=== PATIENT | female | born 1960 ===

== ENCOUNTER 2017-04-09 22:22 | Inpatient (IN) | payer MEDICAID ==
--- NOTE | 2017-04-09 22:33 | ED PDOC ---
Arrival/HPI - General Time Seen by Provider: 04/09/17 22:31 Historian: Patient - Critical Care Critical Care Minutes: 30 minutes - History of Present Illness Narrative History of Present Illness (Text): 04/09/17 22:31 Cristine Nicholas is a 56 year old female, whose past medical history includes asthma, who presents to the emergency department complaining of pleuritic, retrosternal chest pain that began this morning. Patient states that she feels heavy and experiences dyspnea on exertion. Patient confirms that her current symptoms are different from her asthma symptoms. At present, patient is in no respiratory distress and denies any other complaint at this time. PMD: Dr. Collins Time/Duration: 24 hours (This morning) Symptom Onset: Gradual Symptom Course: Unchanged Severity Level: Mild Activities at Onset: Light Context: Home Past Medical History - Provider Review Nursing Documentation Reviewed: Yes - Infectious Disease Hx of Infectious Diseases: None - Tetanus Immunization Tetanus Immunization: Unknown - Cardiac Hx Cardiac Disorders: Yes - Pulmonary Hx Respiratory Disorders: Yes Hx Asthma: Yes Hx Pneumonia: Yes - Neurological Hx Neurological Disorder: No - HEENT Hx HEENT Disorder: No - Renal Hx Renal Disorder: No - Endocrine/Metabolic Hx Diabetes Mellitus Type 1: Yes - Hematological/Oncological Hx Blood Disorders: No - Integumentary Hx Dermatological Disorder: No - Musculoskeletal/Rheumatological Hx Musculoskeletal Disorders: Yes (fracture left leg) Hx Falls: No - Gastrointestinal Hx Gastrointestinal Disorders: No - Genitourinary/Gynecological Hx Genitourinary Disorders: No - Psychiatric Hx Psychophysiologic Disorder: No Hx Anxiety: No Hx Bipolar Disorder: No Hx Depression: No Hx Emotional Abuse: No Hx Hallucinations: No Hx Panic Disorder: No Hx Post Traumatic Stress Disorder: No Hx Psychosis: No Hx Physical Abuse: No Hx Schizophrenia: No Hx Sexual Abuse: No Hx Substance Use: No - Surgical History Hx Musculoskeletal Surgery: Yes (left leg/knee) - Anesthesia Hx Anesthesia: Yes Hx Anesthesia Reactions: No Hx Malignant Hyperthermia: No - Suicidal Assessment Feels Threatened In Home Enviroment: No Family/Social History - Physician Review Nursing Documentation Reviewed: Yes Family/Social History: No Known Family HX Smoking Status: Never Smoked Hx Alcohol Use: No Hx Substance Use: No Hx Substance Use Treatment: No Allergies/Home Meds Allergies/Adverse Reactions: Allergies No Known Allergies Allergy (Verified 06/02/16 11:14) Home Medications: Home Meds Medication Instructions Recorded Confirmed Benzonatate [Tessalon Perles] 200 mg PO TID 01/18/13 06/02/16 Calcium Phosphate Trib/Vit D3 1 tab PO DAILY 01/17/16 06/02/16 [Calcium + Vitamin D3 Gummies] Glimepiride [Glimepiride] 2 mg PO BID 01/17/16 06/02/16 Insulin Detemir [Levemir] 15 units SC BID 01/17/16 06/02/16 Insulin Lispro [Humalog] 20 units SC TID 01/17/16 06/02/16 Lovastatin [Lovastatin] 10 mg PO DAILY 01/17/16 06/02/16 Metformin HCl [Glucophage] 1,000 mg PO BID 01/17/16 06/02/16 Salmeterol Xinafoate/Fluticaso 1 puff INH BID 01/17/16 06/02/16 [Advair Hfa 230-21] methylPREDNISolone [Medrol] 4 mg PO DAILY 01/17/16 06/02/16 Physical Exam - Physical Exam Narrative Physical Exam (Text): - Review of Systems Constitutional: Normal. absent: Fatigue, Weight Change, Fevers Eyes: Normal ENT: Normal Respiratory: Dyspnea on exertion. absent: Cough, Sputum Cardiovascular: Retrosternal Chest pain absent:Palpitations, Syncope Gastrointestinal: Normal absent: Abdominal pain, Diarrhea, Nausea, Vomiting Genitourinary: Normal. absent: Dysuria, Frequency, Hematuria Musculoskeletal: Normal. absent: Arthralgias, Back Pain, Neck Pain Skin: Normal Neurological: Normal absent: Focal Weakness Endocrine: Normal Hemo/Lymphatic: Normal Psychiatric: Normal - Physical exam Patient appears age appropriate, speaking full sentences without difficulty - Systems Exam Head: Present: Atraumatic, Normocephalic Pupils: Present: PERRL Extraocular Muscles: Present: EOMI Conjunctiva: Present: Normal Mouth: Present: Moist Mucous Membranes Neck: Present: Normal Range of Motion. No: MIDLINE TENDERNESS, Paraspinal Tenderness Respiratory/Chest: Expiratory wheezing bilaterally. No: Respiratory Distress, Accessory Muscle Use, Tachypneic Cardiovascular: Present: Regular Rate and Rhythm, Normal S1, S2, Peripheral Pulses Present. No: Murmurs Abdomen: Present: Normal Bowel Sounds, No: Tenderness, Peritoneal Signs, Rebound, Guarding, Distention Back: Present: Normal Inspection. No: Midline Tenderness, Paraspinal Tenderness Upper Extremity: Present: Normal Inspection. No: Cyanosis, Edema Lower Extremity: Present: Normal Inspection. No: Edema Neurological: Present: GCS=15, Speech Normal, cranial nerves II through XII fully intact with no cerebellar abnormality, neuro-sensory fully intact. No focal neurological deficits. Skin: Present: Warm, Dry, Normal Color. No: Rashes Lymphatic: Present: OX3, NI, NC Psychiatric: Present: Alert, Oriented x 3, Normal Insight, Normal Concentration 04/10/17 00:46 Vital Signs Reviewed: Yes Vital Signs Temp Pulse Resp BP Pulse Ox 04/10/17 03:28 100 H 18 134/81 98 04/10/17 01:05 101 H 18 125/68 100 04/09/17 22:46 98.5 F 04/09/17 22:22 104 H 20 156/88 H 95 Temperature: Afebrile Blood Pressure: Hypertensive Pulse: Tachycardic Respiratory Rate: Normal Medical Decision Making ED Course and Treatment: 04/09/17 22:31 Impression: 56 year old female complaining of pleuritic, retrosternal chest pain that began this morning. At present, patient is no respiratory distress but has expiratory wheezing. Differential Diagnosis include but are not limited to: Asthma vs. ACS vs. Pneumonia Plan: -- Chest X-ray -- Labs -- Duoneb, Aspirin, Solu-medrol, and Nitrostat -- Reassess and disposition Prior Visits: Notes and results from previous visits were reviewed. Patient last seen in ED on 05/23/16 treated for asthma exacerbation. Patient was discharged home. Progress Notes: EKG: Ordered, reviewed, and independently interpreted the EKG. Rate : 107 BPM Rhythm : Sinus tachycardia Interpretation : No ST-segment elevations or depressions, no T-wave inversions, normal intervals. Comparison : No previous EKG for comparison. 04/10/17 00:40 On reevaluations, after nebulizer treatments, patient's wheezing has improved but still present. 04/10/17 00:47 Chest xray shows no cardiomegaly, no pneumothorax, no effusion, no infiltrates. 04/10/17 04:11 dw and signed out to See Herrera and Norris Page pt in no distress, aware of and agrees with plan 04/10/17 04:[address] w/ IV contrast: Dictated and Authenticated by: Linda Gonzales MD FINDINGS: PULMONARY ARTERIES: Contrast opacification of the pulmonary arteries is adequate , and there are no filling defects seen to suggest pulmonary embolism. AORTA: No evidence of aortic dissection. LUNGS: Multiple clusters of tree-in-bud opacities and punctate nodules seen in the right upper lobe. There is also bilateral peribronchial thickening. In an acute setting, the findings are most likely due to an infectious bronchitis/bronchiolitis. Patchy areas of groundglass density in the lungs bilaterally, with a lower lung predominance, suspicious for bilateral groundglass airspace disease. Densities in the lung apices bilaterally, with an appearance most suggestive of biapical scarring. There are also a few nodules with central calcification, subpleural calcifications, and calcified lymph nodes. Findings are suggestive of a prior biapical chronic infectious or inflammatory process, likely a granulomatous process. PLEURAL SPACE: No pneumothorax or pleural effusions seen. HEART: Small amount of fluid in the pericardium. No evidence of a large circumferential pericardial effusion. BONES/JOINTS: Bony structures appear demineralized. SOFT TISSUES: No acute abnormality of the visualized soft tissues seen. LYMPH NODES: No evidence of diffuse pathologic lymphadenopathy. IMPRESSION: - Findings suspicious for infectious bronchiolitis/bronchitis, greatest in the right upper lobe. Followup is recommended, as this has a micronodular component. - Patchy bilateral groundglass airspace disease. This is suspicious for a patchy bilateral infiltrate/pneumonia, although mild alveolar pulmonary edema could also have this appearance. Recommend clinical correlation. - Otherwise, no evidence of significant acute process. No evidence of pulmonary embolism. - Scarring in the lung apices bilaterally, as described. - See above for remaining findings. - Lab Interpretations Lab Results: 04/09/17 23:20 04/09/17 23:20 Lab Results 04/09/17 23:20: Sodium 133, Potassium 4.1, Chloride 100, Carbon Dioxide 29, Anion Gap 8 L, BUN 18, Creatinine 0.8, Est GFR ( Amer) > 60, Est GFR (Non -Af Amer) > 60, Random Glucose 306 H*, Calcium 9.6, Total Bilirubin 0.3, AST 19 , ALT 34, Alkaline Phosphatase 94, Lactate Dehydrogenase 350, Total Creatine Kinase < 20 L, Troponin I < 0.01, Total Protein 7.1, Albumin 3.5, Globulin 3.5, Albumin/Globulin Ratio 1.0 L 04/09/17 23:20: PT 10.5, INR 0.97, APTT 29.2, D-Dimer, Quantitative 0.73 H 04/09/17 23:20: WBC 8.7, RBC 4.28, Hgb 12.2, Hct 36.5, MCV 85.3, MCH 28.5, MCHC 33.4, RDW 12.9, Plt Count 296, MPV 12.0 H, Gran % 65.0, Lymph % (Auto) 20.2 L, Cameron % (Auto) 9.7 H, Eos % (Auto) 4.9, Baso % (Auto) 0.2, Gran # 5.66, Lymph # 1.8, Cameron # 0.9 H, Eos # 0.4, Baso # 0.02 - RAD Interpretation Radiology Orders: 04/09/17 22:44 CHEST PORTABLE [RAD] Stat 04/10/17 02:00 ANGIO CHEST PE PROTOCOL [CT] Stat - Medication Orders Current Medication Orders: Acetaminophen (Tylenol 325mg Tab) 650 mg PO Q6H PRN PRN Reason: Fever >100.4 F Carbamide Peroxide (Debrox Ear Drops) ml AU BID DONALD Ceftriaxone Sodium (Rocephin) 1 gm IM Q24H DONALD PRN Reason: Protocol Enoxaparin Sodium (Lovenox) 40 mg SC DAILY [facility] PRN Reason: Protocol Famotidine (Pepcid) 20 mg PO BID DONALD Glimepiride (Amaryl) 2 mg PO BID DONALD Magnesium Sulfate 2 gm/ Sodium (Chloride) 104 mls @ 102 mls/hr IVPB ONCE ONE Stop: 04/10/17 05:15 Azithromycin (Zithromax 500mg In Ns) 500 mg in 250 mls @ 167 mls/hr IVPB DAILY [facility] PRN Reason: Protocol Ibuprofen (Motrin Tab) 600 mg PO Q6H PRN PRN Reason: Pain, Mild (1-3) Insulin Detemir (Levemir) 15 unit SC BID DONALD Insulin Human Lispro (Humalog High) 20 units SC TID [facility] PRN Reason: Protocol Insulin Human Lispro (Humalog) 0 units SC ACHS DONALD PRN Reason: Protocol Levalbuterol HCl (Xopenex) 1.25 mg IH Q2H PRN PRN Reason: SOB Methylprednisolone (Solu-Medrol) 40 mg IVP Q8H DONALD Non-Formulary Medication (Calcium Phosphate Trib/Vit D3 [Calcium + Vitamin D3 Gummies]) 1 tab PO DAILY DONALD Non-Formulary Medication (Lovastatin [Lovastatin]) 10 mg PO DAILY DONLAD Non-Formulary Medication (Salmeterol Xinafoate/Fluticaso [Advair Hfa 230-21]) 1 puff INH BID DONALD Pantoprazole Sodium (Protonix Ec Tab) 40 mg PO DAILY DONALD Discontinued Medications Albuterol Sulfate (Albuterol 0.5% Inhal Gema (2.5 Mg/0.5 Ml) Ud) 2.5 mg IH STAT STA Stop: 04/10/17 00:40 Last Admin: 04/10/17 00:52 Dose: 2.5 mg Albuterol/Ipratropium (Duoneb 3 Mg/0.5 Mg (3 Ml) Ud) 3 ml IH STAT STA Stop: 04/09/17 22:40 Last Admin: 04/09/17 23:26 Dose: 3 ml Aspirin (Aspirin Chewable) 324 mg PO STAT STA Stop: 04/09/17 22:40 Last Admin: 04/09/17 23:00 Dose: 324 mg Sodium Chloride (Sodium Chloride 0.9%) 1,000 mls @ 1,000 mls/hr IV .Q1H STA Stop: 04/10/17 02:59 Last Admin: 04/10/17 02:22 Dose: 1,000 mls/hr Iodixanol (Visipaque 320 Mg/Ml 100 Ml) Confirm Administered Dose 100 ml IV .STK- MED ONE Stop: 04/10/17 02:51 Methylprednisolone (Solu-Medrol) 125 mg IVP STAT STA Stop: 04/09/17 22:46 Last Admin: 04/09/17 23:25 Dose: 125 mg Nitroglycerin (Nitrostat Sl Tab) 0.3 mg SL STAT STA Stop: 04/09/17 22:40 Last Admin: 04/09/17 23:26 Dose: 0.3 mg - Scribe Statement The provider has reviewed the documentation as recorded by the Sheri Aleman Provider Scribe Attestation: All medical record entries made by the Scribe were at my direction and personally dictated by me. I have reviewed the chart and agree that the record accurately reflects my personal performance of the history, physical exam, medical decision making, and the department course for this patient. I have also personally directed, reviewed, and agree with the discharge instructions and disposition. Disposition/Present on Arrival - Present on Arrival Any Indicators Present on Arrival: No History of DVT/PE: No History of Uncontrolled Diabetes: No Urinary Catheter: No History Surgical Site Infection Following: None - Disposition Have Diagnosis and Disposition been Completed?: Yes Diagnosis: Asthma, Chest pain Disposition: HOSPITALIZED Disposition Time: 04:14 Patient Plan: Observation Patient Problems: Current Active Problems Problem Status Onset Asthma Acute Chest pain Acute Condition: FAIR
[2017-04-09] MEDS ORDERED: Albuterol-Ipratrop 3 mg / 0.5 (3 ml) UD IH STA (22:39)
[2017-04-09 23:55] LABS: ADD MANUAL DIFF? NO
[2017-04-10 00:04] LABS: BASO # 0.02 K/mm3 (0.0-2.0); BASO % 0.2 % (0.0-3.0); EOS # 0.4 (0.0-0.7); EOS % 4.9 % (1.5-5.0); GRAN # 5.66 (1.4-6.5); HEMATOCRIT 36.5 % (36.0-48.0); LYMPH # 1.8 (1.2-3.4); LYMPH % 20.2 % (22.0-35.0); MEAN CELL VOLUME 85.3 fL (80.0-105.0); MEAN CORPUSCULAR HEMOGLOBIN 28.5 pg (25.0-35.0); MEAN CORPUSCULAR HGB CONC 33.4 g/dl (31.0-37.0); MONO # 0.9 (0.1-0.6); MONO % 9.7 % (1.0-6.0); PLATELET COUNT 296 10^3/uL (120.0-450.0); RED CELL DISTRIBUTION WIDTH 12.9 % (11.5-14.5); WHITE BLOOD COUNT 8.7 10^3/ul (4.5-11.0)
[2017-04-10] MEDS ORDERED: Albuterol 0.5% Inhal Sol (2.5 mg/0.5 ml) UD IH STA (00:39)
[2017-04-10 00:55] LABS: ALKALINE PHOSPHATASE 94 U/L (38-133); ALT/SGPT 34 U/L (7-56); AST/SGOT 19 U/L (15-39); BILIRUBIN,TOTAL 0.3 mg/dL (0.2-1.3); BLOOD UREA NITROGEN 18 mg/dL (7-21); CALCIUM 9.6 mg/dL (8.4-10.5); CARBON DIOXIDE 29 mmol/L (21-33); GFR AFRICAN-AMERICAN > 60; POTASSIUM 4.1 mmol/L (3.6-5.0); SODIUM 133 mmol/L (132-148); TOTAL PROTEIN 7.1 g/dL (5.8-8.3)
[2017-04-10 00:58] LABS: INR 0.97 (0.93-1.08); PARTIAL THROMBOPLASTIN TIME 29.2 Seconds (23.7-30.8)
[2017-04-10 00:59] LABS: D DIMER 0.73 mg/L FEU (0-0.50)
[2017-04-10 01:17] LABS: CHLORIDE 100 mmol/L (98-107)
[2017-04-10 01:21] LABS: TROPONIN I < 0.01 ng/mL
[2017-04-10 01:22] LABS: GLUCOSE,RANDOM 306 mg/dL (70-110)
[2017-04-10] MEDS ORDERED: Sodium Chloride 0.9% 1,000 ML IV STA (02:00)
[2017-04-10] MEDS ORDERED: Iodixanol 320 MG/ML 100 ML BOTTLE IV ONE (02:50)
[2017-04-10] MEDS ORDERED: Magnesium Sulfate 2 GM in Sodium Chloride 0.9% 100 ML IVPB ONE (04:14)
[2017-04-10] MEDS ORDERED: cefTRIAXone (Rocephin) 1 gm Inj IM SCH (04:45)
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
[2017-04-10] MEDS: cefTRIAXone 1 gm in NS 100ml IVPB SCH (06:26)
[2017-04-10] MEDS: Insulin Lispro 1 UNITS/0.01 ML SC SCH ×6 (09:35→22:16)
[2017-04-10] MEDS ORDERED: Insulin Detemir 100 units/ml Vial (Levemir) SC SCH (10:00)
[2017-04-10] MEDS ORDERED: Insulin Lispro 1 UNITS/0.01 ML SC SCH (10:00)
[2017-04-10] MEDS: VIT D3 PO SCH (10:15)
[2017-04-10] MEDS: CALCIUM PHOSPHATE TRIB PO SCH (10:15)
[2017-04-10] MEDS: [UNRECOGNIZED DRUG - OTHER] PO SCH (10:15)
[2017-04-10] MEDS: Enoxaparin 40 mg Syringe SC SCH (10:21)
--- NOTE | 2017-04-10 10:48 | CT ---
PROCEDURE: CT Chest with contrast (Pulmonary Angiogram) HISTORY: COMPARISON: None available. TECHNIQUE: Axial computed tomography images were obtained of the chest in the pulmonary arterial phase of enhancement. Coronal and sagittal reformatted images were created and reviewed. Intravenous contrast dose: 100 cc of Omnipaque 300 Radiation dose: Total exam DLP = 434 mGy-cm. This CT exam was performed using one or more of the following dose reduction techniques: Automated exposure control, adjustment of the mA and/or kV according to patient size, and/or use of iterative reconstruction technique. FINDINGS: PULMONARY ARTERIES: Unremarkable. No pulmonary embolism. AORTA: No acute findings. No thoracic aortic aneurysm. LUNGS: Biapical pleural parenchymal fibronodular changes noted. There is also bilateral upper lung zone interstitial infiltrates most notably in the right upper lobe. PLEURAL SPACES: Unremarkable. No effusion or pneuomothorax. HEART: Unremarkable. No cardiomegaly. No significant pericardial effusion. LYMPH NODES: No lymphadenopathy. BONES, CHEST WALL: Unremarkable. No fracture or destructive lesion OTHER FINDINGS: Unremarkable. IMPRESSION: No pulmonary embolism. Bilateral apical fibronodular changes as well as bilateral upper lung zone interstitial infiltrates most notably in the right upper lobe.
[2017-04-10] MEDS ORDERED: Pantoprazole 40 mg EC Tab PO ONE (11:43)
[2017-04-10] MEDS ORDERED: MethylPREDNISolone 40 mg Vial ONE (11:43)
[2017-04-10] MEDS: Pantoprazole 40 mg EC Tab PO SCH (11:47)
[2017-04-10] MEDS: Azithromycin 500MG/NS 250ml 500 MG/250 ML BAG IVPB SCH (12:49)
--- NOTE | 2017-04-10 12:54 | RAD ---
HISTORY: cough COMPARISON: 06/02/2016 FINDINGS: LUNGS: No active pulmonary disease. PLEURA: No significant pleural effusion identified, no pneumothorax apparent. CARDIOVASCULAR: Normal. OSSEOUS STRUCTURES: No significant abnormalities. VISUALIZED UPPER ABDOMEN: Normal. OTHER FINDINGS: None. IMPRESSION: No active disease.
--- NOTE | 2017-04-10 18:09 | CARD ---
APPROVED REPORT EKG Measurement Heart [id number] <Conclusion> Sinus tachycardia Otherwise normal ECG
--- NOTE | 2017-04-10 18:19 | US ---
HISTORY: Leg pain and swelling. Evaluate for DVT PHYSICIAN(S): Tom Carvajal MD. TECHNIQUE: Duplex sonography and color-flow Doppler with graded compression were used to evaluate the deep venous systems of both lower extremities. FINDINGS: The visualized deep venous systems of both lower extremities are sonographically normal and compressible. Normal wave forms and augmentation are seen. There is no sonographic evidence for deep venous thrombosis in the visualized segments of both lower extremities. IMPRESSION: No sonographic evidence for deep venous thrombosis in the visualized segments of both lower extremities.
[2017-04-10] MEDS: Insulin Detemir 100 units/ml Vial (Levemir) SC SCH (18:43)
[2017-04-10] MEDS: FLUTICASO INH SCH (19:09)
[2017-04-10] MEDS: SALMETEROL XINAFOATE INH SCH (19:09)
[2017-04-10] MEDS: MethylPREDNISolone 40 mg Vial IVP SCH ×2 (19:10→22:16)
[2017-04-10] MEDS ORDERED: Magnesium Hydroxide Susp 30 ml UD PO ONE (21:54)
[2017-04-11 00:09] VITALS: BMI 29.0
[2017-04-11] MEDS: cefTRIAXone 1 gm in NS 100ml IVPB SCH (05:34)
[2017-04-11 08:03] LABS: ADD MANUAL DIFF? NO
[2017-04-11 08:07] LABS: BASO # 0.01 K/mm3 (0.0-2.0); GRAN # 20.13 (1.4-6.5); GRAN % 90.1 % (50.0-68.0); HEMATOCRIT 35.7 % (36.0-48.0); LYMPH # 1.2 (1.2-3.4); LYMPH % 5.1 % (22.0-35.0); MEAN CORPUSCULAR HGB CONC 34.2 g/dl (31.0-37.0); MEAN PLATELET VOLUME 12.2 fl (7.0-11.0); MONO # 1.1 (0.1-0.6); MONO % 4.8 % (1.0-6.0); PLATELET COUNT 230 10^3/uL (120.0-450.0); WHITE BLOOD COUNT 22.4 10^3/ul (4.5-11.0)
[2017-04-11] MEDS: Pantoprazole 40 mg EC Tab PO SCH (08:11)
[2017-04-11] MEDS: MethylPREDNISolone 40 mg Vial IVP SCH ×3 (08:11→22:06)
[2017-04-11] MEDS: Insulin Lispro 1 UNITS/0.01 ML SC SCH ×7 (08:11→22:04)
[2017-04-11 08:18] LABS: ALKALINE PHOSPHATASE 81 U/L (38-133); ALT/SGPT 28 U/L (7-56); AST/SGOT 18 U/L (15-39); BILIRUBIN,TOTAL 0.2 mg/dL (0.2-1.3); BLOOD UREA NITROGEN 25 mg/dL (7-21); CALCIUM 9.2 mg/dL (8.4-10.5); CARBON DIOXIDE 25 mmol/L (21-33); CHLORIDE 105 mmol/L (95-110); GFR AFRICAN-AMERICAN > 60; GLUCOSE,RANDOM 247 mg/dL (70-110); MAGNESIUM 2.5 mg/dL (1.7-2.2); PHOSPHOROUS 3.2 mg/dL (2.5-4.5); POTASSIUM 4.7 mmol/L (3.6-5.0); SODIUM 136 mmol/L (132-148); TOTAL PROTEIN 6.8 g/dL (5.8-8.3)
[2017-04-11] MEDS: Levalbuterol 1.25 MG/3 ML Inhal Soln UD IH PRN (09:11)
[2017-04-11] MEDS: CALCIUM PHOSPHATE TRIB PO SCH (10:08)
[2017-04-11] MEDS: VIT D3 PO SCH (10:08)
[2017-04-11] MEDS: [UNRECOGNIZED DRUG - OTHER] PO SCH (10:08)
[2017-04-11] MEDS: Insulin Detemir 100 units/ml Vial (Levemir) SC SCH ×2 (10:12→19:42)
[2017-04-11] MEDS: Enoxaparin 40 mg Syringe SC SCH (10:12)
[2017-04-11] MEDS: SALMETEROL XINAFOATE INH SCH ×2 (10:13→17:21)
[2017-04-11] MEDS: FLUTICASO INH SCH ×2 (10:13→17:21)
[2017-04-11] MEDS: Azithromycin 500MG/NS 250ml 500 MG/250 ML BAG IVPB SCH (10:14)
--- NOTE | 2017-04-11 11:31 | CP.PCM.PN ---
<Glynn Menezes - Last Filed: 04/11/17 11:31> Subjective - Date & Time of Evaluation Date of Evaluation: 04/11/17 Time of Evaluation: 11:30 - Subjective Subjective: Med progress note. Attending: Dr. Adorno Pt seen and examined at bedside. No acute distress. Pt breathing better, wheezing better. No fevers, chills, vomiting, diarrhea. Objective - Vital Signs/Intake and Output Vital Signs (last 24 hours): Temp Pulse Resp BP Pulse Ox 97.6 F 71 20 121/83 98 04/11/17 06:00 04/11/17 06:00 04/11/17 06:00 04/11/17 06:00 04/11/17 06:00 Intake and Output: 04/11/17 04/11/17 06:59 18:59 Intake Total 2160 Balance 2160 - Medications Medications: Current Medications Acetaminophen (Tylenol 325mg Tab) 650 mg PO Q6H PRN PRN Reason: Fever >100.4 F Last Admin: 04/11/17 10:16 Dose: 650 mg Arformoterol Tartrate (Brovana) 15 mcg IH [id number] [facility] Atorvastatin Calcium (Lipitor) 10 mg PO DIN [facility] Last Admin: 04/10/17 18:40 Dose: 10 mg Budesonide (Pulmicort Respules) 0.5 mg IH [id number] [facility] Carbamide Peroxide (Debrox Ear Drops) 0 ml AU BID [facility] Last Admin: 04/11/17 10:10 Dose: 5 drop Enoxaparin Sodium (Lovenox) 40 mg SC DAILY [facility] PRN Reason: Protocol Last Admin: 04/11/17 10:12 Dose: 40 mg Famotidine (Pepcid) 20 mg PO BID [facility] Last Admin: 04/11/17 10:13 Dose: 20 mg Glimepiride (Amaryl) 2 mg PO BID [facility] Last Admin: 04/11/17 10:08 Dose: 2 mg Azithromycin (Zithromax 500mg In Ns) 500 mg in 250 mls @ 167 mls/hr IVPB DAILY [facility] PRN Reason: Protocol Last Admin: 04/11/17 10:14 Dose: 167 mls/hr Ceftriaxone Sodium (Rocephin 1 Gram Ivpb) 1 gm in 100 mls @ 100 mls/hr IVPB Q24H [facility] Last Admin: 04/11/17 05:34 Dose: 100 mls/hr Ibuprofen (Motrin Tab) 600 mg PO Q6H PRN PRN Reason: Pain, Mild (1-3) Insulin Detemir (Levemir) 18 unit SC BID [facility] Last Admin: 04/11/17 10:12 Dose: 18 unit Insulin Human Lispro (Humalog) 0 units SC ACHS [facility] PRN Reason: Protocol Last Admin: 04/11/17 08:11 Dose: 3 units Insulin Human Lispro (Humalog) 25 units SC TID [facility] PRN Reason: Protocol Last Admin: 04/11/17 10:11 Dose: 25 units Levalbuterol HCl (Xopenex) 1.25 mg IH Q2H PRN PRN Reason: SOB Last Admin: 04/11/17 09:11 Dose: 1.25 mg Loratadine (Claritin) 10 mg PO DAILY [facility] Last Admin: 04/11/17 10:08 Dose: 10 mg Methylprednisolone (Solu-Medrol) 40 mg IVP Q12 [facility] Last Admin: 04/11/17 10:14 Dose: Not Given Non-Formulary Medication (Calcium Phosphate Trib/Vit D3 [Calcium + Vitamin D3 Gummies]) 1 tab PO DAILY [facility] Last Admin: 04/11/17 10:08 Dose: Not Given Non-Formulary Medication (Salmeterol Xinafoate/Fluticaso [Advair Hfa 230-21]) 1 puff INH BID [facility] Last Admin: 04/11/17 10:13 Dose: Not Given Pantoprazole Sodium (Protonix Ec Tab) 40 mg PO ACB [facility] Last Admin: 04/11/17 08:11 Dose: 40 mg - Labs Labs: 04/11/17 06:30 04/11/17 06:30 PT 10.5 Seconds (9.9-11.8) 04/09/17 23:20 INR 0.97 (0.93-1.08) 04/09/17 23:20 APTT 29.2 Seconds (23.7-30.8) 04/09/17 23:20 - Constitutional Appears: Non-toxic, No Acute Distress - Head Exam Head Exam: ATRAUMATIC, NORMAL INSPECTION, NORMOCEPHALIC - Eye Exam Eye Exam: EOMI - ENT Exam ENT Exam: Mucous Membranes Moist - Neck Exam Neck Exam: Normal Inspection - Respiratory Exam Respiratory Exam: Wheezes. absent: Respiratory Distress - Cardiovascular Exam Cardiovascular Exam: +S1, +S2 - GI/Abdominal Exam GI & Abdominal Exam: Soft, Normal Bowel Sounds. absent: Tenderness - Extremities Exam Extremities Exam: Full ROM, Normal Inspection - Neurological Exam Neurological Exam: Alert, Awake, Oriented x3 - Psychiatric Exam Psychiatric exam: Normal Affect, Normal Mood - Skin Skin Exam: Dry, Intact, Normal Color, Warm Assessment and Plan - Assessment and Plan (Free Text) Assessment: This is a 56 yo female admitted for community acquired pneumonia PNA/Bronchitis-->CAP -f/u blood cultures>> negative so far -no WBC, slight tachycardia, SIRS criteria not met -Ceftriaxone 1g and Azithromycin 500mg daily -supplemental O2 only if PO2 below 90% -OOB encouraged -incentive spirometer -CT Angio PE protocol showed bronchitis/suspicious finding for PNA Asthma Exacerbation -40mg Solumedrol Q12H DONALD -PRN Xopenex Q2H when needed -brovana -pulmicort -supplemental O2 only when hypoxic -encourage out of bed as tolerated DM -Long Acting BID Insulin -Basal meal TID Insulin -Sliding scale coverage as well HLD -c/w home meds -continue lipitor Proph -lovenox -heart healthy diet -pepcid -out of bed encouraged, incentive spirometry discussed with Dr. Adorno <Mariel Adorno - Last Filed: 04/11/17 14:01> Objective - Vital Signs/Intake and Output Vital Signs (last 24 hours): Temp Pulse Resp BP Pulse Ox 97.7 F 103 H 22 141/89 98 04/11/17 12:00 04/11/17 12:00 04/11/17 12:00 04/11/17 12:00 04/11/17 06:00 Intake and Output: 04/11/17 04/11/17 06:59 18:59 Intake Total 2160 Balance 2160 - Medications Medications: Current Medications Acetaminophen (Tylenol 325mg Tab) 650 mg PO Q6H PRN PRN Reason: Fever >100.4 F Last Admin: 04/11/17 10:16 Dose: 650 mg Arformoterol Tartrate (Brovana) 15 mcg IH [id number] [facility] Atorvastatin Calcium (Lipitor) 10 mg PO DIN [facility] Last Admin: 04/10/17 18:40 Dose: 10 mg Budesonide (Pulmicort Respules) 0.5 mg IH [id number] Carbamide Peroxide (Debrox Ear Drops) 0 ml AU BID [facility] Last Admin: 04/11/17 10:10 Dose: 5 drop Enoxaparin Sodium (Lovenox) 40 mg SC DAILY [facility] PRN Reason: Protocol Last Admin: 04/11/17 10:12 Dose: 40 mg Famotidine (Pepcid) 20 mg PO BID [facility] Last Admin: 04/11/17 10:13 Dose: 20 mg Glimepiride (Amaryl) 2 mg PO BID [facility] Last Admin: 04/11/17 10:08 Dose: 2 mg Azithromycin (Zithromax 500mg In Ns) 500 mg in 250 mls @ 167 mls/hr IVPB DAILY [facility] PRN Reason: Protocol Last Admin: 04/11/17 10:14 Dose: 167 mls/hr Ceftriaxone Sodium (Rocephin 1 Gram Ivpb) 1 gm in 100 mls @ 100 mls/hr IVPB Q24H [facility] Last Admin: 04/11/17 05:34 Dose: 100 mls/hr Ibuprofen (Motrin Tab) 600 mg PO Q6H PRN PRN Reason: Pain, Mild (1-3) Insulin Detemir (Levemir) 18 unit SC BID [facility] Last Admin: 04/11/17 10:12 Dose: 18 unit Insulin Human Lispro (Humalog) 0 units SC ACHS [facility] PRN Reason: Protocol Last Admin: 04/11/17 13:17 Dose: 8 units Insulin Human Lispro (Humalog) 25 units SC TID [facility] PRN Reason: Protocol Last Admin: 04/11/17 13:18 Dose: 25 units Levalbuterol HCl (Xopenex) 1.25 mg IH Q2H PRN PRN Reason: SOB Last Admin: 04/11/17 09:11 Dose: 1.25 mg Loratadine (Claritin) 10 mg PO DAILY [facility] Last Admin: 04/11/17 10:08 Dose: 10 mg Methylprednisolone (Solu-Medrol) 40 mg IVP Q12 [facility] Last Admin: 04/11/17 10:14 Dose: Not Given Non-Formulary Medication (Calcium Phosphate Trib/Vit D3 [Calcium + Vitamin D3 Gummies]) 1 tab PO DAILY [facility] Last Admin: 04/11/17 10:08 Dose: Not Given Non-Formulary Medication (Salmeterol Xinafoate/Fluticaso [Advair Hfa 230-21]) 1 puff INH BID [facility] Last Admin: 04/11/17 10:13 Dose: Not Given Pantoprazole Sodium (Protonix Ec Tab) 40 mg PO ACB [facility] Last Admin: 04/11/17 08:11 Dose: 40 mg - Labs Labs: 04/11/17 06:30 04/11/17 06:30 PT 10.5 Seconds (9.9-11.8) 04/09/17 23:20 INR 0.97 (0.93-1.08) 04/09/17 23:20 APTT 29.2 Seconds (23.7-30.8) 04/09/17 23:20 Attending/Attestation - Attestation I have personally seen and examined this patient.: Yes I have fully participated in the care of the patient.: Yes I have reviewed all pertinent clinical information, including history, physical exam and plan: Yes Notes (Text): 04/11/17 13:57 56 year old female with past medical history of asthma, diabetes, and dyslipidemia who presented with shortness of breath secondary to asthma exacerbation and pneumonia as seen on CT chest. She is on iv antibiotics, iv steroids, duonebs, pulmicort and brovana. Her symptoms are slowly improving and her steroids will begin to be tapered to solumedrol 40 mg q12h. Her sugars were very elevated yesterday, likely exacerbated by iv steroids. Her levemir and humalog doses were increased yesterday. Will monitor her fingersticks and adjust her regimen accordingly. Continue with lipitor for dyslipidemia. Mariel Adorno MD Hospitalist.
[2017-04-11] MEDS: POLYETHYLENE GLYCOL 3350 17 GM/Dose PACKET PO SCH (17:19)
[2017-04-11] MEDS: Budesonide 0.5 mg/2 ml Inhal Susp UD IH SCH (19:41)
[2017-04-11] MEDS: Arformoterol 15 mcg/2 ml Inh Sol IH SCH (19:41)
[2017-04-11] MEDS: guaiFENesin DM 100 mg-10 mg/5 ml UD PO SCH ×2 (19:42→23:46)
[2017-04-12] MEDS: cefTRIAXone 1 gm in NS 100ml IVPB SCH (05:35)
[2017-04-12] MEDS: guaiFENesin DM 100 mg-10 mg/5 ml UD PO SCH ×4 (05:45→23:03)
[2017-04-12 07:27] LABS: ADD MANUAL DIFF? NO
[2017-04-12 08:02] LABS: GRAN # 14.82 (1.4-6.5); GRAN % 90.7 % (50.0-68.0); HEMATOCRIT 33.9 % (36.0-48.0); LYMPH # 0.8 (1.2-3.4); LYMPH % 5.1 % (22.0-35.0); MEAN CELL VOLUME 85.8 fL (80.0-105.0); MEAN CORPUSCULAR HEMOGLOBIN 28.9 pg (25.0-35.0); MEAN CORPUSCULAR HGB CONC 33.6 g/dl (31.0-37.0); MEAN PLATELET VOLUME 12.7 fl (7.0-11.0); MONO # 0.7 (0.1-0.6); MONO % 4.2 % (1.0-6.0); PLATELET COUNT 320 10^3/uL (120.0-450.0); RED CELL DISTRIBUTION WIDTH 13.2 % (11.5-14.5); WHITE BLOOD COUNT 16.3 10^3/ul (4.5-11.0)
[2017-04-12 08:10] LABS: ALB/GLOB RATIO 0.9 (1.1-1.8); ALKALINE PHOSPHATASE 79 U/L (38-133); ALT/SGPT 27 U/L (7-56); AST/SGOT 18 U/L (15-39); BILIRUBIN,TOTAL 0.2 mg/dL (0.2-1.3); BLOOD UREA NITROGEN 27 mg/dL (7-21); CALCIUM 9.2 mg/dL (8.4-10.5); CARBON DIOXIDE 23 mmol/L (21-33); CHLORIDE 105 mmol/L (98-107); GFR AFRICAN-AMERICAN > 60; GLUCOSE,RANDOM 297 mg/dL (70-110); MAGNESIUM 2.3 mg/dL (1.7-2.2); PHOSPHOROUS 3.3 mg/dL (2.5-4.5); POTASSIUM 4.9 mmol/L (3.6-5.0); SODIUM 136 mmol/L (132-148); TOTAL PROTEIN 6.9 g/dL (5.8-8.3)
[2017-04-12] MEDS: Budesonide 0.5 mg/2 ml Inhal Susp UD IH SCH ×2 (08:13→19:45)
[2017-04-12] MEDS: Arformoterol 15 mcg/2 ml Inh Sol IH SCH ×2 (08:13→19:45)
[2017-04-12] MEDS: Insulin Lispro 1 UNITS/0.01 ML SC SCH ×7 (08:15→22:06)
[2017-04-12] MEDS: Pantoprazole 40 mg EC Tab PO SCH (08:15)
[2017-04-12] MEDS: CALCIUM PHOSPHATE TRIB PO SCH (09:13)
[2017-04-12] MEDS: VIT D3 PO SCH (09:13)
[2017-04-12] MEDS: [UNRECOGNIZED DRUG - OTHER] PO SCH (09:13)
[2017-04-12] MEDS: FLUTICASO INH SCH ×2 (09:16→17:41)
[2017-04-12] MEDS: SALMETEROL XINAFOATE INH SCH ×2 (09:16→17:41)
[2017-04-12] MEDS: MethylPREDNISolone 40 mg Vial IVP SCH ×2 (09:32→22:01)
[2017-04-12] MEDS: Azithromycin 500MG/NS 250ml 500 MG/250 ML BAG IVPB SCH (09:32)
[2017-04-12] MEDS: Enoxaparin 40 mg Syringe SC SCH (09:33)
[2017-04-12] MEDS: Insulin Detemir 100 units/ml Vial (Levemir) SC SCH ×2 (09:33→17:37)
[2017-04-12] MEDS: POLYETHYLENE GLYCOL 3350 17 GM/Dose PACKET PO SCH ×2 (09:34→17:38)
--- NOTE | 2017-04-12 12:15 | CP.PCM.PN ---
<Cruz Cummings - Last Filed: 04/12/17 12:05> Subjective - Date & Time of Evaluation Date of Evaluation: 04/12/17 Time of Evaluation: 07:20 - Subjective Subjective: Medicine progress note: Pt seen and examined at bedside. No acute events overnight. Pt states that her cough and sob has improved. Still c/o of minor wheezing. Denies any saucedo, dizziness, f/c, sob, cp, abd pain, n/v/d. Objective - Vital Signs/Intake and Output Vital Signs (last 24 hours): Temp Pulse Resp BP Pulse Ox 98.2 F 91 H 20 150/76 96 04/12/17 06:00 04/12/17 06:00 04/12/17 06:00 04/12/17 06:00 04/12/17 06:00 Intake and Output: 04/12/17 04/12/17 06:59 18:59 Intake Total 890 Output Total 500 Balance 390 - Medications Medications: Current Medications Acetaminophen (Tylenol 325mg Tab) 650 mg PO Q6H PRN PRN Reason: Fever >100.4 F Last Admin: 04/12/17 11:53 Dose: 650 mg Arformoterol Tartrate (Brovana) 15 mcg IH [id number] [facility] Last Admin: 04/12/17 08:13 Dose: 15 mcg Atorvastatin Calcium (Lipitor) 10 mg PO DIN [facility] Last Admin: 04/11/17 17:19 Dose: 10 mg Budesonide (Pulmicort Respules) 0.5 mg IH [id number] [facility] Last Admin: 04/12/17 08:13 Dose: 0.5 mg Carbamide Peroxide (Debrox Ear Drops) 0 ml AU BID [facility] Last Admin: 04/12/17 09:32 Dose: 5 drop Enoxaparin Sodium (Lovenox) 40 mg SC DAILY [facility] PRN Reason: Protocol Last Admin: 04/12/17 09:33 Dose: 40 mg Famotidine (Pepcid) 20 mg PO BID [facility] Last Admin: 04/12/17 09:33 Dose: 20 mg Glimepiride (Amaryl) 2 mg PO BID [facility] Last Admin: 04/12/17 09:34 Dose: 2 mg Guaifenesin/Dextromethorphan (Robitussin Dm) 5 ml PO Q6H [facility] Last Admin: 04/12/17 11:53 Dose: 5 ml Azithromycin (Zithromax 500mg In Ns) 500 mg in 250 mls @ 167 mls/hr IVPB DAILY [facility] PRN Reason: Protocol Last Admin: 04/12/17 09:32 Dose: 167 mls/hr Ceftriaxone Sodium (Rocephin 1 Gram Ivpb) 1 gm in 100 mls @ 100 mls/hr IVPB Q24H [facility] Last Admin: 04/12/17 05:35 Dose: 100 mls/hr Ibuprofen (Motrin Tab) 600 mg PO Q6H PRN PRN Reason: Pain, Mild (1-3) Insulin Detemir (Levemir) 18 unit SC BID [facility] Last Admin: 04/12/17 09:33 Dose: 18 unit Insulin Human Lispro (Humalog) 0 units SC ACHS [facility] PRN Reason: Protocol Last Admin: 04/12/17 11:53 Dose: 5 units Insulin Human Lispro (Humalog) 25 units SC TID [facility] PRN Reason: Protocol Last Admin: 04/12/17 09:33 Dose: 25 units Levalbuterol HCl (Xopenex) 1.25 mg IH Q2H PRN PRN Reason: SOB Last Admin: 04/11/17 09:11 Dose: 1.25 mg Loratadine (Claritin) 10 mg PO DAILY [facility] Last Admin: 04/12/17 09:32 Dose: 10 mg Methylprednisolone (Solu-Medrol) 40 mg IVP Q12 [facility] Last Admin: 04/12/17 09:32 Dose: 40 mg Non-Formulary Medication (Calcium Phosphate Trib/Vit D3 [Calcium + Vitamin D3 Gummies]) 1 tab PO DAILY [facility] Last Admin: 04/12/17 09:13 Dose: Not Given Non-Formulary Medication (Salmeterol Xinafoate/Fluticaso [Advair Hfa 230-21]) 1 puff INH BID [facility] Last Admin: 04/12/17 09:16 Dose: Not Given Pantoprazole Sodium (Protonix Ec Tab) 40 mg PO ACB [facility] Last Admin: 04/12/17 08:15 Dose: 40 mg Polyethylene Glycol (Miralax) 17 gm PO BID [facility] Last Admin: 04/12/17 09:34 Dose: 17 gm Sennosides (Senokot Tab) 8.6 mg PO DAILY [facility] Last Admin: 04/12/17 09:32 Dose: 8.6 mg - Labs Labs: 04/12/17 07:00 04/12/17 07:00 PT 10.5 Seconds (9.9-11.8) 04/09/17 23:20 INR 0.97 (0.93-1.08) 04/09/17 23:20 APTT 29.2 Seconds (23.7-30.8) 04/09/17 23:20 - Constitutional Appears: No Acute Distress - Head Exam Head Exam: ATRAUMATIC, NORMAL INSPECTION, NORMOCEPHALIC - Eye Exam Eye Exam: EOMI, Normal appearance, PERRL Pupil Exam: NORMAL ACCOMODATION, PERRL - ENT Exam ENT Exam: Mucous Membranes Moist, Normal Exam - Neck Exam Neck Exam: Full ROM, Normal Inspection. absent: Lymphadenopathy - Respiratory Exam Respiratory Exam: Clear to Ausculation Bilateral, NORMAL BREATHING PATTERN. absent: Wheezes - Cardiovascular Exam Cardiovascular Exam: REGULAR RHYTHM, RRR, +S1, +S2. absent: Murmur - GI/Abdominal Exam GI & Abdominal Exam: Soft, Normal Bowel Sounds. absent: Distended, Tenderness - Extremities Exam Extremities Exam: Full ROM, Normal Capillary Refill, Normal Inspection. absent : Calf Tenderness, Joint Swelling, Pedal Edema - Back Exam Back Exam: NORMAL INSPECTION - Neurological Exam Neurological Exam: Alert, Awake, CN II-XII Intact, Oriented x3 - Psychiatric Exam Psychiatric exam: Normal Affect, Normal Mood - Skin Skin Exam: Dry, Intact, Normal Color, Warm Assessment and Plan - Assessment and Plan (Free Text) Assessment: 56 year old female with pmh of asthma, diabetes, and HLD who presented with shortness of breath secondary to asthma exacerbation and pneumonia 1. PNA/Bronchitis-->CAP - WBC 16.3, slight tachycardia 91, -Ceftriaxone 1g and Azithromycin 500mg daily -supplemental O2 only if PO2 below 90% -OOB encouraged -incentive spirometer -CT Angio PE protocol showed negative PE, bronchitis/suspicious finding for PNA - US of ext -neg for DVT -f/u blood cultures neg 2. Asthma Exacerbation -40mg Solumedrol Q12H [facility] -PRN Xopenex Q2H -Brovana & pulmicort -Cont Robitussin -F/u Pulm conuslt and recs -supplemental O2 PRN -encourage out of bed as tolerated 3. DM -Long Acting BID Insulin -Basal meal TID Insulin -Sliding scale coverage as well 4. HLD -c/w home meds -continue home lipitor 5. GI/DVT Ppx -Lovenox SC, Pepcid -heart healthy diet Case and plan was seen, reviewed and discussed in detail with Dr Noble. <Robert Noble - Last Filed: 04/12/17 13:27> Objective - Vital Signs/Intake and Output Vital Signs (last 24 hours): Temp Pulse Resp BP Pulse Ox 97.5 F L 69 20 140/82 96 04/12/17 12:00 04/12/17 12:00 04/12/17 12:00 04/12/17 12:00 04/12/17 06:00 Intake and Output: 04/12/17 04/12/17 06:59 18:59 Intake Total 890 Output Total 500 Balance 390 - Medications Medications: Current Medications Acetaminophen (Tylenol 325mg Tab) 650 mg PO Q6H PRN PRN Reason: Fever >100.4 F Last Admin: 04/12/17 11:53 Dose: 650 mg Arformoterol Tartrate (Brovana) 15 mcg IH [id number] [facility] Last Admin: 04/12/17 08:13 Dose: 15 mcg Atorvastatin Calcium (Lipitor) 10 mg PO DIN [facility] Last Admin: 04/11/17 17:19 Dose: 10 mg Budesonide (Pulmicort Respules) 0.5 mg IH [id number] [facility] Last Admin: 04/12/17 08:13 Dose: 0.5 mg Carbamide Peroxide (Debrox Ear Drops) 0 ml AU BID [facility] Last Admin: 04/12/17 09:32 Dose: 5 drop Enoxaparin Sodium (Lovenox) 40 mg SC DAILY [facility] PRN Reason: Protocol Last Admin: 04/12/17 09:33 Dose: 40 mg Famotidine (Pepcid) 20 mg PO BID [facility] Last Admin: 04/12/17 09:33 Dose: 20 mg Glimepiride (Amaryl) 2 mg PO BID [facility] Last Admin: 04/12/17 09:34 Dose: 2 mg Guaifenesin/Dextromethorphan (Robitussin Dm) 5 ml PO Q6H [facility] Last Admin: 04/12/17 11:53 Dose: 5 ml Azithromycin (Zithromax 500mg In Ns) 500 mg in 250 mls @ 167 mls/hr IVPB DAILY [facility] PRN Reason: Protocol Last Admin: 04/12/17 09:32 Dose: 167 mls/hr Ceftriaxone Sodium (Rocephin 1 Gram Ivpb) 1 gm in 100 mls @ 100 mls/hr IVPB Q24H [facility] Last Admin: 04/12/17 05:35 Dose: 100 mls/hr Ibuprofen (Motrin Tab) 600 mg PO Q6H PRN PRN Reason: Pain, Mild (1-3) Insulin Detemir (Levemir) 18 unit SC BID [facility] Last Admin: 04/12/17 09:33 Dose: 18 unit Insulin Human Lispro (Humalog) 0 units SC ACHS [facility] PRN Reason: Protocol Last Admin: 04/12/17 11:53 Dose: 5 units Insulin Human Lispro (Humalog) 25 units SC TID [facility] PRN Reason: Protocol Last Admin: 04/12/17 09:33 Dose: 25 units Levalbuterol HCl (Xopenex) 1.25 mg IH Q2H PRN PRN Reason: SOB Last Admin: 04/11/17 09:11 Dose: 1.25 mg Loratadine (Claritin) 10 mg PO DAILY [facility] Last Admin: 04/12/17 09:32 Dose: 10 mg Methylprednisolone (Solu-Medrol) 40 mg IVP Q12 [facility] Last Admin: 04/12/17 09:32 Dose: 40 mg Non-Formulary Medication (Calcium Phosphate Trib/Vit D3 [Calcium + Vitamin D3 Gummies]) 1 tab PO DAILY [facility] Last Admin: 04/12/17 09:13 Dose: Not Given Non-Formulary Medication (Salmeterol Xinafoate/Fluticaso [Advair Hfa 230-21]) 1 puff INH BID [facility] Last Admin: 04/12/17 09:16 Dose: Not Given Pantoprazole Sodium (Protonix Ec Tab) 40 mg PO ACB [facility] Last Admin: 04/12/17 08:15 Dose: 40 mg Polyethylene Glycol (Miralax) 17 gm PO BID [facility] Last Admin: 04/12/17 09:34 Dose: 17 gm Sennosides (Senokot Tab) 8.6 mg PO DAILY [facility] Last Admin: 04/12/17 09:32 Dose: 8.6 mg - Labs Labs: 04/12/17 07:00 04/12/17 07:00 PT 10.5 Seconds (9.9-11.8) 04/09/17 23:20 INR 0.97 (0.93-1.08) 04/09/17 23:20 APTT 29.2 Seconds (23.7-30.8) 04/09/17 23:20 Attending/Attestation - Attestation I have personally seen and examined this patient.: Yes I have fully participated in the care of the patient.: Yes I have reviewed all pertinent clinical information, including history, physical exam and plan: Yes Notes (Text): Patient seen and examined with the resident. Agree with the resident's evaluation, assessment and plan. 56 year old female with pmh of asthma, diabetes, and HLD who presented with shortness of breath secondary to asthma exacerbation and pneumonia PNA/Bronchitis-->CAP Asthma Exacerbation cont abx and nebs Dr. Hitchcock following
--- NOTE | 2017-04-12 14:50 | PN ---
DATE: 04/12/2017 SUBJECTIVE: The patient is resting in bed with O2 via nasal cannula, still has occasional cough and wheezing and chest congestion, but it is improving. No fever, chills, nausea, vomiting, no abdominal pain, no severe chest pain, no diarrhea. PHYSICAL EXAMINATION: VITAL SIGNS: Her temperature is 97.5, her pulse is 69, respirations are 20, and BP is 140/82. SKIN: Warm and dry. HEAD: Atraumatic, normocephalic. EYES: Reactive to light. EARS, NOSE AND THROAT: Seem to be within normal limits. NECK: Supple. No JVD, no thyroid enlargement, no lymph nodes. HEART: Has regular rate and rhythm, normal S1, S2. LUNGS: Reveal bilateral rhonchi. ABDOMEN: Soft, nontender, normal bowel sounds. GENITALIA AND RECTAL: Deferred. MUSCULOSKELETAL: No joint deformities. EXTREMITIES: Reveal no significant lower extremity edema. NEUROLOGIC: She seemed to be grossly intact. LABORATORIES: Her white count is 16.3, hemoglobin is 11.4, hematocrit 33.9 with platelets of 230,000 . Sodium is 136, potassium 4.9, chloride 105, CO2 of 23 with a BUN of 27, creatinine 0.8 and glucose of 278. IMPRESSION: The patient has acute exacerbation of her asthma. The patient has diabetes and hyperlip idemia. PLAN: The patient is on O2 via nasal cannula, getting aggressive pulmonary toilet, also is on Brovan a and Protonix and Lovenox subcutaneous and Motrin. She is on Pulmicort q. 12 and cough medicine as well as Rocephin and Zithromax. The patient is also on Solu-Medrol. I will continue to treat ruddy louise along with the other consultants and the primary care doctor. Enrique Hitchcock MD cc: [id number] TT: 04/12/2017 14:49:54 Confirmation # [id number] Dictation # [id number]
[2017-04-13] MEDS: cefTRIAXone 1 gm in NS 100ml IVPB SCH (05:30)
[2017-04-13] MEDS: guaiFENesin DM 100 mg-10 mg/5 ml UD PO SCH ×2 (05:30→12:33)
[2017-04-13 06:07] VITALS: O2SAT 95
[2017-04-13] MEDS: Arformoterol 15 mcg/2 ml Inh Sol IH SCH (07:50)
[2017-04-13] MEDS: Budesonide 0.5 mg/2 ml Inhal Susp UD IH SCH (07:50)
[2017-04-13] MEDS: Pantoprazole 40 mg EC Tab PO SCH (07:51)
[2017-04-13] MEDS: Insulin Lispro 1 UNITS/0.01 ML SC SCH ×3 (07:51→12:32)
[2017-04-13 08:04] LABS: ADD MANUAL DIFF? NO
[2017-04-13 08:10] LABS: BASO # 0.01 K/mm3 (0.0-2.0); BASO % 0.1 % (0.0-3.0); GRAN # 11.27 (1.4-6.5); GRAN % 85.9 % (50.0-68.0); HEMATOCRIT 34.8 % (36.0-48.0); LYMPH # 1.1 (1.2-3.4); LYMPH % 8.4 % (22.0-35.0); MEAN CELL VOLUME 86.6 fL (80.0-105.0); MEAN CORPUSCULAR HEMOGLOBIN 28.6 pg (25.0-35.0); MEAN PLATELET VOLUME 11.9 fl (7.0-11.0); MONO # 0.7 (0.1-0.6); MONO % 5.6 % (1.0-6.0); PLATELET COUNT 279 10^3/uL (120.0-450.0); RED CELL DISTRIBUTION WIDTH 13.3 % (11.5-14.5); WHITE BLOOD COUNT 13.1 10^3/ul (4.5-11.0)
[2017-04-13 08:19] LABS: ALB/GLOB RATIO 0.9 (1.1-1.8); ALKALINE PHOSPHATASE 74 U/L (38-133); ALT/SGPT 35 U/L (7-56); AST/SGOT 24 U/L (15-39); BILIRUBIN,TOTAL 0.2 mg/dL (0.2-1.3); BLOOD UREA NITROGEN 28 mg/dL (7-21); CARBON DIOXIDE 25 mmol/L (21-33); CHLORIDE 105 mmol/L (98-107); GFR AFRICAN-AMERICAN > 60; GLUCOSE,RANDOM 261 mg/dL (70-110); POTASSIUM 4.9 mmol/L (3.6-5.0); SODIUM 136 mmol/L (132-148); TOTAL PROTEIN 6.8 g/dL (5.8-8.3)
--- NOTE | 2017-04-13 08:33 | CON ---
DATE: 04/11/2017 REQUESTING PHYSICIAN: Dr. Adorno. CHIEF COMPLAINT: The patient presents with shortness of breath, cough, wheezing, chest congestion, a nd chest tightness. HISTORY OF PRESENT ILLNESS: The patient is a 56-year-old female with a long history of asthma, which is steroid dependent. The patient presented with shortness of breath, cough, wheezing, chest conges tion, and chest tightness. No fever or chills. No nausea, vomiting, no abdominal pain, no severe ch est pain, no diarrhea. PAST MEDICAL HISTORY: Is as above. ALLERGIES: She has no known allergies. CURRENT MEDICATIONS: Can be evaluated as per the nurses' intake form. SOCIAL HISTORY: No history of smoking or ETOH abuse and no drug abuse. FAMILY HISTORY: Noncontributory. REVIEW OF SYSTEMS: CONSTITUTIONAL: All negative. HEENT: All negative. RESPIRATORY: She presented with shortness of breath, cough, wheezing, chest congestion. CARDIOVASCULAR: Did have some chest tightness. GASTROINTESTINAL: All negative. GENITOURINARY: All negative. MUSCULOSKELETAL: All negative. NEUROPSYCHIATRIC: All negative. IMMUNOLOGIC: All negative. HEMATOLOGIC: All negative. ENDOCRINE: All negative. INTEGRITY: All negative. PHYSICAL EXAMINATION: VITAL SIGNS: Note that her temperature is 97.7, her pulse is 103, respirations are 22, and BP is 141 /89. SKIN: Warm and dry. HEAD: Atraumatic, normocephalic. EYES: Reactive to light. EARS, NOSE AND THROAT: Seem to be within normal limits. NECK: Supple, no JVD, no thyroid enlargement, no lymph nodes. HEART: Has a regular rate and rhythm. Normal S1, S2. LUNGS: Reveal mild bilateral rhonchi. ABDOMEN: Soft, nontender, normal bowel sounds. No organomegaly noted. GENITALIA AND RECTAL: Deferred. MUSCULOSKELETAL: No joint deformities. EXTREMITIES: Reveal no significant edema. NEUROLOGIC: She seemed to be grossly intact. LABORATORY DATA: As far as her laboratories are concerned, her white count is 22.4, her hemoglobin i s 12.2, hematocrit 35.7 with platelets of 230,000. Her sodium is 136, potassium 4.7, chloride 105, C O2 of 25 with a BUN of 25, creatinine of 0.7, and a glucose of 257. CT scan of the chest reveals no pulmonary embolus, bilateral apical fibronodular changes as well as bilateral upper lobe zone interst itial infiltrates, most notably in the right upper lobe. IMPRESSION: This patient has upper lobe pneumonia with a history of asthmatic bronchus and steroid d ependent asthma. PLAN: We will continue with aggressive pulmonary toilet. The patient is on DuoNeb as a bronchodilat or. She is getting Claritin for her allergies. She is on Levemir for her elevated blood pressure an d Lipitor. The patient is getting Lovenox as well and is getting Pulmicort, Rocephin, and Solu-Medro l. The patient is also on Zithromax. We will continue to treat aggressively along with the other co nsultants and the primary care doctor. Enrique Hitchcock MD cc: [id number] TT: 04/11/2017 19:14:01 Confirmation # [id number] Dictation # [id number] silvia
[2017-04-13] MEDS: [UNRECOGNIZED DRUG - OTHER] PO SCH (10:27)
[2017-04-13] MEDS: VIT D3 PO SCH (10:27)
[2017-04-13] MEDS: CALCIUM PHOSPHATE TRIB PO SCH (10:27)
[2017-04-13] MEDS: Azithromycin 500MG/NS 250ml 500 MG/250 ML BAG IVPB SCH (10:28)
[2017-04-13] MEDS: MethylPREDNISolone 40 mg Vial IVP SCH (10:29)
[2017-04-13] MEDS: Insulin Detemir 100 units/ml Vial (Levemir) SC SCH (10:30)
[2017-04-13] MEDS: POLYETHYLENE GLYCOL 3350 17 GM/Dose PACKET PO SCH (10:30)
[2017-04-13] MEDS: Enoxaparin 40 mg Syringe SC SCH (10:30)
[2017-04-13] MEDS: FLUTICASO INH SCH (10:42)
[2017-04-13] MEDS: SALMETEROL XINAFOATE INH SCH (10:42)
[2017-04-13] MEDS: Levalbuterol 1.25 MG/3 ML Inhal Soln UD IH PRN (11:32)
[2017-04-13 11:46] VITALS: BP 178/90; PULSE 71; RESP 20; TEMP 97.1
--- NOTE | 2017-04-13 15:27 | CP.PCM.DIS ---
<Glynn Menezes - Last Filed: 04/13/17 15:32> Provider - Provider Date of Admission: 04/11/17 14:12 Attending physician: Linnette Villanueva MD Primary care physician: Bita Collins MD Consults: Damien Hitchcock Time Spent in preparation of Discharge (in minutes): 45 Hospital Course - Lab Results Lab Results: Most Recent Lab Values WBC 13.1 10^3/ul (4.5-11.0) H 04/13/17 08:00 RBC 4.02 10^6/uL (3.5-6.1) 04/13/17 08:00 Hgb 11.5 gm/dL (12.0-16.0) L 04/13/17 08:00 Hct 34.8 % (36.0-48.0) L 04/13/17 08:00 MCV 86.6 fL (80.0-105.0) 04/13/17 08:00 MCH 28.6 pg (25.0-35.0) 04/13/17 08:00 MCHC 33.0 g/dl (31.0-37.0) 04/13/17 08:00 RDW 13.3 % (11.5-14.5) 04/13/17 08:00 Plt Count 279 10^3/uL (120.0-450.0) 04/13/17 08:00 MPV 11.9 fl (7.0-11.0) H 04/13/17 08:00 Gran % 85.9 % (50.0-68.0) H 04/13/17 08:00 Lymph % (Auto) 8.4 % (22.0-35.0) L 04/13/17 08:00 Brewster % (Auto) 5.6 % (1.0-6.0) 04/13/17 08:00 Eos % (Auto) 0.0 % (1.5-5.0) L 04/13/17 08:00 Baso % (Auto) 0.1 % (0.0-3.0) 04/13/17 08:00 Gran # 11.27 (1.4-6.5) H 04/13/17 08:00 Lymph # 1.1 (1.2-3.4) L 04/13/17 08:00 Brewster # 0.7 (0.1-0.6) H 04/13/17 08:00 Eos # 0.0 (0.0-0.7) 04/13/17 08:00 Baso # 0.01 K/mm3 (0.0-2.0) 04/13/17 08:00 PT 10.5 Seconds (9.9-11.8) 04/09/17 23:20 INR 0.97 (0.93-1.08) 04/09/17 23:20 APTT 29.2 Seconds (23.7-30.8) 04/09/17 23:20 D-Dimer, Quantitative 0.73 mg/L FEU (0-0.50) H 04/09/17 23:20 Sodium 136 mmol/L (132-148) 04/13/17 08:00 Potassium 4.9 mmol/L (3.6-5.0) 04/13/17 08:00 Chloride 105 mmol/L (98-107) 04/13/17 08:00 Carbon Dioxide 25 mmol/L (21-33) 04/13/17 08:00 Anion Gap 11 (10-20) 04/13/17 08:00 BUN 28 mg/dL (7-21) H 04/13/17 08:00 Creatinine 0.8 mg/dL (0.5-1.4) 04/13/17 08:00 Est GFR ( Amer) > 60 04/13/17 08:00 Est GFR (Non-Af Amer) > 60 04/13/17 08:00 POC Glucose (mg/dL) 292 mg/dL (65-110) H 04/13/17 11:15 Random Glucose 261 mg/dL (70-110) H 04/13/17 08:00 Calcium 9.0 mg/dL (8.4-10.5) 04/13/17 08:00 Phosphorus 3.3 mg/dL (2.5-4.5) 04/12/17 07:00 Magnesium 2.3 mg/dL (1.7-2.2) H 04/12/17 07:00 Total Bilirubin 0.2 mg/dL (0.2-1.3) 04/13/17 08:00 AST 24 U/L (15-39) 04/13/17 08:00 ALT 35 U/L (7-56) 04/13/17 08:00 Alkaline Phosphatase 74 U/L (38-133) 04/13/17 08:00 Lactate Dehydrogenase 350 U/L (333-699) 04/09/17 23:20 Total Creatine Kinase < 20 U/L (35-230) L 04/09/17 23:20 Troponin I < 0.01 ng/mL 04/10/17 12:00 NT-Pro-B Natriuret Pep 244 pg/mL (0-450) 04/10/17 06:15 Total Protein 6.8 g/dL (5.8-8.3) 04/13/17 08:00 Albumin 3.2 g/dL (3.0-4.8) 04/13/17 08:00 Globulin 3.5 gm/dL 04/13/17 08:00 Albumin/Globulin Ratio 0.9 (1.1-1.8) L 04/13/17 08:00 - Hospital Course Hospital Course: Admit date- 04/10 DC date- 04/13 Attending: Dr. Adorno/Kay [place] home Stable for discharge Procedures- none No complications Discharge dx 1. CAP 2. DM 3. Asthma Consults Bey HPI: see h/p Labs: see lab data Hospital course This is a 56 year old female with past medical hx of asthma, diabetes, and HLD who presented with shortness of breath secondary to asthma exacerbation and pneumonia 1. PNA/Bronchitis-->CAP - White count initially -Ceftriaxone 1g and Azithromycin 500mg daily -supplemental O2 only if PO2 below 90% -OOB encouraged -incentive spirometer -CT Angio PE protocol showed negative PE, bronchitis/suspicious finding for PNA - US of ext -neg for DVT -f/u blood cultures neg 2. Asthma Exacerbation -IV solumedrol, tapered based on clinical course -PRN Xopenex Q2H -Brovana & pulmicort in place of advair -Cont Robitussin -F/u Pulm conuslt and recs -supplemental O2 PRN -encourage out of bed as tolerated 3. DM -Long Acting BID Insulin -Basal meal TID Insulin -Sliding scale coverage as well 4. HLD -c/w home meds -continue home lipitor 5. GI/DVT Ppx -Lovenox SC, Pepcid -heart healthy diet DC meds 1. ventolin inhaler 2. lipitor 3. glimepiride 2 mg po bid 4. levemir 18 units bid 5. humalog 25 tid 6. levaquin 500 mg po daily for 7 days 7. claritin 10 daily mg po 8. medrol dose pack 9. advair inhaler DC instructions Please dc home. Please return if condition worsens. Please f/u with PMD within 3 days. Please f/u with Pulm as needed. Take levaquin and medrol dose pack. - Date & Time of H&P Date of H&P: 04/10/17 Time of H&P: 05:15 Discharge Exam - Head Exam Head Exam: ATRAUMATIC, NORMAL INSPECTION, NORMOCEPHALIC Discharge Plan - Discharge Medications Prescriptions: levoFLOXacin [Levaquin] 500 mg PO DAILY #7 tab Methylprednisolone [Medrol Dose Pack (21 tabs)] 4 mg PO DAILY #21 mg - Follow Up Plan Condition: FAIR Disposition: HOME/ ROUTINE Referrals: Bita Collins MD [Primary Care Provider] - <Kay BEAR,Linnette - Last Filed: 04/14/17 11:56> Provider - Provider Date of Admission: 04/11/17 14:12 Attending physician: Linnette Villanueva MD Primary care physician: Bita Collins MD Hospital Course - Lab Results Lab Results: Most Recent Lab Values WBC 13.1 10^3/ul (4.5-11.0) H 04/13/17 08:00 RBC 4.02 10^6/uL (3.5-6.1) 04/13/17 08:00 Hgb 11.5 gm/dL (12.0-16.0) L 04/13/17 08:00 Hct 34.8 % (36.0-48.0) L 04/13/17 08:00 MCV 86.6 fL (80.0-105.0) 04/13/17 08:00 MCH 28.6 pg (25.0-35.0) 04/13/17 08:00 MCHC 33.0 g/dl (31.0-37.0) 04/13/17 08:00 RDW 13.3 % (11.5-14.5) 04/13/17 08:00 Plt Count 279 10^3/uL (120.0-450.0) 04/13/17 08:00 MPV 11.9 fl (7.0-11.0) H 04/13/17 08:00 Gran % 85.9 % (50.0-68.0) H 04/13/17 08:00 Lymph % (Auto) 8.4 % (22.0-35.0) L 04/13/17 08:00 Brewster % (Auto) 5.6 % (1.0-6.0) 04/13/17 08:00 Eos % (Auto) 0.0 % (1.5-5.0) L 04/13/17 08:00 Baso % (Auto) 0.1 % (0.0-3.0) 04/13/17 08:00 Gran # 11.27 (1.4-6.5) H 04/13/17 08:00 Lymph # 1.1 (1.2-3.4) L 04/13/17 08:00 Brewster # 0.7 (0.1-0.6) H 04/13/17 08:00 Eos # 0.0 (0.0-0.7) 04/13/17 08:00 Baso # 0.01 K/mm3 (0.0-2.0) 04/13/17 08:00 PT 10.5 Seconds (9.9-11.8) 04/09/17 23:20 INR 0.97 (0.93-1.08) 04/09/17 23:20 APTT 29.2 Seconds (23.7-30.8) 04/09/17 23:20 D-Dimer, Quantitative 0.73 mg/L FEU (0-0.50) H 04/09/17 23:20 Sodium 136 mmol/L (132-148) 04/13/17 08:00 Potassium 4.9 mmol/L (3.6-5.0) 04/13/17 08:00 Chloride 105 mmol/L (98-107) 04/13/17 08:00 Carbon Dioxide 25 mmol/L (21-33) 04/13/17 08:00 Anion Gap 11 (10-20) 04/13/17 08:00 BUN 28 mg/dL (7-21) H 04/13/17 08:00 Creatinine 0.8 mg/dL (0.5-1.4) 04/13/17 08:00 Est GFR ( Amer) > 60 04/13/17 08:00 Est GFR (Non-Af Amer) > 60 04/13/17 08:00 POC Glucose (mg/dL) 292 mg/dL (65-110) H 04/13/17 11:15 Random Glucose 261 mg/dL (70-110) H 04/13/17 08:00 Calcium 9.0 mg/dL (8.4-10.5) 04/13/17 08:00 Phosphorus 3.3 mg/dL (2.5-4.5) 04/12/17 07:00 Magnesium 2.3 mg/dL (1.7-2.2) H 04/12/17 07:00 Total Bilirubin 0.2 mg/dL (0.2-1.3) 04/13/17 08:00 AST 24 U/L (15-39) 04/13/17 08:00 ALT 35 U/L (7-56) 04/13/17 08:00 Alkaline Phosphatase 74 U/L (38-133) 04/13/17 08:00 Lactate Dehydrogenase 350 U/L (333-699) 04/09/17 23:20 Total Creatine Kinase < 20 U/L (35-230) L 04/09/17 23:20 Troponin I < 0.01 ng/mL 04/10/17 12:00 NT-Pro-B Natriuret Pep 244 pg/mL (0-450) 04/10/17 06:15 Total Protein 6.8 g/dL (5.8-8.3) 04/13/17 08:00 Albumin 3.2 g/dL (3.0-4.8) 04/13/17 08:00 Globulin 3.5 gm/dL 04/13/17 08:00 Albumin/Globulin Ratio 0.9 (1.1-1.8) L 04/13/17 08:00 Attending/Attestation - Attestation I have personally seen and examined this patient.: Yes I have fully participated in the care of the patient.: Yes I have reviewed all pertinent clinical information, including history, physical exam and plan: Yes Notes (Text): 04/14/17 11:53 Patient was seen and examined with bilingual medical receptionist .Agreed with resident assessment and plan. 56 year old female with past medical history of asthma, diabetes, and Hyperlipidemia who presented with shortness of breath secondary to asthma exacerbation and pneumonia as seen on CT chest, was treated with Nebulization, IV steroid and antibiotics.She has responded well, cough and dyspnea has improved.She is not wheezing today.She is afebrile.She will be discharged home on antibiotics and tapering dose of steroid . She will follow up with PCP and Pulmonary Management plan was discussed in detail with patient Education was provided.
== END 2017-04-13 14:00 | disposition home or self-care (01) | DRG 541 ==
LOC: ED 22:22 → ERH 04-10 04:14 → 2RNO 04-10 05:52 → OBSVTOIN 04-11 14:12
PROVIDERS: ADMIT Internal Medicine; ATTEND Internal Medicine
PROC: 3E0F7GC Introduction of Other Therapeutic Substance into Respiratory Tract, Via Natural or Artificial Opening (ICD-10-PCS; principal; 2017-04-11)
DX: J44.0 Chronic obstructive pulmonary disease with (acute) lower respiratory infection (principal); J18.9 Pneumonia, unspecified organism; J45.901 Unspecified asthma with (acute) exacerbation; E78.5 Hyperlipidemia, unspecified; E11.9 Type 2 diabetes mellitus without complications; Z79.4 Long term (current) use of insulin; Z83.3 Family history of diabetes mellitus; Z79.52 Long term (current) use of systemic steroids; Z79.84 Long term (current) use of oral hypoglycemic drugs

== ENCOUNTER 2017-07-08 12:26 | Emergency (ER) | payer MEDICAID ==
[2017-07-08 12:26] VITALS: BMI 29.0
--- NOTE | 2017-07-08 12:42 | ED PDOC ---
Arrival/HPI - General Chief Complaint: Lower Extremity Problem/Injury Time Seen by Provider: 07/08/17 12:39 Historian: Patient - History of Present Illness Narrative History of Present Illness (Text): 07/08/17 12:59 A 56 year old female, whose past medical history includes diabetes, dyslipidemia and asthma, presents to the emergency department complaining of 5 days on and off bilateral lower extremity swelling. Contrary to triage, patient denies dizziness, but sometimes patient feels lightheaded, currently resolved. Patient denies any chest pain, shortness of breath, dyspnea on exertion or any other complaints at this time. PMD: Dr. Collins Time/Duration: < week Symptom Onset: Sudden Symptom Course: Unchanged Activities at Onset: Rest Context: Home Past Medical History - Provider Review Nursing Documentation Reviewed: Yes - Infectious Disease Hx of Infectious Diseases: None - Tetanus Immunization Tetanus Immunization: Unknown - Cardiac Hx Cardiac Disorders: Yes Hx Hypertension: Yes - Pulmonary Hx Respiratory Disorders: Yes Hx Asthma: Yes Hx Pneumonia: Yes - Neurological Hx Neurological Disorder: No - HEENT Hx HEENT Disorder: Yes Other/Comment: excessive cerumen - Renal Hx Renal Disorder: Yes Hx Kidney Stones: Yes - Endocrine/Metabolic Hx Endocrine Disorders: Yes Hx Diabetes Mellitus Type 2: Yes - Hematological/Oncological Hx Blood Disorders: Yes Hx Shingles: Yes - Integumentary Hx Dermatological Disorder: No - Musculoskeletal/Rheumatological Hx Musculoskeletal Disorders: Yes Hx Falls: No Hx Fractures: Yes (L leg with ORIF) - Gastrointestinal Hx Gastrointestinal Disorders: Yes Hx Gastroesophageal Reflux: Yes - Genitourinary/Gynecological Hx Genitourinary Disorders: No - Psychiatric Hx Psychophysiologic Disorder: No Hx Anxiety: No Hx Bipolar Disorder: No Hx Depression: No Hx Emotional Abuse: No Hx Hallucinations: No Hx Panic Disorder: No Hx Post Traumatic Stress Disorder: No Hx Psychosis: No Hx Physical Abuse: No Hx Schizophrenia: No Hx Sexual Abuse: No Hx Substance Use: No - Surgical History Hx Orthopedic Surgery: Yes (L leg ORIF with pins/screws) Other/Comment: tonsillectomy, - Anesthesia Hx Anesthesia: Yes Hx Anesthesia Reactions: No Hx Malignant Hyperthermia: No - Suicidal Assessment Feels Threatened In Home Enviroment: No Family/Social History - Physician Review Nursing Documentation Reviewed: Yes Family/Social History: No Known Family HX Smoking Status: Never Smoked Hx Alcohol Use: No Hx Substance Use: No Hx Substance Use Treatment: No Allergies/Home Meds Allergies/Adverse Reactions: Allergies No Known Allergies Allergy (Verified 07/08/17 12:35) Home Medications: Home Meds Medication Instructions Recorded Confirmed Glimepiride 2 mg PO BID 01/17/16 07/08/17 Salmeterol Xinafoate/Fluticaso 1 puff INH BID 01/17/16 07/08/17 [Advair Hfa 230-21] Albuterol HFA [Ventolin HFA 90 1 inh INH PRN PRN 07/08/17 07/08/17 mcg/actuation (8 g)] Review of Systems - Physician Review All systems were reviewed & negative as marked: Yes Physical Exam - Physical Exam Narrative Physical Exam (Text): 07/08/17 12:55 - Review of Systems Constitutional: Normal. absent: Fatigue, Weight Change, Fevers Eyes: Normal ENT: denies sore throat, denies tristhmus Respiratory: Normal. absent: SOB, Cough, Sputum Cardiovascular: absent: Chest Pain, Palpitations, Syncope Gastrointestinal: Normal. absent: Abdominal Pain, Diarrhea, Nausea, Vomiting Genitourinary: Normal. absent: Dysuria, Frequency, Hematuria, vaginal bleeding Musculoskeletal: Bilateral lower extremity swelling absent: Arthralgias, Back Pain, Neck Pain Skin: no rashes, no erythema Neurological: absent: Focal Weakness, dizziness Endocrine: Normal Hemo/Lymphatic: Normal Psychiatric: No suicidal or homicidal ideations Physical exam Patient appears age appropriate in no distress, speaking full sentences without difficulty - Systems Exam Head: Present: Atraumatic, Normocephalic Pupils: Present: PERRL Extroacular Muscles: Present: EOMI Conjunctiva: Present: Normal Mouth: Present: Moist Mucous Membranes Neck: Present: Normal Range of Motion. No: MIDLINE TENDERNESS, Paraspinal Tenderness Respiratory/Chest: Present: expiratory wheezing No: Accessory Muscle Use, Tachypneic Cardiovascular: Present: Regular Rate and Rhythm, Normal S1, S2, Peripheal Pulses Present. No: Murmurs Abdomen: Present: Normal Bowel Sounds. No: Tenderness, Distention, Peritoneal Signs, Rebound, Guarding Back: Present: Normal Inspection. No: Midline Tenderness, Paraspinal Tenderness Upper Extremity: Present: Normal Inspection. No: Cyanosis, Edema Lower Extremity: Present: +1 nonpitting edema, no tenderness, no asymmetry Neurological: Present: GCS=15, Speech Normal, cranial nerves II through XII fully intact with no cerebellar abnormality, neurosensory fully intact. No focal neurological deficits. Skin: Present: Warm, Dry, Normal Color. No: Rashes Lymphatic: Present: OX3, NI, NC Psychiatric: Present: Alert, Oriented x 3, Normal Insight, Normal Concentration Vital Signs Reviewed: Yes Vital Signs Temp Pulse Resp BP Pulse Ox 07/08/17 14:37 98.3 F 94 H 20 118/82 100 07/08/17 12:30 100 07/08/17 12:29 98.1 F 108 H 16 120/83 97 Temperature: Afebrile Blood Pressure: Normal Pulse: Tachycardic Respiratory Rate: Normal Appearance: Positive for: Well-Appearing, Non-Toxic, Comfortable Pain Distress: None Mental Status: Positive for: Alert and Oriented X 3 Medical Decision Making ED Course and Treatment: 07/08/17 12:42 Impression: A 56 year old female with bilateral lower extremity swelling. On physical exam, patient has expiratory wheezing and lower extremity +1 nonpitting edema, no tenderness, no asymmetry. Differential Diagnosis included but are not limited to: peripheral vascular disease vs. renal insufficiency vs. CHF Plan: -- chest xray -- labs -- Duoneb, Prednisone -- Reassess and disposition Prior Visits: Patient's previous records reviewed, patient was admitted on 04/11/17 after being diagnosed with community-acquired pneumonia and asthma exacerbation. Patient was treated with IV antibiotics. Patient has a history of diabetes, asthma, hyperlipidemia. Patient had CT angio done which showed no pulmonary embolism. Patient also had ultrasound of her lower extremities done which was negative for DVTs. Progress Notes: 07/08/17 13:03 chest xray: Creator : Blanca Gracia V. FINDINGS: LUNGS: No interval consolidation. The mid to upper lung bilateral prominent interstitial lung markings with interspersed cystic emphysematous like changes are similar appearing PLEURA: No significant pleural effusion identified, no pneumothorax apparent. CARDIOVASCULAR: Normal. OSSEOUS STRUCTURES: Incidental benign-appearing right proximal humeral bone islands VISUALIZED UPPER ABDOMEN: Normal. 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 07/08/17 14:55 On reevaluation, patient's wheezing has diminished. Patient states she feels better. 07/08/17 16:13 pt states she feels better, some residual wheezing. states she always stays wheezing. 100% on RA. Speaking full sentences without difficulty, in no resp distress. BUN, Cre, BNP normal. pt states she feels comfortable being dc'd home with outpatient fu will be dc'd with prednisone Rx. Pt states she has inhailer refills at home and has a neb machine as well. Pt states she understands to return to the ER right away for new or worsening symptoms or for inability to f/u with PMD or specialist as instructed. Patient states that she fully agrees with and understands discharge instructions. States that she agrees with the plan and disposition. Verbalized and repeated discharge instructions and plan. I have given the patient opportunity to ask any additional questions. - Lab Interpretations Lab Results: 07/08/17 13:51 07/08/17 13:51 Lab Results 07/08/17 13:51: Sodium 136, Potassium 4.2, Chloride 101, Carbon Dioxide 25, Anion Gap 14, BUN 20, Creatinine 0.9, Est GFR ( Amer) > 60, Est GFR (Non- Af Amer) > 60, Random Glucose 347 H* D, Calcium 9.5, Total Bilirubin 0.3, AST 17 , ALT 22, Alkaline Phosphatase 98, NT-Pro-B Natriuret Pep 77.0, Total Protein 7.0, Albumin 3.6, Globulin 3.4, Albumin/Globulin Ratio 1.1 07/08/17 13:51: WBC 9.5 D, RBC 4.29, Hgb 12.4, Hct 36.3, MCV 84.6, MCH 28.9, MCHC 34.2, RDW 13.0, Plt Count 267, MPV 12.0 H, Gran % 71.8 H, Lymph % (Auto) 15.2 L, Josephine % (Auto) 7.9 H, Eos % (Auto) 4.9, Baso % (Auto) 0.2, Gran # 6.82 H , Lymph # 1.4, Josephine # 0.8 H, Eos # 0.5, Baso # 0.02 I have reviewed the lab results: Yes - RAD Interpretation Radiology Orders: 07/08/17 12:47 CHEST PORTABLE [RAD] Stat - Medication Orders Current Medication Orders: Discontinued Medications Albuterol/Ipratropium (Duoneb 3 Mg/0.5 Mg (3 Ml) Ud) 3 ml IH Q15M DONALD Stop: 07/08/17 13:31 Last Admin: 07/08/17 15:38 Dose: 3 ml Prednisone (Prednisone Tab) 60 mg PO STAT ONE Stop: 07/08/17 12:48 Last Admin: 07/08/17 13:48 Dose: 60 mg Disposition/Present on Arrival - Present on Arrival Any Indicators Present on Arrival: Yes History of DVT/PE: No History of Uncontrolled Diabetes: Yes Urinary Catheter: No History of Decub. Ulcer: No History Surgical Site Infection Following: None - Disposition Have Diagnosis and Disposition been Completed?: Yes Diagnosis: Edema Disposition: HOME/ ROUTINE Disposition Time: 16:17 Patient Plan: Discharge Condition: GOOD Discharge Instructions (ExitCare): Leg Edema (ED), Asthma (DC) Additional Instructions: PLEASE RETURN TO THE EMERGENCY DEPARTMENT FOR NEW OR WORSENING SYMPTOMS. RETURN RIGHT AWAY IF YOU CANNOT FOLLOW UP WITH YOUR PRIMARY CARE DOCTOR, CLINIC, OR SPECIALIST IN 1-2 DAYS. Prescriptions: predniSONE [predniSONE Tab] 60 mg PO DAILY #12 tab Referrals: Bita Collins MD [Primary Care Provider] - Follow up with primary Forms: [employer] ([place])
--- NOTE | 2017-07-08 13:01 | RAD ---
HISTORY: cough COMPARISON: 04/09/2017 FINDINGS: LUNGS: No interval consolidation. The mid to upper lung bilateral prominent interstitial lung markings with interspersed cystic emphysematous like changes are similar appearing PLEURA: No significant pleural effusion identified, no pneumothorax apparent. CARDIOVASCULAR: Normal. OSSEOUS STRUCTURES: Incidental benign-appearing right proximal humeral bone islands VISUALIZED UPPER ABDOMEN: Normal. OTHER FINDINGS: None. 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
[2017-07-08] MEDS: Albuterol-Ipratrop 3 mg / 0.5 (3 ml) UD IH SCH ×3 (13:48→15:38)
[2017-07-08 13:58] VITALS: O2SAT 100
[2017-07-08 14:12] LABS: BASO # 0.02 K/mm3 (0.0-2.0); BASO % 0.2 % (0.0-3.0); EOS # 0.5 (0.0-0.7); EOS % 4.9 % (1.5-5.0); GRAN # 6.82 (1.4-6.5); GRAN % 71.8 % (50.0-68.0); HEMATOCRIT 36.3 % (36.0-48.0); LYMPH # 1.4 (1.2-3.4); LYMPH % 15.2 % (22.0-35.0); MEAN CELL VOLUME 84.6 fl (80.0-105.0); MEAN CORPUSCULAR HEMOGLOBIN 28.9 pg (25.0-35.0); MEAN CORPUSCULAR HGB CONC 34.2 g/dl (31.0-37.0); MONO # 0.8 (0.1-0.6); MONO % 7.9 % (1.0-6.0); WHITE BLOOD COUNT 9.5 10^3/ul (4.5-11.0)
[2017-07-08 14:14] LABS: ALB/GLOB RATIO 1.1 (1.1-1.8); ALKALINE PHOSPHATASE 98 U/L (38-126); ALT/SGPT 22 U/L (7-56); AST/SGOT 17 U/L (14-36); BILIRUBIN,TOTAL 0.3 mg/dL (0.2-1.3); BLOOD UREA NITROGEN 20 mg/dL (7-21); CALCIUM 9.5 mg/dL (8.4-10.5); CARBON DIOXIDE 25 mmol/L (21-33); CHLORIDE 101 mmol/L (98-107); GFR AFRICAN-AMERICAN > 60; POTASSIUM 4.2 mmol/L (3.6-5.0); SODIUM 136 mmol/L (132-148)
[2017-07-08 14:15] LABS: GLUCOSE,RANDOM 347 mg/dL (70-110)
[2017-07-08 17:00] VITALS: BP 120/90; PULSE 70; RESP 18; TEMP 98.6
== END 2017-07-08 17:01 | disposition home or self-care (01) ==
LOC: ED 12:26
DX: R60.9 Edema, unspecified (principal); I10 Essential (primary) hypertension; E78.5 Hyperlipidemia, unspecified; E11.9 Type 2 diabetes mellitus without complications

== ENCOUNTER 2017-09-14 17:45 | Inpatient (IN) | payer MEDICAID ==
[2017-09-14 18:03] VITALS: BMI 29.2
[2017-09-14] MEDS ORDERED: Albuterol-Ipratrop 3 mg / 0.5 (3 ml) UD IH STA (18:04)
--- NOTE | 2017-09-14 18:10 | ED PDOC ---
Arrival/HPI - General Chief Complaint: Shortness Of Breath Time Seen by Provider: 09/14/17 17:56 Historian: Patient - History of Present Illness Time/Duration: Other (Several days) Symptom Onset: Gradual Symptom Course: Worsening Severity Level: Moderate Activities at Onset: Rest Associated Symptoms (Text): 09/14/17 18:07 Patient complains of a several day history of a cough congestion URI shortness of breath chest pain and sputum production. She is getting no relief with her high flow nebulizer and she is also taking prednisone 60 mg. She also complains of shingles on her right buttocks. Well-known to the emergency Department staff. Past Medical History - Infectious Disease Hx of Infectious Diseases: None - Tetanus Immunization Tetanus Immunization: Unknown - Cardiac Hx Cardiac Disorders: Yes Hx Hypertension: Yes - Pulmonary Hx Respiratory Disorders: Yes Hx Asthma: Yes Hx Pneumonia: Yes - Neurological Hx Neurological Disorder: No - HEENT Hx HEENT Disorder: Yes Other/Comment: excessive cerumen - Renal Hx Renal Disorder: Yes Hx Kidney Stones: Yes - Endocrine/Metabolic Hx Endocrine Disorders: Yes Hx Diabetes Mellitus Type 2: Yes - Hematological/Oncological Hx Blood Disorders: Yes Hx Shingles: Yes - Integumentary Hx Dermatological Disorder: No - Musculoskeletal/Rheumatological Hx Musculoskeletal Disorders: Yes Hx Falls: No Hx Fractures: Yes (L leg with ORIF) - Gastrointestinal Hx Gastrointestinal Disorders: Yes Hx Gastroesophageal Reflux: Yes - Genitourinary/Gynecological Hx Genitourinary Disorders: No - Psychiatric Hx Psychophysiologic Disorder: No Hx Anxiety: No Hx Bipolar Disorder: No Hx Depression: No Hx Emotional Abuse: No Hx Hallucinations: No Hx Panic Disorder: No Hx Post Traumatic Stress Disorder: No Hx Psychosis: No Hx Physical Abuse: No Hx Schizophrenia: No Hx Sexual Abuse: No Hx Substance Use: No - Surgical History Hx Orthopedic Surgery: Yes (L leg ORIF with pins/screws) Other/Comment: tonsillectomy, - Anesthesia Hx Anesthesia: Yes Hx Anesthesia Reactions: No Hx Malignant Hyperthermia: No - Suicidal Assessment Feels Threatened In Home Enviroment: No Family/Social History - Physician Review Nursing Documentation Reviewed: Yes Family/Social History: Unknown Family HX Smoking Status: Never Smoked Hx Alcohol Use: No Hx Substance Use: No Hx Substance Use Treatment: No Allergies/Home Meds Allergies/Adverse Reactions: Allergies No Known Allergies Allergy (Verified 07/08/17 12:35) Home Medications: Home Meds Medication Instructions Recorded Confirmed Glimepiride 2 mg PO BID 01/17/16 07/08/17 Salmeterol Xinafoate/Fluticaso 1 puff INH BID 01/17/16 07/08/17 [Advair Hfa 230-21] Albuterol HFA [Ventolin HFA 90 1 inh INH PRN PRN 07/08/17 07/08/17 mcg/actuation (8 g)] Review of Systems - Physician Review All systems were reviewed & negative as marked: Yes - Review of Systems Constitutional: Fatigue. absent: Fevers Respiratory: SOB, Cough, Sputum, Wheezing Cardiovascular: Chest Pain. absent: Palpitations, Syncope Gastrointestinal: absent: Abdominal Pain, Diarrhea, Nausea, Vomiting Genitourinary Female: absent: Dysuria, Frequency, Other Skin: Rash Neurological: absent: Headache, Dizziness Physical Exam Vital Signs Temp Pulse Resp BP Pulse Ox 09/14/17 20:21 98.6 F 89 16 153/44 H 95 09/14/17 17:45 16 Temperature: Afebrile Blood Pressure: Normal Pulse: Tachycardic Respiratory Rate: Normal Appearance: Positive for: Well-Appearing, Non-Toxic, Uncomfortable Pain Distress: None Mental Status: Positive for: Alert and Oriented X 3 - Systems Exam Head: Present: Atraumatic, Normocephalic Pupils: Present: PERRL Extroacular Muscles: Present: EOMI Ears: Present: NORMAL TM, Normal Canal. No: Erythema Mouth: Present: Moist Mucous Membranes Pharnyx: No: ERYTHEMA, EXUDATE, TONSILS ENLARGED Neck: Present: Normal Range of Motion Respiratory/Chest: Present: Accessory Muscle Use, Wheezes, Decreased Breath Sounds, Rhonchi, Tachypneic. No: Respiratory Distress, Rales, Retracting, Tender to Palpation Cardiovascular: Present: Regular Rate and Rhythm, Normal S1, S2. No: Murmurs Abdomen: Present: Normal Bowel Sounds. No: Tenderness, Distention, Peritoneal Signs, Rebound, Guarding Back: Present: Normal Inspection Upper Extremity: Present: Normal Inspection. No: Cyanosis, Edema Lower Extremity: Present: Normal Inspection. No: Edema Neurological: Present: GCS=15, CN II-XII Intact, Speech Normal, Motor Func Grossly Intact Skin: Present: Warm, Dry, Rashes (Erythematous vesicular rash on the right buttocks which could be consistent with shingles), Normal Color Psychiatric: Present: Alert, Oriented x 3, Normal Insight, Normal Concentration Medical Decision Making ED Course and Treatment: 09/14/17 18:10 EKG shows normal sinus rhythm rate approximately [address] or T-wave changes 09/14/17 20:27 Discussed with . Admitted to hospitalists on telemetry. vice president medical affairs called. - Lab Interpretations Lab Results: 09/14/17 18:30 09/14/17 18:30 Lab Results 09/14/17 18:30: Sodium 131 L, Potassium 4.6, Chloride 96 L, Carbon Dioxide 28, Anion Gap 12, BUN 32 H, Creatinine 0.8, Est GFR ( Amer) > 60, Est GFR ( Non-Af Amer) > 60, Random Glucose 616 H* D, Calcium 9.6, Total Bilirubin 0.5, AST 28, ALT 34, Alkaline Phosphatase 157 H D, Lactate Dehydrogenase 479, Total Creatine Kinase 21 L, Troponin I < 0.01, NT-Pro-B Natriuret Pep 69.6, Total Protein 6.7, Albumin 3.3, Globulin 3.5, Albumin/Globulin Ratio 0.9 L 09/14/17 18:30: PT 10.2, INR 0.94, APTT 28.3 09/14/17 18:30: WBC 10.9, RBC 4.45, Hgb 13.0, Hct 38.1, MCV 85.6, MCH 29.2, MCHC 34.1, RDW 13.2, Plt Count 222, MPV 12.6 H, Gran % 71.0 H, Lymph % (Auto) 14.5 L, [place] % (Auto) 10.0 H, Eos % (Auto) 4.3, Baso % (Auto) 0.2, Gran # 7.74 H , Lymph # 1.6, [place] # 1.1 H, Eos # 0.5, Baso # 0.02 - RAD Interpretation Radiology Orders: 09/14/17 18:03 CHEST PORTABLE [RAD] Stat Chest 1 view shows no infiltrate effusion or cardiomegaly Shank Stapler: ED Physician - Medication Orders Current Medication Orders: Sodium Chloride (Sodium Chloride 0.9%) 1,000 mls @ 500 mls/hr IV ONCE ONE Stop: 09/14/17 21:18 Last Admin: 09/14/17 19:35 Dose: 500 mls/hr eMAR Start Stop Document 09/14/17 19:35 HI (Rec: 09/14/17 19:35 [id number]) Intravenous Solution Start Date 09/14/17 Start Time 19:35 Discontinued Medications Albuterol/Ipratropium (Duoneb 3 Mg/0.5 Mg (3 Ml) Ud) 3 ml IH ONCE STA Stop: 09/14/17 18:05 Last Admin: 09/14/17 18:34 Dose: 3 ml Aspirin (Aspirin Chewable) 324 mg PO ONCE ONE Stop: 09/14/17 18:05 Last Admin: 09/14/17 18:34 Dose: 324 mg Insulin Human Regular (Humulin R) 10 units IV ONCE STA Stop: 09/14/17 19:20 Last Admin: 09/14/17 19:34 Dose: 10 units eMAR Start Stop Document 09/14/17 19:34 HI (Rec: 09/14/17 19:35 [id number]) Intravenous Solution Start Date 09/14/17 Start Time 19:35 Methylprednisolone (Solu-Medrol) 125 mg IVP STAT STA Stop: 09/14/17 18:04 Last Admin: 09/14/17 18:34 Dose: 125 mg IVP Administration Document 09/14/17 18:34 HI (Rec: 09/14/17 18:34 [id number]) Charges for Administration # of IVP Administrations 1 Disposition/Present on Arrival - Present on Arrival Any Indicators Present on Arrival: No History of DVT/PE: No History of Uncontrolled Diabetes: Yes Urinary Catheter: No History of Decub. Ulcer: No History Surgical Site Infection Following: None - Disposition Have Diagnosis and Disposition been Completed?: Yes Diagnosis: Uncontrolled diabetes mellitus, Asthma, Chest pain Disposition: HOSPITALIZED Disposition Time: 20:28 Patient Plan: Observation, Telemetry Condition: FAIR Discharge Instructions (ExitCare): Chest Pain (ED) Referrals: Bita Collins MD [Primary Care Provider] - Follow up with primary Forms: Berry Kitchen (Urdu)
[2017-09-14 18:58] LABS: BASO # 0.02 K/mm3 (0.0-2.0); BASO % 0.2 % (0.0-3.0); EOS # 0.5 (0.0-0.7); EOS % 4.3 % (1.5-5.0); GRAN # 7.74 (1.4-6.5); HEMATOCRIT 38.1 % (36.0-48.0); LYMPH # 1.6 (1.2-3.4); LYMPH % 14.5 % (22.0-35.0); MEAN CELL VOLUME 85.6 fl (80.0-105.0); MEAN CORPUSCULAR HEMOGLOBIN 29.2 pg (25.0-35.0); MEAN CORPUSCULAR HGB CONC 34.1 g/dl (31.0-37.0); MEAN PLATELET VOLUME 12.6 fl (7.0-11.0); MONO # 1.1 (0.1-0.6); RED CELL DISTRIBUTION WIDTH 13.2 % (11.5-14.5); WHITE BLOOD COUNT 10.9 10^3/ul (4.5-11.0)
[2017-09-14 19:01] LABS: INR 0.94 (0.93-1.08); PARTIAL THROMBOPLASTIN TIME 28.3 Seconds (25.1-36.5)
[2017-09-14 19:17] LABS: ALB/GLOB RATIO 0.9 (1.1-1.8); ALKALINE PHOSPHATASE 157 U/L (38-126); ALT/SGPT 34 U/L (7-56); AST/SGOT 28 U/L (14-36); BILIRUBIN,TOTAL 0.5 mg/dL (0.2-1.3); BLOOD UREA NITROGEN 32 mg/dL (7-21); CALCIUM 9.6 mg/dL (8.4-10.5); CARBON DIOXIDE 28 mmol/L (21-33); CHLORIDE 96 mmol/L (98-107); GFR AFRICAN-AMERICAN > 60; POTASSIUM 4.6 mmol/L (3.6-5.0); SODIUM 131 mmol/L (132-148); TOTAL PROTEIN 6.7 g/dL (5.8-8.3)
[2017-09-14] MEDS ORDERED: Sodium Chloride 0.9% 1,000 ML IV ONE (19:19)
[2017-09-14] MEDS ORDERED: Insulin Regular 1 UNITS/0.01 ML ML IV STA (19:19)
[2017-09-14 19:20] LABS: GLUCOSE,RANDOM 616 mg/dL (70-110)
[2017-09-14 19:21] LABS: TROPONIN I < 0.01 ng/mL
--- NOTE | 2017-09-14 21:03 | CP.PCM.HP ---
<Steffi Temple - Last Filed: 09/14/17 22:20> History of Present Illness - History of Present Illness History of Present Illness: Steffi Temple DO PGY1 - Internal Medicine H&P CC: Dizziness, short of breath, and high blood sugar HPI: 57 yo F with PMH of insulin dependant diabetes, asthma, HLD, presents complaining of dizziness, shortness of breath and high blood sugar. She feels as though she is having an asthma exacerbation, and has noted that her glucometer reads "High" for the past few days. She also admits to cough, productive of yellowish sputum, wheezing, chest pain starting today associated with deep respirations and cough. Shortness of breath is not responding to her rescue inhalers. She reports a 40 year history of asthma, requiring daily oral steroids for symptom control. She also reports that she was recently on a Z- pack course, which today would have been the last day, without improvement in her symptoms. She also admits to two sick contacts at home, her grandchildren, who were febrile, with coughs. She also reports elevated blood sugar readings, and admits to polyuria, polydipsia, headache, and lightheadedness and poor balance for the past four days and anorexia for the past day. She denies any falls, LOC, confusion, head trauma. She also denies nausea, vomiting, diarrhea, constipation, dysuria, hematuria, sore throat, otalgia, otorrhea, facial pain/pressure. She reports that she has been taking her insulin and oral hypoglycemics as prescribed. 12 point ROS was obtained and was negative except as in HPI PMH: As above PSH: section x3, L leg and hip ORIF Soc: Denies tobacco, alcohol, illicits FHx: DM in both parents All: NKDA PMD: Karina Pulm: Naldo Pharmacy: [facility] Present on Admission - Present on Admission Any Indicators Present on Admission: Yes History of Uncontrolled Diabetes: Yes Past Patient History - Infectious Disease Hx of Infectious Diseases: None - Tetanus Immunizations Tetanus Immunization: Unknown - Past Medical History & Family History Past Medical History?: Yes - Past Social History Smoking Status: Never Smoked - CARDIAC Hx Cardiac Disorders: Yes Hx Hypertension: Yes - PULMONARY Hx Respiratory Disorders: Yes Hx Asthma: Yes Hx Pneumonia: Yes - NEUROLOGICAL Hx Neurological Disorder: No - HEENT Hx HEENT Problems: Yes Other/Comment: excessive cerumen - RENAL Hx Chronic Kidney Disease: Yes Hx Kidney Stones: Yes - ENDOCRINE/METABOLIC Hx Endocrine Disorders: Yes Hx Diabetes Mellitus Type 2: Yes - HEMATOLOGICAL/ONCOLOGICAL Hx Blood Disorders: Yes Hx Shingles: Yes - INTEGUMENTARY Hx Dermatological Problems: No - MUSCULOSKELETAL/RHEUMATOLOGICAL Hx Musculoskeletal Disorders: Yes Hx Falls: No Hx Fractures: Yes (L leg with ORIF) - GASTROINTESTINAL Hx Gastrointestinal Disorders: Yes Hx Gastroesophageal Reflux: Yes - GENITOURINARY/GYNECOLOGICAL Hx Genitourinary Disorders: No - PSYCHIATRIC Hx Psychophysiologic Disorder: No Hx Anxiety: No Hx Bipolar Disorder: No Hx Depression: No Hx Emotional Abuse: No Hx Hallucinations: No Hx Panic Symptoms: No Hx Post Traumatic Stress Disorder: No Hx Psychosis: No Hx Physical Abuse: No Hx Schizophrenia: No Hx Sexual Abuse: No Hx Substance Use: No - SURGICAL HISTORY Hx Orthopedic Surgery: Yes (L leg ORIF with pins/screws) Other/Comment: tonsillectomy, - ANESTHESIA Hx Anesthesia: Yes Hx Anesthesia Reactions: No Hx Malignant Hyperthermia: No Meds Allergies/Adverse Reactions: Allergies Allergy/AdvReac Type Severity Reaction Status Date / Time No Known Allergies Allergy Verified 07/08/17 12:35 Physical Exam - Constitutional Appears: Non-toxic, No Acute Distress - Head Exam Head Exam: ATRAUMATIC, NORMOCEPHALIC - Eye Exam Eye Exam: EOMI, Normal appearance. absent: Scleral icterus - ENT Exam ENT Exam: Mucous Membranes Dry, Normal Oropharynx - Neck Exam Neck exam: Positive for: Normal Inspection. Negative for: Lymphadenopathy, Tenderness - Respiratory Exam Respiratory Exam: Wheezes (Diffuse, inspiratory and expiratory, but more prominent in the latter). absent: Accessory Muscle Use, Chest Wall Tenderness, Decreased Breath Sounds, Rales, Respiratory Distress, Stridor - Cardiovascular Exam Cardiovascular Exam: Tachycardia, REGULAR RHYTHM, +S1, +S2 - GI/Abdominal Exam GI & Abdominal Exam: Normal Bowel Sounds, Soft. absent: Guarding, Rebound, Rigid, Tenderness - Extremities Exam Extremities exam: Negative for: calf tenderness, pedal edema Additional comments: No clubbing, cyanosis, or edema - Back Exam Back exam: absent: CVA tenderness (L), CVA tenderness (R) - Neurological Exam Neurological exam: Alert, CN II-XII Intact, Oriented x3 - Psychiatric Exam Psychiatric exam: Normal Affect, Normal Mood - Skin Skin Exam: Dry, Intact Additional comments: 10-12 mm lesion on right buttock near midline, surrounding skin normal, nontender Results - Vital Signs Recent Vital Signs: Last Vital Signs Temp 98.6 F 09/14/17 20:21 Pulse 89 09/14/17 20:21 Resp 16 09/14/17 20:21 BP 153/44 H 09/14/17 20:21 Pulse Ox 95 09/14/17 20:21 - Labs Result Diagrams: 09/14/17 18:30 09/14/17 18:30 Labs: Laboratory Results - last 24 hr 09/14/17 09/14/17 09/14/17 18:30 18:30 18:30 WBC 10.9 RBC 4.45 Hgb 13.0 Hct 38.1 MCV 85.6 MCH 29.2 MCHC 34.1 RDW 13.2 Plt Count 222 MPV 12.6 H Gran % 71.0 H Lymph % (Auto) 14.5 L [place] % (Auto) 10.0 H Eos % (Auto) 4.3 Baso % (Auto) 0.2 Gran # 7.74 H Lymph # 1.6 [place] # 1.1 H Eos # 0.5 Baso # 0.02 PT 10.2 INR 0.94 APTT 28.3 Sodium 131 L Potassium 4.6 Chloride 96 L Carbon Dioxide 28 Anion Gap 12 BUN 32 H Creatinine 0.8 Est GFR ( Amer) > 60 Est GFR (Non-Af Amer) > 60 Random Glucose 616 H* D Calcium 9.6 Total Bilirubin 0.5 AST 28 ALT 34 Alkaline Phosphatase 157 H D Lactate Dehydrogenase 479 Total Creatine Kinase 21 L Troponin I < 0.01 NT-Pro-B Natriuret Pep 69.6 Total Protein 6.7 Albumin 3.3 Globulin 3.5 Albumin/Globulin Ratio 0.9 L Assessment & Plan - Assessment and Plan (Free Text) Assessment: 57 yo F with PMH of insulin dependant diabetes, asthma, HLD, presents complaining of dizziness, shortness of breath and high blood sugar. Plan: 1. Dyspnea 2/2 asthma exacerbation - Patient noted to be in NAD on exam, without cyanosis, stable vital signs, no signs of respiratory distress, saturating well on RA - CXR significant for flattened diaphragms and hyperinflated lungs, without any apparent focal consolidations - Patient with long history of [id number] asthma; two sick contacts at home; likely URI-induced asthma exacerbation - Patient reportedly takes prednisone 20mg daily at home, in addition to nebulized inhalers; reports only bi-monthly use of rescue inhaler - Start Solumedrol 40mg IV Q12 - Start duonebs Q4 DONALD and Q2 PRN - Ordered pre/post treatment peak flow - Ordered one dose of zithromax to complete course that patient started on outpatient basis - Obtain blood cultures x2 - Start O2 NC to maintain SaO2>90% - Continue to monitor respiratory status; low threshold to order ABG if patient appears to decompensate in any way 2. Hyperglycemia vs HHS - Patient with severely elevated blood glucose on admission, though without apparent acidosis and no elevation in anion gap - Patient noted to be clinical dehydrated; received bolus in the ER; continue IVF hydration - Patient received 10u insulin in the ER and responded well; no drip necessary - Patient reportedly takes 18u Levimir nightly; will increase to 25u nightly, with inslulin SSI High and accucheck AC/HS - Moderate Consistent Carb Diet - Ordered A1c to better understand patient's baseline 3. Skin lesion - Patient reports herpetic flare on right buttock, but only one small lesion seen, in no particular dermatomal distribution - Patient took one dose of acyclovir at home; will hold at this time, and monitor lesion daily 4. h/o HLD - Resume home statin GI/DVT Ppx - Protonix and Heparin Patient seen, discussed, and reviewed with attending <Enrique Plaza - Last Filed: 09/15/17 06:29> Results - Vital Signs Recent Vital Signs: Last Vital Signs Temp 97.5 F L 09/15/17 00:16 Pulse 97 H 09/15/17 02:00 Resp 18 09/15/17 00:16 BP 152/75 H 09/15/17 00:16 Pulse Ox 98 09/14/17 23:19 - Labs Result Diagrams: 09/14/17 18:30 09/14/17 18:30 Attending/Attestation - Attestation I have personally seen and examined this patient.: Yes I have fully participated in the care of the patient.: Yes I have reviewed all pertinent clinical information: Yes Notes (Text): 09/15/17 06:27 I agree with the above mentioned note and exam by the resident with the addition /exception of the followin57 y/o female with moderate to severe persistent asthma is being admitted for asthma exacerbation which is failing to improve as an outpatient. Patient was also on day 5 of Z-pack for possible bronchitis. Will monitor for fever and signs/symptoms of acute infection and continue to treat for Asthma exacerbation. Patient does not know her baseline peak flow; encouraged to take the peak flow meter home with her after this visit and attempt peak flow when she is not short of breath for a baseline.
[2017-09-14] MEDS ORDERED: Sodium Chloride 0.9% 1,000 ML IV STA (21:05)
[2017-09-14] MEDS ORDERED: Albuterol-Ipratrop 3 mg / 0.5 (3 ml) UD IH PRN (21:07)
[2017-09-14] MEDS ORDERED: Insulin Detemir 100 units/ml Vial (Levemir) SC SCH (22:00)
[2017-09-14] MEDS ORDERED: MethylPREDNISolone 40 mg Vial IVP SCH (22:00)
[2017-09-14] MEDS: Sodium Chloride 0.9% 1,000 ML IV SCH (22:02)
[2017-09-14] MEDS: Insulin Reg-HIGH-Coverage SC SCH (23:18)
[2017-09-14] MEDS: Albuterol-Ipratrop 3 mg / 0.5 (3 ml) UD IH SCH (23:50)
[2017-09-15] MEDS ORDERED: Albuterol-Ipratrop 3 mg / 0.5 (3 ml) UD IH SCH (02:00)
[2017-09-15] MEDS: Sodium Chloride 0.9% 1,000 ML IV SCH ×3 (03:00→22:02)
[2017-09-15] MEDS: Albuterol-Ipratrop 3 mg / 0.5 (3 ml) UD IH SCH ×6 (04:55→23:19)
[2017-09-15] MEDS: Pantoprazole 40 mg EC Tab PO SCH (06:33)
[2017-09-15 07:24] LABS: BASO # 0.01 K/mm3 (0.0-2.0); BASO % 0.1 % (0.0-3.0); GRAN # 13.71 (1.4-6.5); GRAN % 90.1 % (50.0-68.0); HEMATOCRIT 35.3 % (36.0-48.0); LYMPH # 0.9 (1.2-3.4); LYMPH % 5.9 % (22.0-35.0); MEAN CELL VOLUME 83.6 fl (80.0-105.0); MEAN CORPUSCULAR HGB CONC 33.4 g/dl (31.0-37.0); MEAN PLATELET VOLUME 11.9 fl (7.0-11.0); MONO # 0.6 (0.1-0.6); MONO % 3.9 % (1.0-6.0); PLATELET COUNT 202 10^3/uL (120.0-450.0); WHITE BLOOD COUNT 15.2 10^3/ul (4.5-11.0)
[2017-09-15 07:53] LABS: ALB/GLOB RATIO 0.9 (1.1-1.8); ALKALINE PHOSPHATASE 99 U/L (38-126); ALT/SGPT 35 U/L (7-56); AST/SGOT 18 U/L (14-36); BILIRUBIN,TOTAL 0.4 mg/dL (0.2-1.3); BLOOD UREA NITROGEN 25 mg/dL (7-21); CALCIUM 8.9 mg/dL (8.4-10.5); CARBON DIOXIDE 27 mmol/L (21-33); CHLORIDE 106 mmol/L (98-107); GFR AFRICAN-AMERICAN > 60; GLUCOSE,RANDOM 270 mg/dL (70-110); MAGNESIUM 1.8 mg/dL (1.7-2.2); PHOSPHOROUS 3.3 mg/dL (2.5-4.5); POTASSIUM 4.2 mmol/L (3.6-5.0); SODIUM 139 mmol/L (132-148); TOTAL PROTEIN 6.1 g/dL (5.8-8.3)
[2017-09-15 08:20] LABS: NEUTROPHIL 93 % (50.0-70.0)
[2017-09-15 08:21] LABS: PLATELET ESTIMATE NORMAL (NORMAL)
--- NOTE | 2017-09-15 08:57 | RAD ---
HISTORY: sob COMPARISON: 07/08/2017 FINDINGS: LUNGS: No active pulmonary disease. PLEURA: No significant pleural effusion identified, no pneumothorax apparent. CARDIOVASCULAR: Normal. OSSEOUS STRUCTURES: No significant abnormalities. VISUALIZED UPPER ABDOMEN: Normal. OTHER FINDINGS: None. IMPRESSION: No active disease.
[2017-09-15] MEDS: MethylPREDNISolone 40 mg Vial IVP SCH ×2 (09:37→22:02)
[2017-09-15] MEDS: Insulin Reg-HIGH-Coverage SC SCH ×4 (09:38→21:59)
--- NOTE | 2017-09-15 15:59 | CP.PCM.PN ---
<Dionisio Santamaria - Last Filed: 09/15/17 16:33> Subjective - Date & Time of Evaluation Date of Evaluation: 09/15/17 Time of Evaluation: 15:55 - Subjective Subjective: Medicine progress note for Dr. Camilo Owens DO PGY - 1, Pt s/e bedside. She states she feels better than she did yesterday but is still getting sob and still has a cough. She denies having any more polyuria, polydipsia, or NICHOLSON. Of note, pt described her asthma symptoms to me. Pt states that she used to get hospitalized several times a year when she was younger for an exacerbation, but it has gotten increasingly better. She said that she was intubated once many years ago but does not remember when. In addition, pt states that she uses her rescue inhaler 1-2 times a month, and experiences night symptoms maybe once a month. She takes daily oral steroids, a steroid inhaler, tessalon perles , and a rescue inhaler, and is adherent. Pt does not smoke. Objective - Vital Signs/Intake and Output Vital Signs (last 24 hours): Temp Pulse Resp BP Pulse Ox 70.2 F L 95 H 61 H 146/94 H 100 09/15/17 10:40 09/15/17 14:00 09/15/17 10:40 09/15/17 06:00 09/15/17 10:40 - Medications Medications: Current Medications Albuterol/Ipratropium (Duoneb 3 Mg/0.5 Mg (3 Ml) Ud) 3 ml IH Q2H PRN PRN Reason: Shortness of Breath Albuterol/Ipratropium (Duoneb 3 Mg/0.5 Mg (3 Ml) Ud) 3 ml IH [id number] [facility] Last Admin: 09/15/17 11:16 Dose: 3 ml Atorvastatin Calcium (Lipitor) 10 mg PO DIN [facility] Heparin Sodium (Porcine) (Heparin) 5,000 units SC Q12 [facility] PRN Reason: Protocol Last Admin: 09/15/17 09:37 Dose: 5,000 units Sodium Chloride (Sodium Chloride 0.9%) 1,000 mls @ 125 mls/hr IV .Q8H [facility] Last Admin: 09/15/17 13:50 Dose: 125 mls/hr Insulin Detemir (Levemir) 25 unit SC HS [facility] Last Admin: 09/14/17 23:19 Dose: 25 unit Insulin Human Regular (Humulin R High) 0 units SC ACHS [facility] PRN Reason: Protocol Last Admin: 09/15/17 12:18 Dose: 10 units Methylprednisolone (Solu-Medrol) 40 mg IVP Q12 [facility] Last Admin: 09/15/17 09:37 Dose: 40 mg Pantoprazole Sodium (Protonix Ec Tab) 40 mg PO 0600 [facility] Last Admin: 09/15/17 06:33 Dose: 40 mg Zolpidem Tartrate (Ambien) 5 mg PO HS [facility] PRN Reason: Protocol Last Admin: 09/15/17 00:46 Dose: 5 mg - Labs Labs: 09/15/17 06:00 09/15/17 06:00 PT 10.2 SECONDS (9.4-12.5) 09/14/17 18:30 INR 0.94 (0.93-1.08) 09/14/17 18:30 APTT 28.3 Seconds (25.1-36.5) 09/14/17 18:30 - Additional Findings Additional findings: Phys Exam: VS as below Const'l: on 2L nc; a&o x 4, nad Head/Neck: neck supple, no jvd, trachea midline, carotid midline, no cervical /head mass Eyes: ofelia, nonicteric sclera, eom intact ENT: auditory acuity grossly intact, throat not congested, no nasal deformity Cardio: rrr, no m/r/g, no carotid bruit, nml s1, s2 Pulm: +diffuse wheezes a/p; no accessory muscle use, equal nml breath sounds bilaterally, no RR Abd: s/nt/nd, nbs x 4 q, no palpable masses Derm: no rashes, no ulcers, no lesions Extr: no edema, no cyanosis, no calf tenderness, no lesions, no varicosities Neuro: cn II-XII grossly intact, ue and le 5/5 muscle strength bilaterally, no los ue, le bilaterally and core Assessment and Plan - Assessment and Plan (Free Text) Assessment: A/P 57 yo F with PMH of insulin dependant diabetes, asthma, HLD, presents complaining of dizziness, shortness of breath and high blood sugar. 1. Dyspnea 2/2 asthma exacerbation likely 2/2 URI - Solumedrol 40mg IV Q12 - Duonebs Q4 DONALD and Q2 PRN - Pre/post treatment peak flow - F/u Bl/Cx - Start O2 NC to maintain SaO2>90% - Continue to monitor respiratory status; low threshold to order ABG if patient appears to decompensate in any way 2. Hyperglycemia vs HHS - Continue IVF hydration - Patient reportedly takes 18u Levimir nightly; will increase to 25u ACHS, with inslulin SSI High and accucheck AC/HS - Moderate Consistent Carb Diet - A1C: 14.5 3. Skin lesion - Patient reports herpetic flare on right buttock, but only one small lesion seen, in no particular dermatomal distribution - Patient took one dose of acyclovir at home; will hold at this time, and monitor lesion daily - Keep patient on contact precautions 4. h/o HLD - Resume home statin GI/DVT Ppx - Protonix and Heparin <Bruno Page - Last Filed: 09/16/17 16:47> Objective - Vital Signs/Intake and Output Vital Signs (last 24 hours): Temp Pulse Resp BP Pulse Ox 98.2 F 53 L 26 H 153/89 H 96 09/16/17 12:00 09/16/17 14:00 09/16/17 06:00 09/16/17 06:00 09/16/17 06:00 Intake and Output: 09/16/17 09/16/17 06:59 18:59 Intake Total 1800 Output Total 900 800 Balance 900 -800 - Medications Medications: Current Medications Albuterol/Ipratropium (Duoneb 3 Mg/0.5 Mg (3 Ml) Ud) 3 ml IH Q2H PRN PRN Reason: Shortness of Breath Albuterol/Ipratropium (Duoneb 3 Mg/0.5 Mg (3 Ml) Ud) 3 ml IH [id number] [facility]AL[facility] Last Admin: 09/16/17 16:06 Dose: 3 ml Atorvastatin Calcium (Lipitor) 10 mg PO DIN DONALD Last Admin: 09/15/17 17:03 Dose: 10 mg Glimepiride (Amaryl) 2 mg PO BID [facility] Heparin Sodium (Porcine) (Heparin) 5,000 units SC Q12 [facility] PRN Reason: Protocol Last Admin: 09/16/17 09:46 Dose: 5,000 units Insulin Detemir (Levemir) 18 unit SC BID [facility] Insulin Human Regular (Humulin R High) 0 units SC ACHS [facility] PRN Reason: Protocol Last Admin: 09/16/17 11:49 Dose: 10 units Metformin HCl (Glucophage) 1,000 mg PO BID [facility] Methylprednisolone (Solu-Medrol) 40 mg IVP DAILY [facility] Pantoprazole Sodium (Protonix Ec Tab) 40 mg PO 0600 [facility] Last Admin: 09/16/17 05:26 Dose: 40 mg Zolpidem Tartrate (Ambien) 5 mg PO HS [facility] PRN Reason: Protocol Last Admin: 09/15/17 21:58 Dose: 5 mg - Labs Labs: 09/16/17 06:00 09/16/17 06:00 PT 10.2 SECONDS (9.4-12.5) 09/14/17 18:30 INR 0.94 (0.93-1.08) 09/14/17 18:30 APTT 28.3 Seconds (25.1-36.5) 09/14/17 18:30 Attending/Attestation - Attestation I have personally seen and examined this patient.: Yes I have fully participated in the care of the patient.: Yes I have reviewed all pertinent clinical information, including history, physical exam and plan: Yes Notes (Text): I have seen and examined the patient at bedside. Agree with the above note with the following additions/ exceptions: Briefly this is 57 year old female with history of IDDM, asthma, dyslipidemia, recurrent herpes zoster who presented with dyspnea secondary to asthma exacerbation and also found to have uncontrolled diabetes. Continue solumedrol, duonebs and peakflow monitoring. Continue IV hydration and insulin regimen. A1C is 14.5 Diabetic teaching ordered. There is a solitary skin lesion on the right buttock which is crusted looks more like acne. No dermatomal distribution. No ocular or oral lesions. There is no rash. HSV PCR pending. Will discontinue isolation. HIV is pending. Upon discharge patient will follow up with Dr Collins. Dr Bruno Page
[2017-09-15] MEDS ORDERED: Insulin Detemir 100 units/ml Vial (Levemir) SC SCH ×2 (16:28→16:31)
--- NOTE | 2017-09-15 20:06 | CARD ---
APPROVED REPORT EKG Measurement Heart [id number] <Conclusion> Sinus tachycardia Otherwise normal ECG
[2017-09-16] MEDS: Albuterol-Ipratrop 3 mg / 0.5 (3 ml) UD IH SCH ×7 (00:28→23:27)
[2017-09-16] MEDS: Pantoprazole 40 mg EC Tab PO SCH (05:26)
[2017-09-16] MEDS: Sodium Chloride 0.9% 1,000 ML IV SCH (05:26)
[2017-09-16 07:05] LABS: BASO # 0.01 K/mm3 (0.0-2.0); BASO % 0.1 % (0.0-3.0); EOS % 0.1 % (1.5-5.0); GRAN # 14.33 (1.4-6.5); GRAN % 89.5 % (50.0-68.0); HEMATOCRIT 34.9 % (36.0-48.0); LYMPH % 6.4 % (22.0-35.0); MEAN CELL VOLUME 84.9 fl (80.0-105.0); MEAN CORPUSCULAR HEMOGLOBIN 28.5 pg (25.0-35.0); MEAN CORPUSCULAR HGB CONC 33.5 g/dl (31.0-37.0); MEAN PLATELET VOLUME 12.5 fl (7.0-11.0); MONO # 0.6 (0.1-0.6); MONO % 3.9 % (1.0-6.0); RED CELL DISTRIBUTION WIDTH 13.3 % (11.5-14.5)
[2017-09-16 07:51] LABS: BILIRUBIN,TOTAL 0.4 mg/dL (0.2-1.3); BLOOD UREA NITROGEN 19 mg/dL (7-21); CARBON DIOXIDE 24 mmol/L (21-33); GLUCOSE,RANDOM 160 mg/dL (70-110); POTASSIUM 4.1 mmol/L (3.6-5.0); SODIUM 141 mmol/L (132-148)
[2017-09-16] MEDS: MethylPREDNISolone 40 mg Vial IVP SCH (09:46)
[2017-09-16] MEDS: Insulin Reg-HIGH-Coverage SC SCH ×4 (09:46→21:55)
[2017-09-16 11:47] LABS: GFR AFRICAN-AMERICAN > 60
[2017-09-16 11:48] LABS: ALB/GLOB RATIO 0.9 (1.1-1.8); CALCIUM 8.6 mg/dL (8.4-10.5); CHLORIDE 112 mmol/L (98-107)
[2017-09-16 11:49] LABS: ALKALINE PHOSPHATASE 79 U/L (38-126); ALT/SGPT 32 U/L (7-56); AST/SGOT 21 U/L (14-36)
--- NOTE | 2017-09-16 13:48 | CP.PCM.PN ---
<Dionisio Santamaria - Last Filed: 09/16/17 14:04> Subjective - Date & Time of Evaluation Date of Evaluation: 09/16/17 Time of Evaluation: 13:38 - Subjective Subjective: Medicine progress note for Dr. Camilo Owens DO PGY - 1, Pt s/e bedside. Pt states her sob is much better, and has improved from admission. Pt further states that she is not having any poluria, polydipsia, or any other urinary symptoms. Pt states that the lesion on her R buttocks is no longer itching. Pt does state that she is having back pain down the middle of her back in the lumbar region. No further complaints at this time. Objective - Vital Signs/Intake and Output Vital Signs (last 24 hours): Temp Pulse Resp BP Pulse Ox 98.2 F 80 26 H 153/89 H 96 09/16/17 12:00 09/16/17 10:00 09/16/17 06:00 09/16/17 06:00 09/16/17 06:00 Intake and Output: 09/16/17 09/16/17 06:59 18:59 Intake Total 1800 Output Total 900 Balance 900 - Medications Medications: Current Medications Albuterol/Ipratropium (Duoneb 3 Mg/0.5 Mg (3 Ml) Ud) 3 ml IH Q2H PRN PRN Reason: Shortness of Breath Albuterol/Ipratropium (Duoneb 3 Mg/0.5 Mg (3 Ml) Ud) 3 ml IH [id number] [facility] Last Admin: 09/16/17 11:41 Dose: 3 ml Atorvastatin Calcium (Lipitor) 10 mg PO DIN [facility] Last Admin: 09/15/17 17:03 Dose: 10 mg Heparin Sodium (Porcine) (Heparin) 5,000 units SC Q12 [facility] PRN Reason: Protocol Last Admin: 09/16/17 09:46 Dose: 5,000 units Insulin Detemir (Levemir) 25 unit SC HS [facility] Last Admin: 09/15/17 22:00 Dose: 25 unit Insulin Human Regular (Humulin R High) 0 units SC ACHS [facility] PRN Reason: Protocol Last Admin: 09/16/17 11:49 Dose: 10 units Methylprednisolone (Solu-Medrol) 40 mg IVP Q12 [facility] Last Admin: 09/16/17 09:46 Dose: 40 mg Pantoprazole Sodium (Protonix Ec Tab) 40 mg PO 0600 [facility] Last Admin: 09/16/17 05:26 Dose: 40 mg Zolpidem Tartrate (Ambien) 5 mg PO HS [facility] PRN Reason: Protocol Last Admin: 09/15/17 21:58 Dose: 5 mg - Labs Labs: 09/16/17 06:00 09/16/17 06:00 PT 10.2 SECONDS (9.4-12.5) 09/14/17 18:30 INR 0.94 (0.93-1.08) 09/14/17 18:30 APTT 28.3 Seconds (25.1-36.5) 09/14/17 18:30 - Additional Findings Additional findings: Phys Exam: VS as below Const'l: on 2L nc; a&o x 4, nad Head/Neck: neck supple, no jvd, trachea midline, carotid midline, no cervical /head mass Eyes: ofelia, nonicteric sclera, eom intact ENT: auditory acuity grossly intact, throat not congested, no nasal deformity Cardio: rrr, no m/r/g, no carotid bruit, nml s1, s2 Pulm: +diffuse wheezes a/p - resolved; no accessory muscle use, equal nml breath sounds bilaterally, no RR Abd: s/nt/nd, nbs x 4 q, no palpable masses Derm: no rashes, no ulcers, no lesions Extr: no edema, no cyanosis, no calf tenderness, no lesions, no varicosities Neuro: cn II-XII grossly intact, ue and le 5/5 muscle strength bilaterally, no los ue, le bilaterally and core Assessment and Plan - Assessment and Plan (Free Text) Assessment: A/P 57 yo F with PMH of insulin dependant diabetes, asthma, HLD, presents complaining of dizziness, shortness of breath and high blood sugar. Acute back pain - Flexeril 5 once - OMM Manipulation Dyspnea 2/2 asthma exacerbation likely 2/2 URI - Solumedrol 40mg IV Q12 - Duonebs Q4 DONALD and Q2 PRN - Pre/post treatment peak flow - F/u Bl/Cx - Start O2 NC to maintain SaO2>90% - Continue to monitor respiratory status; low threshold to order ABG if patient appears to decompensate in any way Hyperglycemia vs HHS - D/c IVF hydration - Moderate Consistent Carb Diet - A1C: 14.5 - Restart home medications Skin lesion - Patient reports herpetic flare on right buttock, but only one small lesion seen, in no particular dermatomal distribution - Patient took one dose of acyclovir at home; will hold at this time, and monitor lesion daily - Keep patient on contact precautions h/o HLD - Resume home statin GI/DVT Ppx - Protonix and Heparin <Bruno Page - Last Filed: 09/21/17 14:24> Objective - Vital Signs/Intake and Output Vital Signs (last 24 hours): Temp Pulse Resp BP Pulse Ox 98.2 F 53 L 26 H 153/89 H 96 09/16/17 12:00 09/16/17 14:00 09/16/17 06:00 09/16/17 06:00 09/16/17 06:00 Intake and Output: 09/16/17 09/16/17 06:59 18:59 Intake Total 1800 Output Total 900 800 Balance 900 -800 - Medications Medications: Current Medications Albuterol/Ipratropium (Duoneb 3 Mg/0.5 Mg (3 Ml) Ud) 3 ml IH Q2H PRN PRN Reason: Shortness of Breath Albuterol/Ipratropium (Duoneb 3 Mg/0.5 Mg (3 Ml) Ud) 3 ml IH [id number] [facility] Last Admin: 09/16/17 16:06 Dose: 3 ml Atorvastatin Calcium (Lipitor) 10 mg PO DIN [facility] Last Admin: 09/15/17 17:03 Dose: 10 mg Glimepiride (Amaryl) 2 mg PO BID [facility] Heparin Sodium (Porcine) (Heparin) 5,000 units SC Q12 [facility] PRN Reason: Protocol Last Admin: 09/16/17 09:46 Dose: 5,000 units Insulin Detemir (Levemir) 18 unit SC BID [facility] Insulin Human Regular (Humulin R High) 0 units SC ACHS [facility] PRN Reason: Protocol Last Admin: 09/16/17 11:49 Dose: 10 units Metformin HCl (Glucophage) 1,000 mg PO BID [facility] Methylprednisolone (Solu-Medrol) 40 mg IVP DAILY [facility] Pantoprazole Sodium (Protonix Ec Tab) 40 mg PO 0600 [facility] Last Admin: 09/16/17 05:26 Dose: 40 mg Zolpidem Tartrate (Ambien) 5 mg PO HS [facility]AL[facility] PRN Reason: Protocol Last Admin: 09/15/17 21:58 Dose: 5 mg - Labs Labs: 09/16/17 06:00 09/16/17 06:00 PT 10.2 SECONDS (9.4-12.5) 09/14/17 18:30 INR 0.94 (0.93-1.08) 09/14/17 18:30 APTT 28.3 Seconds (25.1-36.5) 09/14/17 18:30 Attending/Attestation - Attestation I have personally seen and examined this patient.: Yes I have fully participated in the care of the patient.: Yes I have reviewed all pertinent clinical information, including history, physical exam and plan: Yes Notes (Text): I have seen and examined the patient at bedside. Agree with the above note with the following additions/ exceptions: Briefly this is 57 year old female with history of IDDM, asthma, dyslipidemia, recurrent herpes zoster who presented with dyspnea secondary to asthma exacerbation and also found to have uncontrolled diabetes. Today he complains of back pain. Start flexeril. Continue solumedrol tapering, duonebs and peakflow monitoring. Continue insulin regimen. A1C is 14.5 Diabetic teaching ordered. There is a solitary skin lesion on the right buttock which is crusted looks more like acne. No dermatomal distribution. No ocular or oral lesions. There is no rash. HSV PCR pending. Will discontinue isolation. HIV is pending. Upon discharge patient will follow up with Dr Collins. Dr Bruno Page
[2017-09-16] MEDS: Insulin Detemir 100 units/ml Vial (Levemir) SC SCH (17:35)
[2017-09-17] MEDS ORDERED: Insulin Regular 1 UNITS/0.01 ML ML SC ONE (02:12)
[2017-09-17] MEDS: Albuterol-Ipratrop 3 mg / 0.5 (3 ml) UD IH SCH ×6 (04:16→23:59)
[2017-09-17] MEDS: Pantoprazole 40 mg EC Tab PO SCH (06:32)
[2017-09-17 06:51] LABS: BASO # 0.01 K/mm3 (0.0-2.0); BASO % 0.1 % (0.0-3.0); EOS # 0.2 (0.0-0.7); EOS % 1.4 % (1.5-5.0); GRAN # 8.74 (1.4-6.5); GRAN % 64.9 % (50.0-68.0); HEMATOCRIT 33.3 % (36.0-48.0); LYMPH # 3.2 (1.2-3.4); LYMPH % 23.4 % (22.0-35.0); MEAN CELL VOLUME 85.4 fl (80.0-105.0); MEAN CORPUSCULAR HEMOGLOBIN 28.5 pg (25.0-35.0); MEAN CORPUSCULAR HGB CONC 33.3 g/dl (31.0-37.0); MEAN PLATELET VOLUME 11.6 fl (7.0-11.0); MONO # 1.4 (0.1-0.6); MONO % 10.2 % (1.0-6.0); RED CELL DISTRIBUTION WIDTH 13.5 % (11.5-14.5); WHITE BLOOD COUNT 13.5 10^3/ul (4.5-11.0)
[2017-09-17 07:55] LABS: ALB/GLOB RATIO 0.9 (1.1-1.8); ALKALINE PHOSPHATASE 62 U/L (38-126); ALT/SGPT 23 U/L (7-56); AST/SGOT 17 U/L (14-36); BILIRUBIN,TOTAL 0.4 mg/dL (0.2-1.3); BLOOD UREA NITROGEN 20 mg/dL (7-21); CALCIUM 8.7 mg/dL (8.4-10.5); CARBON DIOXIDE 22 mmol/L (21-33); CHLORIDE 112 mmol/L (98-107); GFR AFRICAN-AMERICAN > 60; GLUCOSE,RANDOM 180 mg/dL (70-110); POTASSIUM 3.8 mmol/L (3.6-5.0); SODIUM 139 mmol/L (132-148); TOTAL PROTEIN 5.8 g/dL (5.8-8.3)
[2017-09-17] MEDS: Insulin Reg-HIGH-Coverage SC SCH ×4 (08:33→21:18)
[2017-09-17] MEDS: MethylPREDNISolone 40 mg Vial IVP SCH (10:31)
[2017-09-17] MEDS: Insulin Detemir 100 units/ml Vial (Levemir) SC SCH ×2 (10:35→17:52)
--- NOTE | 2017-09-17 17:40 | CP.PCM.PN ---
<Dionisio Santamaria - Last Filed: 09/17/17 17:36> Subjective - Date & Time of Evaluation Date of Evaluation: 09/17/17 Time of Evaluation: 17:37 - Subjective Subjective: Medicine progress note for Dr. Noble - Dionisio Owens DO PGY - 1, Pt s/e bedside. Pt states her sob is much better, and has improved from admission, but that she "always carries a wheeze." Pt further states that she is not having any polyuria, polydipsia, or any other urinary symptoms. Pt states that the lesion on her R buttock no longer itches. Pt states that her back pain from yesterday has resolved. No further complaints at this time. Objective - Vital Signs/Intake and Output Vital Signs (last 24 hours): Temp Pulse Resp BP Pulse Ox 98.2 F 103 H 20 146/92 H 98 09/17/17 16:00 09/17/17 16:00 09/17/17 16:00 09/17/17 16:00 09/17/17 16:00 Intake and Output: 09/17/17 09/17/17 06:59 18:59 Intake Total 840 960 Balance 840 960 - Medications Medications: Current Medications Acetaminophen (Tylenol 325mg Tab) 650 mg PO Q6H PRN PRN Reason: Headache Last Admin: 09/17/17 11:11 Dose: 650 mg Albuterol/Ipratropium (Duoneb 3 Mg/0.5 Mg (3 Ml) Ud) 3 ml IH Q2H PRN PRN Reason: Shortness of Breath Albuterol/Ipratropium (Duoneb 3 Mg/0.5 Mg (3 Ml) Ud) 3 ml IH [id number] [facility] Last Admin: 09/17/17 16:18 Dose: 3 ml Atorvastatin Calcium (Lipitor) 10 mg PO DIN [facility] Last Admin: 09/16/17 17:36 Dose: 10 mg Glimepiride (Amaryl) 2 mg PO BID [facility] Last Admin: 09/17/17 10:30 Dose: 2 mg Heparin Sodium (Porcine) (Heparin) 5,000 units SC Q12 [facility] PRN Reason: Protocol Last Admin: 09/17/17 10:31 Dose: 5,000 units Insulin Detemir (Levemir) 26 unit SC AC [facility] Insulin Detemir (Levemir) 18 unit SC HS [facility] Insulin Human Regular (Humulin R High) 0 units SC ACHS [facility] PRN Reason: Protocol Last Admin: 09/17/17 12:30 Dose: 10 units Metformin HCl (Glucophage) 1,000 mg PO BID [facility] Last Admin: 09/17/17 10:30 Dose: 1,000 mg Methylprednisolone (Solu-Medrol) 40 mg IVP DAILY [facility] Last Admin: 09/17/17 10:31 Dose: 40 mg Pantoprazole Sodium (Protonix Ec Tab) 40 mg PO 0600 [facility] Last Admin: 09/17/17 06:32 Dose: 40 mg Zolpidem Tartrate (Ambien) 5 mg PO HS [facility] PRN Reason: Protocol Last Admin: 09/16/17 21:55 Dose: 5 mg - Labs Labs: 09/17/17 06:15 09/17/17 06:15 PT 10.2 SECONDS (9.4-12.5) 09/14/17 18:30 INR 0.94 (0.93-1.08) 09/14/17 18:30 APTT 28.3 Seconds (25.1-36.5) 09/14/17 18:30 - Additional Findings Additional findings: Phys Exam: VS as below Const'l: +no longer on 2L nc; a&o x 4, nad Head/Neck: neck supple, no jvd, trachea midline, carotid midline, no cervical /head mass Eyes: ofelia, nonicteric sclera, eom intact ENT: auditory acuity grossly intact, throat not congested, no nasal deformity Cardio: rrr, no m/r/g, no carotid bruit, nml s1, s2 Pulm: +diffuse wheezes a/p - resolved; no accessory muscle use, equal nml breath sounds bilaterally, no RR Abd: s/nt/nd, nbs x 4 q, no palpable masses Derm: no rashes, no ulcers, no lesions Extr: no edema, no cyanosis, no calf tenderness, no lesions, no varicosities Neuro: cn II-XII grossly intact, ue and le 5/5 muscle strength bilaterally, no los ue, le bilaterally and core Assessment and Plan - Assessment and Plan (Free Text) Assessment: A/P 57 yo F with PMH of insulin dependant diabetes, asthma, HLD, presents complaining of dizziness, shortness of breath and high blood sugar. Acute back pain - Resolved - Flexeril 5 once - OMM Manipulation Dyspnea 2/2 asthma exacerbation likely 2/2 URI - Solumedrol 40mg IV Q12 - Duonebs Q4 DONALD and Q2 PRN - Pre/post treatment peak flow - F/u Bl/Cx - Start O2 NC to maintain SaO2>90% - no longer on - Continue to monitor respiratory status; low threshold to order ABG if patient appears to decompensate in any way - Pulm consult: Dr. Marin Hyperglycemia vs HHS - D/c IVF hydration - Moderate Consistent Carb Diet - A1C: 14.5 - Restart home medications, but tweaked her daytime insulin to 26 U Skin lesion, likely 2/2 Acne Eruption - Patient reports herpetic flare on right buttock, but only one small lesion seen, in no particular dermatomal distribution - Patient took one dose of acyclovir at home; will hold at this time, and monitor lesion daily - Keep patient on contact precautions h/o HLD - Resume home statin GI/DVT Ppx - Protonix and Heparin <Robert Noble - Last Filed: 09/18/17 18:21> Objective - Vital Signs/Intake and Output Vital Signs (last 24 hours): Temp Pulse Resp BP Pulse Ox 97.7 F 95 H 18 148/91 H 100 09/18/17 07:48 09/18/17 07:48 09/18/17 07:48 09/18/17 07:48 09/18/17 07:48 Intake and Output: 09/18/17 09/18/17 06:59 18:59 Intake Total 2040 720 Balance 2040 720 - Labs Labs: 09/18/17 07:40 09/18/17 07:40 PT 10.2 SECONDS (9.4-12.5) 09/14/17 18:30 INR 0.94 (0.93-1.08) 09/14/17 18:30 APTT 28.3 Seconds (25.1-36.5) 09/14/17 18:30 Attending/Attestation - Attestation I have personally seen and examined this patient.: Yes I have fully participated in the care of the patient.: Yes I have reviewed all pertinent clinical information, including history, physical exam and plan: Yes Notes (Text): 57 yo F with PMH of insulin dependant diabetes, asthma, HLD, presents complaining of dizziness, shortness of breath and high blood sugar. Dyspnea 2/2 asthma exacerbation likely 2/2 URI Hyperglycemia uncontrolled DM -2 worse due to steroids
[2017-09-17] MEDS ORDERED: Insulin Detemir 100 units/ml Vial (Levemir) SC SCH (22:00)
[2017-09-18] MEDS: Albuterol-Ipratrop 3 mg / 0.5 (3 ml) UD IH SCH ×3 (04:32→11:09)
[2017-09-18] MEDS: Pantoprazole 40 mg EC Tab PO SCH (05:53)
[2017-09-18 07:48] VITALS: BP 148/91; PULSE 95; RESP 18; TEMP 97.7; O2SAT 100
[2017-09-18 07:48] LABS: BASO # 0.01 K/mm3 (0.0-2.0); BASO % 0.1 % (0.0-3.0); EOS # 0.2 (0.0-0.7); EOS % 1.7 % (1.5-5.0); GRAN # 8.47 (1.4-6.5); GRAN % 66.9 % (50.0-68.0); HEMATOCRIT 33.3 % (36.0-48.0); LYMPH # 2.5 (1.2-3.4); LYMPH % 19.6 % (22.0-35.0); MEAN CELL VOLUME 85.8 fl (80.0-105.0); MEAN CORPUSCULAR HEMOGLOBIN 28.4 pg (25.0-35.0); MEAN PLATELET VOLUME 12.4 fl (7.0-11.0); MONO # 1.5 (0.1-0.6); MONO % 11.7 % (1.0-6.0); RED CELL DISTRIBUTION WIDTH 13.8 % (11.5-14.5); WHITE BLOOD COUNT 12.7 10^3/ul (4.5-11.0)
[2017-09-18 08:37] LABS: ALB/GLOB RATIO 0.9 (1.1-1.8); ALKALINE PHOSPHATASE 63 U/L (38-126); ALT/SGPT 43 U/L (7-56); AST/SGOT 37 U/L (14-36); BILIRUBIN,TOTAL 0.3 mg/dL (0.2-1.3); BLOOD UREA NITROGEN 22 mg/dL (7-21); CALCIUM 8.8 mg/dL (8.4-10.5); CARBON DIOXIDE 23 mmol/L (21-33); CHLORIDE 109 mmol/L (98-107); GFR AFRICAN-AMERICAN > 60; GLUCOSE,RANDOM 201 mg/dL (70-110); POTASSIUM 3.6 mmol/L (3.6-5.0); SODIUM 139 mmol/L (132-148); TOTAL PROTEIN 5.7 g/dL (5.8-8.3)
[2017-09-18] MEDS: Insulin Detemir 100 units/ml Vial (Levemir) SC SCH ×4 (09:19→11:58)
[2017-09-18] MEDS: MethylPREDNISolone 40 mg Vial IVP SCH (09:20)
[2017-09-18] MEDS: Insulin Reg-HIGH-Coverage SC SCH ×2 (09:29→13:31)
[2017-09-18] MEDS ORDERED: Fluticasone-Salmeterol 250-50mcg Diskus IH SCH (10:00)
[2017-09-18] MEDS ORDERED: Budesonide 0.5 mg/2 ml Inhal Susp UD IH ONE (10:15)
[2017-09-18] MEDS ORDERED: Arformoterol 15 mcg/2 ml Inh Sol IH ONE (10:15)
--- NOTE | 2017-09-18 14:04 | CP.PCM.DIS ---
<Dionisio Santamaria - Last Filed: 09/18/17 13:52> Provider - Provider Date of Admission: 09/15/17 16:43 Attending physician: Bruno Page MD Primary care physician: Bita Collins MD Time Spent in preparation of Discharge (in minutes): 30 Hospital Course - Lab Results Lab Results: Most Recent Lab Values WBC 12.7 10^3/ul (4.5-11.0) H 09/18/17 07:40 RBC 3.88 10^6/uL (3.5-6.1) 09/18/17 07:40 Hgb 11.0 g/dL (12.0-16.0) L 09/18/17 07:40 Hct 33.3 % (36.0-48.0) L 09/18/17 07:40 MCV 85.8 fl (80.0-105.0) 09/18/17 07:40 MCH 28.4 pg (25.0-35.0) 09/18/17 07:40 MCHC 33.0 g/dl (31.0-37.0) 09/18/17 07:40 RDW 13.8 % (11.5-14.5) 09/18/17 07:40 Plt Count 245 10^3/uL (120.0-450.0) 09/18/17 07:40 MPV 12.4 fl (7.0-11.0) H 09/18/17 07:40 Gran % 66.9 % (50.0-68.0) 09/18/17 07:40 Lymph % (Auto) 19.6 % (22.0-35.0) L 09/18/17 07:40 [place] % (Auto) 11.7 % (1.0-6.0) H 09/18/17 07:40 Eos % (Auto) 1.7 % (1.5-5.0) 09/18/17 07:40 Baso % (Auto) 0.1 % (0.0-3.0) 09/18/17 07:40 Gran # 8.47 (1.4-6.5) H 09/18/17 07:40 Lymph # 2.5 (1.2-3.4) 09/18/17 07:40 Cuming # 1.5 (0.1-0.6) H 09/18/17 07:40 Eos # 0.2 (0.0-0.7) 09/18/17 07:40 Baso # 0.01 K/mm3 (0.0-2.0) 09/18/17 07:40 Neutrophils % (Manual) 93 % (50.0-70.0) H 09/15/17 06:00 Lymphocytes % (Manual) 5 % (22.0-35.0) L 09/15/17 06:00 Monocytes % (Manual) 2 % (1.0-6.0) 09/15/17 06:00 Platelet Evaluation Normal (NORMAL) 09/15/17 06:00 PT 10.2 SECONDS (9.4-12.5) 09/14/17 18:30 INR 0.94 (0.93-1.08) 09/14/17 18:30 APTT 28.3 Seconds (25.1-36.5) 09/14/17 18:30 Sodium 139 mmol/L (132-148) 09/18/17 07:40 Potassium 3.6 mmol/L (3.6-5.0) 09/18/17 07:40 Chloride 109 mmol/L (98-107) H 09/18/17 07:40 Carbon Dioxide 23 mmol/L (21-33) 09/18/17 07:40 Anion Gap 11 (10-20) 09/18/17 07:40 BUN 22 mg/dL (7-21) H 09/18/17 07:40 Creatinine 0.8 mg/dl (0.7-1.2) 09/18/17 07:40 Est GFR ( Amer) > 60 09/18/17 07:40 Est GFR (Non-Af Amer) > 60 09/18/17 07:40 POC Glucose (mg/dL) 134 mg/dL (65-110) H 09/18/17 05:14 Random Glucose 201 mg/dL (70-110) H 09/18/17 07:40 Hemoglobin A1c 14.5 % (4.2-6.5) H D 09/14/17 22:17 Calcium 8.8 mg/dL (8.4-10.5) 09/18/17 07:40 Phosphorus 3.3 mg/dL (2.5-4.5) 09/15/17 06:00 Magnesium 1.8 mg/dL (1.7-2.2) 09/15/17 06:00 Total Bilirubin 0.3 mg/dL (0.2-1.3) 09/18/17 07:40 AST 37 U/L (14-36) H D 09/18/17 07:40 ALT 43 U/L (7-56) 09/18/17 07:40 Alkaline Phosphatase 63 U/L (38-126) 09/18/17 07:40 Lactate Dehydrogenase 479 U/L (333-699) 09/14/17 18:30 Total Creatine Kinase 21 U/L (35-230) L 09/14/17 18:30 Troponin I < 0.01 ng/mL 09/14/17 18:30 NT-Pro-B Natriuret Pep 69.6 pg/mL (0-450) 09/14/17 18:30 Total Protein 5.7 g/dL (5.8-8.3) L 09/18/17 07:40 Albumin 2.7 g/dL (3.0-4.8) L 09/18/17 07:40 Globulin 2.9 gm/dL 09/18/17 07:40 Albumin/Globulin Ratio 0.9 (1.1-1.8) L 09/18/17 07:40 HIV 1&2 Ag/Ab, 4th Gen Nonreactive (Nonreactive) 09/16/17 14:30 - Hospital Course Hospital Course: HPI: 57 yo F with PMH of insulin dependant diabetes, asthma, HLD, presents complaining of dizziness, shortness of breath and high blood sugar. She feels as though she is having an asthma exacerbation, and has noted that her glucometer reads "High" for the past few days. She also admits to cough, productive of yellowish sputum, wheezing, chest pain starting today associated with deep respirations and cough. Shortness of breath is not responding to her rescue inhalers. She reports a 40 year history of asthma, requiring daily oral steroids for symptom control. She also reports that she was recently on a Z- pack course, which today would have been the last day, without improvement in her symptoms. She also admits to two sick contacts at home, her grandchildren, who were febrile, with coughs. She also reports elevated blood sugar readings, and admits to polyuria, polydipsia, headache, and lightheadedness and poor balance for the past four days and anorexia for the past day. She denies any falls, LOC, confusion, head trauma. She also denies nausea, vomiting, diarrhea, constipation, dysuria, hematuria, sore throat, otalgia, otorrhea, facial pain/pressure. She reports that she has been taking her insulin and oral hypoglycemics as prescribed. Hospital Course: Throughout her stay here, Ms. Nicholas's breathing and wheezing became markedly better. Patient was ready to be off of NC by day 2. Patient's lesion on R buttock was determined to be non-herpetic and she was taken off of contact precaution. Finally, her sugars were better controlled on day of discharge. A/P on Day of Discharge: 57 yo F with PMH of insulin dependant diabetes, asthma, HLD, presents complaining of dizziness, shortness of breath and high blood sugar. Acute back pain - Resolved - Flexeril 5 once - OMM Manipulation Dyspnea 2/2 asthma exacerbation likely 2/2 URI - Solumedrol 40mg IV Q12 - Duonebs Q4 DONALD and Q2 PRN - Pre/post treatment peak flow - F/u Bl/Cx - Start O2 NC to maintain SaO2>90% - no longer on - Continue to monitor respiratory status; low threshold to order ABG if patient appears to decompensate in any way - Pulm consult: Dr. Marin Hyperglycemia vs HHS - D/c IVF hydration - Moderate Consistent Carb Diet - A1C: 14.5 - Restart home medications, but tweaked her daytime insulin to 26 U Skin lesion, likely 2/2 Acne Eruption - Patient reports herpetic flare on right buttock, but only one small lesion seen, in no particular dermatomal distribution - Patient took one dose of acyclovir at home; will hold at this time, and monitor lesion daily - Keep patient on contact precautions h/o HLD - Resume home statin GI/DVT Ppx - Protonix and Heparin Discharge Exam - Head Exam Head Exam: ATRAUMATIC, NORMOCEPHALIC - Additional Findings Additional findings: Phys Exam: VS as below Const'l: +no longer on 2L nc; a&o x 4, nad Head/Neck: neck supple, no jvd, trachea midline, carotid midline, no cervical /head mass Eyes: ofelia, nonicteric sclera, eom intact ENT: auditory acuity grossly intact, throat not congested, no nasal deformity Cardio: rrr, no m/r/g, no carotid bruit, nml s1, s2 Pulm: +diffuse wheezes a/p - resolved; no accessory muscle use, equal nml breath sounds bilaterally, no RR Abd: s/nt/nd, nbs x 4 q, no palpable masses Derm: no rashes, no ulcers, no lesions Extr: no edema, no cyanosis, no calf tenderness, no lesions, no varicosities Neuro: cn II-XII grossly intact, ue and le 5/5 muscle strength bilaterally, no los ue, le bilaterally and core Discharge Plan - Discharge Medications Prescriptions: Fluticasone/Salmeterol [Advair 250-50 Diskus] 1 each IH DAILY #1 blst.w.dev Prednisone 40 mg PO DAILY #5 tablet - Follow Up Plan Condition: FAIR Disposition: HOME/ ROUTINE Patient education suggested?: Yes Instructions: Asthma (DC), Diabetic Hyperglycemia (DC) Additional Instructions: 1. Please follow up with Dr. Forbes, the jewel bearing grinder 2. Please use your advair and your albuterol as prescribed 3. Please use your new dose of steroid tablets for 5 days as prescribed, then use your old regimen of steroid tablets 4. Please follow up with your Primary Care Doctor to get your sugars under better management 5. If your symptoms persist or return, please return to the ED. Referrals: Bita Collins MD [Primary Care Provider] - Linnette Forbes MD [Staff Provider] - <Robert Noble - Last Filed: 09/18/17 18:22> Provider - Provider Date of Admission: 09/15/17 16:43 Attending physician: Bruno Page MD Primary care physician: Bita Collins MD Hospital Course - Lab Results Lab Results: Most Recent Lab Values WBC 12.7 10^3/ul (4.5-11.0) H 09/18/17 07:40 RBC 3.88 10^6/uL (3.5-6.1) 09/18/17 07:40 Hgb 11.0 g/dL (12.0-16.0) L 09/18/17 07:40 Hct 33.3 % (36.0-48.0) L 09/18/17 07:40 MCV 85.8 fl (80.0-105.0) 09/18/17 07:40 MCH 28.4 pg (25.0-35.0) 09/18/17 07:40 MCHC 33.0 g/dl (31.0-37.0) 09/18/17 07:40 RDW 13.8 % (11.5-14.5) 09/18/17 07:40 Plt Count 245 10^3/uL (120.0-450.0) 09/18/17 07:40 MPV 12.4 fl (7.0-11.0) H 09/18/17 07:40 Gran % 66.9 % (50.0-68.0) 09/18/17 07:40 Lymph % (Auto) 19.6 % (22.0-35.0) L 09/18/17 07:40 [place] % (Auto) 11.7 % (1.0-6.0) H 09/18/17 07:40 Eos % (Auto) 1.7 % (1.5-5.0) 09/18/17 07:40 Baso % (Auto) 0.1 % (0.0-3.0) 09/18/17 07:40 Gran # 8.47 (1.4-6.5) H 09/18/17 07:40 Lymph # 2.5 (1.2-3.4) 09/18/17 07:40 [place] # 1.5 (0.1-0.6) H 09/18/17 07:40 Eos # 0.2 (0.0-0.7) 09/18/17 07:40 Baso # 0.01 K/mm3 (0.0-2.0) 09/18/17 07:40 Neutrophils % (Manual) 93 % (50.0-70.0) H 09/15/17 06:00 Lymphocytes % (Manual) 5 % (22.0-35.0) L 09/15/17 06:00 Monocytes % (Manual) 2 % (1.0-6.0) 09/15/17 06:00 Platelet Evaluation Normal (NORMAL) 09/15/17 06:00 PT 10.2 SECONDS (9.4-12.5) 09/14/17 18:30 INR 0.94 (0.93-1.08) 09/14/17 18:30 APTT 28.3 Seconds (25.1-36.5) 09/14/17 18:30 Sodium 139 mmol/L (132-148) 09/18/17 07:40 Potassium 3.6 mmol/L (3.6-5.0) 09/18/17 07:40 Chloride 109 mmol/L (98-107) H 09/18/17 07:40 Carbon Dioxide 23 mmol/L (21-33) 09/18/17 07:40 Anion Gap 11 (10-20) 09/18/17 07:40 BUN 22 mg/dL (7-21) H 09/18/17 07:40 Creatinine 0.8 mg/dl (0.7-1.2) 09/18/17 07:40 Est GFR ( Amer) > 60 09/18/17 07:40 Est GFR (Non-Af Amer) > 60 09/18/17 07:40 POC Glucose (mg/dL) 274 mg/dL (65-110) H 09/18/17 13:07 Random Glucose 201 mg/dL (70-110) H 09/18/17 07:40 Hemoglobin A1c 14.5 % (4.2-6.5) H D 09/14/17 22:17 Calcium 8.8 mg/dL (8.4-10.5) 09/18/17 07:40 Phosphorus 3.3 mg/dL (2.5-4.5) 09/15/17 06:00 Magnesium 1.8 mg/dL (1.7-2.2) 09/15/17 06:00 Total Bilirubin 0.3 mg/dL (0.2-1.3) 09/18/17 07:40 AST 37 U/L (14-36) H D 09/18/17 07:40 ALT 43 U/L (7-56) 09/18/17 07:40 Alkaline Phosphatase 63 U/L (38-126) 09/18/17 07:40 Lactate Dehydrogenase 479 U/L (333-699) 09/14/17 18:30 Total Creatine Kinase 21 U/L (35-230) L 09/14/17 18:30 Troponin I < 0.01 ng/mL 09/14/17 18:30 NT-Pro-B Natriuret Pep 69.6 pg/mL (0-450) 09/14/17 18:30 Total Protein 5.7 g/dL (5.8-8.3) L 09/18/17 07:40 Albumin 2.7 g/dL (3.0-4.8) L 09/18/17 07:40 Globulin 2.9 gm/dL 09/18/17 07:40 Albumin/Globulin Ratio 0.9 (1.1-1.8) L 09/18/17 07:40 HIV 1&2 Ag/Ab, 4th Gen Nonreactive (Nonreactive) 09/16/17 14:30 Attending/Attestation - Attestation I have personally seen and examined this patient.: Yes I have fully participated in the care of the patient.: Yes I have reviewed all pertinent clinical information, including history, physical exam and plan: Yes Notes (Text): 57 yo F with PMH of insulin dependant diabetes, asthma, HLD, presents complaining of dizziness, shortness of breath and high blood sugar. Dyspnea 2/2 asthma exacerbation likely 2/2 URI Hyperglycemia uncontrolled DM -2 worse due to steroids
[2017-09-18] MEDS ORDERED: Influenza Vaccine 60 mcg/0.5 mL SYR (4YR UP) IM ONE (14:20)
[2017-09-18] MEDS ORDERED: Arformoterol 15 mcg/2 ml Inh Sol IH SCH (20:00)
[2017-09-18] MEDS ORDERED: Budesonide 0.5 mg/2 ml Inhal Susp UD IH SCH (20:00)
== END 2017-09-18 14:59 | disposition home or self-care (01) | DRG 96 ==
LOC: ED 17:45 → ERH 20:53 → CCU 23:55 → OBSVTOIN 09-15 16:43 → 5RSO 09-16 17:01
PROVIDERS: ADMIT Internal Medicine; ATTEND Hospitalist
DX: J45.901 Unspecified asthma with (acute) exacerbation (principal); E11.65 Type 2 diabetes mellitus with hyperglycemia; T38.0X5A Adverse effect of glucocorticoids and synthetic analogues, initial encounter; J06.9 Acute upper respiratory infection, unspecified; E78.5 Hyperlipidemia, unspecified; M54.5 Low back pain; L70.9 Acne, unspecified; Z79.4 Long term (current) use of insulin

== ENCOUNTER 2018-01-30 13:14 | Emergency (ER) | payer MEDICAID ==
[2018-01-30 13:14] VITALS: BMI 29.2
[2018-01-30] MEDS ORDERED: Lactated Ringer's 1,000 ML IV STA (13:46)
[2018-01-30 14:05] LABS: BASO # 0.03 K/mm3 (0.0-2.0); BASO % 0.2 % (0.0-3.0); EOS # 0.6 (0.0-0.7); EOS % 3.2 % (1.5-5.0); GRAN # 14.68 (1.4-6.5); GRAN % 79.5 % (50.0-68.0); LYMPH # 1.9 (1.2-3.4); LYMPH % 10.2 % (22.0-35.0); MEAN CELL VOLUME 83.7 fl (80.0-105.0); MEAN CORPUSCULAR HEMOGLOBIN 28.6 pg (25.0-35.0); MEAN CORPUSCULAR HGB CONC 34.2 g/dl (31.0-37.0); MEAN PLATELET VOLUME 11.6 fl (7.0-11.0); MONO # 1.3 (0.1-0.6); MONO % 6.9 % (1.0-6.0); RBC 4.54 10^6/uL (3.5-6.1); RED CELL DISTRIBUTION WIDTH 13.1 % (11.5-14.5); WHITE BLOOD COUNT 18.5 10^3/ul (4.5-11.0)
[2018-01-30 14:18] LABS: ALBUMIN 3.2 g/dL (3.0-4.8); CALCIUM 9.6 mg/dL (8.4-10.5); GFR AFRICAN-AMERICAN > 60; GFR NON-AFRICAN AMERICAN > 60
[2018-01-30 14:20] LABS: ALT/SGPT 26 U/L (7-56); AST/SGOT 23 U/L (14-36); BLOOD UREA NITROGEN 29 mg/dL (7-21); INR 0.94 (0.93-1.08); PARTIAL THROMBOPLASTIN TIME 29.5 Seconds (25.1-36.5); PROTHROMBIN TIME 10.7 SECONDS (9.4-12.5)
[2018-01-30 14:28] LABS: TROPONIN I < 0.01 ng/mL
--- NOTE | 2018-01-30 14:47 | ED PDOC ---
Arrival/HPI - General Chief Complaint: Dizziness/Lightheaded Time Seen by Provider: 01/30/18 13:44 Historian: Patient - History of Present Illness Narrative History of Present Illness (Text): 01/30/18 14:40 57 year old female, whose past medical history includes Insulin dependent diabetes, severely prednisone dependent asthma (takes 5mg and often more per day ), hyperlipidemia, hypertension, and diabetic neuropathy, presents to the emergency department complaining of worsening dizziness mixed pre-syncopal component. She recently seem her PMD on 01/28/18 who prescribed a new long lasting medicine Exenatide by weekly questionable administered properly injection and also Gabapentin 300mg. The day after she began having dizziness mixed with pre-syncopal component. She also complaining of high blood sugar eating over 400 and right-sided vascular herpetiform rash on the sacroiliac/ paraspinous rash. Patient reports a headache, but denies any fever, chills, chest pain, shortness of breath, nausea, vomiting, diarrhea, urinary symptoms, back pain, neck pain, or any other complaints. PMD: Dr. Collins Time/Duration: Other (2-3 days) Symptom Onset: Gradual Symptom Course: Unchanged Activities at Onset: Light Context: Home Past Medical History - Provider Review Nursing Documentation Reviewed: Yes - Infectious Disease Hx of Infectious Diseases: None - Tetanus Immunization Tetanus Immunization: Unknown - Reproductive Menopause: Yes - Cardiac Hx Cardiac Disorders: Yes (As per pt clots in heart) Hx Hypertension: Yes - Pulmonary Hx Asthma: Yes Hx Pneumonia: Yes - Neurological Hx Neurological Disorder: No - HEENT Hx HEENT Disorder: Yes Other/Comment: excessive cerumen - Renal Hx Renal Disorder: Yes Hx Kidney Stones: Yes - Endocrine/Metabolic Hx Diabetes Mellitus Type 2: Yes - Hematological/Oncological Hx Shingles: Yes (x3) - Integumentary Hx Dermatological Disorder: No - Musculoskeletal/Rheumatological Hx Falls: No - Gastrointestinal Hx Gastroesophageal Reflux: Yes - Genitourinary/Gynecological Hx Genitourinary Disorders: No - Psychiatric Hx Psychophysiologic Disorder: No Hx Anxiety: No Hx Bipolar Disorder: No Hx Depression: No Hx Emotional Abuse: No Hx Hallucinations: No Hx Panic Disorder: No Hx Post Traumatic Stress Disorder: No Hx Psychosis: No Hx Physical Abuse: No Hx Schizophrenia: No Hx Sexual Abuse: No Hx Substance Use: No - Surgical History Hx Orthopedic Surgery: Yes (L leg ORIF with pins/screws) Other/Comment: tonsillectomy, - Anesthesia Hx Anesthesia: Yes Hx Anesthesia Reactions: No Hx Malignant Hyperthermia: No - Suicidal Assessment Feels Threatened In Home Enviroment: No Family/Social History - Physician Review Nursing Documentation Reviewed: Yes Family/Social History: No Known Family HX Smoking Status: Never Smoked Hx Alcohol Use: No Hx Substance Use: No Hx Substance Use Treatment: No Allergies/Home Meds Allergies/Adverse Reactions: Allergies No Known Allergies Allergy (Verified 01/30/18 13:27) Home Medications: Home Meds Medication Instructions Recorded Confirmed Albuterol HFA [Ventolin HFA 90 1 inh INH PRN PRN 07/08/17 01/30/18 mcg/actuation (8 g)] Gabapentin Enacarbil [Horizant] 300 mg PO DAILY 09/14/17 01/30/18 Metformin HCl [Glucophage] 1,000 mg PO BID 09/14/17 01/30/18 Ranitidine HCl [Acid Traveling Auditor] 150 mg PO BID 09/14/17 01/30/18 predniSONE [predniSONE Tab] 5 mg PO DAILY 09/14/17 01/30/18 Atorvastatin [Lipitor] 40 mg PO DIN 01/30/18 01/30/18 Exenatide Microspheres [Bydureon 2 mg SC QWK 01/30/18 01/30/18 Pen] Insulin Lispro [humALOG] 10 units SC TID 01/30/18 01/30/18 Review of Systems - Physician Review All systems were reviewed & negative as marked: Yes - Review of Systems Constitutional: Normal, Fatigue. absent: Fevers, Other (Chills) Eyes: Normal ENT: Normal Respiratory: Wheezing. absent: SOB Cardiovascular: Other (Pre-syncopal). absent: Chest Pain Gastrointestinal: Diarrhea. absent: Nausea, Vomiting Genitourinary Female: absent: Dysuria, Frequency, Hematuria Musculoskeletal: absent: Back Pain, Neck Pain Skin: Rash (right-sided vascular herpetiform rash on the sacroiliac/paraspinous rash) Neurological: Headache, Dizziness Endocrine: Normal Hemo/Lymphatic: Normal Psychiatric: Normal Physical Exam Vital Signs Reviewed: Yes Vital Signs Temp Pulse Resp BP Pulse Ox 01/31/18 00:19 98.2 F 82 17 130/68 98 01/30/18 19:00 98 F 85 19 128/72 98 01/30/18 17:33 98 F 75 20 124/82 97 Appearance: Positive for: Well-Appearing, Non-Toxic, Comfortable Pain Distress: None Mental Status: Positive for: Alert and Oriented X 3 - Systems Exam Head: Present: Atraumatic, Normocephalic Pupils: Present: PERRL Extroacular Muscles: Present: EOMI Conjunctiva: Present: Normal Mouth: Present: Moist Mucous Membranes Neck: Present: Normal Range of Motion Respiratory/Chest: Present: Clear to Auscultation, Wheezes, Other (coarse bs ). No: Respiratory Distress, Accessory Muscle Use Cardiovascular: Present: Regular Rate and Rhythm, Normal S1, S2. No: Murmurs Abdomen: Present: Normal Bowel Sounds. No: Tenderness, Distention, Peritoneal Signs Back: Present: Other (Right spine sacroiliac/paraspinous erythematous rash with possible grouped vesicles/pustules ) Upper Extremity: Present: Normal Inspection. No: Cyanosis, Edema Lower Extremity: Present: Normal Inspection. No: Edema Neurological: Present: GCS=15, CN II-XII Intact, Speech Normal, Motor Func Grossly Intact, Normal Sensory Function, Normal Cerebellar Funct, Norm Deep Tendon Reflexes, Gait Normal, Memory Normal, Normal 2Pt Descrimination Skin: Present: Warm, Dry, Normal Color. No: Rashes Psychiatric: Present: Alert, Oriented x 3, Normal Insight, Normal Concentration Medical Decision Making ED Course and Treatment: 01/30/18 14:41 Impression: 57 year old female presents complaining of worsening dizziness mixed pre- syncopal component as well as with a vesicular herpetiform rash on the sacroiliac/paraspinous rash and headache after taking new medication. Plan: -- VBG -- EKG -- Chest X-ray -- Zovirax, IV FLuids -- Urinalysis -- Reassess and disposition Progress Notes: 01/30/18 17:58 pt feels better s/p ivf/ nsaids/ meclizine. Has been ambulating without gait deficit and deneis any focal neurological deficit. Pt does complain of b/l stockng glove disribution nubmness and tingling in LE's as well lue from time to time . - Lab Interpretations Lab Results: 01/30/18 13:40 01/30/18 13:40 Lab Results 01/30/18 19:30: pO2 173 H, VBG pH 7.41, VBG pCO2 40.0, VBG HCO3 25.4, VBG Total CO2 26.6, VBG O2 Sat (Calc) 98.8 H, VBG Base Excess 0.7, VBG Potassium 5.0, Glucose 581 H* D, Lactate 1.7, FiO2 21.0, Sodium 133.0, Chloride 101.0, Venous Blood Potassium 5.0 01/30/18 15:54: Urine Color Yellow, Urine Appearance Clear, Urine pH 6.0, Ur Specific [place] >= 1.030, Urine Protein >=300 H, Urine Glucose (UA) 500 H, Urine Ketones Negative, Urine Blood Trace-intact H, Urine Nitrate Negative, Urine Bilirubin Negative, Urine Urobilinogen 0.2, Ur Leukocyte Esterase Negative , Urine RBC 2 - 5, Urine WBC 0 - 2, Ur Epithelial Cells 4 - 5, Urine Bacteria Mod, Fine Granular Casts 0 - 2, Coarse Granular Casts Small H 01/30/18 14:18: pO2 65 H, VBG pH 7.39, VBG pCO2 45.0, VBG HCO3 27.2, VBG Total CO2 28.6 H, VBG O2 Sat (Calc) 96.8 H, VBG Base Excess 1.7, VBG Potassium 4.1, Glucose 264 H, Lactate 2.4 H, FiO2 21.0, Sodium 137.0, Chloride 106.0, Venous Blood Potassium 4.1 01/30/18 13:43: POC Glucose (mg/dL) 204 H 01/30/18 13:40: Sodium 137, Potassium 4.4, Chloride 105, Carbon Dioxide 22, Anion Gap 14, BUN 29 H, Creatinine 0.8, Est GFR ( Amer) > 60, Est GFR ( Non-Af Amer) > 60, Random Glucose 211 H, Calcium 9.6, Total Bilirubin 0.4, AST 23, ALT 26, Alkaline Phosphatase 74, Lactate Dehydrogenase 717 H, Total Creatine Kinase 29 L, Troponin I < 0.01, Total Protein 6.4, Albumin 3.2, Globulin 3.2, Albumin/Globulin Ratio 1.0 L 01/30/18 13:40: PT 10.7, INR 0.94, APTT 29.5 01/30/18 13:40: WBC 18.5 H D, RBC 4.54, Hgb 13.0 D, Hct 38.0, MCV 83.7, MCH 28.6, MCHC 34.2, RDW 13.1, Plt Count 255, MPV 11.6 H, Gran % 79.5 H, Lymph % ( Auto) 10.2 L, [place] % (Auto) 6.9 H, Eos % (Auto) 3.2, Baso % (Auto) 0.2, Gran # 14.68 H, Lymph # (Auto) 1.9, [place] # (Auto) 1.3 H, Eos # (Auto) 0.6, Baso # (Auto ) 0.03 01/30/18 13:20: POC Glucose (mg/dL) 163 H I have reviewed the lab results: Yes - RAD Interpretation Radiology Orders: 01/30/18 13:45 CHEST TWO VIEWS (PA/LAT) [RAD] Stat 01/30/18 18:30 HEAD W/O CONTRAST [CT] Stat - Medication Orders Current Medication Orders: Discontinued Medications Acyclovir (Zovirax) 800 mg PO ONCE ONE PRN Reason: Protocol Stop: 01/30/18 14:28 Last Admin: 01/30/18 15:44 Dose: 800 mg Albuterol/Ipratropium (Duoneb 3 Mg/0.5 Mg (3 Ml) Ud) 3 ml IH STAT STA Stop: 01/30/18 23:35 Last Admin: 01/30/18 23:54 Dose: 3 ml Lactated Ringer's (Lactated Ringer's) 1,000 mls @ 100 mls/hr IV .Q10H STA Stop: 01/30/18 23:45 Last Admin: 01/30/18 14:21 Dose: 100 mls/hr eMAR Start Stop Document 01/30/18 14:21 EWO (Rec: 01/30/18 14:21 EWO [facility] [id number]) Intravenous Solution Start Date 01/30/18 Start Time 14:21 Lactated Ringer's (Lactated Ringer's) 1,000 mls @ 0 mls/hr IV .Q0M DONALD PRN Reason: Per Protocol Ketorolac Tromethamine (Toradol) 15 mg IVP STAT STA Stop: 01/30/18 17:36 Last Admin: 01/30/18 17:46 Dose: 15 mg MAR Pain Assessment Document 01/30/18 17:46 GMI (Rec: 01/30/18 17:47 GMI [id number]) Pain Reassessment Is this a pain reassessment? Yes Sleep Is patient sleeping during reassessment? No Presence of Pain Presence of Pain Yes Pain Scale Used Pain Scale Used Numeric Location Upper or Lower Lower Pain Location Body Site Back Description Description Sharp Pain Behavior Facial Grimacing Alleviating Factors/Management Medication Techniques Position Change Alleviating Factors Medication IVP Administration Document 01/30/18 17:46 GMI (Rec: 01/30/18 17:47 GMI [id number]) Charges for Administration # of IVP Administrations 1 Meclizine HCl (Antivert) 25 mg PO STAT STA Stop: 01/30/18 15:43 Last Admin: 01/30/18 15:53 Dose: 25 mg - Scribe Statement The provider has reviewed the documentation as recorded by the Sheri Rothman Provider Scribe Attestation: All medical record entries made by the Sheri were at my direction and personally dictated by me. I have reviewed the chart and agree that the record accurately reflects my personal performance of the history, physical exam, medical decision making, and the department course for this patient. I have also personally directed, reviewed, and agree with the discharge instructions and disposition. Disposition/Present on Arrival - Present on Arrival Any Indicators Present on Arrival: Yes History of DVT/PE: No History of Uncontrolled Diabetes: Yes Urinary Catheter: No History of Decub. Ulcer: No History Surgical Site Infection Following: None - Disposition Have Diagnosis and Disposition been Completed?: Yes Diagnosis: Diabetic neuropathy, Dehydration, Herpes zoster Disposition: AGAINST MEDICAL ADVICE Disposition Time: 18:04 Patient Plan: Discharge Condition: IMPROVED Discharge Instructions (ExitCare): Diabetic Neuropathy, Dehydration, Adult (DC) , Shingles (DC) Print Language: [place] Additional Instructions: Please give the gabapentn another chance to help control your neuropathy. If you feel dizziness once again theeafter then avoid it. dose your regular medicine as prescribed . And drink more water. Prescriptions: Acyclovir 800 mg PO 5XD 7 Days #35 tablet Meclizine [Antivert] 12.5 mg PO DAILY 3 Days #12 tab Referrals: Bita Collins MD [Primary Care Provider] - Follow up with primary Forms: [email or web address] (Slovak)
[2018-01-30 15:08] LABS: VENOUS BLOOD GAS BASE EXCESS 1.7 mmol/L (0.0-2.0); VENOUS BLOOD GAS PO2 65 mm/Hg (30-55); VENOUS BLOOD PH 7.39 (7.32-7.43)
[2018-01-30] MEDS ORDERED: Lactated Ringer's 1,000 ML IV SCH (15:45)
[2018-01-30 16:20] LABS: URINE APPEARANCE CLEAR (CLEAR); URINE BILIRUBIN NEGATIVE (NEGATIVE); URINE BLOOD TRACE-INTACT (NEGATIVE); URINE COLOR YELLOW (YELLOW); URINE GLUCOSE (UA) 500 mg/dL (NEGATIVE); URINE LEUKOCYTE ESTERASE NEGATIVE Leu/uL (NEGATIVE); URINE PROTEIN >=300 mg/dL (<30 mg/dL); URINE UROBILINOGEN 0.2 E.U./dL (<1 E.U./dL)
[2018-01-30 16:42] LABS: URINE BACTERIA MOD (NEG); URINE WBC 0 - 2 /hpf (0-6)
[2018-01-30 16:43] LABS: URINE FINE GRANULAR CAST 0 - 2 /hpf (0-2)
[2018-01-30 16:44] LABS: URINE COARSE GRANULAR CAST SMALL /hpf (0-2)
--- NOTE | 2018-01-30 17:25 | RAD ---
HISTORY: dizzinessd COMPARISON: 09/14/2017 TECHNIQUE: Chest PA and lateral FINDINGS: LUNGS: No active pulmonary disease. PLEURA: No significant pleural effusion identified. No pneumothorax apparent. CARDIOVASCULAR: Normal. OSSEOUS STRUCTURES: No significant abnormalities. VISUALIZED UPPER ABDOMEN: Normal. OTHER FINDINGS: None. IMPRESSION: No active disease.
[2018-01-30 19:55] LABS: VENOUS BLOOD GAS BASE EXCESS 0.7 mmol/L (0.0-2.0); VENOUS BLOOD GAS PO2 173 mm/Hg (30-55); VENOUS BLOOD PH 7.41 (7.32-7.43)
[2018-01-30 22:02] VITALS: O2SAT 98
--- NOTE | 2018-01-30 22:29 | CT ---
EXAM: CT Head Without Intravenous Contrast EXAM DATE/TIME: 01/30/2018 6:30 PM CLINICAL HISTORY: The patient age is 57 years old and is female; Signs and symptoms; Dizziness Facility exam id and description: Ct heads head w/o contrast TECHNIQUE: Axial computed tomography images of the head/brain without intravenous contrast. All CT scans at this facility use one or more dose reduction techniques, viz.: automated exposure control; ma/kV adjustment per patient size (including targeted exams where dose is matched to indication; i.e. head); or iterative reconstruction technique. Coronal and sagittal reformatted images were created and reviewed. COMPARISON: No relevant prior studies available. FINDINGS: Brain: There are scattered foci of hypodensity within the cerebral white matter, likely representing small vessel ischemic disease in a patient this age. Demyelination is within the differential. The acuity of the white matter disease is indeterminate. The white-leary differentiation is preserved demonstrating no acute territorial type infarct. No acute intracranial hemorrhage is seen. Midline shift: There is no midline shift. Ventricles: No ventriculomegaly. Bones/joints: The calvarium demonstrates no evidence for a depressed fracture. Soft tissues: No acute abnormality. Vasculature: There is atherosclerotic calcification of the intracranial internal carotid arteries. Sinuses: A small mucous retention cyst or polyp is visualized within the right maxillary sinus. Mastoid air cells: No mastoid effusion. Orbits: There is bilateral proptosis. IMPRESSION: 1. No acute intracranial hemorrhage or acute territorial type infarct. 2. There are scattered foci of hypodensity within the cerebral white matter, likely representing small vessel ischemic disease in a patient this age. 3. Additional CT findings described above.
--- NOTE | 2018-01-30 23:22 | ED PDOC ---
Physical Exam Vital Signs Reviewed: Yes Vital Signs Temp Pulse Resp BP Pulse Ox 01/30/18 19:00 98 F 85 19 128/72 98 01/30/18 17:33 98 F 75 20 124/82 97 Temperature: Afebrile Blood Pressure: Hypertensive Pulse: Regular Respiratory Rate: Normal Appearance: Positive for: Well-Appearing, Non-Toxic, Comfortable Pain Distress: None Mental Status: Positive for: Alert and Oriented X 3 Finger Stick Blood Glucose: 455 - Systems Exam Head: Present: Atraumatic, Normocephalic Pupils: Present: PERRL Extroacular Muscles: Present: EOMI Conjunctiva: Present: Normal Ears: Present: Normal Mouth: Present: Moist Mucous Membranes Pharnyx: Present: Normal Nose (External): Present: Atraumatic Nose (Internal): Present: Normal Inspection Neck: Present: Normal Range of Motion Respiratory/Chest: Present: Clear to Auscultation, Good Air Exchange Cardiovascular: Present: Regular Rate and Rhythm Abdomen: No: Tenderness, Distention, Normal Bowel Sounds, Peritoneal Signs, Rebound, Guarding, McBurney's Point Tender, Rovsing's Sign Present, Hernias, Feeding Tubes, Ostomy Tubes, Mass/Organomegaly, Scars, Other Back: Present: Normal Inspection Upper Extremity: Present: Normal Inspection Lower Extremity: Present: Normal Inspection Neurological: Present: GCS=15, CN II-XII Intact, Speech Normal, Motor Func Grossly Intact Skin: Present: Warm, Rashes (shingles right lower back), Normal Color Psychiatric: Present: Alert, Oriented x 3, Normal Insight, Normal Concentration Medical Decision Making ED Course and Treatment: ECG: sinus tachycardia CXR no active disease. signed out to fu ct head and disposition. FINDINGS: Brain: There are scattered foci of hypodensity within the cerebral white matter , likely representing small vessel ischemic disease in a patient this age. Demyelination is within the differential. The acuity of the white matter disease is indeterminate. The white-leary differentiation is preserved demonstrating no acute territorial type infarct. No acute intracranial hemorrhage is seen. Midline shift: There is no midline shift. Ventricles: No ventriculomegaly. Bones/joints: The calvarium demonstrates no evidence for a depressed fracture. Soft tissues: No acute abnormality. Vasculature: There is atherosclerotic calcification of the intracranial internal carotid arteries. Sinuses: A small mucous retention cyst or polyp is visualized within the right maxillary sinus. Mastoid air cells: No mastoid effusion. Orbits: There is bilateral proptosis. IMPRESSION: 1. No acute intracranial hemorrhage or acute territorial type infarct. 2. There are scattered foci of hypodensity within the cerebral white matter, likely representing small vessel ischemic disease in a patient this age. 3. Additional CT findings described above. 01/30/18 23:19 01/30/18 23:21 01/30/18 23:44 had long conversation with patient regarding staying in the hospital further for observation but patient stated feeling improved, wanted additional meclizine and cautioned for complications/. pt stated will fu pmd 1-2 days. notified to fu pmd/urology for ua findings to ensure no complications/ kidney function worsening. 01/31/18 00:09 Reassessment Condition: Re-examined, Improved - Lab Interpretations Lab Results: 01/30/18 13:40 01/30/18 13:40 Lab Results 01/30/18 19:30: pO2 173 H, VBG pH 7.41, VBG pCO2 40.0, VBG HCO3 25.4, VBG Total CO2 26.6, VBG O2 Sat (Calc) 98.8 H, VBG Base Excess 0.7, VBG Potassium 5.0, Glucose 581 H* D, Lactate 1.7, FiO2 21.0, Sodium 133.0, Chloride 101.0, Venous Blood Potassium 5.0 01/30/18 15:54: Urine Color Yellow, Urine Appearance Clear, Urine pH 6.0, Ur Specific [place] >= 1.030, Urine Protein >=300 H, Urine Glucose (UA) 500 H, Urine Ketones Negative, Urine Blood Trace-intact H, Urine Nitrate Negative, Urine Bilirubin Negative, Urine Urobilinogen 0.2, Ur Leukocyte Esterase Negative , Urine RBC 2 - 5, Urine WBC 0 - 2, Ur Epithelial Cells 4 - 5, Urine Bacteria Mod, Fine Granular Casts 0 - 2, Coarse Granular Casts Small H 01/30/18 14:18: pO2 65 H, VBG pH 7.39, VBG pCO2 45.0, VBG HCO3 27.2, VBG Total CO2 28.6 H, VBG O2 Sat (Calc) 96.8 H, VBG Base Excess 1.7, VBG Potassium 4.1, Glucose 264 H, Lactate 2.4 H, FiO2 21.0, Sodium 137.0, Chloride 106.0, Venous Blood Potassium 4.1 01/30/18 13:43: POC Glucose (mg/dL) 204 H 01/30/18 13:40: Sodium 137, Potassium 4.4, Chloride 105, Carbon Dioxide 22, Anion Gap 14, BUN 29 H, Creatinine 0.8, Est GFR ( Amer) > 60, Est GFR ( Non-Af Amer) > 60, Random Glucose 211 H, Calcium 9.6, Total Bilirubin 0.4, AST 23, ALT 26, Alkaline Phosphatase 74, Lactate Dehydrogenase 717 H, Total Creatine Kinase 29 L, Troponin I < 0.01, Total Protein 6.4, Albumin 3.2, Globulin 3.2, Albumin/Globulin Ratio 1.0 L 01/30/18 13:40: PT 10.7, INR 0.94, APTT 29.5 01/30/18 13:40: WBC 18.5 H D, RBC 4.54, Hgb 13.0 D, Hct 38.0, MCV 83.7, MCH 28.6, MCHC 34.2, RDW 13.1, Plt Count 255, MPV 11.6 H, Gran % 79.5 H, Lymph % ( Auto) 10.2 L, [place] % (Auto) 6.9 H, Eos % (Auto) 3.2, Baso % (Auto) 0.2, Gran # 14.68 H, Lymph # (Auto) 1.9, [place] # (Auto) 1.3 H, Eos # (Auto) 0.6, Baso # (Auto ) 0.03 01/30/18 13:20: POC Glucose (mg/dL) 163 H I have reviewed the lab results: Yes - RAD Interpretation Radiology Orders: 01/30/18 13:45 CHEST TWO VIEWS (PA/LAT) [RAD] Stat 01/30/18 18:30 HEAD W/O CONTRAST [CT] Stat - EKG Interpretation Interpreted by ED Physician: Yes (sinus tachycardia) - Medication Orders Current Medication Orders: Lactated Ringer's (Lactated Ringer's) 1,000 mls @ 0 mls/hr IV .Q0M DONALD PRN Reason: Per Protocol Discontinued Medications Acyclovir (Zovirax) 800 mg PO ONCE ONE PRN Reason: Protocol Stop: 01/30/18 14:28 Last Admin: 01/30/18 15:44 Dose: 800 mg Albuterol/Ipratropium (Duoneb 3 Mg/0.5 Mg (3 Ml) Ud) 3 ml IH STAT STA Stop: 01/30/18 23:35 Last Admin: 01/30/18 23:54 Dose: 3 ml Lactated Ringer's (Lactated Ringer's) 1,000 mls @ 100 mls/hr IV .Q10H STA Stop: 01/30/18 23:45 Last Admin: 01/30/18 14:21 Dose: 100 mls/hr eMAR Start Stop Document 01/30/18 14:21 EWO (Rec: 01/30/18 14:21 EWO [facility] [id number]) Intravenous Solution Start Date 01/30/18 Start Time 14:21 Ketorolac Tromethamine (Toradol) 15 mg IVP STAT STA Stop: 01/30/18 17:36 Last Admin: 01/30/18 17:46 Dose: 15 mg MAR Pain Assessment Document 01/30/18 17:46 GMI (Rec: 01/30/18 17:47 GMI [id number]) Pain Reassessment Is this a pain reassessment? Yes Sleep Is patient sleeping during reassessment? No Presence of Pain Presence of Pain Yes Pain Scale Used Pain Scale Used Numeric Location Upper or Lower Lower Pain Location Body Site Back Description Description Sharp Pain Behavior Facial Grimacing Alleviating Factors/Management Medication Techniques Position Change Alleviating Factors Medication IVP Administration Document 01/30/18 17:46 GMI (Rec: 01/30/18 17:47 GMI [id number]) Charges for Administration # of IVP Administrations 1 Meclizine HCl (Antivert) 25 mg PO STAT STA Stop: 01/30/18 15:43 Last Admin: 01/30/18 15:53 Dose: 25 mg Disposition/Present on Arrival - Present on Arrival Any Indicators Present on Arrival: Yes History of DVT/PE: No History of Uncontrolled Diabetes: Yes Urinary Catheter: No History of Decub. Ulcer: No History Surgical Site Infection Following: None - Disposition Have Diagnosis and Disposition been Completed?: Yes Diagnosis: Diabetic neuropathy, Dehydration, Herpes zoster Disposition: HOME/ ROUTINE Disposition Time: 00:04 Patient Plan: Discharge Patient Problems: Current Active Problems Problem Status Onset Diabetic neuropathy Acute Dehydration Acute Herpes zoster Acute Condition: IMPROVED Discharge Instructions (ExitCare): Diabetic Neuropathy, Dehydration, Adult (DC) , Shingles (DC) Print Language: DUTCH Additional Instructions: Please give the gabapentn another chance to help control your neuropathy. If you feel dizziness once again theeafter then avoid it. dose your regular medicine as prescribed . And drink more water. Prescriptions: Acyclovir 800 mg PO 5XD 7 Days #35 tablet Meclizine [Antivert] 12.5 mg PO DAILY 3 Days #12 tab Referrals: Bita Collins MD [Primary Care Provider] - Follow up with primary Forms: [employer] [facility] ([place])
[2018-01-30] MEDS ORDERED: Albuterol-Ipratrop 3 mg / 0.5 (3 ml) UD IH STA (23:34)
[2018-01-31 00:26] VITALS: BP 130/68; PULSE 82; RESP 17; TEMP 98.2
--- NOTE | 2018-01-31 09:55 | CARD ---
APPROVED REPORT EKG Measurement Heart [id number] <Conclusion> Sinus tachycardia Nonspecific T wave abnormality, new
== END 2018-01-31 00:26 | disposition left against medical advice (07) ==
LOC: ED 13:14
DX: E86.0 Dehydration (principal); B02.9 Zoster without complications; E11.40 Type 2 diabetes mellitus with diabetic neuropathy, unspecified; E78.5 Hyperlipidemia, unspecified; I10 Essential (primary) hypertension; Z79.4 Long term (current) use of insulin
CPT/HCPCS: 70450; 71046; 80053; 81001; 82550; 82803; 82948; 83615; 84484; 85025; 85610; 85730; 93005; 96374; 99285; J1885; J7120

== ENCOUNTER 2018-04-08 16:04 | Emergency (ER) | payer MEDICAID ==
[2018-04-08 16:27] VITALS: RESP 18; TEMP 98.2
[2018-04-08 16:31] VITALS: BMI 27.3
--- NOTE | 2018-04-08 16:38 | ED PDOC ---
Arrival/HPI - General Chief Complaint: Back Pain Time Seen by Provider: 04/08/18 16:23 Historian: Patient - History of Present Illness Narrative History of Present Illness (Text): 04/08/18 16:34 57yo female with pmhx of Diabetes, hypertension, hyperlipdemia, chronic back pain present with complaint of back pain x 4days. States she have not had back pain for a while now, until recently. Notes that pain is with extended ambulation and prolonged standing. She states she did not take any analgesic. Denies trauma, focal weakness, saddle anesthesia, urinary/fecal incontinence, ripping/tearing upper back pain, abdominal pain, urinary symptoms, nausea, vomiting, dizziness, any other complaint. Past Medical History - Provider Review Nursing Documentation Reviewed: Yes - Infectious Disease Hx of Infectious Diseases: None - Tetanus Immunization Tetanus Immunization: Unknown - Cardiac Hx Cardiac Disorders: Yes (As per pt clots in heart) Hx Hypertension: Yes - Pulmonary Hx Asthma: Yes Hx Pneumonia: Yes - Neurological Hx Neurological Disorder: No - HEENT Hx HEENT Disorder: Yes Other/Comment: excessive cerumen - Renal Hx Renal Disorder: Yes Hx Kidney Stones: Yes - Endocrine/Metabolic Hx Diabetes Mellitus Type 2: Yes - Hematological/Oncological Hx Shingles: Yes (x3) - Integumentary Hx Dermatological Disorder: No - Musculoskeletal/Rheumatological Hx Falls: No - Gastrointestinal Hx Gastroesophageal Reflux: Yes - Genitourinary/Gynecological Hx Genitourinary Disorders: No - Psychiatric Hx Psychophysiologic Disorder: No Hx Anxiety: No Hx Bipolar Disorder: No Hx Depression: No Hx Emotional Abuse: No Hx Hallucinations: No Hx Panic Disorder: No Hx Post Traumatic Stress Disorder: No Hx Psychosis: No Hx Physical Abuse: No Hx Schizophrenia: No Hx Sexual Abuse: No Hx Substance Use: No - Surgical History Hx Orthopedic Surgery: Yes (L leg ORIF with pins/screws) Other/Comment: tonsillectomy, - Anesthesia Hx Anesthesia: Yes Hx Anesthesia Reactions: No Hx Malignant Hyperthermia: No - Suicidal Assessment Feels Threatened In Home Enviroment: No Family/Social History - Physician Review Nursing Documentation Reviewed: Yes Family/Social History: Unknown Family HX Smoking Status: Never Smoked Hx Alcohol Use: No Hx Substance Use: No Hx Substance Use Treatment: No Allergies/Home Meds Allergies/Adverse Reactions: Allergies No Known Allergies Allergy (Verified 04/08/18 16:25) Home Medications: Home Meds Medication Instructions Recorded Confirmed Albuterol HFA [Ventolin HFA 90 1 inh INH PRN PRN 07/08/17 04/08/18 mcg/actuation (8 g)] Gabapentin Enacarbil [Horizant] 300 mg PO DAILY 09/14/17 04/08/18 Metformin HCl [Glucophage] 1,000 mg PO BID 09/14/17 04/08/18 Ranitidine HCl [Acid Water Control Supervisor] 150 mg PO BID 09/14/17 04/08/18 predniSONE [predniSONE Tab] 5 mg PO DAILY 09/14/17 04/08/18 Atorvastatin [Lipitor] 40 mg PO DIN 01/30/18 04/08/18 Exenatide Microspheres [Bydureon 2 mg SC QWK 01/30/18 04/08/18 Pen] Insulin Lispro [humALOG] 10 units SC TID 01/30/18 04/08/18 Review of Systems - Physician Review All systems were reviewed & negative as marked: Yes - Review of Systems Constitutional: Normal Eyes: Normal ENT: Normal Respiratory: Normal Cardiovascular: Normal Gastrointestinal: Normal Genitourinary Female: Normal Musculoskeletal: Back Pain Skin: Normal Neurological: Normal Endocrine: Normal Hemo/Lymphatic: Normal Psychiatric: Normal Physical Exam Vital Signs Reviewed: Yes Vital Signs Temp Pulse Resp BP Pulse Ox 04/08/18 18:34 76 18 126/78 99 04/08/18 16:25 98.2 F 105 H 18 136/89 97 Temperature: Afebrile Blood Pressure: Normal Pulse: Regular Respiratory Rate: Normal Appearance: Positive for: Well-Appearing, Non-Toxic, Comfortable Pain Distress: None Mental Status: Positive for: Alert and Oriented X 3 - Systems Exam Head: Present: Atraumatic, Normocephalic Pupils: Present: PERRL Extroacular Muscles: Present: EOMI Conjunctiva: Present: Normal Mouth: Present: Moist Mucous Membranes Neck: Present: Normal Range of Motion Respiratory/Chest: Present: Clear to Auscultation, Good Air Exchange. No: Respiratory Distress, Accessory Muscle Use Cardiovascular: Present: Regular Rate and Rhythm, Normal S1, S2. No: Murmurs Abdomen: No: Tenderness, Distention, Peritoneal Signs Back: Present: Midline Tenderness. No: Paraspinal Tenderness, Pain with Leg Raise Upper Extremity: Present: Normal Inspection. No: Cyanosis, Edema Lower Extremity: Present: Normal Inspection. No: Edema Neurological: Present: GCS=15, CN II-XII Intact, Speech Normal Skin: Present: Warm, Dry, Normal Color. No: Rashes Psychiatric: Present: Alert, Oriented x 3, Normal Insight, Normal Concentration Medical Decision Making ED Course and Treatment: 04/09/18 00:08 PT was seen in ED for stated history. Her back pain was controlled in ED with medication. She was ambulatory and neurologically intact. UA is negative for uti. glucose was noted, pt is on medication for Diabetes. LS xray - No acute finding. DJD noted Result was DW the pt. She was Dc home with Naprosyn, lidoderm and flexeril. Referred to ortho. - Lab Interpretations Lab Results: Lab Results 04/08/18 17:20: Urine Color Yellow, Urine Appearance Clear, Urine pH 6.0, Ur Specific [place] >= 1.030, Urine Protein >=300 H, Urine Glucose (UA) >=1000, Urine Ketones Negative, Urine Blood Trace-lysed H, Urine Nitrate Negative, Urine Bilirubin Negative, Urine Urobilinogen 0.2, Ur Leukocyte Esterase Negative , Urine RBC Negative, Urine WBC 0 - 2, Ur Epithelial Cells 0 - 2, Urine Bacteria Trace, Hyaline Casts 0 - 2 - RAD Interpretation Radiology Orders: 04/08/18 16:33 LS SPINE WITH OBL > 18 YRS OLD [RAD] Stat - Medication Orders Current Medication Orders: Discontinued Medications Cyclobenzaprine HCl (Flexeril) 10 mg PO STAT STA Stop: 04/08/18 16:40 Last Admin: 04/08/18 17:16 Dose: 10 mg Ketorolac Tromethamine (Toradol) 60 mg IM STAT STA Stop: 04/08/18 16:35 Last Admin: 04/08/18 17:16 Dose: 60 mg MAR Pain Assessment Document 04/08/18 17:16 GMD (Rec: 04/08/18 17:16 GMD [id number]) Pain Reassessment Is this a pain reassessment? No IM Administration Charges Document 04/08/18 17:16 GMD (Rec: 04/08/18 17:16 GMD [id number]) Injection Site MAR Injection Site Left Gluteus Berto Charges for Administration # of IM Administrations 1 Disposition/Present on Arrival - Present on Arrival Any Indicators Present on Arrival: No History of DVT/PE: No History of Uncontrolled Diabetes: Yes Urinary Catheter: No History of Decub. Ulcer: No History Surgical Site Infection Following: None - Disposition Have Diagnosis and Disposition been Completed?: Yes Diagnosis: Back pain Disposition: HOME/ ROUTINE Disposition Time: 18:25 Patient Plan: Discharge Condition: STABLE Discharge Instructions (ExitCare): Low Back Pain in Adults Additional Instructions: Take medication as directed Follow up with your doctor/Orthopedist Return to ED for any new or worsening symptoms Prescriptions: Cyclobenzaprine [Cyclobenzaprine HCl] 10 mg PO BID #10 tab Lidocaine 5% [Lidoderm] 1 ea TD BID #10 patch Naproxen [Naprosyn] 500 mg PO BID #20 tablet Referrals: Bita Collins MD [Primary Care Provider] - Follow up with primary Ish Washington MD [Staff Provider] - Follow up with primary Forms: [employer] [facility] (Thai)
[2018-04-08 17:28] LABS: URINE BILIRUBIN NEGATIVE (NEGATIVE); URINE BLOOD TRACE-LYSED (NEGATIVE); URINE GLUCOSE (UA) >=1000 mg/dL (NEGATIVE); URINE LEUKOCYTE ESTERASE NEGATIVE Leu/uL (NEGATIVE); URINE PROTEIN >=300 mg/dL (<30 mg/dL); URINE UROBILINOGEN 0.2 E.U./dL (<1 E.U./dL)
[2018-04-08 17:30] LABS: URINE APPEARANCE CLEAR (CLEAR); URINE COLOR YELLOW (YELLOW)
[2018-04-08 17:34] LABS: URINE BACTERIA TRACE (NEG); URINE EPITHELIAL CELLS 0 - 2 /hpf (0-5); URINE RBC NEGATIVE /hpf (0-2); URINE WBC 0 - 2 /hpf (0-6)
[2018-04-08 17:35] LABS: URINE HYALINE CAST 0 - 2 /hpf
[2018-04-08 18:35] VITALS: BP 126/78; PULSE 76; O2SAT 99
--- NOTE | 2018-04-08 18:48 | RAD ---
PROCEDURE: Radiographs of the Lumbar Spine. HISTORY: back pain COMPARISON: Lumbar spine radiographs dated 07/14/2013. FINDINGS: BONES: Normal alignment. No listhesis. No fracture. DISC SPACES: Unremarkable. OTHER FINDINGS: None. IMPRESSION: Unremarkable radiographs of the lumbar spine.
== END 2018-04-08 18:34 | disposition home or self-care (01) ==
LOC: ED 16:04
DX: M54.9 Dorsalgia, unspecified (principal); E11.9 Type 2 diabetes mellitus without complications; I10 Essential (primary) hypertension; E78.5 Hyperlipidemia, unspecified
CPT/HCPCS: 72110; 81001; 96372; 99284; J1885

== ENCOUNTER 2018-08-11 16:16 | Inpatient (IN) | payer MEDICAID ==
[2018-08-11 16:16] VITALS: BMI 27.3
[2018-08-11] MEDS ORDERED: Albuterol-Ipratrop 3 mg / 0.5 (3 ml) UD IH STA (17:29)
--- NOTE | 2018-08-11 17:45 | ED PDOC ---
Arrival/HPI - General Chief Complaint: Lower Extremity Problem/Injury Time Seen by Provider: 08/11/18 17:02 - History of Present Illness Narrative History of Present Illness (Text): 58 y/o F w/ h/o DM & HTN presenting to the ED for left ankle pain. The patient states she noted pain with ambulation as well as swelling of the left ankle that progressively worsened over the last 24 hours. The patient states she had attempted to elevate the leg with little change in the swelling and took Tylenol in attempt to help counteract the pain with minor relief. She denies any recent shaving, changes in her medication, falls or recent trauma noted to the ankle. She reports having difficulty recently controlling her blood sugars, but noted her last sugars within the range of the 300s. She denies taking any medications prior to her arrival at the hospital. PCP: Dr. Collins Time/Duration: 24 hours Symptom Course: Worsening Quality: Aching Severity Level: Moderate Context: Walking, Home Past Medical History - Provider Review Nursing Documentation Reviewed: Yes - Travel History Have you recently traveled outside [place] w/in the past 3 mons?: No - Infectious Disease Hx of Infectious Diseases: None - Tetanus Immunization Tetanus Immunization: Unknown - Cardiac Hx Cardiac Disorders: Yes (As per pt clots in heart) Hx Hypertension: Yes - Pulmonary Hx Asthma: Yes Hx Pneumonia: Yes - Neurological Hx Neurological Disorder: No - HEENT Hx HEENT Disorder: Yes Other/Comment: excessive cerumen - Renal Hx Renal Disorder: Yes Hx Kidney Stones: Yes - Endocrine/Metabolic Hx Diabetes Mellitus Type 2: Yes - Hematological/Oncological Hx Shingles: Yes (x3) - Integumentary Hx Dermatological Disorder: No - Musculoskeletal/Rheumatological Hx Falls: No - Gastrointestinal Hx Gastroesophageal Reflux: Yes - Genitourinary/Gynecological Hx Genitourinary Disorders: No - Psychiatric Hx Psychophysiologic Disorder: No Hx Anxiety: No Hx Bipolar Disorder: No Hx Depression: No Hx Emotional Abuse: No Hx Hallucinations: No Hx Panic Disorder: No Hx Post Traumatic Stress Disorder: No Hx Psychosis: No Hx Physical Abuse: No Hx Schizophrenia: No Hx Sexual Abuse: No Hx Substance Use: No - Surgical History Hx Orthopedic Surgery: Yes (L leg ORIF with pins/screws) Other/Comment: tonsillectomy, - Anesthesia Hx Anesthesia: Yes Hx Anesthesia Reactions: No Hx Malignant Hyperthermia: No - Suicidal Assessment Feels Threatened In Home Enviroment: No Family/Social History - Physician Review Nursing Documentation Reviewed: Yes Family/Social History: No Known Family HX Smoking Status: Never Smoked Hx Alcohol Use: No Hx Substance Use: No Hx Substance Use Treatment: No Allergies/Home Meds Allergies/Adverse Reactions: Allergies No Known Allergies Allergy (Verified 04/08/18 16:25) Home Medications: Home Meds Medication Instructions Recorded Confirmed RX: Albuterol HFA [Ventolin HFA 90 1 inh INH PRN PRN 07/08/17 08/11/18 mcg/actuation (8 g)] RX: Gabapentin Enacarbil [Horizant] 300 mg PO DAILY 09/14/17 08/11/18 RX: Metformin HCl [Glucophage] 1,000 mg PO BID 09/14/17 08/11/18 RX: Ranitidine HCl [Acid Shell Sorter] 150 mg PO BID 09/14/17 08/11/18 RX: predniSONE [predniSONE Tab] 5 mg PO DAILY 09/14/17 08/11/18 Exenatide Microspheres [Bydureon 2 mg SC QWK 01/30/18 08/11/18 Pen] Insulin Lispro [humALOG] 10 units SC TID 01/30/18 08/11/18 RX: Atorvastatin [Lipitor] 40 mg PO DIN 01/30/18 08/11/18 Review of Systems - Physician Review All systems were reviewed & negative as marked: Yes - Review of Systems Skin: Rash, Cellulitis Physical Exam Blood Pressure: Normal Pulse: Regular Respiratory Rate: Normal Appearance: Positive for: Well-Appearing, Non-Toxic, Uncomfortable Mental Status: Positive for: Alert and Oriented X 3 - Systems Exam Head: Present: Atraumatic, Normocephalic Pupils: Present: PERRL Extroacular Muscles: Present: EOMI Conjunctiva: Present: Normal Mouth: Present: Moist Mucous Membranes Neck: Present: Normal Range of Motion Respiratory/Chest: Present: Good Air Exchange, Wheezes. No: Clear to Auscultation, Respiratory Distress, Decreased Breath Sounds Cardiovascular: Present: Regular Rate and Rhythm, Normal S1, S2 Abdomen: Present: Normal Bowel Sounds. No: Tenderness, Distention, Peritoneal Signs Back: Present: Normal Inspection Upper Extremity: Present: Normal Inspection. No: Cyanosis, Edema Lower Extremity: Present: Edema, NORMAL PULSES, Tenderness (tenderness to palpation of R anterior wu ), Swelling (+2 pitting edema noted to L foot ), Erythema (erythema noted to L anterior wu), Neurovascularly Intact, Capillary Refill < 2 s. No: CALF TENDERNESS Neurological: Present: GCS=15, CN II-XII Intact, Speech Normal Skin: Present: Warm Psychiatric: Present: Alert, Oriented x 3, Normal Insight, Normal Concentration Medical Decision Making ED Course and Treatment: Impression 58 y/o F w/ h/o DM presenting w/ L wu pain and difficulty with ambulation Differential Diagnoses Includes But Is Not Limited To: Cellulitis Folliculitis Necrotizing Fascitis Plan --Labs --CXR --XR TibFib --Duonebs --Solumedrol --Toradol --Zofran --IVF --Reassess & disposition Progress Notes 08/11/18 18:49 Leukocytosis of 16 noted with shift. Vancomycin ordered. 08/11/18 19:[address] Collins(PCP) who requests patient to be admitted under hospitalist. Call placed to hospitalist. - RAD Interpretation Radiology Orders: 08/11/18 17:27 CHEST PORTABLE [RAD] Stat TIBIA FIBULA LEFT [RAD] Stat - Medication Orders Current Medication Orders: Discontinued Medications Albuterol/Ipratropium (Duoneb 3 Mg/0.5 Mg (3 Ml) Ud) 3 ml IH STAT STA Stop: 08/11/18 17:30 Methylprednisolone (Solu-Medrol) 125 mg IVP STAT STA Stop: 08/11/18 17:30 Disposition/Present on Arrival - Present on Arrival Any Indicators Present on Arrival: Yes History of DVT/PE: No History of Uncontrolled Diabetes: Yes Urinary Catheter: No History of Decub. Ulcer: No History Surgical Site Infection Following: None - Disposition Have Diagnosis and Disposition been Completed?: Yes Diagnosis: Cellulitis and abscess of lower extremity Disposition: HOME/ ROUTINE Disposition Time: 20:06 Patient Plan: Observation Patient Problems: Current Active Problems Problem Status Onset Cellulitis and abscess of lower extremity Acute Condition: STABLE
[2018-08-11 18:09] LABS: BASO # 0.03 K/mm3 (0.0-2.0); BASO % 0.2 % (0.0-3.0); EOS # 0.2 (0.0-0.7); EOS % 1.5 % (1.5-5.0); GRAN # 12.75 (1.4-6.5); GRAN % 77.2 % (50.0-68.0); HEMOGLOBIN 12.9 g/dL (12.0-16.0); LYMPH # 1.8 (1.2-3.4); LYMPH % 11.2 % (22.0-35.0); MEAN CELL VOLUME 84.4 fl (80.0-105.0); MEAN CORPUSCULAR HEMOGLOBIN 28.8 pg (25.0-35.0); MEAN CORPUSCULAR HGB CONC 34.1 g/dl (31.0-37.0); MEAN PLATELET VOLUME 11.6 fl (7.0-11.0); MONO # 1.6 (0.1-0.6); MONO % 9.9 % (1.0-6.0); RBC 4.48 10^6/uL (3.5-6.1); RED CELL DISTRIBUTION WIDTH 13.2 % (11.5-14.5); WHITE BLOOD COUNT 16.5 10^3/ul (4.5-11.0)
[2018-08-11 18:26] LABS: ALBUMIN 3.6 g/dL (3.0-4.8); ALT/SGPT 25 U/L (7-56); AST/SGOT 20 U/L (14-36); BLOOD UREA NITROGEN 17 mg/dL (7-21); CALCIUM 9.6 mg/dL (8.4-10.5); GFR NON-AFRICAN AMERICAN > 60
[2018-08-11] MEDS ORDERED: Vancomycin 1gm in NS 250ml 1 GM/250 ML BAG IVPB STA (18:48)
[2018-08-11] MEDS ORDERED: Sodium Chloride 0.9% 1,000 ML IV STA (18:50)
[2018-08-11] MEDS ORDERED: Albuterol 0.083% Inhal Sol (2.5 mg/3 mL) UD INH STA (18:50)
[2018-08-11] MEDS ORDERED: Albuterol HFA 90 mcg/actuation (8 g) INH PRN (20:44)
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
[2018-08-11] MEDS: MethylPREDNISolone 40 mg Vial IVP SCH (21:24)
[2018-08-11] MEDS: Albuterol-Ipratrop 3 mg / 0.5 (3 ml) UD IH SCH (21:24)
[2018-08-11] MEDS: guaiFENesin-DM 600-30 mg ER Tab PO SCH (21:56)
[2018-08-11 22:48] LABS: ARTERIAL BLOOD GAS HCO3 20.4 mmol/L (21-28); ARTERIAL BLOOD GAS HEMOGLOBIN 11.3 g/dL (11.7-17.4); ARTERIAL BLOOD GAS O2 CAPACITY 15.5 mL/dl (16-24); ARTERIAL BLOOD GAS O2 CONTENT 15.3 ML/dl (15-23); ARTERIAL BLOOD GAS O2 SAT 98.6 % (95-98); ARTERIAL BLOOD GAS PCO2 33 mm/Hg (35-45); ARTERIAL BLOOD GAS TCO2 21.4 mmol.L (22-28)
[2018-08-11 22:48] LABS: URINE BILIRUBIN NEGATIVE (NEGATIVE); URINE BLOOD TRACE-INTACT (NEGATIVE); URINE GLUCOSE (UA) >=1000 mg/dL (NEGATIVE); URINE LEUKOCYTE ESTERASE NEGATIVE Leu/uL (NEGATIVE); URINE PROTEIN >=300 mg/dL (<30 mg/dL); URINE UROBILINOGEN 0.2 E.U./dL (<1 E.U./dL)
[2018-08-11 22:51] LABS: URINE APPEARANCE CLEAR (CLEAR); URINE COLOR YELLOW (YELLOW)
[2018-08-11 23:04] LABS: URINE BACTERIA LARGE (NEG)
[2018-08-11] MEDS: Insulin Lispro (humaLOG) LOW Coverage SC SCH (23:05)
[2018-08-11] MEDS: Insulin Detemir 100 units/ml Vial (Levemir) SC SCH (23:09)
[2018-08-11] MEDS: Piperacillin/Tazobact 3.375 gm 100 ML IVPB SCH (23:09)
[2018-08-12] MEDS ORDERED: Dextrose 50% SYRINGE Inj (50 ml) IV PRN (00:14)
[2018-08-12] MEDS: Albuterol-Ipratrop 3 mg / 0.5 (3 ml) UD IH SCH ×4 (03:00→20:17)
[2018-08-12] MEDS: Piperacillin/Tazobact 3.375 gm 100 ML IVPB SCH ×3 (05:34→21:49)
[2018-08-12] MEDS: MethylPREDNISolone 40 mg Vial IVP SCH ×3 (05:34→21:49)
[2018-08-12 07:33] LABS: GRAN # 16.06 (1.4-6.5); GRAN % 93.5 % (50.0-68.0); HEMOGLOBIN 11.4 g/dL (12.0-16.0); LYMPH # 0.7 (1.2-3.4); LYMPH % 4.1 % (22.0-35.0); MEAN CELL VOLUME 84.7 fl (80.0-105.0); MEAN CORPUSCULAR HEMOGLOBIN 28.6 pg (25.0-35.0); MEAN CORPUSCULAR HGB CONC 33.7 g/dl (31.0-37.0); MEAN PLATELET VOLUME 11.7 fl (7.0-11.0); MONO # 0.4 (0.1-0.6); MONO % 2.4 % (1.0-6.0); PLATELET COUNT 309 10^3/uL (120.0-450.0); RBC 3.99 10^6/uL (3.5-6.1); RED CELL DISTRIBUTION WIDTH 13.1 % (11.5-14.5); WHITE BLOOD COUNT 17.2 10^3/ul (4.5-11.0)
[2018-08-12 07:58] LABS: ALB/GLOB RATIO 0.9 (1.1-1.8); ALBUMIN 3.1 g/dL (3.0-4.8); ALT/SGPT 19 U/L (7-56); AST/SGOT 19 U/L (14-36); BLOOD UREA NITROGEN 26 mg/dL (7-21); CALCIUM 9.1 mg/dL (8.4-10.5); GFR NON-AFRICAN AMERICAN > 60; HDL CHOLESTEROL 55 mg/dL (29-60)
[2018-08-12 07:59] LABS: LDL CHOLESTEROL 77 mg/dL (0-129)
[2018-08-12] MEDS: Insulin Lispro (humaLOG) LOW Coverage SC SCH (08:02)
[2018-08-12 08:03] LABS: FREE T4 1.33 ng/dL (0.78-2.19)
[2018-08-12 08:14] LABS: BAND 1 % (0-2); LYMPHOCYTE 6 % (22.0-35.0); MONOCYTE 1 % (1.0-6.0); NEUTROPHIL 92 % (50.0-70.0); PLATELET ESTIMATE NORMAL (NORMAL)
--- NOTE | 2018-08-12 09:25 | CP.PCM.PN ---
<MeloBisi - Last Filed: 08/12/18 14:37> Subjective - Date & Time of Evaluation Date of Evaluation: 08/12/18 Time of Evaluation: 07:15 - Subjective Subjective: Medicine progress note for Dr. Noble Patient seen and examined this am at bedside. Patient states that she is feeling much better and is able to sit in bed with her legs crossed under her while eating breakfast. She additionally states that her shortness of breath has resolved as well. She otherwise denies NICHOLSON, dizziness, vision changes, CP, SOB, abdominal pain, dysuria, f/c, n/v, and new extremity pain. Objective - Vital Signs/Intake and Output Vital Signs (last 24 hours): Temp Pulse Resp BP Pulse Ox 98.2 F 78 18 128/68 98 08/11/18 18:15 08/11/18 21:17 08/11/18 22:13 08/11/18 21:17 08/11/18 21:17 Intake and Output: 08/12/18 08/12/18 06:59 18:59 Intake Total 250 Balance 250 - Medications Medications: Current Medications Albuterol/Ipratropium (Duoneb 3 Mg/0.5 Mg (3 Ml) Ud) 3 ml IH Q6H DONALD Last Admin: 08/12/18 08:34 Dose: Not Given Albuterol/Ipratropium (Duoneb 3 Mg/0.5 Mg (3 Ml) Ud) 3 ml IH Q2H PRN PRN Reason: Shortness of Breath Atorvastatin Calcium (Lipitor) 40 mg PO DIN DONALD Last Admin: 08/11/18 21:56 Dose: 40 mg Dextrose (Dextrose 50% Inj) 0 ml IV STAT PRN; Protocol PRN Reason: Hypoglycemia Protocol Famotidine (Pepcid) 20 mg PO 1000,2200 DONALD Last Admin: 08/11/18 23:09 Dose: 20 mg Guaifenesin/Dextromethorphan (Mucinex-Dm 600-30 Mg) 1 tab PO BID DONALD Last Admin: 08/11/18 21:56 Dose: 1 tab Heparin Sodium (Porcine) (Heparin) 5,000 units SC Q8H DONALD; Protocol Last Admin: 08/12/18 05:32 Dose: Not Given Vancomycin HCl (Vancomycin 1gm) 1 gm in 250 mls @ 167 mls/hr IVPB DAILY DONALD; Protocol Piperacillin Sod/Tazobactam Sod (Zosyn 3.375 In Ns 100ml) 100 mls @ 25 mls/hr IVPB Q8 DONALD; Protocol Last Admin: 08/12/18 05:34 Dose: 25 mls/hr Dextrose (Dextrose 5% In Water 1000 Ml) 1,000 mls @ 0 mls/hr IV .Q0M PRN; Protocol PRN Reason: Hypoglycemia Protocol Insulin Detemir (Levemir) 18 unit SC BID [facility] Last Admin: 08/11/18 23:09 Dose: 18 unit Insulin Human Lispro (Humalog High) 0 units SC ACHS DONALD; Protocol Lisinopril (Zestril) 2.5 mg PO DAILY DONALD Methylprednisolone (Solu-Medrol) 40 mg IVP Q8H DONALD Last Admin: 08/12/18 05:34 Dose: 40 mg Montelukast Sodium (Singulair) 10 mg PO DAILY DONALD Zolpidem Tartrate (Ambien) 5 mg PO HS PRN; Protocol PRN Reason: Insomnia Last Admin: 08/11/18 23:32 Dose: 5 mg - Labs Labs: 08/12/18 07:00 08/12/18 07:00 - Constitutional Appears: Well, Toxic, No Acute Distress - Head Exam Head Exam: ATRAUMATIC, NORMOCEPHALIC - Eye Exam Eye Exam: EOMI - ENT Exam ENT Exam: Mucous Membranes Moist - Respiratory Exam Respiratory Exam: NORMAL BREATHING PATTERN - Cardiovascular Exam Cardiovascular Exam: REGULAR RHYTHM - GI/Abdominal Exam GI & Abdominal Exam: Soft. absent: Distended, Firm, Guarding, Rigid, Tenderness - Extremities Exam Extremities Exam: Normal Capillary Refill, Pedal Edema, Tenderness. absent: Calf Tenderness, Full ROM Additional comments: left ankle pain and trace edema, improving erythema - Neurological Exam Neurological Exam: Alert, Awake, Oriented x3 - Psychiatric Exam Psychiatric exam: Normal Affect, Normal Mood - Skin Skin Exam: Dry, Intact, Normal Color, Warm Assessment and Plan - Assessment and Plan (Free Text) Assessment: This is a 58 year old female with PMH of DM, HTN, HLD and asthma presenting to the hospital for one day history of left ankle swelling and pain. Plan: Left ankle swelling - likely 2/2 cellulitis, improving -continue vancomycin, zosyn -LEUS negative -Tib/fib xray shows possible osteomyelitis -MRI to r/o osteomyelitis -Podiatry consulted recs appreciated -ID on consult, Dr. Verduzco for LLE cellulitis Hx of asthma -continue singulair, duoneb, ventolin prn, -continue solumedrol 40mg IVP q8 - CXr negative for disease -Pulm on consult, Dr. Forbes for asthma exacerbation Hx of DM - hgbA1c 13.7 -insulin lispro high ACHS -levemir 20 units BID -lispro 10 Units AC Hx of HTN -currently controlled -continue lisinopril 2.5 mg Hx of HLD -continue lipitor PPX with heparin 5k and pepcid Heart healthy diet Patient seen and case discussed with attending, Dr. Hilario Alejo, PGY 1 <Stephanie Rich R - Last Filed: 08/14/18 07:51> Objective - Vital Signs/Intake and Output Vital Signs (last 24 hours): Temp Pulse Resp BP Pulse Ox 98.4 F 103 H 16 137/78 99 08/13/18 22:29 08/13/18 22:29 08/13/18 22:29 08/13/18 22:29 08/13/18 22:29 Intake and Output: 08/14/18 08/14/18 06:59 18:59 Intake Total 250 Balance 250 - Medications Medications: Current Medications Acetaminophen (Tylenol 325mg Tab) 650 mg PO Q6H PRN PRN Reason: Pain, Mild (1-3) Last Admin: 08/13/18 16:53 Dose: 650 mg Albuterol/Ipratropium (Duoneb 3 Mg/0.5 Mg (3 Ml) Ud) 3 ml IH Q6H DONALD Last Admin: 08/14/18 07:07 Dose: 3 ml Albuterol/Ipratropium (Duoneb 3 Mg/0.5 Mg (3 Ml) Ud) 3 ml IH Q2H PRN PRN Reason: Shortness of Breath Atorvastatin Calcium (Lipitor) 40 mg PO DIN [facility] Last Admin: 08/13/18 17:00 Dose: 40 mg Colchicine (Colocrys) 0.6 mg PO DAILY [facility] Last Admin: 08/13/18 11:18 Dose: 0.6 mg Dextrose (Dextrose 50% Inj) 0 ml IV STAT PRN; Protocol PRN Reason: Hypoglycemia Protocol Famotidine (Pepcid) 20 mg PO 1000,2200 [facility] Last Admin: 08/13/18 22:19 Dose: 20 mg Guaifenesin/Dextromethorphan (Mucinex-Dm 600-30 Mg) 1 tab PO BID [facility] Last Admin: 08/13/18 17:00 Dose: 1 tab Heparin Sodium (Porcine) (Heparin) 5,000 units SC Q8H DONALD; Protocol Last Admin: 08/14/18 06:10 Dose: 5,000 units Vancomycin HCl (Vancomycin 1gm) 1 gm in 250 mls @ 167 mls/hr IVPB DAILY DONALD; Protocol Last Admin: 08/13/18 11:22 Dose: 167 mls/hr Piperacillin Sod/Tazobactam Sod (Zosyn 3.375 In Ns 100ml) 100 mls @ 25 mls/hr IVPB Q8 DONALD; Protocol Last Admin: 08/14/18 06:10 Dose: 25 mls/hr Dextrose (Dextrose 5% In Water 1000 Ml) 1,000 mls @ 0 mls/hr IV .Q0M PRN; Protocol PRN Reason: Hypoglycemia Protocol Insulin Detemir (Levemir) 20 unit SC BID [facility] Last Admin: 08/13/18 18:03 Dose: 20 units Insulin Human Lispro (Humalog High) 0 units SC ACHS [facility]; Protocol Last Admin: 08/13/18 22:20 Dose: 3 units Insulin Human Lispro (Humalog) 10 units SC AC [facility] Last Admin: 08/13/18 16:52 Dose: 10 units Lisinopril (Zestril) 2.5 mg PO DAILY [facility] Last Admin: 08/13/18 11:22 Dose: 2.5 mg Methylprednisolone (Solu-Medrol) 40 mg IVP Q12 [facility] Last Admin: 08/13/18 22:21 Dose: 40 mg Montelukast Sodium (Singulair) 10 mg PO DAILY [facility] Last Admin: 08/13/18 11:22 Dose: 10 mg Zolpidem Tartrate (Ambien) 5 mg PO HS PRN; Protocol PRN Reason: Insomnia Last Admin: 08/13/18 22:19 Dose: 5 mg - Labs Labs: 08/13/18 13:30 08/13/18 07:15 Attending/Attestation - Attestation I have personally seen and examined this patient.: Yes I have fully participated in the care of the patient.: Yes I have reviewed all pertinent clinical information, including history, physical exam and plan: Yes Notes (Text): Patient seen and examined by me with resident at 11:10AM on 08/12/18 with resident. Case including HPI, physical exam, and assessment and plan discussed with resident. Agree with above with following additions/corrections. Patient is a 58-year-old female past medical history significant for type 2 diabetes, hypertension, hyperlipidemia, and asthma that presented to the emergency room with increasing swelling and pain in the left ankle. Patient states she feels better. States left ankle pain is worsened when it is touched. She states she was able to ambulate a little on her ankle today. No nausea or vomiting. No headaches or dizziness. No chest pain or shortness of breath. No fevers or chills. No dysuria. No diarrhea or constipation. Physical exam: General: Awake and alert lying in bed in no acute distress HEENT: Normocephalic atraumatic. Extra ocular muscles intact. Pupils equal and reactive. No scleral icterus. Oropharynx is pink and moist. No pharyngeal erythema or exudate appreciated. Cardiovascular: Normal rhythm. Normal S1, S2. No murmurs, rubs, or gallops appreciated Pulmonary: Normal respiratory effort. Decreased breath sounds. No rhonchi, rales or wheezing appreciated. Gastrointestinal: Soft, nondistended. Nontender. Positive bowel sounds all 4 quadrants, no guarding. Musculoskeletal: Moves all extremities, no calf tenderness. Positive milad left foot and ankle. Positive tenderness and mild erythema left ankle and foot. Central nervous system: AAOx3. CN2-12 grossly intact. 5/5 muscle strength all extremities. Dermatologic: Skin warm and dry. Assessment and plan: Patient is a 58-year-old female past medical history significant for type 2 diabetes, hypertension, hyperlipidemia, and asthma that presented to the emergency room with increasing swelling and pain in the left ankle. 1. Left ankle edema and pain. Left ankle cellulitis. Continue vanco and zosyn. ID following, recommendations appreciated. Tibia/fibular x-ray per radiologist showed status post open reduction and internal fixation of the mid tibial and distal fibular fractures, lucency surrounding the intramedullary jr in the distal tibia is concerning for loosening, cortical thickening in the mid diaphysis spaces of the tibia is nonspecific and could be related to postsurgical changes however underlying osteomyelitis cannot be entirely excluded. Podiatry consulted, follow-up recommendations. MRI ordered to rule out osteomyelitis. Left lower extremity venous Doppler negative for DVT. 2. Asthma exacerbation. Pulmonary consulted, follow-up recommendations. Continue Solu-Medrol. Continue Mucinex, Singulair, and nebulizer treatments. Continue O2 via nasal cannula as needed. 3. Type 2 diabetes. Continue insulin sliding scale. Continue Levemir 20 units at bedtime. Continue Humalog 10 units before meals. Continue to monitor Accu-Cheks. 4. Hypertension. Continue home lisinopril. 5. Hyperlipidemia. Continue Lipitor. 6. GI/DVT prophylaxis. Pepcid/heparin 7. Patient is a full code Case was discussed in detail with the patient regarding current diagnosis and treatment plan. All questions answered.
--- NOTE | 2018-08-12 10:00 | RAD ---
Date of service: 08/11/2018 PROCEDURE: CHEST RADIOGRAPH, 1 VIEW HISTORY: sob COMPARISON: 01/30/2018. FINDINGS: LUNGS: The lungs are well inflated. There is mild venous congestion. No focal consolidation. PLEURA: No pneumothorax or pleural fluid seen. CARDIOVASCULAR: Normal. OSSEOUS STRUCTURES: No significant abnormalities. VISUALIZED UPPER ABDOMEN: Normal. OTHER FINDINGS: None. IMPRESSION: No active pulmonary disease.
[2018-08-12] MEDS: Vancomycin 1gm in NS 250ml 1 GM/250 ML BAG IVPB SCH (10:34)
[2018-08-12] MEDS: Insulin Detemir 100 units/ml Vial (Levemir) SC SCH ×2 (10:34→17:18)
--- NOTE | 2018-08-12 10:34 | RAD ---
Date of service: 08/11/2018 PROCEDURE: Radiographs of the left tibia and fibula. HISTORY: anterior wu erythema w/ swelling...r/o osteo COMPARISON: None available. TECHNIQUE: Frontal and lateral views obtained. FINDINGS: BONES: Status post open reduction and internal fixation of tibial and fibular fractures with intramedullary jr in the tibia, metallic plate and screws in the distal fibula. There is lucency surrounding the intramedullary metallic jr in the distal tibia measuring 6 mm laterally and 4 mm medially. No evidence of screw fracture. No acute displaced fracture or dislocation. There is diffuse bone demineralization. There is cortical thickening in the mid diaphysis of the tibia. No evidence for bone erosion. JOINT SPACES: Unremarkable. OTHER FINDINGS: None. IMPRESSION: Status post open reduction and internal fixation of mid tibial and distal fibular fractures, lucency surrounding the intramedullary jr in the distal tibia is concerning for loosening. Cortical thickening in the mid diaphysis faces of the tibia is nonspecific and could be related to postsurgical changes however underlying osteomyelitis cannot be entirely excluded. If clinically indicated, correlation with MRI may be performed.
[2018-08-12] MEDS: guaiFENesin-DM 600-30 mg ER Tab PO SCH ×2 (10:35→17:18)
[2018-08-12] MEDS: Insulin Lispro (HUMAlog) HIGH Coverage SC SCH ×3 (12:03→21:50)
[2018-08-12] MEDS: Insulin Lispro 1 UNITS/0.01 ML SC SCH (16:30)
[2018-08-12] MEDS ORDERED: Insulin Lispro 1 UNITS/0.01 ML SC SCH (16:30)
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
[2018-08-13] MEDS: Albuterol-Ipratrop 3 mg / 0.5 (3 ml) UD IH SCH ×4 (02:06→20:52)
[2018-08-13] MEDS: Piperacillin/Tazobact 3.375 gm 100 ML IVPB SCH ×3 (05:43→22:21)
--- NOTE | 2018-08-13 05:44 | CON ---
DATE: 08/12/2018 PULMONARY CONSULTATION REFERRING PHYSICIAN: Dr. Rich. REASON FOR CONSULTATION: Chronic obstructive lung disease admitted with, I believe, gout in the left ankle. HISTORY OF PRESENT ILLNESS: This is a 58-year-old female with history of chronic obstructive lung disease, diabetes, hypertension, and hyperlipidemia, noticed increased swelling of the left ankle, could not touch it, pain was 10/10. Also has some cough and shortness of breath. Received steroids. This morning, she feels much better. Did have some swelling of the both feet with left more than the right, left ankle swelling and pain. No hemoptysis. No emesis. No hematuria. No diarrhea reported. PAST MEDICAL HISTORY: Chronic obstructive lung disease, hyperlipidemia, hypertension, diabetes, sleep apnea syndrome. ALLERGIES: UNKNOWN. SOCIAL HISTORY: Denied any smoking or alcohol use. FAMILY HISTORY: Not significant cardiopulmonary disease reported. MEDICATIONS: She is on Ambien 5 mg at bedtime p.r.n., IV fluid is p.r.n., DuoNeb every 6 hours round the clock and every 2 hours p.r.n., heparin is 5000 units subcutaneously every 8 hours, Levemir 20 units subcutaneously twice a day, Lipitor 40 mg daily, Mucinex DM 600/30 one tab twice a day, Pepcid 20 mg twice a day, Singulair 10 mg daily, Solu-Medrol 40 mg every 8 hours, vancomycin 1 g IV daily, Zestril 2.5 mg daily, Zosyn 3.375 g every 8 hours. REVIEW OF SYSTEMS: No headache. No rhinitis. Does have some cough and shortness of breath. No chest pain. No abdominal pain. Has left ankle tenderness, which has improved, also has swelling. PHYSICAL EXAMINATION: GENERAL: No acute distress. VITAL SIGNS: Temperature is 98, heart rate is 85, respiratory rate is 20, blood pressure 134/81, and pulse ox 98% on room air. HEENT: Moist mucous membrane. Crowded airway. NECK: Supple. No JVD. LUNGS: Scattered rhonchi and few wheezing. HEART: S1 and S2. ABDOMEN: Soft and nontender. No organomegaly. EXTREMITIES: Has lower extremity edema, left more than right. Has left ankle swelling and tenderness. LABORATORY DATA: Shows hemoglobin 11.4, hematocrit 33.8, WBC 17.2, platelet is 209, sed rate is 104. Blood gases done yesterday shows pH 7.40, pCO2 of 33, O2 of 87. Sodium 137, potassium 4.4, chloride 104, and bicarbonate 24. BUN 26, creatinine 0.9, glucose is 278, hemoglobin A1c 13.7, calcium , phosphorus 4.9, and magnesium 1.7. AST 19, ALT 19. Pro-BNP not available. Albumin 3.1, triglycerides 62, and cholesterol is 144. TSH 0.65, free T4 is 1.3. Serology: Influenza A and B is negative. Microbiology: Blood culture, there is no growth. Echocardiogram done, report is pending. Has a venous Doppler of lower extremities done, which shows no sonographic evidence of DVT in the visualized segment as above, lower extremity. IMPRESSION AND PLAN: Chronic obstructive lung disease, hypertension, diabetes, sleep apnea syndrome. Sleep study done, report is pending. Probably has a gout of the left ankle. Patient already on steroids. We will give her colchicine until her uric acid level is back. She is going to be getting some x-rays of the left ankle. We will decrease Solu-Medrol to 40 twice a day. Continue antibiotics and inhaled bronchodilators. Thank you and we will follow with you. Linnette Forbes MD
[2018-08-13 07:33] LABS: BASO # 0.01 K/mm3 (0.0-2.0); GRAN # 30.07 (1.4-6.5); GRAN % 93.9 % (50.0-68.0); HEMOGLOBIN 10.6 g/dL (12.0-16.0); LYMPH # 1.3 (1.2-3.4); LYMPH % 3.9 % (22.0-35.0); MEAN CELL VOLUME 85.2 fl (80.0-105.0); MEAN CORPUSCULAR HGB CONC 34.1 g/dl (31.0-37.0); MEAN PLATELET VOLUME 11.6 fl (7.0-11.0); MONO # 0.7 (0.1-0.6); MONO % 2.2 % (1.0-6.0); RBC 3.65 10^6/uL (3.5-6.1); RED CELL DISTRIBUTION WIDTH 13.4 % (11.5-14.5)
[2018-08-13 08:11] LABS: ALB/GLOB RATIO 0.9 (1.1-1.8); ALT/SGPT 21 U/L (7-56); AST/SGOT 22 U/L (14-36); BLOOD UREA NITROGEN 29 mg/dL (7-21); CALCIUM 8.2 mg/dL (8.4-10.5); GFR NON-AFRICAN AMERICAN 51; URIC ACID 4.3 mg/dL (2.5-6.2)
[2018-08-13] MEDS: Insulin Lispro 1 UNITS/0.01 ML SC SCH ×3 (08:16→16:52)
[2018-08-13] MEDS: Insulin Lispro (HUMAlog) HIGH Coverage SC SCH ×4 (08:17→22:20)
--- NOTE | 2018-08-13 10:06 | CARD ---
APPROVED REPORT Date of service: 08/12/2018 EXAM: Two-dimensional and M-mode echocardiogram with Doppler and color Doppler. Other Information Quality : AverageRhythm : INDICATION Dyspnea 2D DIMENSIONS Left Atrium (2D)4.0 (1.6-4.0cm)IVSd1.2 (0.7-1.1cm) LVDd4.1 (3.9-5.9cm)PWd1.1 (0.7-1.1cm) LVDs2.5 (2.5-4.0cm)FS (%) 40.4 % LVEF (%)71.0 (>50%) M-Mode DIMENSIONS Aortic Root3.40 (2.2-3.7cm)Aortic Cusp Exc.2.00 (1.5-2.0cm) Aortic Valve AoV Peak Smgoubgc864.0cm/sAoV VTI35.3cmLVOT Peak Fekvplds342.0cm/s LVOT VTI31.10cm Mitral Valve MV E Vdedopug431.0cm/sMV A Juktwysc876.0cm/sE/A ratio0.6 TDI Lateral E' Peak V13.40cm/sMedial E' Peak V6.34cm/sE/Lateral E'7.8 E/Medial E'16.4 Pulmonary Valve PV Peak Zczgtska38.8cm/sPV Peak Grad.3mmHg Tricuspid Valve TR Peak Oideplke717kz/sRAP [id number] Peak Gr.23mmHg [id number] LEFT VENTRICLE The left ventricle is normal size. There is normal left ventricular wall thickness. The left ventricular function is normal. The left ventricular ejection fraction is within the normal range. There is normal LV segmental wall motion. RIGHT VENTRICLE The right ventricle is normal size. ATRIA The left atrium size is normal. The right atrium size is normal. The interatrial septum is intact with no evidence for an atrial septal defect. AORTIC VALVE The aortic valve is normal in structure. MITRAL VALVE The mitral valve is normal in structure. Mitral regurgitation is mild. TRICUSPID VALVE The tricuspid valve is normal in structure. There is mild tricuspid regurgitation. PULMONIC VALVE The pulmonic valve is not well visualized. GREAT VESSELS The aortic root is normal in size. PERICARDIAL EFFUSION There is no pericardial effusion. <Conclusion> The left ventricle is normal size. There is normal left ventricular wall thickness. The left ventricular function is normal. Mitral regurgitation is mild. There is mild tricuspid regurgitation.
[2018-08-13] MEDS: Insulin Detemir 100 units/ml Vial (Levemir) SC SCH ×2 (11:19→18:03)
[2018-08-13] MEDS: guaiFENesin-DM 600-30 mg ER Tab PO SCH ×2 (11:20→17:00)
[2018-08-13] MEDS: MethylPREDNISolone 40 mg Vial IVP SCH ×2 (11:22→22:21)
[2018-08-13] MEDS: Vancomycin 1gm in NS 250ml 1 GM/250 ML BAG IVPB SCH (11:22)
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
[2018-08-13 13:38] LABS: BASO # 0.01 K/mm3 (0.0-2.0); GRAN # 28.7 (1.4-6.5); GRAN % 94.9 % (50.0-68.0); LYMPH # 0.8 (1.2-3.4); LYMPH % 2.5 % (22.0-35.0); MEAN CELL VOLUME 84.7 fl (80.0-105.0); MEAN CORPUSCULAR HEMOGLOBIN 28.6 pg (25.0-35.0); MEAN CORPUSCULAR HGB CONC 33.7 g/dl (31.0-37.0); MEAN PLATELET VOLUME 11.2 fl (7.0-11.0); MONO # 0.8 (0.1-0.6); MONO % 2.6 % (1.0-6.0); RBC 3.85 10^6/uL (3.5-6.1); RED CELL DISTRIBUTION WIDTH 13.4 % (11.5-14.5)
[2018-08-13 13:39] LABS: WHITE BLOOD COUNT 30.3 10^3/uL (4.5-11.0)
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
--- NOTE | 2018-08-13 16:33 | CP.PCM.PN ---
<Scarlett Piper - Last Filed: 08/13/18 16:17> Subjective - Date & Time of Evaluation Date of Evaluation: 08/13/18 Time of Evaluation: 16:18 - Subjective Subjective: Resident Scarlett Piper DO PGY-[address] Jaelyn Rich Patient seen and examined this am at bedside. Patient states that she is feeling much better and is able to move the ankle more without pain. She additionally states that her shortness of breath has resolved as well. She otherwise denies NICHOLSON, dizziness, vision changes, chest pain, SOB, abdominal pain, dysuria, fevers, chills, nausea, vomiting or worsening or new extremity pain. Objective - Vital Signs/Intake and Output Vital Signs (last 24 hours): Temp Pulse Resp BP Pulse Ox 97.8 F 84 16 131/71 98 08/13/18 06:00 08/13/18 11:22 08/13/18 06:00 08/13/18 11:22 08/13/18 06:00 - Medications Medications: Current Medications Acetaminophen (Tylenol 325mg Tab) 650 mg PO Q6H PRN PRN Reason: Pain, Mild (1-3) Albuterol/Ipratropium (Duoneb 3 Mg/0.5 Mg (3 Ml) Ud) 3 ml IH Q6H [facility] Last Admin: 08/13/18 13:27 Dose: 3 ml Albuterol/Ipratropium (Duoneb 3 Mg/0.5 Mg (3 Ml) Ud) 3 ml IH Q2H PRN PRN Reason: Shortness of Breath Atorvastatin Calcium (Lipitor) 40 mg PO DIN [facility] Last Admin: 08/12/18 16:30 Dose: 40 mg Colchicine (Colocrys) 0.6 mg PO DAILY [facility] Last Admin: 08/13/18 11:18 Dose: 0.6 mg Dextrose (Dextrose 50% Inj) 0 ml IV STAT PRN; Protocol PRN Reason: Hypoglycemia Protocol Famotidine (Pepcid) 20 mg PO 1000,2200 [facility] Last Admin: 08/13/18 11:22 Dose: 20 mg Guaifenesin/Dextromethorphan (Mucinex-Dm 600-30 Mg) 1 tab PO BID [facility] Last Admin: 08/13/18 11:20 Dose: 1 tab Heparin Sodium (Porcine) (Heparin) 5,000 units SC Q8H [facility]; Protocol Last Admin: 08/13/18 12:48 Dose: 5,000 units Vancomycin HCl (Vancomycin 1gm) 1 gm in 250 mls @ 167 mls/hr IVPB DAILY [facility]; Protocol Last Admin: 08/13/18 11:22 Dose: 167 mls/hr Piperacillin Sod/Tazobactam Sod (Zosyn 3.375 In Ns 100ml) 100 mls @ 25 mls/hr IVPB Q8 [facility]; Protocol Last Admin: 08/13/18 13:46 Dose: 25 mls/hr Dextrose (Dextrose 5% In Water 1000 Ml) 1,000 mls @ 0 mls/hr IV .Q0M PRN; Protocol PRN Reason: Hypoglycemia Protocol Insulin Detemir (Levemir) 20 unit SC BID [facility] Last Admin: 08/13/18 11:19 Dose: 10 units Insulin Human Lispro (Humalog High) 0 units SC ACHS [facility]; Protocol Last Admin: 08/13/18 12:44 Dose: 4 units Insulin Human Lispro (Humalog) 10 units SC AC [facility] Last Admin: 08/13/18 12:44 Dose: 10 units Lisinopril (Zestril) 2.5 mg PO DAILY [facility] Last Admin: 08/13/18 11:22 Dose: 2.5 mg Methylprednisolone (Solu-Medrol) 40 mg IVP Q12 [facility] Last Admin: 08/13/18 11:22 Dose: 40 mg Montelukast Sodium (Singulair) 10 mg PO DAILY [facility] Last Admin: 08/13/18 11:22 Dose: 10 mg Zolpidem Tartrate (Ambien) 5 mg PO HS PRN; Protocol PRN Reason: Insomnia Last Admin: 08/12/18 21:49 Dose: 5 mg - Labs Labs: 08/13/18 13:30 08/13/18 07:15 - Constitutional Appears: Well, Non-toxic, No Acute Distress - Head Exam Head Exam: ATRAUMATIC, NORMAL INSPECTION, NORMOCEPHALIC - Eye Exam Eye Exam: EOMI, Normal appearance, PERRL - Respiratory Exam Respiratory Exam: Decreased Breath Sounds, NORMAL BREATHING PATTERN. absent: Accessory Muscle Use, Rales, Rhonchi, Wheezes - Cardiovascular Exam Cardiovascular Exam: RRR, +S1, +S2. absent: Gallop, Rubs - GI/Abdominal Exam GI & Abdominal Exam: Soft, Normal Bowel Sounds. absent: Rigid, Tenderness - Extremities Exam Extremities Exam: Full ROM, Joint Swelling (present on the superior portion of the foot and ankle), Normal Capillary Refill, Pedal Edema (trace). absent: Calf Tenderness, Normal Inspection Additional comments: Having edema of the L foot and ankle, area is not erythematous or showing signs of ecchymosis. Top of L foot is warm to touch and area extends past foot to the distal portions of the tibia. - Back Exam Back Exam: NORMAL INSPECTION. absent: CVA tenderness (L), CVA tenderness (R) - Neurological Exam Neurological Exam: Alert, Awake, Oriented x3 - Psychiatric Exam Psychiatric exam: Normal Affect, Normal Mood - Skin Skin Exam: Dry, Intact, Normal Color, Warm Assessment and Plan - Assessment and Plan (Free Text) Assessment: 58 year old female with PMH of DM, HTN, HLD and asthma presenting to the hospital for one day history of left ankle swelling and pain. Found to have LLE cellulitis, XR was concerning for osteo, MRI could not be performed 2/2 metal plates in leg. Bone scan ordered per podiatry. Plan: 1. Left ankle swelling suspected to be 2/2 cellulitis - LE duplex - No sonographic evidence for DVT leg b/l - Per ID continue vancomycin, zosyn - Blood cultures - No growth after 24 hours -Tibia/fibula xray - Cortical thickening in the mid diaphysis faces of the tibia is nonspecific and could be related to post-surgical changes but could not exclude underlying osteo. - Per podiatry - Bone scan with Ceretc ordered. MRI could not be done since pt has hx of metal plates in legs done in the [place] - unsure of what metal is in plates. - ID on consult, Dr. Verduzco for LLE cellulitis 2. Hx of asthma - Continue singulair, duoneb, ventolin prn, - Continue solumedrol 40mg IVP q8 - CXR - No active pulm disease - Pulm on consult, Dr. Forbes for asthma exacerbation 3. Hx of DM - Insulin lispro low ACHS - Llevemir 18 units BID - Lipid panel, A1c pending 4. Hx of HTN - Currently controlled - Continue lisinopril 2.5 mg 5. Hx of HLD - Continue lipitor PPX: Heparin 5k and pepcid Heart healthy diet <Stephanie Rich R - Last Filed: 08/14/18 14:51> Objective - Vital Signs/Intake and Output Vital Signs (last 24 hours): Temp Pulse Resp BP Pulse Ox 97.7 F 103 H 20 148/82 99 08/14/18 06:00 08/13/18 22:29 08/14/18 06:00 08/14/18 09:41 08/14/18 06:00 Intake and Output: 08/14/18 08/14/18 06:59 18:59 Intake Total 250 Balance 250 - Medications Medications: Current Medications Acetaminophen (Tylenol 325mg Tab) 650 mg PO Q6H PRN PRN Reason: Pain, Mild (1-3) Last Admin: 08/13/18 16:53 Dose: 650 mg Albuterol/Ipratropium (Duoneb 3 Mg/0.5 Mg (3 Ml) Ud) 3 ml IH Q6H [facility] Last Admin: 08/14/18 13:02 Dose: 3 ml Albuterol/Ipratropium (Duoneb 3 Mg/0.5 Mg (3 Ml) Ud) 3 ml IH Q2H PRN PRN Reason: Shortness of Breath Atorvastatin Calcium (Lipitor) 40 mg PO DIN [facility] Last Admin: 08/13/18 17:00 Dose: 40 mg Colchicine (Colocrys) 0.6 mg PO DAILY [facility] Last Admin: 08/14/18 09:41 Dose: 0.6 mg Dextrose (Dextrose 50% Inj) 0 ml IV STAT PRN; Protocol PRN Reason: Hypoglycemia Protocol Famotidine (Pepcid) 20 mg PO 1000,2200 [facility] Last Admin: 08/14/18 09:42 Dose: 20 mg Guaifenesin/Dextromethorphan (Mucinex-Dm 600-30 Mg) 1 tab PO BID [facility] Last Admin: 08/14/18 09:42 Dose: 1 tab Heparin Sodium (Porcine) (Heparin) 5,000 units SC Q8H [facility]; Protocol Last Admin: 08/14/18 13:48 Dose: Not Given Vancomycin HCl (Vancomycin 1gm) 1 gm in 250 mls @ 167 mls/hr IVPB DAILY [facility]; Protocol Last Admin: 08/14/18 09:42 Dose: 167 mls/hr Piperacillin Sod/Tazobactam Sod (Zosyn 3.375 In Ns 100ml) 100 mls @ 25 mls/hr IVPB Q8 [facility]; Protocol Last Admin: 08/14/18 13:39 Dose: 25 mls/hr Dextrose (Dextrose 5% In Water 1000 Ml) 1,000 mls @ 0 mls/hr IV .Q0M PRN; Protocol PRN Reason: Hypoglycemia Protocol Insulin Detemir (Levemir) 25 unit SC BID [facility] Insulin Human Lispro (Humalog High) 0 units SC ACHS [facility]; Protocol Last Admin: 08/14/18 12:18 Dose: 4 units Insulin Human Lispro (Humalog) 12 units SC AC [facility] Last Admin: 08/14/18 12:18 Dose: 12 units Lisinopril (Zestril) 2.5 mg PO DAILY [facility] Last Admin: 08/14/18 09:41 Dose: 2.5 mg Methylprednisolone (Solu-Medrol) 20 mg IVP Q12 [facility] Montelukast Sodium (Singulair) 10 mg PO DAILY [facility] Last Admin: 08/14/18 09:42 Dose: 10 mg Zolpidem Tartrate (Ambien) 5 mg PO HS PRN; Protocol PRN Reason: Insomnia Last Admin: 08/13/18 22:19 Dose: 5 mg - Labs Labs: 08/14/18 06:45 08/14/18 06:45 Attending/Attestation - Attestation I have personally seen and examined this patient.: Yes I have fully participated in the care of the patient.: Yes I have reviewed all pertinent clinical information, including history, physical exam and plan: Yes Notes (Text): Patient seen and examined by me with resident at 3PM on 08/13/18 with resident. Case including HPI, physical exam, and assessment and plan discussed with resident. Agree with above with following additions/corrections. Patient is a 58-year-old female past medical history significant for type 2 diabetes, hypertension, hyperlipidemia, and asthma that presented to the emergency room with increasing swelling and pain in the left ankle. Patient states she feels ok. She states the quality assurance analyst "took a sample with a large needle from my foot." She states that it was painful. Prior to this, she states the pain had improved. Patient is denying any shortness of breath. No chest pain or palpitations. No nausea or vomiting. No headaches or dizziness. No fevers or chills. No dysuria. Physical exam: General: Awake and alert lying in bed in no acute distress HEENT: Normocephalic atraumatic. Extra ocular muscles intact. Pupils equal and reactive. No scleral icterus. Oropharynx is pink and moist. No pharyngeal erythema or exudate appreciated. Cardiovascular: Normal rhythm. Normal S1, S2. No murmurs, rubs, or gallops appreciated Pulmonary: Normal respiratory effort. Decreased breath sounds. No rhonchi, rales or wheezing appreciated. Gastrointestinal: Soft, nondistended. Nontender. Positive bowel sounds all 4 quadrants, no guarding. Musculoskeletal: Moves all extremities, no calf tenderness. Positive improved edema left foot and ankle. Positive tenderness and mild erythema left ankle and foot. Central nervous system: AAOx3. CN2-12 grossly intact. 5/5 muscle strength all extremities. Dermatologic: Skin warm and dry. Assessment and plan: Patient is a 58-year-old female past medical history significant for type 2 diabetes, hypertension, hyperlipidemia, and asthma that presented to the emergency room with increasing swelling and pain in the left ankle. 1. Left ankle edema and pain. Left ankle cellulitis. Continue vanco and zosyn. ID following, recommendations appreciated. Podiatry following, recommendations appreciated. S/P left ankle aspiration. Rule out septic joint. Follow up cultures. Bone scan with ceretec pending. Patient was also started on colchicine for possible gout. No MRI secondary to history of hardware in the left lower extremity. Tibia/fibular x-ray per radiologist showed status post open reduction and internal fixation of the mid tibial and distal fibular fractures, lucency surrounding the intramedullary jr in the distal tibia is concerning for loosening, cortical thickening in the mid diaphysis spaces of the tibia is nonspecific and could be related to postsurgical changes however underlying osteomyelitis cannot be entirely excluded. Left lower extremity venous Doppler negative for DVT. 2. Leukocytosis. Improving. May be secondary to steroids as well as left foot infection. Uptrending. Continue to Zosyn and Vanco. Follow up cultures. C ontinue to monitor. 3. Asthma exacerbation. Pulmonary following, recommendations appreciated. Contin ue Solu-Medrol, taper. Continue Mucinex, Singulair, and nebulizer treatments. Continue O2 via nasal cannula as needed. 4. Type 2 diabetes. Continue insulin sliding scale. Increase Levemir to 25 units at bedtime. Increase Humalog to 12 units before meals. Continue to monitor Accu-Cheks. 5. Hypertension. Continue home lisinopril. 6. Hyperlipidemia. Continue Lipitor. 7. GI/DVT prophylaxis. Pepcid/heparin 8. Patient is a full code Case was discussed in detail with the patient regarding current diagnosis and treatment plan. All questions answered.
--- NOTE | 2018-08-13 20:17 | PN ---
DATE: 08/13/2018 PULMONARY PROGRESS NOTE REFERRING PHYSICIAN: Dr. Adorno. SUBJECTIVE: She is ambulating in the room. Overnight events noted. Seen by Orthopedic Surgery, had a left ankle aspiration done and was injected again. Cough is better. No nausea. No vomiting. Swelling of the both ankles are better. OBJECTIVE: GENERAL: In no acute distress. VITAL SIGNS: Temperature is 98, heart rate is 84, respiratory rate is 16, blood pressure 130/87, pulse ox is 98%. HEENT: Moist mucous membrane. No ulcer or thrush noted. NECK: Supple. No JVD. LUNGS: Have a prolonged expiratory phase, but decreased rhonchi. HEART: S1 and S2. ABDOMEN: Soft, nontender. No organomegaly. EXTREMITIES: Does have a edema of the both feet left more than the right, has a dressing of the left ankle. NEUROLOGICALLY: Awake and alert. Follows simple command. MEDICATIONS: She is on Ambien 5 mg at bedtime p.r.n., colchicine 0.6 mg daily, IV fluid p.r.n., DuoNeb every 6 hours around the clock and every 2 hours p.r.n., heparin 5000 units subcu every 8 hours, insulin coverage, Levemir 20 units subcu twice daily, Lipitor 40 mg daily, Mucinex D one tab twice a day, Pepcid 20 mg twice a day, Singulair 10 mg daily, Solu-Medrol 40 mg every 12 hours, vancomycin 1 g IV daily, Zestril 2.5 mg daily, and Zosyn 3.375 g every 8 hours. LABORATORY DATA: Shows hemoglobin 11.3, hematocrit 32.6, WBC 30.3, platelet is 227. Sodium 137, potassium 4.2, chloride 108, bicarbonate 23, BUN 29, creatinine 1.1, glucose is 230, hemoglobin A1c 13.9, uric acid 4.3, calcium is 8.2, total bili 0.1, AST 22, ALT 21, alk phos is 79, albumin is 3.0. Microbiology: Blood culture and urine cultures, there is no growth. Had echocardiogram done yesterday, which shows right ventricular systolic pressure is 33, left ventricle wall thickening is there, left ventricular function is normal. Mitral regurgitation is mild. Tricuspid regurgitation is there. IMPRESSION AND PLAN: Chronic obstructive lung disease, hypertension, diabetes, sleep apnea syndrome, past history of left ankle broken, has a jr in the left lower extremity in the past, probably clinically seems like she has arthritis. She had a been on her feet whole day. Sedimentation rate is high. Uric acid is unremarkable. Seen by Orthopedic Surgery. Needle was placed in and steroids are injected I believe. I will suggest continuing antibiotics for now, elevate lower extremity, continue antiinflammatory, already on steroids for lungs and followup electrolytes and CBC for the morning. Thank you and we will follow with you. Linnette Forbes MD
[2018-08-14] MEDS: Albuterol-Ipratrop 3 mg / 0.5 (3 ml) UD IH SCH ×4 (01:57→21:10)
[2018-08-14] MEDS: Piperacillin/Tazobact 3.375 gm 100 ML IVPB SCH ×3 (06:10→21:41)
[2018-08-14 07:49] LABS: GRAN # 18.28 (1.4-6.5); GRAN % 91.3 % (50.0-68.0); HEMOGLOBIN 10.2 g/dL (12.0-16.0); LYMPH # 0.8 (1.2-3.4); MEAN CELL VOLUME 86.2 fl (80.0-105.0); MEAN CORPUSCULAR HEMOGLOBIN 28.8 pg (25.0-35.0); MEAN CORPUSCULAR HGB CONC 33.4 g/dl (31.0-37.0); MONO # 0.9 (0.1-0.6); MONO % 4.7 % (1.0-6.0); RBC 3.54 10^6/uL (3.5-6.1); RED CELL DISTRIBUTION WIDTH 13.5 % (11.5-14.5)
[2018-08-14 08:19] LABS: ALB/GLOB RATIO 0.9 (1.1-1.8); ALBUMIN 2.8 g/dL (3.0-4.8); ALT/SGPT 22 U/L (7-56); AST/SGOT 18 U/L (14-36); BLOOD UREA NITROGEN 25 mg/dL (7-21); CALCIUM 8.1 mg/dL (8.4-10.5); GFR NON-AFRICAN AMERICAN 57
[2018-08-14] MEDS: Insulin Lispro (HUMAlog) HIGH Coverage SC SCH ×3 (08:31→17:33)
[2018-08-14] MEDS: Insulin Lispro 1 UNITS/0.01 ML SC SCH ×3 (08:32→17:32)
[2018-08-14] MEDS: guaiFENesin-DM 600-30 mg ER Tab PO SCH ×2 (09:42→17:34)
[2018-08-14] MEDS: Vancomycin 1gm in NS 250ml 1 GM/250 ML BAG IVPB SCH (09:42)
[2018-08-14] MEDS: MethylPREDNISolone 40 mg Vial IVP SCH (09:42)
[2018-08-14] MEDS: Insulin Detemir 100 units/ml Vial (Levemir) SC SCH ×2 (09:48→17:33)
--- NOTE | 2018-08-14 10:20 | PN ---
DATE: 08/14/2018 SUBJECTIVE: A 58-year-old female seen at bedside for continued evaluation and management of an erythematous, edematous left ankle joint. The patient states that her pain is now resolved. She is able to move her ankle with minimal discomfort. She has been afebrile. She denies being diaphoretic and reports no obvious clinical signs of acute bacterial infection. The patient's vital signs revealed temperature of 98.4, pulse rate of 103, blood pressure 137/78, respiratory rate of 16. Laboratory findings her white blood cell count reveals a white count of 20, down from 32 yesterday. Her hemoglobin is 10.2, her hematocrit is 30.5, her platelet count is 283, granulocyte count has decreased to 18.28, down from 28.7 yesterday. Her ESR was taken on 08/11/2018, which was 104. We will repeat today. Microbiology report from fluid expressed from the left ankle reveals few gram-positive cocci. OBJECTIVE: Pulses are now palpable secondary to decreased lower extremity edema. Capillary filling time is within normal limits at this time. Temperature gradient is still warm to warm; however, it is decreasing at the left ankle joint. There is noted to be overall decreased edema and erythema surrounding the left ankle joint. Protective sensation is grossly intact using 5.07 g monofilament wire testing bilaterally. She is able to dorsiflex, plantarflex her foot with no pain. The area is void of any obvious ascending or descending cellulitis. However, the lateral ankle joint still remains minimally erythematous. Puncture wounds from the aspiration site on the left ankle reveals no signs of acute bacterial infection and has closed. ASSESSMENT: A 58-year-old female seen at bedside for possible septic left ankle versus cellulitis versus acute gout. PLAN: The patient was seen and evaluated. Chart, labs and vitals were reviewed. Dr. Forbes, Dr. Verduzco and Dr. Piper notes were read and reviewed. We ordered a Ceretec scan yesterday, which has not been done. We need to definitively ascertain whether there is a septic joint in the left ankle at this point. I spoke with Dr. Ayden Verduzco at length yesterday concerning the patient's high blood white blood cell count and he agreed that bone scan is necessary for further differentiation between cellulitis, septic joint and possible acute gout. The patient has been on long-term prednisone to control her asthma whihc given the fact that she has long-term diabetes- this may be a clue as to the etiology of her spike in white blood cell count despite any clinical obvious signs of acute bacterial infection. Consult with Hematology/Oncology was ordered for further input as to the high white blood cell count that is currently present to find the etiology of her luekocytosis to rule out possible malignancy. At this point, we will continue with the IV antibiotics vancomycin and Zosyn as her white blood cell count has decreased considerably in the last day. The patient will be followed closely and input from all specialties is greatly appreciated in this rather perplexing case. The patient will be seen and followed daily. Chris Sparks DPM [facility]
--- NOTE | 2018-08-14 14:29 | CP.PCM.PN ---
<Chirag Coppola - Last Filed: 08/14/18 14:49> Subjective - Date & Time of Evaluation Date of Evaluation: 08/14/18 Time of Evaluation: 14:16 - Subjective Subjective: Internal Medicine Progress Note (Hospitalist's Service) Patient seen and assessed at bedside. No acute events noted overnight. Patient reports that she is constipated and has not had a BM over the past three days. Patient denies any further complaints at this time including fevers, chills, headache, changes in her vision, chest pain, SOB, abdominal pain, N/V/D, changes in urine output, skin changes, or any new lower extremity complaints. Objective - Vital Signs/Intake and Output Vital Signs (last 24 hours): Temp Pulse Resp BP Pulse Ox 97.7 F 103 H 20 148/82 99 08/14/18 06:00 08/13/18 22:29 08/14/18 06:00 08/14/18 09:41 08/14/18 06:00 Intake and Output: 08/14/18 08/14/18 06:59 18:59 Intake Total 250 Balance 250 - Medications Medications: Current Medications Acetaminophen (Tylenol 325mg Tab) 650 mg PO Q6H PRN PRN Reason: Pain, Mild (1-3) Last Admin: 08/13/18 16:53 Dose: 650 mg Albuterol/Ipratropium (Duoneb 3 Mg/0.5 Mg (3 Ml) Ud) 3 ml IH Q6H [facility] Last Admin: 08/14/18 13:02 Dose: 3 ml Albuterol/Ipratropium (Duoneb 3 Mg/0.5 Mg (3 Ml) Ud) 3 ml IH Q2H PRN PRN Reason: Shortness of Breath Atorvastatin Calcium (Lipitor) 40 mg PO DIN [facility] Last Admin: 08/13/18 17:00 Dose: 40 mg Colchicine (Colocrys) 0.6 mg PO DAILY [facility] Last Admin: 08/14/18 09:41 Dose: 0.6 mg Dextrose (Dextrose 50% Inj) 0 ml IV STAT PRN; Protocol PRN Reason: Hypoglycemia Protocol Famotidine (Pepcid) 20 mg PO 1000,2200 [facility] Last Admin: 08/14/18 09:42 Dose: 20 mg Guaifenesin/Dextromethorphan (Mucinex-Dm 600-30 Mg) 1 tab PO BID [facility] Last Admin: 08/14/18 09:42 Dose: 1 tab Heparin Sodium (Porcine) (Heparin) 5,000 units SC Q8H [facility]; Protocol Last Admin: 08/14/18 13:48 Dose: Not Given Vancomycin HCl (Vancomycin 1gm) 1 gm in 250 mls @ 167 mls/hr IVPB DAILY [facility]; Protocol Last Admin: 08/14/18 09:42 Dose: 167 mls/hr Piperacillin Sod/Tazobactam Sod (Zosyn 3.375 In Ns 100ml) 100 mls @ 25 mls/hr IVPB Q8 [facility]; Protocol Last Admin: 08/14/18 13:39 Dose: 25 mls/hr Dextrose (Dextrose 5% In Water 1000 Ml) 1,000 mls @ 0 mls/hr IV .Q0M PRN; Protocol PRN Reason: Hypoglycemia Protocol Insulin Detemir (Levemir) 25 unit SC BID [facility] Insulin Human Lispro (Humalog High) 0 units SC ACHS [facility]; Protocol Last Admin: 08/14/18 12:18 Dose: 4 units Insulin Human Lispro (Humalog) 12 units SC AC [facility] Last Admin: 08/14/18 12:18 Dose: 12 units Lisinopril (Zestril) 2.5 mg PO DAILY [facility] Last Admin: 08/14/18 09:41 Dose: 2.5 mg Methylprednisolone (Solu-Medrol) 40 mg IVP Q12 [facility] Last Admin: 08/14/18 09:42 Dose: 40 mg Montelukast Sodium (Singulair) 10 mg PO DAILY [facility] Last Admin: 08/14/18 09:42 Dose: 10 mg Zolpidem Tartrate (Ambien) 5 mg PO HS PRN; Protocol PRN Reason: Insomnia Last Admin: 08/13/18 22:19 Dose: 5 mg - Labs Labs: 08/14/18 06:45 08/14/18 06:45 - Constitutional Appears: Non-toxic, No Acute Distress - Head Exam Head Exam: ATRAUMATIC, NORMOCEPHALIC - Eye Exam Eye Exam: EOMI, Normal appearance, PERRL - Neck Exam Neck Exam: Full ROM - Respiratory Exam Respiratory Exam: Decreased Breath Sounds, NORMAL BREATHING PATTERN. absent: Accessory Muscle Use, Rales, Rhonchi, Wheezes, Respiratory Distress - Cardiovascular Exam Cardiovascular Exam: REGULAR RHYTHM, RRR, +S1, +S2 - GI/Abdominal Exam GI & Abdominal Exam: Soft, Normal Bowel Sounds. absent: Tenderness - Extremities Exam Extremities Exam: Full ROM, Joint Swelling (LLE to ankle), Normal Capillary R efill. absent: Calf Tenderness, Normal Inspection, Pedal Edema Additional comments: Erythema noted to LLE extending to ankle - Neurological Exam Neurological Exam: Alert, Awake, Oriented x3 - Psychiatric Exam Psychiatric exam: Normal Affect, Normal Mood - Skin Skin Exam: Dry, Warm Assessment and Plan - Assessment and Plan (Free Text) Assessment: 58 year old female with a past medical history significant for DM2, HTN, HLD and asthma who presented with left ankle swelling and pain. She was found to have LLE cellulitis and findings concerning for osteomyelitis on left foot xray. An MRI could not be performed because patient has metal plates in her leg. Bone scan ordered per podiatry. Plan: 1. LLE Cellulitis -Left Tibia/Fibula X-Ray showed status post open reduction and internal fixation of the mid tibial and distal fibular fractures, lucency surrounding the intramedullary jr in the distal tibia is concerning for loosening, cortical thickening in the mid diaphysis spaces of the tibia is nonspecific and could be related to postsurgical changes however underlying osteomyelitis cannot be entirely excluded. -LLE Venous Doppler US was negative for DVT -Ceretec Bone Scan pending -S/P left ankle aspiration -Blood and wound cultures negative after 48 hours -Continue IV Vancomycin and Zosyn (Day 3) -Continue Colchicine -Continue Tylenol PRN for mild pain control -ID and Podiatry consulted, all recommendations appreciated 2. Leukocytosis -Improving -Likely secondary to infection and/or steroid use -Continue to monitor with daily CBC's -Continue antibiotics as noted above -Heme/Onc consulted, all recommendations appreciated 3. Asthma Exacerbation -Continue Duonebs Q6 DONALD and Q2 PRN -Continue Solu-Medrol IVP, with tapering as indicated by clinical status -Continue Mucinex and Singulair -Continue supplemental O2 via NC as ordered -Pulmonology consulted, all recommendations appreciated 4. History of DM2 -A1c noted to be 13.9 -Continue SSI-High and Accuchecks ACHS -Continue Levemir 25 units HS -Continue Humalog 12 units AC -Hypoglycemia protocol as ordered PRN 5. History of HTN -Continue home lisinopril 6. History of HLD -Lipid panel results noted -Continue home lipitor 7. History of Insomnia -Continue home Ambien 8. Constipation -Started Miralax daily GI Prophylaxis: Pepcid DVT prophylaxis. Heparin Diet: Heart Healthy Moderate Carbohydrate Consistent Code Status: Full Code Patient seen and case discussed with attending, Dr. Stephanie Rich. Chirag Coppola PGY2 <Stephanie Rich R - Last Filed: 08/16/18 17:53> Objective - Vital Signs/Intake and Output Vital Signs (last 24 hours): Temp Pulse Resp BP Pulse Ox 97.7 F 73 18 156/110 H 98 08/16/18 14:00 08/16/18 14:00 08/16/18 14:00 08/16/18 14:00 08/16/18 14:00 Intake and Output: 08/16/18 08/16/18 06:59 18:59 Intake Total 340 Balance 340 - Medications Medications: Current Medications Acetaminophen (Tylenol 325mg Tab) 650 mg PO Q6H PRN PRN Reason: Pain, Mild (1-3) Last Admin: 08/15/18 11:15 Dose: 650 mg Albuterol/Ipratropium (Duoneb 3 Mg/0.5 Mg (3 Ml) Ud) 3 ml IH Q2H PRN PRN Reason: Shortness of Breath Last Admin: 08/16/18 13:07 Dose: 3 ml Atorvastatin Calcium (Lipitor) 40 mg PO DIN [facility] Last Admin: 08/16/18 16:46 Dose: 40 mg Colchicine (Colocrys) 0.6 mg PO DAILY [facility] Last Admin: 08/16/18 09:46 Dose: 0.6 mg Dextrose (Dextrose 50% Inj) 0 ml IV STAT PRN; Protocol PRN Reason: Hypoglycemia Protocol Famotidine (Pepcid) 20 mg PO 1000,2200 [facility] Last Admin: 08/16/18 09:47 Dose: 20 mg Guaifenesin/Dextromethorphan (Mucinex-Dm 600-30 Mg) 1 tab PO BID [facility] Last Admin: 08/16/18 09:45 Dose: 1 tab Heparin Sodium (Porcine) (Heparin) 5,000 units SC Q8H [facility]; Protocol Last Admin: 08/16/18 15:50 Dose: 5,000 units Vancomycin HCl (Vancomycin 1gm) 1 gm in 250 mls @ 167 mls/hr IVPB DAILY [facility]; Protocol Last Admin: 08/16/18 09:43 Dose: 167 mls/hr Piperacillin Sod/Tazobactam Sod (Zosyn 3.375 In Ns 100ml) 100 mls @ 25 mls/hr IVPB Q8 [facility]; Protocol Last Admin: 08/16/18 15:48 Dose: 25 mls/hr Dextrose (Dextrose 5% In Water 1000 Ml) 1,000 mls @ 0 mls/hr IV .Q0M PRN; Protocol PRN Reason: Hypoglycemia Protocol Insulin Detemir (Levemir) 25 unit SC BID [facility] Last Admin: 08/16/18 09:45 Dose: 25 units Insulin Human Lispro (Humalog High) 0 units SC ACHS [facility]; Protocol Last Admin: 08/16/18 16:46 Dose: 7 units Insulin Human Lispro (Humalog) 12 units SC AC [facility] Last Admin: 08/16/18 16:46 Dose: 12 units Lisinopril (Zestril) 2.5 mg PO DAILY [facility] Last Admin: 08/16/18 09:46 Dose: 2.5 mg Montelukast Sodium (Singulair) 10 mg PO DAILY [facility] Last Admin: 08/16/18 09:47 Dose: 10 mg Polyethylene Glycol (Miralax) 17 gm PO DAILY [facility] Last Admin: 08/16/18 09:50 Dose: Not Given Prednisone (Prednisone Tab) 20 mg PO DAILY [facility] Last Admin: 08/16/18 09:47 Dose: 20 mg Zolpidem Tartrate (Ambien) 5 mg PO HS PRN; Protocol PRN Reason: Insomnia Last Admin: 08/15/18 22:51 Dose: 5 mg - Labs Labs: 08/15/18 07:00 08/15/18 07:00 Attending/Attestation - Attestation I have personally seen and examined this patient.: Yes I have fully participated in the care of the patient.: Yes I have reviewed all pertinent clinical information, including history, physical exam and plan: Yes Notes (Text): Patient seen and examined by me with resident at 11:30AM on 08/14/18 with resident. Case including HPI, physical exam, and assessment and plan discussed with resident. Agree with above with following additions/corrections. Patient is a 58-year-old female past medical history significant for type 2 diabetes, hypertension, hyperlipidemia, and asthma that presented to the emergency room with increasing swelling and pain in the left ankle. Patient states she feeling ok. States pain in left ankle has improved. Patient feels the edema has also improved. Patient states she has not had a bowel movement in three days. Patient denies shortness of breath. No chest pain or palpitations. No nausea or vomiting. No headaches or dizziness. No fevers or chills. No dysuria. Physical exam: General: Awake and alert lying in bed in no acute distress HEENT: Normocephalic atraumatic. Extra ocular muscles intact. Pupils equal and reactive. No scleral icterus. Oropharynx is pink and moist. No pharyngeal erythema or exudate appreciated. Cardiovascular: Normal rhythm. Normal S1, S2. No murmurs, rubs, or gallops a ppreciated Pulmonary: Normal respiratory effort. Decreased breath sounds. No rhonchi, rales or wheezing appreciated. Gastrointestinal: Soft, nondistended.Nontender.Positive bowel sounds all 4 samir drants, no guarding. Musculoskeletal: Moves all extremities, no calf tenderness. Positive improved edema left foot and ankle. Positive improved tenderness and mild erythema left ankle and foot. Central nervous system: AAOx3. CN2-12 grossly intact. 5/5 muscle strength all extremities. Dermatologic: Skin warm and dry. Assessment and plan: Patient is a 58-year-old female past medical history sig nificant for type 2 diabetes, hypertension, hyperlipidemia, and asthma that presented to the emergency room with increasing swelling and pain in the left ankle. 1. Left ankle edema and pain. Left ankle cellulitis. Improving. Continue vanco and zosyn. ID following, recommendations appreciated. Podiatry following, recommendations appreciated. S/P left ankle aspiration. Rule out septic joint. Pending culture results. Bone scan with ceretec results pending. Continue colchicine for possible gout. No MRI secondary to history of hardware in the left lower extremity. Tibia/fibular x-ray per radiologist showed status post open reduction and internal fixation of the mid tibial and distal fibular fract ures, lucency surrounding the intramedullary jr in the distal tibia is concerning for loosening, cortical thickening in the mid diaphysis spaces of the tibia is nonspecific and could be related to postsurgical changes however underlying osteomyelitis cannot be entirely excluded. Left lower extremity venous Doppler negative for DVT. 2. Leukocytosis. Improving. May be secondary to steroids as well as left foot infection. Continue Zosyn and Vanco. Pending aspiration cultures. Continue to monitor. 3. Asthma exacerbation. Pulmonary following, recommendations appreciated. Continue to taper Solu-Medrol. Continue Mucinex, Singulair, and nebulizer treatments. Continue O2 via nasal cannula as needed. 4. Type 2 diabetes. Continue insulin sliding scale. Continue Levemirand Humalog. Continue to monitor Accu-Cheks. 5. Hypertension. Continue lisinopril. 6. Hyperlipidemia. Continue Lipitor. 7. GI/DVT prophylaxis. Pepcid/heparin 8. Patient is a full code Case was discussed in detail with the patient regarding current diagnosis and treatment plan. All questions answered.
[2018-08-14] MEDS ORDERED: MethylPREDNISolone 40 mg Vial IVP SCH (14:47)
--- NOTE | 2018-08-14 14:47 | CON ---
DATE: 08/14/2018 HISTORY OF PRESENT ILLNESS: This is a 58-year-old woman who has an infection in her left ankle and a very high white count of 30,000. PHYSICAL EXAMINATION: SKIN: No petechiae. No bruises. HEENT: Anicteric. NODES: None palpable in the axillary, cervical, supraclavicular or inguinal regions. LUNGS: Clear at present. No vertebral tenderness. The patient is able to lie flat in bed. HEART: S1 and S2. No rubs, gallops or murmur. BREASTS: No mass. ABDOMEN: Shows no liver, no spleen, no tenderness, no rebound, no organomegaly. EXTREMITIES: At this point, she says that the area has much less swelling in the left ankle, but they removed fluid yesterday to check for the infection. LABORATORY DATA: Peripheral smear, the white count has gone down from 30,000 down to I believe 18,000 today. The peripheral smear showed normal polys, normal lymphocytes and no abnormal cells in that sense. ASSESSMENT: I think this is all due to the infection. One has to always worry about a chronic myelogenous leukemia and I was considering ordering a BCR-ABL genetic test and flow cytometry, but the while cells seems to be coming down. She says she is feeling a little bit better, so we will wait over the weekend. If the white cells are not continuing to go down as expected on the antibiotics, then I will order those tests, but for now my assumption is this is reactive to the infection. Álvaro Shrestha MD
[2018-08-14] MEDS ORDERED: POLYETHYLENE GLYCOL 3350 17 GM/Dose PACKET PO STA (15:05)
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
--- NOTE | 2018-08-14 17:59 | CON ---
DATE: 08/11/2018 HISTORY OF PRESENT ILLNESS: She is a 58-year-old female. I was asked to see her for swelling of the left ankle after she was seen by the car manager. The evidence that she had was that she said it was swollen and painful. She did have an orthopedic procedure 20 years ago for open fracture of left tibia, which required IM jr of the tibia and plating of the fibula, but presently there is no indication of tibia fracture or tibia infection or ankle infection, as there is no undue pain and full range of motion. X-rays showed a healed fracture of the fibula and the tibia. She has no complaints of pain today, ambulates well and I feel as though white count elevation is not from the bony problem. She is on cardiac medications like prednisone and so we will have to just follow her and Dr. Verduzco is going to see her for the white count elevation. FINAL DIAGNOSIS: Well-healed tibia fracture and ankle fracture with a jr in the tibia and a plate on the fibula, but no evidence of infection of those two areas. Parrish Vail DO
--- NOTE | 2018-08-14 22:30 | PN ---
DATE: 08/14/2018 PULMONARY PROGRESS NOTE REFERRING PHYSICIAN: Dr. Adorno. SUBJECTIVE: She is sitting up in a bed. Family and friend are at bedside. Night was unremarkable. Feels better. No cough. No sputum production. No nausea. No vomiting. No diarrhea. Decreased ankle swelling. PHYSICAL EXAMINATION: GENERAL: In no acute distress. VITAL SIGNS: Temperature is 98, heart rate is 76, respiratory rate is 20, blood pressure 138/86, pulse ox is 99% on room air. HEENT: Moist mucous membrane. No ulcer or thrush noted. NECK: Supple. No JVD. LUNGS: Have a fair airflow with few rhonchi. HEART: S1 and S2. ABDOMEN: Soft, nontender. No organomegaly. EXTREMITIES: Decreased edema of both ankles. NEUROLOGIC: Awake and alert. Follows simple command. MEDICATIONS: She is on Ambien 5 mg at bedtime p.r.n., colchicine 0.6 mg daily, DuoNeb every 6 hours round the clock and every 2 hours p.r.n., heparin 5000 units subcu every 8 hours, insulin coverage, Levemir 25 units subcu twice a day, Lipitor 40 mg daily, MiraLax 17 g daily, Mucinex DM 600/30 one tab twice a day, Pepcid 20 mg twice a day, Singulair 10 mg daily, Solu-Medrol 20 mg every 12 hours, Tylenol p.r.n., and vancomycin 1 g IV daily. LABORATORY DATA: Shows hemoglobin 10.2, hematocrit 30.5, WBC 20,000, platelet count is 284, sed rate is 110. Sodium 138, potassium 4.4, chloride 111, bicarbonate 23, BUN 25, creatinine 1, glucose is 374, calcium is 8.1. AST 18, ALT 22, alk phos is 92, albumin is 2.8. IMPRESSION AND PLAN: Chronic obstructive lung disease; hypertension; diabetes; sleep apnea syndrome; history of left ankle broken, had a jr in the left lower extremity, probably of degenerative joint disease, had been on her feet for a birthday, ended up with edema. Seen by Orthopedics, was injected, has a high sed rate, getting bone scan done. Pulmonary point of view, doing well. Will suggest to discontinue Solu-Medrol, put on prednisone 20 mg daily. For now, continue colchicine, pain management, elevate lower extremities, fall precaution. Thank you and we will follow with you. Linnette Forbes MD
[2018-08-15] MEDS: Albuterol-Ipratrop 3 mg / 0.5 (3 ml) UD IH SCH ×2 (02:38→08:54)
[2018-08-15] MEDS: Piperacillin/Tazobact 3.375 gm 100 ML IVPB SCH ×3 (05:35→21:26)
[2018-08-15 07:50] LABS: BASO # 0.01 K/mm3 (0.0-2.0); BASO % 0.1 % (0.0-3.0); EOS # 0.1 (0.0-0.7); EOS % 0.6 % (1.5-5.0); GRAN # 9.88 (1.4-6.5); GRAN % 68.1 % (50.0-68.0); HEMOGLOBIN 10.7 g/dL (12.0-16.0); LYMPH # 2.9 (1.2-3.4); LYMPH % 20.2 % (22.0-35.0); MEAN CELL VOLUME 86.8 fl (80.0-105.0); MEAN CORPUSCULAR HEMOGLOBIN 27.7 pg (25.0-35.0); MEAN CORPUSCULAR HGB CONC 31.9 g/dl (31.0-37.0); MEAN PLATELET VOLUME 12.1 fl (7.0-11.0); MONO # 1.6 (0.1-0.6); RBC 3.86 10^6/uL (3.5-6.1); RED CELL DISTRIBUTION WIDTH 13.7 % (11.5-14.5); WHITE BLOOD COUNT 14.5 10^3/uL (4.5-11.0)
[2018-08-15 08:12] LABS: ALB/GLOB RATIO 0.9 (1.1-1.8); ALBUMIN 2.8 g/dL (3.0-4.8); ALT/SGPT 26 U/L (7-56); AST/SGOT 20 U/L (14-36); BLOOD UREA NITROGEN 25 mg/dL (7-21); CALCIUM 8.6 mg/dL (8.4-10.5); GFR NON-AFRICAN AMERICAN > 60
--- NOTE | 2018-08-15 10:03 | CP.PCM.PN ---
<Fabricio Arias - Last Filed: 08/15/18 10:05> Subjective - Date & Time of Evaluation Date of Evaluation: 08/15/18 Time of Evaluation: 09:59 - Subjective Subjective: Podiatry progress note for Dr. Sparks/Dr. Stark: 58 yo female patient seen and evaluated at bedside resting comfortably. States that she has no acute complaints today. States that the left ankle is much less swollen and red than it was when she came into the ED. Denies any pain to the area and that she can freely move the ankle without pain. Denies N/V/F/C/SOB/CP. No other pedal complaints today. Objective - Vital Signs/Intake and Output Vital Signs (last 24 hours): Temp Pulse Resp BP Pulse Ox 97.9 F 81 20 174/96 H 97 08/15/18 06:00 08/15/18 06:00 08/15/18 06:00 08/15/18 06:00 08/15/18 06:00 Intake and Output: 08/15/18 08/15/18 06:59 18:59 Intake Total 480 Balance 480 - Medications Medications: Current Medications Acetaminophen (Tylenol 325mg Tab) 650 mg PO Q6H PRN PRN Reason: Pain, Mild (1-3) Last Admin: 08/13/18 16:53 Dose: 650 mg Albuterol/Ipratropium (Duoneb 3 Mg/0.5 Mg (3 Ml) Ud) 3 ml IH Q6H [facility] Last Admin: 08/15/18 08:54 Dose: 3 ml Albuterol/Ipratropium (Duoneb 3 Mg/0.5 Mg (3 Ml) Ud) 3 ml IH Q2H PRN PRN Reason: Shortness of Breath Atorvastatin Calcium (Lipitor) 40 mg PO DIN [facility] Last Admin: 08/14/18 17:34 Dose: 40 mg Colchicine (Colocrys) 0.6 mg PO DAILY [facility] Last Admin: 08/14/18 09:41 Dose: 0.6 mg Dextrose (Dextrose 50% Inj) 0 ml IV STAT PRN; Protocol PRN Reason: Hypoglycemia Protocol Famotidine (Pepcid) 20 mg PO 1000,2200 [facility] Last Admin: 08/14/18 21:41 Dose: 20 mg Guaifenesin/Dextromethorphan (Mucinex-Dm 600-30 Mg) 1 tab PO BID [facility] Last Admin: 08/14/18 17:34 Dose: 1 tab Heparin Sodium (Porcine) (Heparin) 5,000 units SC Q8H [facility]; Protocol Last Admin: 08/15/18 05:35 Dose: 5,000 units Vancomycin HCl (Vancomycin 1gm) 1 gm in 250 mls @ 167 mls/hr IVPB DAILY [facility]; Protocol Last Admin: 08/14/18 09:42 Dose: 167 mls/hr Piperacillin Sod/Tazobactam Sod (Zosyn 3.375 In Ns 100ml) 100 mls @ 25 mls/hr IVPB Q8 [facility]; Protocol Last Admin: 08/15/18 05:35 Dose: 25 mls/hr Dextrose (Dextrose 5% In Water 1000 Ml) 1,000 mls @ 0 mls/hr IV .Q0M PRN; Protocol PRN Reason: Hypoglycemia Protocol Insulin Detemir (Levemir) 25 unit SC BID [facility] Last Admin: 08/14/18 17:33 Dose: 25 units Insulin Human Lispro (Humalog High) 0 units SC ACHS [facility]; Protocol Last Admin: 08/14/18 17:33 Dose: 2 units Insulin Human Lispro (Humalog) 12 units SC AC [facility] Last Admin: 08/14/18 17:32 Dose: 12 units Lisinopril (Zestril) 2.5 mg PO DAILY [facility] Last Admin: 08/14/18 09:41 Dose: 2.5 mg Montelukast Sodium (Singulair) 10 mg PO DAILY [facility] Last Admin: 08/14/18 09:42 Dose: 10 mg Polyethylene Glycol (Miralax) 17 gm PO DAILY [facility] Prednisone (Prednisone Tab) 20 mg PO DAILY [facility] Zolpidem Tartrate (Ambien) 5 mg PO HS PRN; Protocol PRN Reason: Insomnia Last Admin: 08/14/18 22:33 Dose: 5 mg - Labs Labs: 08/15/18 07:00 08/15/18 07:00 - Constitutional Appears: Well, Non-toxic, No Acute Distress - Head Exam Head Exam: ATRAUMATIC, NORMOCEPHALIC - Extremities Exam Additional comments: LLE focused: Vascular: Dp/pt pulses palpable 1/4, CFT <3 secs x5, TG warm to warm( warmer around the ankle joint - same temperature as right side), no erythema noted, mild edema noted at the ankle and foot neuro: protective sensation grossly intact derm: no open lesions, bryce noted on the dorsolateral aspect of the forefoot, superficial fissure noted on the plantar lateral aspect of the heel ortho: no pain on palpation to the anterior aspect of ankle joint, no pain on palpation with ROM of the ankle joint. - Neurological Exam Neurological Exam: Alert, Awake, Oriented x3 - Psychiatric Exam Psychiatric exam: Normal Affect, Normal Mood Assessment and Plan - Assessment and Plan (Free Text) Assessment: 58 yo female seen at bedside for erythematous edematous left ankle joint Plan: Patient seen and evaluated Discussed in detail with Dr. Sparks Chart, labs and vitals reviewed; afebrile, WBC: 14.5 X-rays reviewed; no osseous abnormality noted, loosening of the tibial jr noted Bone scan - taken but not read, f/u read Patient educated on etiology of her ankle pain; possible septic ankle joint or abscess Cultures taken and ordered - staph aureus to left ankle No dressing applied to ankle CBC ordered ID on board; recs appreciated Podiatry will continue to follow the patient daily. <Chris Sparks - Last Filed: 08/17/18 12:17> Objective - Vital Signs/Intake and Output Vital Signs (last 24 hours): Temp Pulse Resp BP Pulse Ox 98.2 F 88 20 164/92 H 99 08/17/18 08:15 08/17/18 09:26 08/17/18 08:15 08/17/18 09:26 08/17/18 08:15 Intake and Output: 08/17/18 08/17/18 06:59 18:59 Intake Total 320 Balance 320 - Medications Medications: Current Medications Acetaminophen (Tylenol 325mg Tab) 650 mg PO Q6H PRN PRN Reason: Pain, Mild (1-3) Last Admin: 08/15/18 11:15 Dose: 650 mg Albuterol/Ipratropium (Duoneb 3 Mg/0.5 Mg (3 Ml) Ud) 3 ml IH Q2H PRN PRN Reason: Shortness of Breath Last Admin: 08/17/18 07:39 Dose: 3 ml Atorvastatin Calcium (Lipitor) 40 mg PO DIN [facility] Last Admin: 08/16/18 16:46 Dose: 40 mg Colchicine (Colocrys) 0.6 mg PO DAILY [facility] Last Admin: 08/17/18 09:26 Dose: 0.6 mg Dextrose (Dextrose 50% Inj) 0 ml IV STAT PRN; Protocol PRN Reason: Hypoglycemia Protocol Famotidine (Pepcid) 20 mg PO 1000,2200 [facility] Last Admin: 08/17/18 09:27 Dose: 20 mg Guaifenesin/Dextromethorphan (Mucinex-Dm 600-30 Mg) 1 tab PO BID [facility] Last Admin: 08/17/18 09:26 Dose: 1 tab Heparin Sodium (Porcine) (Heparin) 5,000 units SC Q8H [facility]; Protocol Last Admin: 08/17/18 06:28 Dose: 5,000 units Dextrose (Dextrose 5% In Water 1000 Ml) 1,000 mls @ 0 mls/hr IV .Q0M PRN; Protocol PRN Reason: Hypoglycemia Protocol Insulin Detemir (Levemir) 25 unit SC BID [facility] Last Admin: 08/17/18 09:27 Dose: 25 units Insulin Human Lispro (Humalog High) 0 units SC ACHS [facility]; Protocol Last Admin: 08/17/18 09:27 Dose: Not Given Insulin Human Lispro (Humalog) 12 units SC AC [facility] Last Admin: 08/17/18 09:28 Dose: Not Given Lisinopril (Zestril) 2.5 mg PO DAILY [facility] Last Admin: 08/17/18 09:26 Dose: 2.5 mg Montelukast Sodium (Singulair) 10 mg PO DAILY [facility] Last Admin: 08/17/18 09:26 Dose: 10 mg Polyethylene Glycol (Miralax) 17 gm PO DAILY [facility] Last Admin: 08/17/18 09:27 Dose: 17 gm Prednisone (Prednisone Tab) 10 mg PO DAILY [facility] Last Admin: 08/17/18 09:27 Dose: 10 mg Zolpidem Tartrate (Ambien) 5 mg PO HS PRN; Protocol PRN Reason: Insomnia Last Admin: 08/16/18 22:40 Dose: 5 mg - Labs Labs: 08/17/18 07:20 08/17/18 07:20 Attending/Attestation - Attestation I have personally seen and examined this patient.: Yes I have fully participated in the care of the patient.: Yes I have reviewed all pertinent clinical information, including history, physical exam and plan: Yes
[2018-08-15] MEDS: Insulin Lispro (HUMAlog) HIGH Coverage SC SCH ×4 (11:14→22:51)
[2018-08-15] MEDS: guaiFENesin-DM 600-30 mg ER Tab PO SCH ×2 (11:15→20:07)
[2018-08-15] MEDS: Insulin Lispro 1 UNITS/0.01 ML SC SCH ×3 (11:28→19:58)
[2018-08-15] MEDS: Insulin Detemir 100 units/ml Vial (Levemir) SC SCH ×2 (11:30→20:01)
[2018-08-15] MEDS: POLYETHYLENE GLYCOL 3350 17 GM/Dose PACKET PO SCH (11:30)
[2018-08-15] MEDS: Vancomycin 1gm in NS 250ml 1 GM/250 ML BAG IVPB SCH (11:32)
[2018-08-15] MEDS: Albuterol-Ipratrop 3 mg / 0.5 (3 ml) UD IH PRN (14:25)
--- NOTE | 2018-08-15 16:30 | CP.PCM.PN ---
<Germán Ruff - Last Filed: 08/15/18 16:40> Subjective - Date & Time of Evaluation Date of Evaluation: 08/15/18 Time of Evaluation: 10:45 - Subjective Subjective: Germán Ruff DO, PGY-1 Hospitalist Progress Note for Dr. Jaelyn Rich Patient was seen and examined at bedside this AM. She offers no new complaints this AM and states she feels about the same as yesterday. Objective - Vital Signs/Intake and Output Vital Signs (last 24 hours): Temp Pulse Resp BP Pulse Ox 98.3 F 93 H 20 154/108 H 95 08/15/18 14:00 08/15/18 14:00 08/15/18 14:00 08/15/18 14:00 08/15/18 14:00 Intake and Output: 08/15/18 08/15/18 06:59 18:59 Intake Total 480 Balance 480 - Medications Medications: Current Medications Acetaminophen (Tylenol 325mg Tab) 650 mg PO Q6H PRN PRN Reason: Pain, Mild (1-3) Last Admin: 08/15/18 11:15 Dose: 650 mg Albuterol/Ipratropium (Duoneb 3 Mg/0.5 Mg (3 Ml) Ud) 3 ml IH Q2H PRN PRN Reason: Shortness of Breath Last Admin: 08/15/18 14:25 Dose: 3 ml Atorvastatin Calcium (Lipitor) 40 mg PO DIN [facility] Last Admin: 08/14/18 17:34 Dose: 40 mg Colchicine (Colocrys) 0.6 mg PO DAILY [facility] Last Admin: 08/15/18 11:19 Dose: 0.6 mg Dextrose (Dextrose 50% Inj) 0 ml IV STAT PRN; Protocol PRN Reason: Hypoglycemia Protocol Famotidine (Pepcid) 20 mg PO 1000,2200 [facility] Last Admin: 08/15/18 11:19 Dose: 20 mg Guaifenesin/Dextromethorphan (Mucinex-Dm 600-30 Mg) 1 tab PO BID [facility] Last Admin: 08/15/18 11:15 Dose: 1 tab Heparin Sodium (Porcine) (Heparin) 5,000 units SC Q8H [facility]; Protocol Last Admin: 08/15/18 05:35 Dose: 5,000 units Vancomycin HCl (Vancomycin 1gm) 1 gm in 250 mls @ 167 mls/hr IVPB DAILY [facility]; Protocol Last Admin: 08/15/18 11:32 Dose: 167 mls/hr Piperacillin Sod/Tazobactam Sod (Zosyn 3.375 In Ns 100ml) 100 mls @ 25 mls/hr IVPB Q8 [facility]; Protocol Last Admin: 08/15/18 05:35 Dose: 25 mls/hr Dextrose (Dextrose 5% In Water 1000 Ml) 1,000 mls @ 0 mls/hr IV .Q0M PRN; Protocol PRN Reason: Hypoglycemia Protocol Insulin Detemir (Levemir) 25 unit SC BID [facility] Last Admin: 08/15/18 11:30 Dose: 25 units Insulin Human Lispro (Humalog High) 0 units SC ACHS [facility]; Protocol Last Admin: 08/15/18 11:14 Dose: 12 units Insulin Human Lispro (Humalog) 12 units SC AC [facility] Last Admin: 08/15/18 11:28 Dose: 12 units Lisinopril (Zestril) 2.5 mg PO DAILY [facility] Last Admin: 08/15/18 11:20 Dose: 2.5 mg Montelukast Sodium (Singulair) 10 mg PO DAILY [facility] Last Admin: 08/15/18 11:19 Dose: 10 mg Polyethylene Glycol (Miralax) 17 gm PO DAILY [facility] Last Admin: 08/15/18 11:30 Dose: 17 gm Prednisone (Prednisone Tab) 20 mg PO DAILY [facility] Last Admin: 08/15/18 11:32 Dose: 20 mg Zolpidem Tartrate (Ambien) 5 mg PO HS PRN; Protocol PRN Reason: Insomnia Last Admin: 08/14/18 22:33 Dose: 5 mg - Labs Labs: 08/15/18 07:00 08/15/18 07:00 - Constitutional Appears: Non-toxic, No Acute Distress - Head Exam Head Exam: ATRAUMATIC, NORMOCEPHALIC - Eye Exam Eye Exam: EOMI, Normal appearance, PERRL - ENT Exam ENT Exam: Mucous Membranes Moist - Neck Exam Neck Exam: Full ROM, Normal Inspection - Respiratory Exam Respiratory Exam: Clear to Ausculation Bilateral, NORMAL BREATHING PATTERN. absent: Rales, Rhonchi, Wheezes - Cardiovascular Exam Cardiovascular Exam: REGULAR RHYTHM, RRR, +S1, +S2. absent: Gallop, Rubs, Murmur - GI/Abdominal Exam GI & Abdominal Exam: Soft, Normal Bowel Sounds. absent: Guarding, Tenderness - Extremities Exam Extremities Exam: Full ROM, Normal Inspection - Back Exam Back Exam: NORMAL INSPECTION - Neurological Exam Neurological Exam: Alert, Awake, Oriented x3 - Psychiatric Exam Psychiatric exam: Normal Affect, Normal Mood - Skin Skin Exam: Dry, Intact, Warm Assessment and Plan - Assessment and Plan (Free Text) Assessment: 58 yo F with PMH of DM2, HTN, HLD and asthma presented to ED with L ankle swelling and pain worsening. She was found to have LLE cellulitis and findings concerning for osteomyelitis on L foot xray. An MRI could not be performed because patient has [place] in [place] Bone scan ordered per podiatry but official read still pending. Plan: 1. LLE Cellulitis LLE dopplers negative for DVT, L foot xray showed changes so that osteomyelitis could not be excluded Ceretec bone scan completed, official read pending She is s/p L ankle aspiration per podiatry On day 3 of vanc/zosyn Repeat blood cx negative to date Continue Colchicine Continue Tylenol PRN for mild pain control ID and Podiatry consulted, recs appreciated 2. Leukocytosis Likely 2/2 infection and/or steroid use Per heme/onc recs, this is all likely due to infection If not improving, consider Bcr/abl testing for CML but otherwise monitor Heme/Onc recs appreciated 3. Asthma Exacerbation Continue Duonebs Q6 [facility] and Q2 PRN Continue Solu-Medrol IVP, with tapering as indicated by clinical status Continue Mucinex and Singulair Continue supplemental O2 NC PRN Pulmonology consulted, recs appreciated 4. Hx DM2 A1c this visit is 13.9, reflecting poor management Poor management likely contributed to worsening LE cellulitis Continue ISS high coverage with POC fingerstick glucose ACHS Continue Levemir 25 units HS Continue Humalog 12 units AC 5. Hx HTN Continue home lisinopril 6. Hx HLD Lipid panel results noted Continue home lipitor 7. Hx Insomnia Continue home Ambien 8. Constipation Started Miralax daily DVT/GI PPX: SC heparin, pepcid Full Code Diabetic diet Monitor on med/surg Case and plan reviewed and discussed with my attending Dr. Jaelyn Ruff, IM Resident PGY-1 Pager: [phone] <Rich,Stephanie R - Last Filed: 08/16/18 17:59> Objective - Vital Signs/Intake and Output Vital Signs (last 24 hours): Temp Pulse Resp BP Pulse Ox 97.7 F 73 18 156/110 H 98 08/16/18 14:00 08/16/18 14:00 08/16/18 14:00 08/16/18 14:00 08/16/18 14:00 Intake and Output: 08/16/18 08/16/18 06:59 18:59 Intake Total 340 Balance 340 - Medications Medications: Current Medications Acetaminophen (Tylenol 325mg Tab) 650 mg PO Q6H PRN PRN Reason: Pain, Mild (1-3) Last Admin: 08/15/18 11:15 Dose: 650 mg Albuterol/Ipratropium (Duoneb 3 Mg/0.5 Mg (3 Ml) Ud) 3 ml IH Q2H PRN PRN Reason: Shortness of Breath Last Admin: 08/16/18 13:07 Dose: 3 ml Atorvastatin Calcium (Lipitor) 40 mg PO DIN [facility] Last Admin: 08/16/18 16:46 Dose: 40 mg Colchicine (Colocrys) 0.6 mg PO DAILY [facility] Last Admin: 08/16/18 09:46 Dose: 0.6 mg Dextrose (Dextrose 50% Inj) 0 ml IV STAT PRN; Protocol PRN Reason: Hypoglycemia Protocol Famotidine (Pepcid) 20 mg PO 1000,2200 [facility] Last Admin: 08/16/18 09:47 Dose: 20 mg Guaifenesin/Dextromethorphan (Mucinex-Dm 600-30 Mg) 1 tab PO BID [facility] Last Admin: 08/16/18 09:45 Dose: 1 tab Heparin Sodium (Porcine) (Heparin) 5,000 units SC Q8H [facility]; Protocol Last Admin: 08/16/18 15:50 Dose: 5,000 units Vancomycin HCl (Vancomycin 1gm) 1 gm in 250 mls @ 167 mls/hr IVPB DAILY [facility]; Protocol Last Admin: 08/16/18 09:43 Dose: 167 mls/hr Piperacillin Sod/Tazobactam Sod (Zosyn 3.375 In Ns 100ml) 100 mls @ 25 mls/hr IVPB Q8 [facility]; Protocol Last Admin: 08/16/18 15:48 Dose: 25 mls/hr Dextrose (Dextrose 5% In Water 1000 Ml) 1,000 mls @ 0 mls/hr IV .Q0M PRN; Protocol PRN Reason: Hypoglycemia Protocol Insulin Detemir (Levemir) 25 unit SC BID [facility] Last Admin: 08/16/18 09:45 Dose: 25 units Insulin Human Lispro (Humalog High) 0 units SC ACHS [facility]; Protocol Last Admin: 08/16/18 16:46 Dose: 7 units Insulin Human Lispro (Humalog) 12 units SC AC [facility] Last Admin: 08/16/18 16:46 Dose: 12 units Lisinopril (Zestril) 2.5 mg PO DAILY [facility] Last Admin: 08/16/18 09:46 Dose: 2.5 mg Montelukast Sodium (Singulair) 10 mg PO DAILY [facility] Last Admin: 08/16/18 09:47 Dose: 10 mg Polyethylene Glycol (Miralax) 17 gm PO DAILY [facility] Last Admin: 08/16/18 09:50 Dose: Not Given Prednisone (Prednisone Tab) 20 mg PO DAILY [facility] Last Admin: 08/16/18 09:47 Dose: 20 mg Zolpidem Tartrate (Ambien) 5 mg PO HS PRN; Protocol PRN Reason: Insomnia Last Admin: 08/15/18 22:51 Dose: 5 mg - Labs Labs: 08/15/18 07:00 08/15/18 07:00 Attending/Attestation - Attestation I have personally seen and examined this patient.: Yes I have fully participated in the care of the patient.: Yes I have reviewed all pertinent clinical information, including history, physical exam and plan: Yes Notes (Text): Patient seen and examined by me with resident at 10:30AM on 08/15/18 with resident. Case including HPI, physical exam, and assessment and plan discussed with resident. Agree with above with following additions/corrections. Patient is a 58-year-old female past medical history significant for type 2 diabetes, hypertension, hyperlipidemia, and asthma that presented to the emergency room with increasing swelling and pain in the left ankle. Patient states she feeling better. Patient states she had a bowel movement. Left foot feels better. No shortness of breath. No chest pain or palpitations. No nausea or vomiting. No headaches or dizziness. No fevers or chills. No dysuria. Physical exam: General: Awake and alert lying in bed in no acute distress HEENT: Normocephalic atraumatic. Extra ocular muscles intact. Pupils equal and reactive. No scleral icterus. Oropharynx is pink and moist. No pharyngeal erythema or exudate appreciated.Neck is supple. Cardiovascular: Normal rhythm. Normal S1, S2. No murmurs, rubs, or gallops appreciated Pulmonary: Normal respiratory effort.No rhonchi, rales or wheezing appreciated. Gastrointestinal: Soft, nondistended.Nontender.Positive bowel sounds all 4 quadrants, no guarding. Musculoskeletal: Moves all extremities, no calf tenderness. Positive improved edema left foot and ankle. Positive improved tenderness left ankle and foot. Central nervous system: AAOx3. CN2-12 grossly intact. 5/5 muscle strength all extremities. Dermatologic: Skin warm and dry. Assessment and plan: Patient is a 58-year-old female past medical history significant for type 2 diabetes, hypertension, hyperlipidemia, and asthma that presented to the emergency room with increasing swelling and pain in the left ankle. 1. Left ankle edema and pain. Left ankle cellulitis. Improving. S/P left ankle aspiration. Cultures positive for staph aureus. Continue vanco and zosyn. Continue colchicine for possible gout. ID following, recommendations appreciated. Podiatry following, recommendations appreciated. Bone scan with ceretec pending. No MRI secondary to history of hardware in the left lower extremity. Tibia/fibular x-ray per radiologist showed status post open reduction and internal fixation of the mid tibial and distal fibular fractures, lucency surrounding the intramedullary jr in the distal tibia is concerning for loosening, cortical thickening in the mid diaphysis spaces of the tibia is nonspecific and could be related to postsurgical changes however underlying osteomyelitis cannot be entirely excluded. Left lower extremity venous Doppler negative for DVT. 2. Leukocytosis. Downtrending. May be secondary to steroids as well as left foot infection. Continue to Zosyn and Vanco. Cultures positive for staph aureus. Continue to monitor. 3. Asthma exacerbation. Exacerbation resolved. Pulmonary following, recommendations appreciated. Solumedrol changed to prednisone 20mg PO daily. Continue Mucinex, Singulair, and nebulizer treatments. Continue O2 via nasal cannula as needed. 4. Type 2 diabetes. Continue insulin sliding scale. Continue Levemir 25 units at bedtime. Continue [id number] units before meals. Continue to monitor Accu- Cheks. 5. Hypertension. Continue lisinopril. 6. Hyperlipidemia. Continue Lipitor. 7. GI/DVT prophylaxis. Pepcid/heparin 8. Patient is a full code Case was discussed in detail with the patient regarding current diagnosis and treatment plan. All questions answered.
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
--- NOTE | 2018-08-15 21:18 | PN ---
DATE: 08/15/2018 PULMONARY PROGRESS NOTE REFERRING PHYSICIAN: Dr. Adorno. SUBJECTIVE: The patient is sitting up in a chair. Family is at bedside. Night was unremarkable. Feels better. No cough. No short of breath. No nausea or vomiting. No diarrhea. Decreased ankle swelling. OBJECTIVE: GENERAL: In no acute distress. VITAL SIGNS: Temperature is 98, heart rate is 93, respiratory rate is 20, blood pressure 154/108, pulse ox 95% on room air. HEENT: Moist mucous membrane. No ulcer or thrush noted. NECK: Supple. No JVD. LUNGS: Have a fair airflow with rhonchi. HEART: S1 and S2. ABDOMEN: Soft, nontender. No organomegaly. EXTREMITIES: Does have a trace edema. NEUROLOGICAL: Awake and alert. Follows simple command. MEDICATIONS: She is on Ambien 5 mg at bedtime p.r.n., colchicine 0.6 mg daily, IV fluid D50 p.r.n., DuoNeb every 2 hours p.r.n., heparin 5000 units subcu every 8 hours, insulin coverage, Levemir 25 units twice a day, Lipitor 40 mg daily, MiraLax 17 g daily, Mucinex DM 600/30 1 tab twice a day, Pepcid 20 mg twice a day, prednisone 20 mg daily, Singulair 10 mg daily, Tylenol p.r.n., vancomycin 1 g IV daily, Zestril 2.5 mg daily, Zosyn 3.375 g IV every 8 hours. LABORATORY DATA: Shows hemoglobin 10.7, hematocrit 33.5, WBC 14.5, platelet count is 293. Sodium 140, potassium 4, chloride 110, bicarbonate 25, BUN is 25, creatinine 0.9, glucose 211, calcium is 8.6, AST 20, ALT 26, alkaline phosphatase is 800. Albumin is 2.8. Ankle culture has a staph aureus. IMPRESSION AND PLAN: Chronic obstructive lung disease, hypertension, diabetes, sleep apnea syndrome, left ankle been broken, has a jr in the lower extremity, degenerative joint disease. Pulmonary point of view, doing well. Continue bronchodilator. Keep head at 45 degrees. Pain management. Orthopedic followup. Tapered dose of steroids. Antibiotics as per Infectious Diseases. Thank you and we will follow with you. Linnette Forbes MD
[2018-08-16] MEDS: Piperacillin/Tazobact 3.375 gm 100 ML IVPB SCH ×3 (05:44→23:05)
[2018-08-16] MEDS: Albuterol-Ipratrop 3 mg / 0.5 (3 ml) UD IH PRN ×3 (07:45→21:27)
[2018-08-16] MEDS: Insulin Lispro (HUMAlog) HIGH Coverage SC SCH ×4 (09:02→22:41)
[2018-08-16] MEDS: Insulin Lispro 1 UNITS/0.01 ML SC SCH ×3 (09:02→16:46)
[2018-08-16] MEDS: Vancomycin 1gm in NS 250ml 1 GM/250 ML BAG IVPB SCH (09:43)
[2018-08-16] MEDS: Insulin Detemir 100 units/ml Vial (Levemir) SC SCH ×2 (09:45→18:37)
[2018-08-16] MEDS: guaiFENesin-DM 600-30 mg ER Tab PO SCH ×2 (09:45→18:37)
[2018-08-16] MEDS: POLYETHYLENE GLYCOL 3350 17 GM/Dose PACKET PO SCH (09:50)
--- NOTE | 2018-08-16 11:00 | PN ---
DATE: 08/16/2018 UPDATED REPORT LOCATION: In room 578, bed 2. SUBJECTIVE: The patient has no complaints of pain. The white count is down. She was aspirated by the Podiatry Service. They are going to follow her and if there is any need to take out the plate, they are very confident and very good to take out the plate if need be. Though, I am not going to follow her for this right now. She will be observed and the research attorney will keep following her. They took the culture and showed some infection, but she has great response to the antibiotics and she does not want any surgery anyway. So the research attorney will follow her now, but they could see her in their clinic. Parrish Vail DO ORSE
--- NOTE | 2018-08-16 11:57 | CP.PCM.PN ---
Subjective - Date & Time of Evaluation Date of Evaluation: 08/16/18 Time of Evaluation: 11:55 - Subjective Subjective: Podiatry progress note for Dr. Sparks/Dr. Stark: 58 yo female patient seen and evaluated at bedside resting comfortably. States that she has no acute complaints today. states the ankle looks a lot better than when she had initially come into the emergency room. Denies any pain to the area and that she can freely move the ankle without pain. Denies N/V/F/C/SOB/CP. No other pedal complaints today. Objective - Vital Signs/Intake and Output Vital Signs (last 24 hours): Temp Pulse Resp BP Pulse Ox 97.8 F 61 20 158/84 H 97 08/16/18 08:29 08/16/18 08:29 08/16/18 08:29 08/16/18 09:46 08/16/18 08:29 Intake and Output: 08/16/18 08/16/18 06:59 18:59 Intake Total 340 Balance 340 - Medications Medications: Current Medications Acetaminophen (Tylenol 325mg Tab) 650 mg PO Q6H PRN PRN Reason: Pain, Mild (1-3) Last Admin: 08/15/18 11:15 Dose: 650 mg Albuterol/Ipratropium (Duoneb 3 Mg/0.5 Mg (3 Ml) Ud) 3 ml IH Q2H PRN PRN Reason: Shortness of Breath Last Admin: 08/16/18 07:45 Dose: 3 ml Atorvastatin Calcium (Lipitor) 40 mg PO DIN [facility] Last Admin: 08/15/18 20:07 Dose: 40 mg Colchicine (Colocrys) 0.6 mg PO DAILY [facility] Last Admin: 08/16/18 09:46 Dose: 0.6 mg Dextrose (Dextrose 50% Inj) 0 ml IV STAT PRN; Protocol PRN Reason: Hypoglycemia Protocol Famotidine (Pepcid) 20 mg PO 1000,2200 [facility] Last Admin: 08/16/18 09:47 Dose: 20 mg Guaifenesin/Dextromethorphan (Mucinex-Dm 600-30 Mg) 1 tab PO BID [facility] Last Admin: 08/16/18 09:45 Dose: 1 tab Heparin Sodium (Porcine) (Heparin) 5,000 units SC Q8H [facility]; Protocol Last Admin: 08/16/18 05:44 Dose: 5,000 units Vancomycin HCl (Vancomycin 1gm) 1 gm in 250 mls @ 167 mls/hr IVPB DAILY [facility]; Protocol Last Admin: 08/16/18 09:43 Dose: 167 mls/hr Piperacillin Sod/Tazobactam Sod (Zosyn 3.375 In Ns 100ml) 100 mls @ 25 mls/hr IVPB Q8 [facility]; Protocol Last Admin: 08/16/18 05:44 Dose: 25 mls/hr Dextrose (Dextrose 5% In Water 1000 Ml) 1,000 mls @ 0 mls/hr IV .Q0M PRN; Protocol PRN Reason: Hypoglycemia Protocol Insulin Detemir (Levemir) 25 unit SC BID [facility] Last Admin: 08/16/18 09:45 Dose: 25 units Insulin Human Lispro (Humalog High) 0 units SC ACHS [facility]; Protocol Last Admin: 08/16/18 09:02 Dose: 2 units Insulin Human Lispro (Humalog) 12 units SC AC [facility] Last Admin: 08/16/18 09:02 Dose: 12 units Lisinopril (Zestril) 2.5 mg PO DAILY [facility] Last Admin: 08/16/18 09:46 Dose: 2.5 mg Montelukast Sodium (Singulair) 10 mg PO DAILY [facility] Last Admin: 08/16/18 09:47 Dose: 10 mg Polyethylene Glycol (Miralax) 17 gm PO DAILY [facility] Last Admin: 08/16/18 09:50 Dose: Not Given Prednisone (Prednisone Tab) 20 mg PO DAILY [facility] Last Admin: 08/16/18 09:47 Dose: 20 mg Zolpidem Tartrate (Ambien) 5 mg PO HS PRN; Protocol PRN Reason: Insomnia Last Admin: 08/15/18 22:51 Dose: 5 mg - Labs Labs: 08/15/18 07:00 08/15/18 07:00 - Head Exam Head Exam: ATRAUMATIC - Extremities Exam Additional comments: LLE focused: Vascular: Dp/pt pulses palpable 1/4, CFT <3 secs x5, TG warm to warm( warmer around the ankle joint - same temperature as right side), no erythema noted, mild edema noted at the ankle and foot neuro: protective sensation grossly intact derm: no open lesions, bryce noted on the dorsolateral aspect of the forefoot, superficial fissure noted on the plantar lateral aspect of the heel ortho: no pain on palpation to the anterior aspect of ankle joint, no pain on palpation with ROM of the ankle joint - Neurological Exam Neurological Exam: Alert, Normal Gait - Psychiatric Exam Psychiatric exam: Normal Affect - Skin Skin Exam: Normal Color Assessment and Plan - Assessment and Plan (Free Text) Assessment: 58 yo female seen at bedside for erythematous edematous left ankle joint; possible gout in the left ankle joint. Plan: Patient seen and evaluated Discussed in detail with Dr. Sparks Chart, labs and vitals reviewed; afebrile, WBC: 14.5 ESR-110 X-rays reviewed; no osseous abnormality noted, loosening of the tibial jr noted Bone scan - increased accumulation of radionuclide in the soft tissues particularly above and level for left ankle mortise. No acute osteomyelitis Patient educated on etiology of her ankle pain; possible gouty attack Cultures taken and ordered - staph aureus to left ankle No dressing applied to ankle ID on board; recs appreciated Plan: no podiatric intervention at this time; patient stable for discharge with PO antibiotics continue colchicine and IV antibiotics Podiatry will continue to follow the patient while in house
--- NOTE | 2018-08-16 12:03 | NM ---
Date of service: 08/14/2018 PROCEDURE: Three-phase bone scan. HISTORY: lt tibia ankle infection COMPARISON: 08/12/2018 plain film radiographs left tibia and fibula. Summary of findings on the comparison examination: Status post open reduction internal fixation of tibial and fibular fractures. TECHNIQUE: Following administration of 25.0 miCu of Tc MDP three-phase bone scan was performed with particular attention directed to the left ankle. FINDINGS: Flow component: Increased flow to the left ankle Blood pool component: Increased accumulation of radionuclide within the soft tissues at and slightly above the ankle mortise. Delayed images at 3:00: Degenerative changes in both knees. Focal increased uptake at the site of orthopedic hardware distal left tibia and fibula. Other findings: None. IMPRESSION: Increased accumulation of radionuclide in the soft tissues particularly above and at the level of the left ankle mortise. No scintigraphic findings of acute osteomyelitis.
--- NOTE | 2018-08-16 16:46 | CP.PCM.PN ---
<Scarlett Piper - Last Filed: 08/16/18 16:39> Subjective - Date & Time of Evaluation Date of Evaluation: 08/16/18 Time of Evaluation: 16:40 - Subjective Subjective: Resident Scarlett Piper DO PGY-[address] Childs Patient seen and examined this AM at bedside. Patient states that she is feeling much better and is able to move the ankle completely without pain. She states that the ankle is no longer tender or warm to the touch. She additionally states that her shortness of breath has resolved as well. She otherwise denies NICHOLSON, dizziness, vision changes, chest pain, SOB, abdominal pain, dysuria, fevers, chills, nausea, vomiting or worsening or new extremity pain. Objective - Vital Signs/Intake and Output Vital Signs (last 24 hours): Temp Pulse Resp BP Pulse Ox 97.7 F 73 18 156/110 H 98 08/16/18 14:00 08/16/18 14:00 08/16/18 14:00 08/16/18 14:00 08/16/18 14:00 Intake and Output: 08/16/18 08/16/18 06:59 18:59 Intake Total 340 Balance 340 - Medications Medications: Current Medications Acetaminophen (Tylenol 325mg Tab) 650 mg PO Q6H PRN PRN Reason: Pain, Mild (1-3) Last Admin: 08/15/18 11:15 Dose: 650 mg Albuterol/Ipratropium (Duoneb 3 Mg/0.5 Mg (3 Ml) Ud) 3 ml IH Q2H PRN PRN Reason: Shortness of Breath Last Admin: 08/16/18 13:07 Dose: 3 ml Atorvastatin Calcium (Lipitor) 40 mg PO DIN [facility] Last Admin: 08/15/18 20:07 Dose: 40 mg Colchicine (Colocrys) 0.6 mg PO DAILY [facility] Last Admin: 08/16/18 09:46 Dose: 0.6 mg Dextrose (Dextrose 50% Inj) 0 ml IV STAT PRN; Protocol PRN Reason: Hypoglycemia Protocol Famotidine (Pepcid) 20 mg PO 1000,2200 [facility] Last Admin: 08/16/18 09:47 Dose: 20 mg Guaifenesin/Dextromethorphan (Mucinex-Dm 600-30 Mg) 1 tab PO BID [facility] Last Admin: 08/16/18 09:45 Dose: 1 tab Heparin Sodium (Porcine) (Heparin) 5,000 units SC Q8H [facility]; Protocol Last Admin: 08/16/18 15:50 Dose: 5,000 units Vancomycin HCl (Vancomycin 1gm) 1 gm in 250 mls @ 167 mls/hr IVPB DAILY [facility]; Protocol Last Admin: 08/16/18 09:43 Dose: 167 mls/hr Piperacillin Sod/Tazobactam Sod (Zosyn 3.375 In Ns 100ml) 100 mls @ 25 mls/hr IVPB Q8 [facility]; Protocol Last Admin: 08/16/18 15:48 Dose: 25 mls/hr Dextrose (Dextrose 5% In Water 1000 Ml) 1,000 mls @ 0 mls/hr IV .Q0M PRN; Protocol PRN Reason: Hypoglycemia Protocol Insulin Detemir (Levemir) 25 unit SC BID [facility] Last Admin: 08/16/18 09:45 Dose: 25 units Insulin Human Lispro (Humalog High) 0 units SC ACHS [facility]; Protocol Last Admin: 08/16/18 11:30 Dose: Not Given Insulin Human Lispro (Humalog) 12 units SC AC [facility] Last Admin: 08/16/18 11:30 Dose: Not Given Lisinopril (Zestril) 2.5 mg PO DAILY [facility] Last Admin: 08/16/18 09:46 Dose: 2.5 mg Montelukast Sodium (Singulair) 10 mg PO DAILY [facility] Last Admin: 08/16/18 09:47 Dose: 10 mg Polyethylene Glycol (Miralax) 17 gm PO DAILY [facility] Last Admin: 08/16/18 09:50 Dose: Not Given Prednisone (Prednisone Tab) 20 mg PO DAILY [facility] Last Admin: 08/16/18 09:47 Dose: 20 mg Zolpidem Tartrate (Ambien) 5 mg PO HS PRN; Protocol PRN Reason: Insomnia Last Admin: 08/15/18 22:51 Dose: 5 mg - Labs Labs: 08/15/18 07:00 08/15/18 07:00 - Constitutional Appears: Well, Non-toxic, No Acute Distress - Head Exam Head Exam: ATRAUMATIC, NORMAL INSPECTION, NORMOCEPHALIC - Eye Exam Eye Exam: EOMI, Normal appearance, PERRL - Respiratory Exam Respiratory Exam: Clear to Ausculation Bilateral, NORMAL BREATHING PATTERN. absent: Accessory Muscle Use, Decreased Breath Sounds, Rales, Rhonchi, Wheezes - Cardiovascular Exam Cardiovascular Exam: RRR, +S1, +S2. absent: Gallop, Rubs - GI/Abdominal Exam GI & Abdominal Exam: Soft, Tenderness, Normal Bowel Sounds. absent: Guarding, Rigid - Extremities Exam Extremities Exam: Full ROM, Normal Capillary Refill, Normal Inspection. absent: Calf Tenderness - Back Exam Back Exam: NORMAL INSPECTION. absent: CVA tenderness (L), CVA tenderness (R) - Neurological Exam Neurological Exam: Alert, Awake, Oriented x3 - Psychiatric Exam Psychiatric exam: Normal Affect, Normal Mood - Skin Skin Exam: Dry, Intact, Normal Color, Warm Assessment and Plan - Assessment and Plan (Free Text) Assessment: Pt is a 58 yo F with PMHx of DM, HTN, HLD and asthma presenting to the hospital for one day history of left ankle swelling and pain. Found to have LLE c ellulitis, XR was concerning for osteo, MRI could not be performed 2/2 metal plates in leg. Bone scan ordered per podiatry, showed no acute osteo. Plan: 1. Left ankle swelling 2/2 cellulitis - LLE dopplers negative for DVT, L foot xray showed changes so that osteomyelitis could not be excluded - [facility] bone scan completed, official read states no scintographic evidence of osteo - She is s/p L ankle aspiration per podiatry - On day 3 of vanc/zosyn - Repeat blood cx negative to date - Continue Colchicine - Continue Tylenol PRN for mild pain control - ID and Podiatry consulted, recs appreciated - Ortho recs appreciated 2. Leukocytosis - resolving - Likely 2/2 infection and/or steroid use - Per heme/onc recs, this is all likely due to infection - If not improving, consider Bcr/abl testing for CML but otherwise monitor - Heme/Onc recs appreciated 3. Asthma Exacerbation - Improving - Continue Duonebs Q6 [facility] and Q2 PRN - Continue Solu-Medrol IVP, with tapering as indicated by clinical status - Continue Mucinex and Singulair - Continue supplemental O2 NC PRN - Pulmonology consulted, recs appreciated 4. Hx DM2 - A1c this visit is 13.9, reflecting poor management - Poor management likely contributed to worsening LE cellulitis - Continue ISS high coverage with POC fingerstick glucose ACHS - Continue Levemir 25 units HS - Continue Humalog 12 units AC 5. Hx HTN - Continue home lisinopril 6. Hx HLD - Lipid panel results noted - Continue home lipitor 7. Hx Insomnia - Continue home Ambien 8. Constipation - Started Miralax daily 9. PPX: DVT/GI SC heparin, pepcid Full Code Diabetic diet Monitor on med/surg <Yung Childs - Last Filed: 08/18/18 18:20> Objective - Vital Signs/Intake and Output Vital Signs (last 24 hours): Temp Pulse Resp BP Pulse Ox 98.2 F 88 20 164/92 H 99 08/17/18 08:15 08/17/18 09:26 08/17/18 08:15 08/17/18 09:26 08/17/18 08:15 - Labs Labs: 08/17/18 07:20 08/17/18 07:20 Attending/Attestation - Attestation I have personally seen and examined this patient.: Yes I have fully participated in the care of the patient.: Yes I have reviewed all pertinent clinical information, including history, physical exam and plan: Yes Notes (Text): 08/18/18 18:15 Attending note; Patient seen and examined with resident. Patient is alert and awake. Denies any leg pain. Leg swelling has improved significantly. No redness noted. Denies any fevers, chills. Patient is a 58-year-old female past medical history significant for type 2 diabetes, hypertension, hyperlipidemia, and asthma that presented to the emergency room with increasing swelling and pain in the left ankle. 1. Left ankle edema and pain. Currently no redness noted. Swelling improved significantly. Denies any pain. S/P left ankle aspiration. Cultures positive for staph aureus. on vanco and zosyn. Continue colchicine for possible gout. Podiatry evaluation appreciated. Bone scan done results pending. No MRI secondary to history of hardware in the left lower extremity. Tibia/fibular x-ray showed status post open reduction and internal fixation of the mid tibial and distal fibular fractures, lucency surrounding the intr amedullary jr in the distal tibia is concerning for loosening, cortical thickening in the mid diaphysis spaces of the tibia is nonspecific and could be related to postsurgical changes however underlying osteomyelitis cannot be entirely excluded. Left lower extremity venous Doppler negative for DVT. 2. Leukocytosis. resolving. May be secondary to steroids as well as left foot infection. Cultures positive for staph aureus. Continue to monitor. 3. Asthma exacerbation. Exacerbation resolved. Pulmonary following, recommendations appreciated. on prednisone 20mg PO daily. Continue Mucinex, Sin gulair, and nebulizer treatments. Continue O2 via nasal cannula as needed. 4. Type 2 diabetes. Continue insulin sliding scale. Continue Levemir 25 units at bedtime. Continue [id number] units before meals. Continue to monitor Accu- Cheks. 5. Hypertension. Continue lisinopril. 6. Hyperlipidemia. Continue Lipitor. 7. GI/DVT prophylaxis. Pepcid/heparin will follow-up with bone scan. Upon discharge the patient will follow up with PMD . Case was discussed in detail with the patient regarding current diagnosis and treatment plan. 08/18/18 18:19
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
--- NOTE | 2018-08-17 04:57 | PN ---
DATE: 08/16/2018 PULMONARY PROGRESS NOTE REFERRING PHYSICIAN: Mariel Adorno MD SUBJECTIVE: The patient is lying in the bed, head at 45 degrees. Night was unremarkable. No headache. No rhinitis. No cough. No sputum production. No nausea. No vomiting. No diarrhea. Decreased ankle swelling. OBJECTIVE: GENERAL: No acute distress. VITAL SIGNS: Temp is 98, heart rate 76, respiratory rate is 18, blood pressure 140/68, pulse of 97% on room air. HEENT: Moist mucous membranes. No ulcer or thrush noted. NECK: Supple. No JVD. LUNGS: Have a fair airflow with few rhonchi. ABDOMEN: Soft, nontender. No organomegaly. EXTREMITIES: There is decreased edema. NEUROLOGIC: Awake and alert. Follows simple commands. MEDICATIONS: The patient is on Ambien 5 mg at bedtime p.r.n., colchicine 0.6 mg daily, DuoNeb every 12 hours p.r.n., heparin 5000 units subcu every 8 hours, insulin coverage, Levemir 25 units subcu every 12 hours, Lipitor 40 mg daily MiraLax 17 g daily, Mucinex DM 600/30 one tablet twice a day, Pepcid 20 mg twice a day, prednisone 20 mg daily, Singulair 10 mg daily, Tylenol p.r.n., vancomycin 1 g IV daily and Zestril 2.5 mg daily. LABORATORY DATA: Shows hemoglobin 10.7, hematocrit of 33.5 that was yesterday. Sed rate is 110 two days ago. Blood sugar was 335. Ankle fluid has some staph in it. IMPRESSION AND PLAN: Chronic obstructive lung disease, hypertension, diabetes, sleep apnea syndrome, history of left ankle broken, had a jr in the lower extremity, degenerative joint disease, questionable septic joint. Pulmonary point of view, doing well. Decrease prednisone to 10 mg daily. Continue on inhaled bronchodilator and antibiotics as per primary team, Infectious Diseases. Out of bed to chair, physical therapy. Thank you and we will follow with you. Linnette Forbes MD
[2018-08-17] MEDS: Albuterol-Ipratrop 3 mg / 0.5 (3 ml) UD IH PRN ×2 (07:39→13:21)
[2018-08-17 07:47] LABS: BASO # 0.01 K/mm3 (0.0-2.0); BASO % 0.1 % (0.0-3.0); EOS # 0.4 (0.0-0.7); EOS % 3.4 % (1.5-5.0); GRAN # 7.39 (1.4-6.5); GRAN % 57.8 % (50.0-68.0); HEMOGLOBIN 10.8 g/dL (12.0-16.0); LYMPH # 3.7 (1.2-3.4); LYMPH % 29.2 % (22.0-35.0); MEAN CORPUSCULAR HGB CONC 32.5 g/dl (31.0-37.0); MEAN PLATELET VOLUME 12.1 fl (7.0-11.0); MONO # 1.2 (0.1-0.6); MONO % 9.5 % (1.0-6.0); RBC 3.86 10^6/uL (3.5-6.1); RED CELL DISTRIBUTION WIDTH 13.5 % (11.5-14.5); WHITE BLOOD COUNT 12.8 10^3/uL (4.5-11.0)
[2018-08-17 08:11] LABS: ALB/GLOB RATIO 0.8 (1.1-1.8); ALBUMIN 2.7 g/dL (3.0-4.8); ALT/SGPT 38 U/L (7-56); AST/SGOT 37 U/L (14-36); BLOOD UREA NITROGEN 22 mg/dL (7-21); CALCIUM 9.1 mg/dL (8.4-10.5); GFR NON-AFRICAN AMERICAN > 60
[2018-08-17 08:16] VITALS: BP 164/92; PULSE 88; RESP 20; TEMP 98.2; O2SAT 99
[2018-08-17] MEDS: Vancomycin 1gm in NS 250ml 1 GM/250 ML BAG IVPB SCH (09:25)
[2018-08-17] MEDS: guaiFENesin-DM 600-30 mg ER Tab PO SCH ×2 (09:26→18:53)
[2018-08-17] MEDS: Insulin Lispro (HUMAlog) HIGH Coverage SC SCH ×3 (09:27→16:56)
[2018-08-17] MEDS: Insulin Detemir 100 units/ml Vial (Levemir) SC SCH ×2 (09:27→17:51)
[2018-08-17] MEDS: POLYETHYLENE GLYCOL 3350 17 GM/Dose PACKET PO SCH (09:27)
[2018-08-17] MEDS: Insulin Lispro 1 UNITS/0.01 ML SC SCH ×3 (09:28→16:56)
[2018-08-17] MEDS ORDERED: Ceftaroline 600 MG in Sodium Chloride 0.9% 100 ML IVPB STA (14:45)
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
--- NOTE | 2018-08-17 23:31 | PN ---
DATE: 08/17/2018 PULMONARY PROGRESS NOTE REFERRING PHYSICIAN: Dr. Adorno. SUBJECTIVE: She is lying in the bed at 45 degrees. Night was unremarkable. No headache, no rhinitis. No nausea, no vomiting, no diarrhea. No leg pain. Decreased leg swelling. OBJECTIVE: GENERAL: In no acute distress. VITAL SIGNS: Temp is 98, heart rate 88, respiratory rate is 20, blood pressure 164/92, pulse ox 99% on room air. HEENT: Moist mucous membranes. No ulcer or thrush noted. NECK: Supple. No JVD. LUNGS: Have a fair airflow with rhonchi. HEART: S1, S2. ABDOMEN: Soft, nontender. No organomegaly. EXTREMITIES: Not much edema. NEUROLOGIC: Awake and alert. Follows simple commands. MEDICATIONS: Review noted, no new changes in medication reported since yesterday. LABORATORY DATA: Shows hemoglobin 10.8, hematocrit 33.2, WBC 12.8, platelet count is 343. Sed rate is 86. Sodium 139, potassium 4.2, chloride 107, bicarbonate 29, BUN 22, creatinine 0.8, glucose 135, calcium 9.1, AST 37, ALT 38. Albumin is 2.7, globulin 3.2. Microbiology: Blood culture has been negative. Left ankle has some Staph aureus. IMPRESSION: Chronic obstructive lung disease; hypertension; diabetes; sleep apnea syndrome; left ankle broken in the past, had a surgery in the remote past; degenerative joint disease. Pulmonary point of view, doing well. Continue bronchodilator. Keep head at 45 degrees. Taper off steroids. Physical therapy. Thank you and we will follow with you. Linnette Forbes MD
--- NOTE | 2018-08-18 09:06 | NM ---
Date of service: 08/17/2018 PROCEDURE: Ceretec labeled white blood cell study. HISTORY: left ankle joint; with ceretec COMPARISON: 08/14/2018. TECHNIQUE: 24.2 mCi technetium 99 M Ceretec labeled white blood cells administered intravenously. FINDINGS: No Ceretec avid osseous structures identified. Particular attention directed to the distal left tibia and fibular regions. Asymmetric uptake noted in the soft tissues distal left lower extremity at and above the level ankle mortise consistent with cellulitis. IMPRESSION: Negative study for acute osseous process.
== END 2018-08-17 21:02 | disposition home or self-care (01) | DRG 277 ==
LOC: ED 16:16 → ERH 20:04 → OBSVTOIN 21:57 → 5RSO 22:38
PROVIDERS: ADMIT Hospitalist; ATTEND Internal Medicine
PROC: 3E0F7GC Introduction of Other Therapeutic Substance into Respiratory Tract, Via Natural or Artificial Opening (ICD-10-PCS; principal; 2018-08-12)
PROC: 02HV33Z Insertion of Infusion Device into Superior Vena Cava, Percutaneous Approach (ICD-10-PCS; 2018-08-17)
DX: L03.116 Cellulitis of left lower limb (principal); L02.416 Cutaneous abscess of left lower limb; J45.901 Unspecified asthma with (acute) exacerbation; J44.9 Chronic obstructive pulmonary disease, unspecified; E11.9 Type 2 diabetes mellitus without complications; I10 Essential (primary) hypertension; E78.5 Hyperlipidemia, unspecified; K59.00 Constipation, unspecified; G47.00 Insomnia, unspecified; G47.30 Sleep apnea, unspecified; K21.9 Gastro-esophageal reflux disease without esophagitis; Z79.52 Long term (current) use of systemic steroids

== ENCOUNTER 2018-12-02 12:36 | Emergency (ER) | payer MEDICAID ==
[2018-12-02 13:11] VITALS: BMI 26.4
[2018-12-02] MEDS ORDERED: Albuterol-Ipratrop 3 mg / 0.5 (3 ml) UD IH STA (13:16)
[2018-12-02 13:41] LABS: BASO # 0.03 K/mm3 (0.0-2.0); BASO % 0.3 % (0.0-3.0); EOS # 0.1 (0.0-0.7); EOS % 0.5 % (1.5-5.0); HEMOGLOBIN 13.3 g/dL (12.0-16.0); LYMPH # 1.7 (1.2-3.4); MEAN CELL VOLUME 81.8 fl (80.0-105.0); MEAN CORPUSCULAR HEMOGLOBIN 28.2 pg (25.0-35.0); MEAN CORPUSCULAR HGB CONC 34.5 g/dl (31.0-37.0); MEAN PLATELET VOLUME 12.3 fl (7.0-11.0); MONO # 0.9 (0.1-0.6); MONO % 8.7 % (1.0-6.0); RBC 4.72 10^6/uL (3.5-6.1); RED CELL DISTRIBUTION WIDTH 12.8 % (11.5-14.5)
[2018-12-02 13:48] LABS: INR 0.96; PARTIAL THROMBOPLASTIN TIME 34.9 Seconds (26.9-38.3); PROTHROMBIN TIME 10.8 SECONDS (9.4-12.5)
--- NOTE | 2018-12-02 13:58 | RAD ---
Date of service: 12/02/2018 HISTORY: chest pain COMPARISON: No prior. FINDINGS: LUNGS: Stable fibrotic changes, in particular biapical reticular nodular changes, are not significantly changed in the interval. No consolidation bilaterally. PLEURA: No significant pleural effusion identified, no pneumothorax apparent. CARDIOVASCULAR: No aortic atherosclerotic calcification present. Normal cardiac size. No pulmonary vascular congestion. OSSEOUS STRUCTURES: No significant abnormalities. VISUALIZED UPPER ABDOMEN: Normal. OTHER FINDINGS: None. IMPRESSION: Stable chronic interstitial pulmonary changes. No acute cardiopulmonary is appreciable in the interval.
[2018-12-02 14:01] LABS: ALB/GLOB RATIO 0.9 (1.1-1.8); ALBUMIN 3.4 g/dL (3.0-4.8); ALT/SGPT 14 U/L (7-56); AST/SGOT 16 U/L (14-36); BLOOD UREA NITROGEN 27 mg/dL (7-21); CALCIUM 9.6 mg/dL (8.4-10.5); GFR NON-AFRICAN AMERICAN > 60
[2018-12-02 14:02] LABS: TROPONIN I < 0.01 ng/mL
[2018-12-02] MEDS ORDERED: Insulin Regular 1 UNITS/0.01 ML ML IVP STA ×2 (14:03→15:51)
[2018-12-02] MEDS ORDERED: Sodium Chloride 0.9% 1,000 ML IV STA ×2 (14:03→15:27)
[2018-12-02 14:07] LABS: FREE T4 1.6 ng/dL (0.78-2.19)
[2018-12-02 14:11] LABS: PH,URINE 6.5 (4.7-8.0); URINE BILIRUBIN NEGATIVE (NEGATIVE); URINE BLOOD TRACE-LYSED (NEGATIVE); URINE GLUCOSE (UA) >=1000 mg/dL (NEGATIVE); URINE LEUKOCYTE ESTERASE NEGATIVE Leu/uL (NEGATIVE); URINE PROTEIN >=300 mg/dL (<30 mg/dL); URINE UROBILINOGEN 0.2 E.U./dL (<1 E.U./dL)
[2018-12-02 14:20] LABS: URINE APPEARANCE CLEAR (CLEAR); URINE COLOR LIGHT YELLOW (YELLOW)
[2018-12-02 14:34] LABS: URINE AMORPHOUS SEDIMENT FEW /hpf; URINE BACTERIA MOD /hpf; URINE WBC 0 - 2 /hpf (0-6)
[2018-12-02 14:35] LABS: BARBITURATES, UR NEGATIVE (NEGATIVE); BENZODIAZEPINES, UR NEGATIVE (NEGATIVE); OPIATES, UR NEGATIVE (NEGATIVE); PHENCYCLIDINE, UR NEGATIVE (NEGATIVE)
--- NOTE | 2018-12-02 15:06 | CARD ---
APPROVED REPORT Date of service: 12/02/2018 EKG Measurement Heart [id number] <Conclusion> Sinus tachycardia Otherwise normal ECG
[2018-12-02 15:53] VITALS: RESP 18
--- NOTE | 2018-12-02 18:43 | ED PDOC ---
Arrival/HPI - General Chief Complaint: Dizziness/Lightheaded Time Seen by Provider: 12/02/18 12:49 Historian: Patient - History of Present Illness Narrative History of Present Illness (Text): 12/02/18 18:17 58yo female with pmhx of COPD and NIDDM who present with complaint of dizziness. she described the dizziness as spinning sensation with standing. States she have had cold symptoms the last 3days and did not take her hypoglycemics. Also reports wheezing for 2days. states she used her inhaler yesterday. She denies headache, focal weakness, abdominal pain, nausea, vomiting, neck pain, chest pain, cough, fever, chills, any other complaint. Past Medical History - Provider Review Nursing Documentation Reviewed: Yes - Infectious Disease Hx of Infectious Diseases: None - Tetanus Immunization Tetanus Immunization: Unknown - Cardiac Hx Pacemaker: No - Pulmonary Hx Asthma: Yes Hx Pneumonia: Yes - Neurological Hx Neurological Disorder: No - HEENT Hx HEENT Disorder: Yes Other/Comment: excessive cerumen - Renal Hx Renal Disorder: Yes Hx Kidney Stones: Yes - Endocrine/Metabolic Hx Diabetes Mellitus Type 2: Yes - Hematological/Oncological Hx Cancer: No - Integumentary Hx Dermatological Disorder: No - Musculoskeletal/Rheumatological Hx Falls: No - Gastrointestinal Hx Gastroesophageal Reflux: Yes - Genitourinary/Gynecological Hx Genitourinary Disorders: No - Psychiatric Hx Psychophysiologic Disorder: No Hx Anxiety: No Hx Bipolar Disorder: No Hx Depression: No Hx Emotional Abuse: No Hx Hallucinations: No Hx Panic Disorder: No Hx Post Traumatic Stress Disorder: No Hx Psychosis: No Hx Physical Abuse: No Hx Schizophrenia: No Hx Sexual Abuse: No Hx Substance Use: No - Surgical History Hx Mastectomy: No - Anesthesia Hx Anesthesia: Yes Hx Anesthesia Reactions: No Hx Malignant Hyperthermia: No - Suicidal Assessment Feels Threatened In Home Enviroment: No Family/Social History - Physician Review Nursing Documentation Reviewed: Yes Family/Social History: Unknown Family HX Smoking Status: Never Smoked Hx Alcohol Use: No Hx Substance Use: No Hx Substance Use Treatment: No Allergies/Home Meds Allergies/Adverse Reactions: Allergies No Known Allergies Allergy (Verified 12/02/18 13:13) Home Medications: Home Meds Medication Instructions Recorded Confirmed RX: Gabapentin Enacarbil [Horizant] 300 mg PO DAILY 09/14/17 12/02/18 RX: Metformin HCl [Glucophage] 1,000 mg PO BID 09/14/17 12/02/18 RX: Atorvastatin [Lipitor] 40 mg PO DIN 01/30/18 12/02/18 RX: Exenatide Microspheres 2 mg SC QWK 01/30/18 12/02/18 [Bydureon Pen] Brimonidine 0.2% [Alphagan 0.2% 1 drop BOTHEYES BID 12/02/18 12/02/18 Opht] Insulin Glargine,Hum.rec.anlog 30 unit SC DAILY 12/02/18 12/02/18 [Basaglar Kwikpen U-100] Pantoprazole [Protonix EC Tab] 1 tab PO DAILY 12/02/18 12/02/18 Tiotropium [Spiriva] 1 cap IH DAILY 12/02/18 12/02/18 Review of Systems - Physician Review All systems were reviewed & negative as marked: Yes - Review of Systems Constitutional: Normal Eyes: Normal ENT: Normal Respiratory: Wheezing Cardiovascular: Normal Gastrointestinal: Normal Genitourinary Female: Normal Musculoskeletal: Normal Skin: Normal Neurological: Dizziness. absent: Headache, Focal Weakness Endocrine: Normal Hemo/Lymphatic: Normal Psychiatric: Normal Physical Exam Vital Signs Reviewed: Yes Vital Signs Temp Pulse Resp BP Pulse Ox 12/02/18 17:46 78 18 145/63 96 12/02/18 15:53 86 18 148/65 95 12/02/18 12:37 98.1 F 94 H 19 150/66 94 L Temperature: Afebrile Blood Pressure: Normal Pulse: Regular Respiratory Rate: Normal Appearance: Positive for: Well-Appearing, Non-Toxic, Comfortable Pain Distress: None Mental Status: Positive for: Alert and Oriented X 3 Finger Stick Blood Glucose: 394 - Systems Exam Head: Present: Atraumatic, Normocephalic Pupils: Present: PERRL Extroacular Muscles: Present: EOMI Conjunctiva: Present: Normal Mouth: Present: Moist Mucous Membranes Neck: Present: Normal Range of Motion Respiratory/Chest: Present: Good Air Exchange, Wheezes (Diffuse expiratory wheeze). No: Respiratory Distress, Accessory Muscle Use, Decreased Breath Sounds, Rales, Retracting, Rhonchi Cardiovascular: Present: Regular Rate and Rhythm, Normal S1, S2. No: Murmurs Abdomen: No: Tenderness, Distention, Peritoneal Signs Back: Present: Normal Inspection Upper Extremity: Present: Normal Inspection. No: Cyanosis, Edema Lower Extremity: Present: Normal Inspection. No: Edema Neurological: Present: GCS=15, CN II-XII Intact, Speech Normal Skin: Present: Warm, Dry, Normal Color. No: Rashes Psychiatric: Present: Alert, Oriented x 3, Normal Insight, Normal Concentration Medical Decision Making ED Course and Treatment: 12/02/18 19:32 58yo female who present to ED with stated history. She was neurologically intact in ED and in no distress. Her FS was elevated in ED. she is not complaint with her medication. Her dizziness could be secondary to uncontrolled DM Vs vertigo. She was wheezing on examination,, but not hypoxic and speaking in full sentences. Labs 1L NS x2, Meclizine, insulin, Duonebx3, solu medrol EKG chest xray Reassess EKG Sinus tachy @ 102bpm. N-stemi chest xray IMPRESSION: Stable chronic interstitial pulmonary changes. No acute cardiopulmonary is appreciable in the interval. Pt's lung was CTA b/l s/p medication. Her FS improved in ED. Case was DW her PMD when she was in ED. Agreed with plan to DC pt home to f/u with her office. all result was DW the pt She was advised to take her medication as prescribed. Referred to her PMD. - Lab Interpretations Lab Results: PT 10.8 SECONDS (9.4-12.5) 12/02/18 13:10 INR 0.96 12/02/18 13:10 APTT 34.9 Seconds (26.9-38.3) 12/02/18 13:10 Troponin I < 0.01 ng/mL 12/02/18 13:10 Total Bilirubin 0.2 mg/dL (0.2-1.3) 12/02/18 13:10 AST 16 U/L (14-36) 12/02/18 13:10 ALT 14 U/L (7-56) 12/02/18 13:10 Alkaline Phosphatase 121 U/L (38-126) 12/02/18 13:10 Total Protein 6.9 g/dL (5.8-8.3) 12/02/18 13:10 Albumin 3.4 g/dL (3.0-4.8) 12/02/18 13:10 Globulin 3.6 gm/dL 12/02/18 13:10 Albumin/Globulin Ratio 0.9 (1.1-1.8) L 12/02/18 13:10 Urine Color Light yellow (YELLOW) 12/02/18 13:48 Urine Appearance Clear (CLEAR) 12/02/18 13:48 Urine pH 6.5 (4.7-8.0) 12/02/18 13:48 Ur Specific Allen 1.020 (1.005-1.035) 12/02/18 13:48 Urine Protein >=300 mg/dL (<30 mg/dL) H 12/02/18 13:48 Urine Glucose (UA) >=1000 mg/dL (NEGATIVE) 12/02/18 13:48 Urine Ketones Negative mg/dL (NEGATIVE) 12/02/18 13:48 Urine Blood Trace-lysed (NEGATIVE) H 12/02/18 13:48 Urine Nitrate Negative (NEGATIVE) 12/02/18 13:48 Urine Bilirubin Negative (NEGATIVE) 12/02/18 13:48 Urine Urobilinogen 0.2 E.U./dL (<1 E.U./dL) 12/02/18 13:48 Ur Leukocyte Esterase Negative Davis/uL (NEGATIVE) 12/02/18 13:48 Urine RBC 2 - 5 /hpf (0-2) H 12/02/18 13:48 Urine WBC 0 - 2 /hpf (0-6) 12/02/18 13:48 Ur Epithelial Cells 3 - 4 /hpf (0-5) 12/02/18 13:48 Amorphous Sediment Few /hpf (NONE) 12/02/18 13:48 Urine Bacteria Mod /hpf (NONE) 12/02/18 13:48 Urine Other Fiber /hpf 12/02/18 13:48 - RAD Interpretation Radiology Orders: 12/02/18 13:14 CHEST PORTABLE [RAD] Stat - Medication Orders Current Medication Orders: Discontinued Medications Albuterol/Ipratropium (Duoneb 3 Mg/0.5 Mg (3 Ml) Ud) 3 ml IH Q15M STA Stop: 12/02/18 13:17 Last Admin: 12/02/18 13:32 Dose: 3 ml Sodium Chloride (Sodium Chloride 0.9%) 1,000 mls @ 999 mls/hr IV .Q1H1M STA Stop: 12/02/18 15:03 Last Admin: 12/02/18 14:16 Dose: 999 mls/hr eMAR Start Stop Document 12/02/18 14:16 LA (Rec: 12/02/18 14:18 LA [id number]) Intravenous Solution Start Date 12/02/18 Start Time 14:18 End Date 12/02/18 End time 15:19 Total Infusion Time 61 Sodium Chloride (Sodium Chloride 0.9%) 1,000 mls @ 999 mls/hr IV .Q1H1M STA Stop: 12/02/18 16:27 Last Admin: 12/02/18 15:45 Dose: 999 mls/hr eMAR Start Stop Document 12/02/18 15:45 LA (Rec: 12/02/18 15:45 [email or web address]) Intravenous Solution Start Date 12/02/18 Start Time 15:45 End Date 12/02/18 End time 16:46 Total Infusion Time 61 Insulin Human Regular (Humulin R) 12 units IVP ONCE STA Stop: 12/02/18 14:04 Last Admin: 12/02/18 14:18 Dose: 12 units MAR Blood Glucose Document 12/02/18 14:18 LA (Rec: 12/02/18 14:18 LA [id number]) Blood Glucose Finger Stick Blood Glucose (70-120) 607 IVP Administration Document 12/02/18 14:18 LA (Rec: 12/02/18 14:18 [id number]) Charges for Administration # of IVP Administrations 1 Insulin Human Regular (Humulin R) 8 units IVP ONCE STA Stop: 12/02/18 15:52 Meclizine HCl (Antivert) 25 mg PO STAT STA Stop: 12/02/18 13:16 Last Admin: 12/02/18 13:31 Dose: 25 mg Methylprednisolone (Solu-Medrol) 125 mg IVP STAT STA Stop: 12/02/18 13:16 Last Admin: 12/02/18 13:31 Dose: 125 mg IVP Administration Document 12/02/18 13:31 LA (Rec: 12/02/18 13:32 [email or web address]) Charges for Administration # of IVP Administrations 1 Disposition/Present on Arrival - Present on Arrival Any Indicators Present on Arrival: No History of DVT/PE: No History of Uncontrolled Diabetes: Yes Urinary Catheter: No History of Decub. Ulcer: No History Surgical Site Infection Following: None - Disposition Have Diagnosis and Disposition been Completed?: Yes Diagnosis: Uncontrolled diabetes mellitus, Asthma, Dizziness Disposition: HOME/ ROUTINE Disposition Time: 19:10 Patient Plan: Discharge Condition: FAIR Discharge Instructions (ExitCare): Asthma, Adult (DC), Diabetes Type 2 (DC), Dizziness, Nonvertigo, (DC) Additional Instructions: Follow up with your Doctor Take your medication as directed Return to ED for any new or worsening symptoms Prescriptions: RX: Meclizine [Antivert] 12.5 mg PO Q6 #12 tab Referrals: Bita Collins MD [Family Provider] - Follow up with primary Forms: [employer] (Burmese)
[2018-12-02 19:22] VITALS: BP 145/65; PULSE 74; TEMP 98; O2SAT 97
== END 2018-12-02 19:20 | disposition home or self-care (01) ==
LOC: ED 12:36
DX: E11.65 Type 2 diabetes mellitus with hyperglycemia (principal); J45.909 Unspecified asthma, uncomplicated
CPT/HCPCS: 71045; 80053; 80324; 80345; 80346; 80349; 80353; 80358; 80361; 81001; 82550; 82948; 83615; 83735; 83992; 84439; 84443; 84484; 85025; 85610; 85730; 93005; 96361; 96374; 96375; 96376; 99285; J2930; J7030

== ENCOUNTER 2018-12-25 09:44 | Outpatient (CLI) | payer MEDICAID | END 2018-12-25 09:45 | disposition home or self-care (01) | LOC: RAD 09:44 ==

== ENCOUNTER 2019-02-28 17:14 | Inpatient (IN) | payer MEDICAID ==
[2019-02-28 17:14] VITALS: BMI 26.4
[2019-02-28] MEDS ORDERED: Albuterol-Ipratrop 3 mg / 0.5 (3 ml) UD IH STA ×3 (17:35→19:06)
[2019-02-28 17:53] LABS: BASO # 0.03 K/mm3 (0.0-2.0); BASO % 0.3 % (0.0-3.0); EOS # 0.4 (0.0-0.7); EOS % 3.4 % (1.5-5.0); HEMOGLOBIN 12.4 g/dL (12.0-16.0); LYMPH # 1.5 (1.2-3.4); LYMPH % 14.7 % (22.0-35.0); MEAN CELL VOLUME 83.4 fl (80.0-105.0); MEAN CORPUSCULAR HEMOGLOBIN 28.2 pg (25.0-35.0); MEAN CORPUSCULAR HGB CONC 33.9 g/dl (31.0-37.0); MEAN PLATELET VOLUME 11.6 fl (7.0-11.0); MONO # 0.8 (0.1-0.6); MONO % 8.2 % (1.0-6.0); RBC 4.39 10^6/uL (3.5-6.1); RED CELL DISTRIBUTION WIDTH 13.6 % (11.5-14.5); WHITE BLOOD COUNT 10.3 10^3/uL (4.5-11.0)
[2019-02-28 18:14] LABS: B-TYPE NATRIURETIC PEPTIDE 290 pg/mL (0-450); TROPONIN I < 0.01 ng/mL
[2019-02-28 18:19] LABS: ALBUMIN 3.1 g/dL (3.0-4.8); ALT/SGPT 16 U/L (7-56); AST/SGOT 25 U/L (14-36); BLOOD UREA NITROGEN 22 mg/dL (7-21); CALCIUM 8.9 mg/dL (8.4-10.5); GFR NON-AFRICAN AMERICAN 57
[2019-02-28] MEDS ORDERED: Insulin Regular 1 UNITS/0.01 ML ML SC STA (18:22)
--- NOTE | 2019-02-28 18:25 | RAD ---
Date of service: 02/28/2019 HISTORY: Cough, chest pain shortness of breath. History of asthma. COMPARISON: 12/02/2018. single-view chest. 12/25/2018 CT thorax. FINDINGS: LUNGS: Stable interstitial lung disease. No suspicious pulmonary nodules, masses or infiltrates identified. PLEURA: No significant pleural effusion identified, no pneumothorax apparent. CARDIOVASCULAR: No radiographic findings to suggest acute or significant cardiovascular disease. Atherosclerotic calcifications identified primarily aortic arch. OSSEOUS STRUCTURES: No significant abnormalities. VISUALIZED UPPER ABDOMEN: Normal. OTHER FINDINGS: None. IMPRESSION: No active pulmonary disease. No significant interval change compared to the prior examination(s).
--- NOTE | 2019-02-28 18:34 | ED PDOC ---
Arrival/HPI - General Chief Complaint: Shortness Of Breath Time Seen by Provider: 02/28/19 17:22 Historian: Patient - History of Present Illness Narrative History of Present Illness (Text): 02/28/19 19:07 58yr old female with hx of DM and Asthma presents today with shortness of breath, chest pain and urinary frequency. pt denies fever/chills. pt states she has been feeling sick and SOB and wheezing x 3-4days. pt states that she has been taking her prednisone at home and using nebulizers without improvement. no dizziness or weakness. no vomiting/diarrhea. no abdominal pain. no other complaints. Past Medical History - Provider Review Nursing Documentation Reviewed: Yes Primary Care Provider: Bita Collins - Travel History Have you recently traveled outside [place] w/in the past 3 mons?: No - Infectious Disease Hx of Infectious Diseases: None - Tetanus Immunization Tetanus Immunization: Unknown - Cardiac Hx Pacemaker: No - Pulmonary Hx Asthma: Yes Hx Pneumonia: Yes - Neurological Hx Neurological Disorder: No - HEENT Hx HEENT Disorder: Yes Other/Comment: excessive cerumen - Renal Hx Renal Disorder: Yes Hx Kidney Stones: Yes - Endocrine/Metabolic Hx Diabetes Mellitus Type 2: Yes - Hematological/Oncological Hx Cancer: No - Integumentary Hx Dermatological Disorder: No - Musculoskeletal/Rheumatological Hx Falls: No - Gastrointestinal Hx Gastroesophageal Reflux: Yes - Genitourinary/Gynecological Hx Genitourinary Disorders: No - Psychiatric Hx Psychophysiologic Disorder: No Hx Anxiety: No Hx Bipolar Disorder: No Hx Depression: No Hx Emotional Abuse: No Hx Hallucinations: No Hx Panic Disorder: No Hx Post Traumatic Stress Disorder: No Hx Psychosis: No Hx Physical Abuse: No Hx Schizophrenia: No Hx Sexual Abuse: No Hx Substance Use: No - Surgical History Hx Section: Yes Hx Mastectomy: No Hx Tonsillectomy: Yes - Anesthesia Hx Anesthesia: Yes Hx Anesthesia Reactions: No Hx Malignant Hyperthermia: No - Suicidal Assessment Feels Threatened In Home Enviroment: No Family/Social History - Physician Review Nursing Documentation Reviewed: Yes Family/Social History: Unknown Family HX Smoking Status: Never Smoked Hx Alcohol Use: No Hx Substance Use: No Hx Substance Use Treatment: No Allergies/Home Meds Allergies/Adverse Reactions: Allergies No Known Allergies Allergy (Verified 02/28/19 17:21) Home Medications: Home Meds Medication Instructions Recorded Confirmed Gabapentin Enacarbil [Horizant] 300 mg PO DAILY 11/27/17 02/14/19 Metformin HCl [Glucophage] 1,000 mg PO BID 09/14/17 12/02/18 Atorvastatin [Lipitor] 40 mg PO DIN 01/30/18 12/02/18 Exenatide Microspheres [Bydureon 2 mg SC QWK 01/30/18 12/02/18 Pen] Brimonidine 0.2% [Alphagan 0.2% 1 drop BOTHEYES BID 12/02/18 12/02/18 Opht] Insulin Glargine,Hum.rec.anlog 30 unit SC DAILY 12/02/18 12/02/18 [Basaglar Kwikpen U-100] Pantoprazole [Protonix EC Tab] 1 tab PO DAILY 12/02/18 12/02/18 Tiotropium [Spiriva] 1 cap IH DAILY 12/02/18 12/02/18 Review of Systems - Review of Systems Constitutional: Fatigue. absent: Fevers Respiratory: SOB, Cough, Wheezing Cardiovascular: Chest Pain. absent: Palpitations Gastrointestinal: absent: Abdominal Pain, Constipation, Diarrhea, Nausea, Vomiting Genitourinary Female: Frequency. absent: Dysuria, Hematuria Musculoskeletal: absent: Arthralgias, Back Pain, Neck Pain Skin: absent: Rash, Pruritis Neurological: absent: Headache, Dizziness Psychiatric: absent: Anxiety, Depression, Suicidal Ideation Physical Exam Vital Signs Reviewed: Yes Vital Signs Temp Pulse Resp BP Pulse Ox 02/28/19 17:23 18 02/28/19 17:21 97.7 F 96 H 18 150/78 98 Temperature: Afebrile Blood Pressure: Normal Pulse: Regular Respiratory Rate: Tachypneic Appearance: Positive for: Well-Appearing, Non-Toxic, Comfortable Pain Distress: None Mental Status: Positive for: Alert and Oriented X 3 - Systems Exam Head: Present: Atraumatic Mouth: Present: Moist Mucous Membranes Neck: Present: Normal Range of Motion Respiratory/Chest: Present: Good Air Exchange, Wheezes (diffuse wheezing bilaterally), Retracting, Tachypneic. No: Clear to Auscultation, Respiratory Distress, Accessory Muscle Use, Rhonchi, Tender to Palpation Cardiovascular: Present: Regular Rate and Rhythm, Normal S1, S2. No: Murmurs Abdomen: No: Tenderness, Distention, Rebound, Guarding Upper Extremity: Present: Normal Inspection Lower Extremity: Present: Normal Inspection. No: Edema Neurological: Present: GCS=15, Speech Normal Skin: Present: Warm, Dry, Normal Color. No: Rashes Psychiatric: Present: Alert, Oriented x 3 Medical Decision Making ED Course and Treatment: 02/28/19 19:10 58yr old female presenting with asthma exacerbation/ shortness of breath, CP. pt taking prednisone and multiple neb treatments at home without improvement. pt with diffuse wheezing bilaterally. slightly tachypneic. cxr; wnl cbc; wnl cmp; glucose; 602 bun:22/cr:1.0 trop; wnl pt given 3 duonebs and solumedrol 125mg IV without improvement. pt given 8units of regular insulin sq. pt reassessment; pt with continued diffuse wheezing. magnesium given IV case discussed with dr. collins; she would like patient to be admitted to hospitalist. case discussed with dr. crawford; accepts obs status admission. impression; asthma exacerbation, hyperglycemia admit obs med/surg Reassessment Condition: Re-examined, Unchanged - Lab Interpretations Lab Results: Troponin I < 0.01 ng/mL 02/28/19 17:41 NT-Pro-B Natriuret Pep 290 pg/mL (0-450) 02/28/19 17:41 Total Bilirubin 0.2 mg/dL (0.2-1.3) 02/28/19 17:41 AST 25 U/L (14-36) 02/28/19 17:41 ALT 16 U/L (7-56) 02/28/19 17:41 Alkaline Phosphatase 122 U/L (38-126) 02/28/19 17:41 Total Protein 6.4 g/dL (5.8-8.3) 02/28/19 17:41 Albumin 3.1 g/dL (3.0-4.8) 02/28/19 17:41 Globulin 3.3 gm/dL 02/28/19 17:41 Albumin/Globulin Ratio 1.0 (1.1-1.8) L 02/28/19 17:41 - RAD Interpretation Radiology Orders: 02/28/19 17:34 CHEST PORTABLE [RAD] Stat - Medication Orders Current Medication Orders: Discontinued Medications Albuterol/Ipratropium (Duoneb 3 Mg/0.5 Mg (3 Ml) Ud) 3 ml IH STAT STA Stop: 02/28/19 17:36 Last Admin: 02/28/19 17:49 Dose: 3 ml Insulin Human Regular (Humulin R) 8 units SC STAT STA Stop: 02/28/19 18:23 Methylprednisolone (Solu-Medrol) 125 mg IVP STAT STA Stop: 02/28/19 17:36 Last Admin: 02/28/19 17:52 Dose: 125 mg IVP Administration Document 02/28/19 17:52 SS (Rec: 02/28/19 17:52 SS [facility] [id number]) Charges for Administration # of IVP Administrations 1 Disposition/Present on Arrival - Present on Arrival Any Indicators Present on Arrival: Yes History of DVT/PE: No History of Uncontrolled Diabetes: Yes Urinary Catheter: No History of Decub. Ulcer: No History Surgical Site Infection Following: None - Disposition Have Diagnosis and Disposition been Completed?: Yes Diagnosis: Asthma, Hyperglycemia Disposition: HOSPITALIZED Disposition Time: 19:13 Patient Plan: Observation Patient Problems: Current Active Problems Problem Status Onset Asthma Acute Hyperglycemia Acute Condition: FAIR Discharge Instructions (ExitCare): Asthma in Adults Referrals: Bita Collins MD [Primary Care Provider] - Follow up with primary Forms: [employer] (Russian)
[2019-02-28 18:49] LABS: URINE BILIRUBIN NEGATIVE (NEGATIVE); URINE BLOOD TRACE-INTACT (NEGATIVE); URINE COLOR LIGHT YELLOW (YELLOW); URINE GLUCOSE (UA) >=1000 mg/dL (NEGATIVE); URINE LEUKOCYTE ESTERASE NEGATIVE Leu/uL (NEGATIVE); URINE PROTEIN >=300 mg/dL (<30 mg/dL); URINE UROBILINOGEN 0.2 E.U./dL (<1 E.U./dL)
[2019-02-28 18:50] LABS: URINE APPEARANCE CLEAR (CLEAR)
[2019-02-28 19:06] LABS: URINE EPITHELIAL CELLS 0 - 2 /hpf (0-5); URINE WBC 0 - 2 /hpf (0-6)
[2019-02-28] MEDS ORDERED: Magnesium Sulfate 2 gm/50 ml 2 GM/50 ML BAG IVPB ONE (19:06)
--- NOTE | 2019-02-28 19:25 | CARD ---
APPROVED REPORT Date of service: 02/28/2019 EKG Measurement Heart [id number] DC [id number] <Conclusion> Poor data quality, interpretation may be adversely affected Normal sinus rhythm Slow R wave progression V1-3 Borderline ECG
[2019-02-28] MEDS ORDERED: Sodium Chloride 0.9% 1,000 ML IV STA (19:29)
[2019-02-28] MEDS ORDERED: Albuterol-Ipratrop 3 mg / 0.5 (3 ml) UD IH PRN (20:02)
--- NOTE | 2019-02-28 20:06 | CP.PCM.HP ---
<MichelaIrene jimenez - Last Filed: 02/28/19 20:48> History of Present Illness - History of Present Illness History of Present Illness: Hospitalist H&PAnna PGY3 This is a 58yo female with past medical history DM, HTN, HLD, Asthma, "blood clot" (>10yrs ago) who came to the ED for shortness of breath for several days. Patient states she has been having wheezing and dry cough at home. Patient states she does get short of breath when ambulating. She denies any recent travel or sick contacts. She has been admitted before for asthma exacerbation in the past, but has never been intubated. She reports this happens about a few times per year, especially when the seasons change. She wakes up at night on average 4 times per month to use her rescue inhaler. Patient states she was taking Nebulizers and Prednisone 20mg TID at home as needed when she gets short of breath. She ran out of the prednisone 2 days ago and has not felt any better and decided to come to the hospital. Patient denies leg swelling, fever/chills, numbness/tingling, chest pain, dysuria/hematuria, vision changes, changes in weight, nausea/vomiting or diarrhea. Patient does report she had a blood clot several years about but doesn't remember where and why she got it. She denies having any miscarriages in the past. She reports she was on a blood thinner for a brief period of time but forgot for how long and what the medication was. Past medical history: DM, HTN, HLD, GERD, Asthma, "blood clot" (>10yrs ago) Past surgical history: 3 C-sections, tonsillectomy Home meds: Reviewed as per DEC- (confirmed Levemir 24U HS, Humalog 12 AC, Lipitor, Spirivia, Albuterol, Metformin) pt doesnt remember every medication or the doses. Tried to contact [facility] but was closed. Will contact again in AM for confirmed medications Allergies: NKDA Social history: Denies EtOH, drug or tobacco abuse Family history: Mom: Asthma, "blood clots" PMD: Dr. Collins Pulm: Dr. Forbes Pharmacy: [facility] Present on Admission - Present on Admission Any Indicators Present on Admission: No Review of Systems - Review of Systems All systems: reviewed and no additional remarkable complaints except Review of Systems: 12 point ROS reviewed as per HPI and is otherwise negative Past Patient History - Infectious Disease Hx of Infectious Diseases: None - Tetanus Immunizations Tetanus Immunization: Unknown - Past Medical History & Family History Past Medical History?: Yes - Past Social History Smoking Status: Never Smoked - CARDIAC Hx Pacemaker: No - PULMONARY Hx Asthma: Yes Hx Pneumonia: Yes - NEUROLOGICAL Hx Neurological Disorder: No - HEENT Hx HEENT Problems: Yes Other/Comment: excessive cerumen - RENAL Hx Chronic Kidney Disease: Yes Hx Kidney Stones: Yes - ENDOCRINE/METABOLIC Hx Diabetes Mellitus Type 2: Yes - HEMATOLOGICAL/ONCOLOGICAL Hx Cancer: No - INTEGUMENTARY Hx Dermatological Problems: No - MUSCULOSKELETAL/RHEUMATOLOGICAL Hx Falls: No - GASTROINTESTINAL Hx Gastroesophageal Reflux: Yes - GENITOURINARY/GYNECOLOGICAL Hx Genitourinary Disorders: No - PSYCHIATRIC Hx Psychophysiologic Disorder: No Hx Anxiety: No Hx Bipolar Disorder: No Hx Depression: No Hx Emotional Abuse: No Hx Hallucinations: No Hx Panic Symptoms: No Hx Post Traumatic Stress Disorder: No Hx Psychosis: No Hx Physical Abuse: No Hx Schizophrenia: No Hx Sexual Abuse: No Hx Substance Use: No - SURGICAL HISTORY Hx Section: Yes Hx Mastectomy: No Hx Tonsillectomy: Yes - ANESTHESIA Hx Anesthesia: Yes Hx Anesthesia Reactions: No Hx Malignant Hyperthermia: No Meds Allergies/Adverse Reactions: Allergies Allergy/AdvReac Type Severity Reaction Status Date / Time No Known Allergies Allergy Verified 02/28/19 17:21 Physical Exam - Constitutional Appears: No Acute Distress - Head Exam Head Exam: ATRAUMATIC, NORMAL INSPECTION, NORMOCEPHALIC - Eye Exam Eye Exam: Normal appearance, PERRL Pupil Exam: NORMAL ACCOMODATION, PERRL - ENT Exam ENT Exam: Mucous Membranes Moist - Respiratory Exam Respiratory Exam: Wheezes, NORMAL BREATHING PATTERN. absent: Accessory Muscle Use, Rales, Respiratory Distress - Cardiovascular Exam Cardiovascular Exam: REGULAR RHYTHM, +S1, +S2. absent: Gallop, Rubs, Systolic Murmur - GI/Abdominal Exam GI & Abdominal Exam: Normal Bowel Sounds, Soft. absent: Mass, Rebound, Rigid, Tenderness - Extremities Exam Extremities exam: Positive for: normal inspection. Negative for: calf tenderness, pedal edema - Neurological Exam Neurological exam: Alert, CN II-XII Intact, Oriented x3 - Psychiatric Exam Psychiatric exam: Normal Affect, Normal Mood - Skin Skin Exam: Dry, Intact, Warm Results - Vital Signs Recent Vital Signs: Last Vital Signs Temp 97.7 F 02/28/19 17:21 Pulse 91 H 02/28/19 19:44 Resp 20 02/28/19 19:44 BP 143/81 02/28/19 19:44 Pulse Ox 99 02/28/19 19:44 - Labs Result Diagrams: 02/28/19 17:41 02/28/19 17:41 Labs: Laboratory Results - last 24 hr 02/28/19 02/28/19 02/28/19 17:41 17:41 18:39 WBC 10.3 RBC 4.39 Hgb 12.4 Hct 36.6 MCV 83.4 MCH 28.2 MCHC 33.9 RDW 13.6 Plt Count 309 MPV 11.6 H Neut % (Auto) 73.4 H Lymph % (Auto) 14.7 L [place] % (Auto) 8.2 H Eos % (Auto) 3.4 Baso % (Auto) 0.3 Lymph # (Auto) 1.5 [place] # (Auto) 0.8 H Eos # (Auto) 0.4 Baso # (Auto) 0.03 Absolute Neuts (auto) 7.52 H Sodium 134 Potassium 4.8 Chloride 98 Carbon Dioxide 30 Anion Gap 11 BUN 22 H Creatinine 1.0 Est GFR ( Amer) > 60 Est GFR (Non-Af Amer) 57 Random Glucose 602 H* Calcium 8.9 Total Bilirubin 0.2 AST 25 ALT 16 Alkaline Phosphatase 122 Lactate Dehydrogenase 457 Total Creatine Kinase 34 L Troponin I < 0.01 NT-Pro-B Natriuret Pep 290 Total Protein 6.4 Albumin 3.1 Globulin 3.3 Albumin/Globulin Ratio 1.0 L Urine Color Light yellow Urine Appearance Clear Urine pH 6.0 Ur Specific [place] 1.015 Urine Protein >=300 H Urine Glucose (UA) >=1000 Urine Ketones Negative Urine Blood Trace-intact H Urine Nitrate Negative Urine Bilirubin Negative Urine Urobilinogen 0.2 Ur Leukocyte Esterase Negative Urine RBC 1 - 3 H Urine WBC 0 - 2 Ur Epithelial Cells 0 - 2 Assessment & Plan - Assessment and Plan (Free Text) Assessment: 1. Shortness of breath - most likely asthma exacerbation, but will rule out PE 2. DM- uncontrolled - Glucose: 600 - Can be secondary to recent steroid use 3. HTN- Stable 4. HLD- Stable 5. Hx of blood clots with unknown cause/location - will rule out PE Plan: Labs and imaging reviewed. Patient is mildly tachycardic, but was given Duoneb. Will get CT angio of lung in AM to rule out PE since patient has remote history of blood clots and took 2 Metformin this evening. Will given therapeutic Lovenox until CTA rules out PE. Will start patient on Xopenex as well as Atrovent and Brovana. Patient will be started on Solumedrol 40q12. For DM, will start patient on Levemir and Humalog as well as ISS and diabetic diet. Hold Metformin. HgbA1c pending. Continue home medications of Gabapentin, Protonix, Lipitor and Lisinopril. Will endorse to day team to confirm home medications with [facility]. Case seen, discussed and reviewed with Dr. Elizabeth Caruso PGY3 - Date & Time Date: 02/28/19 Time: 21:12 <Macario Johnson - Last Filed: 02/28/19 21:34> Results - Vital Signs Recent Vital Signs: Last Vital Signs Temp 98.1 F 02/28/19 21:26 Pulse 97 H 02/28/19 21:26 Resp 20 02/28/19 21:26 BP 131/71 02/28/19 21:26 Pulse Ox 95 02/28/19 21:26 - Labs Result Diagrams: 02/28/19 17:41 02/28/19 17:41 Labs: Laboratory Results - last 24 hr 02/28/19 02/28/19 02/28/19 17:41 17:41 18:39 WBC 10.3 RBC 4.39 Hgb 12.4 Hct 36.6 MCV 83.4 MCH 28.2 MCHC 33.9 RDW 13.6 Plt Count 309 MPV 11.6 H Neut % (Auto) 73.4 H Lymph % (Auto) 14.7 L [place] % (Auto) 8.2 H Eos % (Auto) 3.4 Baso % (Auto) 0.3 Lymph # (Auto) 1.5 [place] # (Auto) 0.8 H Eos # (Auto) 0.4 Baso # (Auto) 0.03 Absolute Neuts (auto) 7.52 H Sodium 134 Potassium 4.8 Chloride 98 Carbon Dioxide 30 Anion Gap 11 BUN 22 H Creatinine 1.0 Est GFR ( Amer) > 60 Est GFR (Non-Af Amer) 57 Random Glucose 602 H* Calcium 8.9 Total Bilirubin 0.2 AST 25 ALT 16 Alkaline Phosphatase 122 Lactate Dehydrogenase 457 Total Creatine Kinase 34 L Troponin I < 0.01 NT-Pro-B Natriuret Pep 290 Total Protein 6.4 Albumin 3.1 Globulin 3.3 Albumin/Globulin Ratio 1.0 L Urine Color Light yellow Urine Appearance Clear Urine pH 6.0 Ur Specific [place] 1.015 Urine Protein >=300 H Urine Glucose (UA) >=1000 Urine Ketones Negative Urine Blood Trace-intact H Urine Nitrate Negative Urine Bilirubin Negative Urine Urobilinogen 0.2 Ur Leukocyte Esterase Negative Urine RBC 1 - 3 H Urine WBC 0 - 2 Ur Epithelial Cells 0 - 2 Attending/Attestation - Attestation I have personally seen and examined this patient.: Yes I have fully participated in the care of the patient.: Yes I have reviewed all pertinent clinical information: Yes Notes (Text): 02/28/19 21:33 Seen and examined. Discussed with resident. ASthma exacerbation, but R/O PE given H/O blood clott??
[2019-02-28] MEDS ORDERED: Levalbuterol 1.25 MG/3 ML Inhal Soln UD IH PRN (20:36)
[2019-02-28] MEDS: Insulin Reg-HIGH-Coverage SC SCH (21:20)
[2019-02-28] MEDS: Enoxaparin 60 mg Syringe SC SCH (21:21)
[2019-02-28] MEDS: Insulin Detemir 100 units/ml Vial (Levemir) SC SCH (22:36)
[2019-03-01] MEDS ORDERED: Albuterol-Ipratrop 3 mg / 0.5 (3 ml) UD IH SCH (02:00)
[2019-03-01] MEDS: Insulin Reg-HIGH-Coverage SC SCH ×6 (02:03→20:38)
[2019-03-01] MEDS: Ipratropium 0.02% Inhal Soln (0.5 mg/2.5 ml) UD IH SCH ×2 (03:00→07:11)
[2019-03-01] MEDS: Levalbuterol 1.25 MG/3 ML Inhal Soln UD IH SCH ×2 (03:00→07:11)
[2019-03-01 07:08] LABS: MEAN CELL VOLUME 82.4 fl (80.0-105.0); MEAN CORPUSCULAR HEMOGLOBIN 27.6 pg (25.0-35.0); MEAN CORPUSCULAR HGB CONC 33.5 g/dl (31.0-37.0); MEAN PLATELET VOLUME 12.1 fl (7.0-11.0); RBC 3.98 10^6/uL (3.5-6.1); RED CELL DISTRIBUTION WIDTH 13.6 % (11.5-14.5); WHITE BLOOD COUNT 13.4 10^3/uL (4.5-11.0)
[2019-03-01] MEDS: Arformoterol 15 mcg/2 ml Inh Sol IH SCH ×2 (07:11→19:58)
[2019-03-01 07:29] LABS: ALB/GLOB RATIO 0.9 (1.1-1.8); ALBUMIN 2.7 g/dL (3.0-4.8); ALT/SGPT 19 U/L (7-56); AST/SGOT 16 U/L (14-36); BLOOD UREA NITROGEN 20 mg/dL (7-21); CALCIUM 8.8 mg/dL (8.4-10.5); GFR NON-AFRICAN AMERICAN > 60
[2019-03-01] MEDS ORDERED: Insulin Lispro 1 UNITS/0.01 ML SC SCH (07:30)
[2019-03-01] MEDS ORDERED: Budesonide 0.5 mg/2 ml Inhal Susp UD IH SCH (08:00)
[2019-03-01] MEDS: Enoxaparin 60 mg Syringe SC SCH (09:08)
[2019-03-01] MEDS: Pantoprazole 40 mg EC Tab PO SCH (10:39)
[2019-03-01] MEDS: MethylPREDNISolone 40 mg Vial IVP SCH (11:34)
[2019-03-01] MEDS ORDERED: Albuterol-Ipratrop 3 mg / 0.5 (3 ml) UD IH PRN (11:36)
--- NOTE | 2019-03-01 12:24 | CP.PCM.PN ---
<Danette Lees - Last Filed: 03/01/19 12:15> Subjective - Date & Time of Evaluation Date of Evaluation: 03/01/19 Time of Evaluation: 12:16 - Subjective Subjective: Danette Lees, PGY-1, Internal Medicine Progress Note for Dr. Villanueva Patient seen and evaluated at bedside today. Patient had no acute overnight events. Patient today complains of improved shortness of breath, wheezing, cough, and yellow sputum. She reports shortness of breath is worse with ambulation. Patient has no other symptoms at this time. 12-point ROS was unremarkable except for what was mentioned above. Objective - Vital Signs/Intake and Output Vital Signs (last 24 hours): Temp Pulse Resp BP Pulse Ox 97.6 F 87 18 154/81 H 95 03/01/19 06:00 03/01/19 06:00 03/01/19 06:00 03/01/19 06:00 03/01/19 06:00 Intake and Output: 03/01/19 03/01/19 06:59 18:59 Intake Total 180 Balance 180 - Medications Medications: Current Medications Albuterol/Ipratropium (Duoneb 3 Mg/0.5 Mg (3 Ml) Ud) 3 ml IH [id number] DONALD Albuterol/Ipratropium (Duoneb 3 Mg/0.5 Mg (3 Ml) Ud) 3 ml IH Q2H PRN PRN Reason: Shortness of Breath Arformoterol Tartrate (Brovana) 15 mcg IH [id number] [facility] Last Admin: 03/01/19 07:11 Dose: 15 mcg Atorvastatin Calcium (Lipitor) 40 mg PO DIN [facility] Budesonide (Pulmicort Respules) 0.5 mg IH [id number] [facility] Enoxaparin Sodium (Lovenox) 60 mg SC Q12H [facility]; Protocol Last Admin: 03/01/19 09:08 Dose: 60 mg Gabapentin (Neurontin) 300 mg PO DAILY [facility]; Protocol Last Admin: 03/01/19 10:39 Dose: 300 mg Insulin Detemir (Levemir) 20 unit SC HS [facility] Last Admin: 02/28/19 22:36 Dose: 20 u Insulin Human Lispro (Humalog) 10 units SC AC [facility] Last Admin: 03/01/19 09:06 Dose: 10 units Insulin Human Regular (Humulin R High) 0 units SC Q4H [facility]; Protocol Last Admin: 03/01/19 09:07 Dose: 10 u Lisinopril (Zestril) 2.5 mg PO DAILY [facility] Methylprednisolone (Solu-Medrol) 40 mg IVP Q12 [facility] Last Admin: 03/01/19 11:34 Dose: 40 mg Pantoprazole Sodium (Protonix Ec Tab) 40 mg PO DAILY [facility] Last Admin: 03/01/19 10:39 Dose: 40 mg - Labs Labs: 03/01/19 06:30 03/01/19 06:30 - Constitutional Appears: Well, Non-toxic, No Acute Distress - Head Exam Head Exam: ATRAUMATIC, NORMAL INSPECTION, NORMOCEPHALIC - Eye Exam Eye Exam: EOMI, PERRL - ENT Exam ENT Exam: Mucous Membranes Moist - Neck Exam Neck Exam: Full ROM - Respiratory Exam Respiratory Exam: Wheezes (diffuse), NORMAL BREATHING PATTERN - Cardiovascular Exam Cardiovascular Exam: REGULAR RHYTHM, RRR, +S1, +S2 - GI/Abdominal Exam GI & Abdominal Exam: Soft, Normal Bowel Sounds. absent: Distended, Firm, Guarding, Tenderness - Extremities Exam Extremities Exam: Full ROM, Normal Capillary Refill, Normal Inspection. absent: Pedal Edema - Neurological Exam Neurological Exam: Alert, Awake, CN II-XII Intact, Oriented x3 - Psychiatric Exam Psychiatric exam: Normal Affect, Normal Mood - Skin Skin Exam: Dry, Intact, Normal Color Assessment and Plan - Assessment and Plan (Free Text) Assessment: 58 year old female with past medical history of diabetes mellitus type II, hypertension, hyperlipidemia, asthma, DVT 10 years ago treated with anticoagulation for 1 month presented with shortness of breath for 1 week. Patient was admitted for asthma exacerbation. Plan: Asthma exacerbation -CXR 02/28: no acute pulmonary disease -Started with duonebs Q6 and Q2 PRN -Continue pulmicort, brovana -Continue solumedrol 40 mg Q12 Uncontrolled Diabetes Mellitus -HgbA1c: 15.6 -Continue with levemir 20 HS -Continue with high sliding scale insulin -Continue with neurontin for diabetic neuropathy. -Accuchecks Q4 Hypertension -Continue with zestril Hyperlipideima -Continue with lipitor 40 mg daily History of questionable DVT -Symptoms not freight representative of DVT/PE -Will obtain D-dimer -Will get CTA if D dimer is positive. GI prophylaxis: protonix DVT prophylaxis: lovenox Patient plan discussed with Dr. Villanueva <Linnette Villanueva - Last Filed: 03/04/19 13:45> Objective - Vital Signs/Intake and Output Vital Signs (last 24 hours): Temp Pulse Resp BP Pulse Ox 98.1 F 69 20 132/75 97 03/03/19 06:00 03/03/19 06:00 03/03/19 06:00 03/03/19 06:00 03/03/19 06:00 - Labs Labs: 03/03/19 07:00 03/03/19 07:00 Attending/Attestation - Attestation I have personally seen and examined this patient.: Yes I have fully participated in the care of the patient.: Yes I have reviewed all pertinent clinical information, including history, physical exam and plan: Yes Notes (Text): 03/04/19 13:43 Patient has COPD not Asthma. 58 year old female with past medical history of diabetes mellitus type II, hypertension, hyperlipidemia, presented with shortness of breath for 1 week.due to COPD exacerbation.Continue neb/steroid and antibiotics.
[2019-03-01] MEDS: Albuterol-Ipratrop 3 mg / 0.5 (3 ml) UD IH SCH ×2 (13:49→19:58)
[2019-03-01] MEDS: Azithromycin 500MG/NS 250ml 500 MG/250 ML BAG IVPB SCH (20:30)
[2019-03-01] MEDS: Insulin Detemir 100 units/ml Vial (Levemir) SC SCH (22:41)
[2019-03-02] MEDS: MethylPREDNISolone 40 mg Vial IVP SCH (00:12)
[2019-03-02] MEDS: Insulin Reg-HIGH-Coverage SC SCH ×6 (00:32→21:38)
[2019-03-02] MEDS: Albuterol-Ipratrop 3 mg / 0.5 (3 ml) UD IH SCH ×4 (01:13→19:34)
[2019-03-02 07:12] LABS: HEMOGLOBIN 10.9 g/dL (12.0-16.0); MEAN CELL VOLUME 84.3 fl (80.0-105.0); MEAN CORPUSCULAR HEMOGLOBIN 27.2 pg (25.0-35.0); MEAN CORPUSCULAR HGB CONC 32.2 g/dl (31.0-37.0); MEAN PLATELET VOLUME 12.1 fl (7.0-11.0); RBC 4.01 10^6/uL (3.5-6.1); WHITE BLOOD COUNT 13.2 10^3/uL (4.5-11.0)
[2019-03-02] MEDS: Budesonide 0.5 mg/2 ml Inhal Susp UD IH SCH ×2 (07:15→19:34)
[2019-03-02] MEDS: Arformoterol 15 mcg/2 ml Inh Sol IH SCH ×2 (07:15→19:34)
[2019-03-02 07:37] LABS: ALB/GLOB RATIO 0.9 (1.1-1.8); ALBUMIN 2.8 g/dL (3.0-4.8); ALT/SGPT 22 U/L (7-56); AST/SGOT 16 U/L (14-36); BLOOD UREA NITROGEN 24 mg/dL (7-21); CALCIUM 8.9 mg/dL (8.4-10.5); GFR NON-AFRICAN AMERICAN 57
[2019-03-02] MEDS ORDERED: MethylPREDNISolone 40 mg Vial IVP SCH (10:00)
[2019-03-02] MEDS: Enoxaparin 40 mg Syringe SC SCH (10:15)
[2019-03-02] MEDS: Pantoprazole 40 mg EC Tab PO SCH (10:16)
[2019-03-02] MEDS: Azithromycin 500MG/NS 250ml 500 MG/250 ML BAG IVPB SCH (10:16)
[2019-03-02] MEDS: Insulin Lispro 1 UNITS/0.01 ML SC SCH ×2 (12:41→17:15)
[2019-03-02] MEDS ORDERED: Insulin Regular 1 UNITS/0.01 ML ML SC STA (13:58)
--- NOTE | 2019-03-02 15:17 | CP.PCM.DIS ---
<CollinscoriDanette - Last Filed: 03/03/19 16:17> Provider - Provider Date of Admission: 03/01/19 17:07 Attending physician: Linnette Villanueva MD Primary care physician: Bita Collins MD Consults: 03/02/19 12:10 Respiratory Therapy Referral Stat Comment: Physician Instructions: Reason For Exam: teach to use inhaler prior to discharge Time Spent in preparation of Discharge (in minutes): 60 Hospital Course - Lab Results Lab Results: Most Recent Lab Values WBC 13.2 10^3/uL (4.5-11.0) H 03/02/19 06:10 RBC 4.01 10^6/uL (3.5-6.1) 03/02/19 06:10 Hgb 10.9 g/dL (12.0-16.0) L 03/02/19 06:10 Hct 33.8 % (36.0-48.0) L 03/02/19 06:10 MCV 84.3 fl (80.0-105.0) 03/02/19 06:10 MCH 27.2 pg (25.0-35.0) 03/02/19 06:10 MCHC 32.2 g/dl (31.0-37.0) 03/02/19 06:10 RDW 14.0 % (11.5-14.5) 03/02/19 06:10 Plt Count 312 10^3/uL (120.0-450.0) 03/02/19 06:10 MPV 12.1 fl (7.0-11.0) H 03/02/19 06:10 Neut % (Auto) 73.4 % (50.0-68.0) H 02/28/19 17:41 Lymph % (Auto) 14.7 % (22.0-35.0) L 02/28/19 17:41 [place] % (Auto) 8.2 % (1.0-6.0) H 02/28/19 17:41 Eos % (Auto) 3.4 % (1.5-5.0) 02/28/19 17:41 Baso % (Auto) 0.3 % (0.0-3.0) 02/28/19 17:41 Lymph # (Auto) 1.5 (1.2-3.4) 02/28/19 17:41 [place] # (Auto) 0.8 (0.1-0.6) H 02/28/19 17:41 Eos # (Auto) 0.4 (0.0-0.7) 02/28/19 17:41 Baso # (Auto) 0.03 K/mm3 (0.0-2.0) 02/28/19 17:41 Absolute Neuts (auto) 7.52 (1.4-6.5) H 02/28/19 17:41 D-Dimer, Quantitative 660 ng/mlDDU (0-243) H 03/01/19 13:20 Sodium 136 mmol/L (132-148) 03/02/19 06:10 Potassium 5.0 mmol/L (3.6-5.0) 03/02/19 06:10 Chloride 106 mmol/L (98-107) 03/02/19 06:10 Carbon Dioxide 26 mmol/L (21-33) 03/02/19 06:10 Anion Gap 9 (10-20) L 03/02/19 06:10 BUN 24 mg/dL (7-21) H 03/02/19 06:10 Creatinine 1.0 mg/dl (0.7-1.2) 03/02/19 06:10 Est GFR ( Amer) > 60 03/02/19 06:10 Est GFR (Non-Af Amer) 57 03/02/19 06:10 POC Glucose (mg/dL) 460 mg/dL (65-110) H* 03/02/19 13:35 Random Glucose 273 mg/dL (70-110) H 03/02/19 06:10 Hemoglobin A1c 15.6 % (4.2-6.5) H 02/28/19 20:34 Calcium 8.9 mg/dL (8.4-10.5) 03/02/19 06:10 Magnesium 2.0 mg/dL (1.7-2.2) 03/02/19 06:10 Total Bilirubin < 0.1 mg/dL (0.2-1.3) L 03/02/19 06:10 AST 16 U/L (14-36) 03/02/19 06:10 ALT 22 U/L (7-56) 03/02/19 06:10 Alkaline Phosphatase 71 U/L (38-126) 03/02/19 06:10 Lactate Dehydrogenase 457 U/L (333-699) 02/28/19 17:41 Total Creatine Kinase 34 U/L (35-230) L 02/28/19 17:41 Troponin I < 0.01 ng/mL 02/28/19 17:41 NT-Pro-B Natriuret Pep 290 pg/mL (0-450) 02/28/19 17:41 Total Protein 5.8 g/dL (5.8-8.3) 03/02/19 06:10 Albumin 2.8 g/dL (3.0-4.8) L 03/02/19 06:10 Globulin 3.0 gm/dL 03/02/19 06:10 Albumin/Globulin Ratio 0.9 (1.1-1.8) L 03/02/19 06:10 Urine Color Light yellow (YELLOW) 02/28/19 18:39 Urine Appearance Clear (CLEAR) 02/28/19 18:39 Urine pH 6.0 (4.7-8.0) 02/28/19 18:39 Ur Specific [place] 1.015 (1.005-1.035) 02/28/19 18:39 Urine Protein >=300 mg/dL (<30 mg/dL) H 02/28/19 18:39 Urine Glucose (UA) >=1000 mg/dL (NEGATIVE) 02/28/19 18:39 Urine Ketones Negative mg/dL (NEGATIVE) 02/28/19 18:39 Urine Blood Trace-intact (NEGATIVE) H 02/28/19 18:39 Urine Nitrate Negative (NEGATIVE) 02/28/19 18:39 Urine Bilirubin Negative (NEGATIVE) 02/28/19 18:39 Urine Urobilinogen 0.2 E.U./dL (<1 E.U./dL) 02/28/19 18:39 Ur Leukocyte Esterase Negative Davis/uL (NEGATIVE) 02/28/19 18:39 Urine RBC 1 - 3 /hpf (0-2) H 02/28/19 18:39 Urine WBC 0 - 2 /hpf (0-6) 02/28/19 18:39 Ur Epithelial Cells 0 - 2 /hpf (0-5) 02/28/19 18:39 - Hospital Course Hospital Course: Danette Lees, PGY-1, Internal Medicine Discharge Summary for Dr. Villanueva 58 year old female with past medical history of diabetes mellitus II, hypertension, hyperlipidemia, asthma and questionable DVT presented with shortness of breath for several days. She has had wheezing and dry cough at home. Patient states symptoms were worse with ambulating. She has had asthma exacerbations in the past but has not had been intubated. She reports this happens a few times a year when the seasons change. She wakes up at night on average 1 time per month to use rescue inhaler. Patient stated she was taking nebulizers and prednisone 20 mg TID at home self medicating herself with prednisone. She had not felt better and decided to go to hospital. She denied leg swelling, fever, chills, numbness, tingling, chest pain, dysuria, hematuria, vision changes, changes in weight, nausea, vomiting, or diarrhea. Patient reported she had blood clot several years ago but did not remember where and why she got it. Upon admission, chest X ray showed no evidence of effusions or infiltrates. She was started on solumedrol 40 mg Q12, xopenex, atrovent, and brovana. The next day, patient was switched to duonebs, pulmicort, brovana and continued on solumedrol 40 mg Q12. Patient's symptoms improved throughout the admission and wheezes were mild today unlike when the admission started when wheezes were severe. Solumedrol was reduced to 40 mg daily on 03/02 and continued on other nebulizers. Patient was additionally on azithromycin throughout this admission for possible pneumonia. Patient has a history of uncontrolled diabetes mellitus. As patient had COPD exacerbation, patient was given solumedrol throughout this admission, likely contributing to hyperglycemia. Patient was started on levemir 20 U HS and lispro 10 U AC as well as high sliding scale insulin. As patient's glucose significantly improved on day 2 of admission at 98, lispro 10 U AC was discontinued. However, the following day, glucose was once again in the 300s to 400s. As a result, lispro 10 U AC was restarted. On 03/02, patient's glucose continued to be uncontrolled with blood glucose in 400s to 500s. Patient was given an extra insulin 10 U yesterday. Patient's glucose improved today and patient was stable and ready for discharge. Patient had questionable DVT in the past. Patient had D-dimer elevated on this admission at 660. However, patient's Well's criteria score was 1.5 and lower extremity ultrasound was negative so CTA was not indicated. Patient was found to be stable and ready for discharge. Patient had dysuria this morning. Urinanalysis was negative for nitrates and leukocyte esterase. Patient was found to be stable and ready for discharge. Patient was told to follow up with PCP within 3-5 days. Patient was told to take all medications as prescribed and was taught how to take nebulizers properly. Patient was told to return to the emergency department if she had any new or concerning symptoms. This is a brief summary of the events that transpired today. For more information, please refer to hospital documentation Discharge Diagnoses Asthma exacerbation Uncontrolled Diabetes Mellitus Hypertension Hyperlipidemia History of questionable DVT - Date & Time of H&P Date of H&P: 02/28/19 Time of H&P: 20:06 Discharge Exam - Head Exam Head Exam: ATRAUMATIC, NORMAL INSPECTION, NORMOCEPHALIC - Eye Exam Eye Exam: EOMI, PERRL - Respiratory Exam Respiratory Exam: Wheezes (mild), NORMAL BREATHING PATTERN - Cardiovascular Exam Cardiovascular Exam: REGULAR RHYTHM, RRR, +S1, +S2 - GI/Abdominal Exam GI & Abdominal Exam: Normal Bowel Sounds, Soft. absent: Distended, Firm, Guarding, Tenderness - Extremities Exam Extremities exam: full ROM, normal capillary refill, normal inspection - Neurological Exam Neurological exam: Alert, CN II-XII Intact, Oriented x3 - Psychiatric Exam Psychiatric exam: Normal Affect, Normal Mood - Skin Skin Exam: Dry, Intact, Normal Color Discharge Plan - Discharge Medications Prescriptions: Albuterol 0.083% [Albuterol 0.083% Inhal Gema (2.5 mg/3 ml) UD] 2.5 mg IH Q6H #1 neb Azithromycin [Z-Antwon] 250 mg PO DAILY #6 tab Budesonide [Pulmicort Respules] 1 mg IH Q12 #1 inh predniSONE [predniSONE Tab] 40 mg PO DAILY 3 Days tab - Follow Up Plan Condition: FAIR Disposition: HOME/ ROUTINE Instructions: Wheezing, Shortness of Breath (Dyspnea), Asthma (GEN) Additional Instructions: Please follow up with your primary care doctor within 3-5 days. Please take all medications as prescribed. Please take azithromycin daily for 6 days. Please take prednisone daily for 3 more days. Please use inhalers as directed by respiratory therapist. Please return to the emergency department if you have any new or concerning symptoms. Referrals: Bita Collins MD [Primary Care Provider] - Linnette Forbes MD [Staff Provider] - <Linnette Villanueva - Last Filed: 03/04/19 13:40> Provider - Provider Date of Admission: 03/01/19 17:07 Attending physician: Linnette Villanueva MD Primary care physician: Bita Collins MD Consults: 03/02/19 12:10 Respiratory Therapy Referral Stat Comment: Physician Instructions: Reason For Exam: teach to use inhaler prior to discharge Hospital Course - Lab Results Lab Results: Most Recent Lab Values WBC 12.7 10^3/uL (4.5-11.0) H 03/03/19 07:00 RBC 3.92 10^6/uL (3.5-6.1) 03/03/19 07:00 Hgb 10.8 g/dL (12.0-16.0) L 03/03/19 07:00 Hct 33.2 % (36.0-48.0) L 03/03/19 07:00 MCV 84.7 fl (80.0-105.0) 03/03/19 07:00 MCH 27.6 pg (25.0-35.0) 03/03/19 07:00 MCHC 32.5 g/dl (31.0-37.0) 03/03/19 07:00 RDW 14.3 % (11.5-14.5) 03/03/19 07:00 Plt Count 328 10^3/uL (120.0-450.0) 03/03/19 07:00 MPV 11.7 fl (7.0-11.0) H 03/03/19 07:00 Neut % (Auto) 73.4 % (50.0-68.0) H 02/28/19 17:41 Lymph % (Auto) 14.7 % (22.0-35.0) L 02/28/19 17:41 [place] % (Auto) 8.2 % (1.0-6.0) H 02/28/19 17:41 Eos % (Auto) 3.4 % (1.5-5.0) 02/28/19 17:41 Baso % (Auto) 0.3 % (0.0-3.0) 02/28/19 17:41 Lymph # (Auto) 1.5 (1.2-3.4) 02/28/19 17:41 [place] # (Auto) 0.8 (0.1-0.6) H 02/28/19 17:41 Eos # (Auto) 0.4 (0.0-0.7) 02/28/19 17:41 Baso # (Auto) 0.03 K/mm3 (0.0-2.0) 02/28/19 17:41 Absolute Neuts (auto) 7.52 (1.4-6.5) H 02/28/19 17:41 D-Dimer, Quantitative 660 ng/mlDDU (0-243) H 03/01/19 13:20 Sodium 138 mmol/L (132-148) 03/03/19 07:00 Potassium 4.4 mmol/L (3.6-5.0) 03/03/19 07:00 Chloride 108 mmol/L (98-107) H 03/03/19 07:00 Carbon Dioxide 28 mmol/L (21-33) 03/03/19 07:00 Anion Gap 6 (10-20) L 03/03/19 07:00 BUN 27 mg/dL (7-21) H 03/03/19 07:00 Creatinine 1.0 mg/dl (0.7-1.2) 03/03/19 07:00 Est GFR ( Amer) > 60 03/03/19 07:00 Est GFR (Non-Af Amer) 57 03/03/19 07:00 POC Glucose (mg/dL) 207 mg/dL (65-110) H 03/03/19 12:12 Random Glucose 134 mg/dL (70-110) H 03/03/19 07:00 Hemoglobin A1c 15.6 % (4.2-6.5) H 02/28/19 20:34 Calcium 8.7 mg/dL (8.4-10.5) 03/03/19 07:00 Magnesium 1.9 mg/dL (1.7-2.2) 03/03/19 07:00 Total Bilirubin 0.1 mg/dL (0.2-1.3) L 03/03/19 07:00 AST 15 U/L (14-36) 03/03/19 07:00 ALT 18 U/L (7-56) 03/03/19 07:00 Alkaline Phosphatase 60 U/L (38-126) 03/03/19 07:00 Lactate Dehydrogenase 457 U/L (333-699) 02/28/19 17:41 Total Creatine Kinase 34 U/L (35-230) L 02/28/19 17:41 Troponin I < 0.01 ng/mL 02/28/19 17:41 NT-Pro-B Natriuret Pep 290 pg/mL (0-450) 02/28/19 17:41 Total Protein 5.6 g/dL (5.8-8.3) L 03/03/19 07:00 Albumin 2.6 g/dL (3.0-4.8) L 03/03/19 07:00 Globulin 3.0 gm/dL 03/03/19 07:00 Albumin/Globulin Ratio 0.9 (1.1-1.8) L 03/03/19 07:00 Urine Color Yellow (YELLOW) 03/03/19 09:20 Urine Appearance Clear (CLEAR) 03/03/19 09:20 Urine pH 6.0 (4.7-8.0) 03/03/19 09:20 Ur Specific [place] 1.020 (1.005-1.035) 03/03/19 09:20 Urine Protein >=300 mg/dL (<30 mg/dL) H 03/03/19 09:20 Urine Glucose (UA) 250 mg/dL (NEGATIVE) H 03/03/19 09:20 Urine Ketones Negative mg/dL (NEGATIVE) 03/03/19 09:20 Urine Blood Trace-lysed (NEGATIVE) H 03/03/19 09:20 Urine Nitrate Negative (NEGATIVE) 03/03/19 09:20 Urine Bilirubin Negative (NEGATIVE) 03/03/19 09:20 Urine Urobilinogen 0.2 E.U./dL (<1 E.U./dL) 03/03/19 09:20 Ur Leukocyte Esterase Trace Davis/uL (NEGATIVE) H 03/03/19 09:20 Urine RBC 2 - 5 /hpf (0-2) H 03/03/19 09:20 Urine WBC 5 - 10 /hpf (0-6) H 03/03/19 09:20 Ur Epithelial Cells 3 - 4 /hpf (0-5) 03/03/19 09:20 Urine Bacteria Mod /hpf (NONE) 03/03/19 09:20 Attending/Attestation - Attestation I have personally seen and examined this patient.: Yes I have fully participated in the care of the patient.: Yes I have reviewed all pertinent clinical information, including history, physical exam and plan: Yes Notes (Text): 03/04/19 13:36 Discharge diagnosis. copd Exacerbation. 58 year old female with past medical history of diabetes mellitus II, hypertension, hyperlipidemia, COPD was admitted with cough and dyspnea.She was found to be wheezing.She was treated with Neb/Steroid and antibiotics. Patient has responded well.Cough and dyspnea has improved. Patient is on room air and is ambulatory. She is feeling at her base line.She will be discharged home and will follow up with PMD. Patient was given education about the use of inhaler prior to discharge. Management plan was discussed in detail with patient. Education was provided.
--- NOTE | 2019-03-02 15:22 | CP.PCM.PN ---
<Danette Lees - Last Filed: 03/02/19 15:18> Subjective - Date & Time of Evaluation Date of Evaluation: 03/02/19 Time of Evaluation: 15:18 - Subjective Subjective: Danette Lees, PGY-1, Internal Medicine Progress Note for Dr. Villanueva Patient was seen and evaluated at bedside today. Patient had no acute overnight events. Patient reported improved shortness of breath but continues to have wheezes. She reports improvement in cough with sputum. 12-point ROS was unremarkable except for what was mentioned above. Objective - Vital Signs/Intake and Output Vital Signs (last 24 hours): Temp Pulse Resp BP Pulse Ox 99.2 F 95 H 18 118/75 95 03/02/19 14:00 03/02/19 14:00 03/02/19 14:00 03/02/19 14:00 03/02/19 14:00 Intake and Output: 03/02/19 03/02/19 06:59 18:59 Intake Total 1100 600 Output Total 0 1 Balance 1100 599 - Medications Medications: Current Medications Albuterol/Ipratropium (Duoneb 3 Mg/0.5 Mg (3 Ml) Ud) 3 ml IH [id number] [facility] Last Admin: 03/02/19 14:00 Dose: 3 ml Albuterol/Ipratropium (Duoneb 3 Mg/0.5 Mg (3 Ml) Ud) 3 ml IH Q2H PRN PRN Reason: Shortness of Breath Arformoterol Tartrate (Brovana) 15 mcg IH [id number] [facility] Last Admin: 03/02/19 07:15 Dose: 15 mcg Atorvastatin Calcium (Lipitor) 40 mg PO DIN [facility] Last Admin: 03/01/19 18:45 Dose: 40 mg Budesonide (Pulmicort Respules) 0.5 mg IH [id number] [facility] Last Admin: 03/02/19 07:15 Dose: 0.5 mg Enoxaparin Sodium (Lovenox) 40 mg SC DAILY [facility]; Protocol Last Admin: 03/02/19 10:15 Dose: 40 mg Gabapentin (Neurontin) 300 mg PO DAILY [facility]; Protocol Last Admin: 03/02/19 10:16 Dose: 300 mg Azithromycin (Zithromax 500mg In Ns) 500 mg in 250 mls @ 167 mls/hr IVPB DAILY [facility]; Protocol Last Admin: 03/02/19 10:16 Dose: 167 mls/hr Insulin Detemir (Levemir) 20 unit SC HS [facility] Last Admin: 03/01/19 22:41 Dose: 20 u Insulin Human Lispro (Humalog) 10 units SC AC [facility] Last Admin: 03/02/19 12:41 Dose: 10 unit Insulin Human Regular (Humulin R High) 0 units SC Q4H [facility]; Protocol Last Admin: 03/02/19 12:43 Dose: 15 u Lisinopril (Zestril) 2.5 mg PO DAILY [facility] Last Admin: 03/02/19 10:16 Dose: 2.5 mg Meclizine HCl (Antivert) 12.5 mg PO DAILY PRN PRN Reason: Dizziness Last Admin: 03/01/19 18:45 Dose: 12.5 mg Methylprednisolone (Solu-Medrol) 40 mg IVP DAILY [facility] Last Admin: 03/02/19 10:15 Dose: 40 mg Ondansetron HCl (Zofran Inj) 4 mg IVP Q6H PRN PRN Reason: Nausea/Vomiting Last Admin: 03/01/19 21:19 Dose: 4 mg Pantoprazole Sodium (Protonix Ec Tab) 40 mg PO DAILY [facility] Last Admin: 03/02/19 10:16 Dose: 40 mg - Labs Labs: 03/02/19 06:10 03/02/19 06:10 - Constitutional Appears: Well, Non-toxic, No Acute Distress - Head Exam Head Exam: ATRAUMATIC, NORMAL INSPECTION, NORMOCEPHALIC - Eye Exam Eye Exam: EOMI, PERRL - ENT Exam ENT Exam: Mucous Membranes Moist - Neck Exam Neck Exam: Full ROM - Respiratory Exam Respiratory Exam: Wheezes (diffuse), NORMAL BREATHING PATTERN - Cardiovascular Exam Cardiovascular Exam: REGULAR RHYTHM, RRR, +S1, +S2 - GI/Abdominal Exam GI & Abdominal Exam: Soft, Normal Bowel Sounds. absent: Distended, Firm, Guard ing, Tenderness - Extremities Exam Extremities Exam: Full ROM, Normal Capillary Refill, Normal Inspection. absent: Pedal Edema - Neurological Exam Neurological Exam: Alert, Awake, CN II-XII Intact, Oriented x3 - Psychiatric Exam Psychiatric exam: Normal Affect, Normal Mood - Skin Skin Exam: Dry, Intact, Normal Color Assessment and Plan - Assessment and Plan (Free Text) Assessment: 58 year old female with past medical history of diabetes mellitus type II, hypertension, hyperlipidemia, asthma, DVT 10 years ago treated with anticoagulation for 1 month presented with shortness of breath for 1 week. Patient was admitted for asthma exacerbation. Plan: Asthma exacerbation -CXR 02/28: no acute pulmonary disease -Continue with duonebs Q6 and Q2 PRN -Continue pulmicort, brovana -Reduced solumedrol to 40 mg daily -Continue with azithromycin daily started on 03/01 Uncontrolled Diabetes Mellitus -HgbA1c: 15.6 -Blood glucose continues to be elevated at 400s to 500s -Continue with levemir 20 HS -Continue with lispro 10 U AC -Continue with high sliding scale insulin -Continue with neurontin for diabetic neuropathy. -Accuchecks Q4 Hypertension -Continue with zestril Hyperlipideima -Continue with lipitor 40 mg daily History of questionable DVT -Symptoms not insurance healthcare representative of DVT/PE -D-dimer: 660 -Lower extremity ultrasound negative for DVT -Low suspicion for PE so will not get CTA GI prophylaxis: protonix DVT prophylaxis: lovenox Patient plan discussed with Dr. Villanueva <Linnette Villanueva - Last Filed: 03/04/19 13:43> Objective - Vital Signs/Intake and Output Vital Signs (last 24 hours): Temp Pulse Resp BP Pulse Ox 98.1 F 69 20 132/75 97 03/03/19 06:00 03/03/19 06:00 03/03/19 06:00 03/03/19 06:00 03/03/19 06:00 - Labs Labs: 03/03/19 07:00 03/03/19 07:00 Attending/Attestation - Attestation I have personally seen and examined this patient.: Yes I have fully participated in the care of the patient.: Yes I have reviewed all pertinent clinical information, including history, physical exam and plan: Yes Notes (Text): 03/04/19 13:41 Patient has COPD , not Asthama. She is admitted with acute COPD Exacerbation. Patient is still wheezing and tachypnic, continue Neb/IV steroid and antibiotics. D dimer was elevated but venous Doppler is negative.
[2019-03-02] MEDS: Insulin Detemir 100 units/ml Vial (Levemir) SC SCH (21:37)
[2019-03-03] MEDS: Insulin Reg-HIGH-Coverage SC SCH ×4 (00:45→14:22)
[2019-03-03] MEDS: Albuterol-Ipratrop 3 mg / 0.5 (3 ml) UD IH SCH ×3 (01:27→14:05)
[2019-03-03] MEDS ORDERED: Vitamin A/D oint 60G TP PRN (01:44)
[2019-03-03 07:25] LABS: HEMOGLOBIN 10.8 g/dL (12.0-16.0); MEAN CELL VOLUME 84.7 fl (80.0-105.0); MEAN CORPUSCULAR HEMOGLOBIN 27.6 pg (25.0-35.0); MEAN CORPUSCULAR HGB CONC 32.5 g/dl (31.0-37.0); MEAN PLATELET VOLUME 11.7 fl (7.0-11.0); RBC 3.92 10^6/uL (3.5-6.1); RED CELL DISTRIBUTION WIDTH 14.3 % (11.5-14.5); WHITE BLOOD COUNT 12.7 10^3/uL (4.5-11.0)
[2019-03-03] MEDS: Arformoterol 15 mcg/2 ml Inh Sol IH SCH (07:31)
[2019-03-03] MEDS: Budesonide 0.5 mg/2 ml Inhal Susp UD IH SCH (07:31)
[2019-03-03 07:34] LABS: ALB/GLOB RATIO 0.9 (1.1-1.8); ALBUMIN 2.6 g/dL (3.0-4.8); ALT/SGPT 18 U/L (7-56); AST/SGOT 15 U/L (14-36); BLOOD UREA NITROGEN 27 mg/dL (7-21); CALCIUM 8.7 mg/dL (8.4-10.5); GFR NON-AFRICAN AMERICAN 57
[2019-03-03 07:59] VITALS: BP 132/75; PULSE 69; RESP 20; TEMP 98.1; O2SAT 97
[2019-03-03] MEDS ORDERED: guaiFENesin 100 mg/5 ml Syrup UD PO PRN (08:21)
[2019-03-03 09:41] LABS: URINE BILIRUBIN NEGATIVE (NEGATIVE); URINE BLOOD TRACE-LYSED (NEGATIVE); URINE GLUCOSE (UA) 250 mg/dL (NEGATIVE); URINE LEUKOCYTE ESTERASE TRACE Leu/uL (NEGATIVE); URINE PROTEIN >=300 mg/dL (<30 mg/dL); URINE UROBILINOGEN 0.2 E.U./dL (<1 E.U./dL)
[2019-03-03] MEDS: Enoxaparin 40 mg Syringe SC SCH (09:53)
[2019-03-03] MEDS: Pantoprazole 40 mg EC Tab PO SCH (09:54)
[2019-03-03] MEDS: Insulin Lispro 1 UNITS/0.01 ML SC SCH ×2 (09:55→14:23)
[2019-03-03] MEDS: Azithromycin 500MG/NS 250ml 500 MG/250 ML BAG IVPB SCH (09:57)
[2019-03-03 09:59] LABS: URINE APPEARANCE CLEAR (CLEAR); URINE COLOR YELLOW (YELLOW)
[2019-03-03 10:18] LABS: URINE BACTERIA MOD /hpf
--- NOTE | 2019-03-04 13:39 | PQF ---
PROVIDER RESPONSE TEXT: Patient has COPD not Asthama, was admitted with COPD exacerbation REVIEWER QUERY TEXT: Asthma Specificity and Type Asthma is documented in the Medical Record. Please specify the type and severity of asthma and indic ate if this is associated with exacerbation or status asthmaticus. Such as: -- Mild intermittent -- Mild persistent -- Moderate persistent -- Severe persistent -- Exercise induced bronchospasm -- Cough variant asthma -- Other, please specify The patient's Clinical Indicators include: Please see query. Thank you. Query created by: Keiko Marley on 03/04/2019 1:28 PM Electronically signed by: Linnette Villanueva MD 03/04/2019 1:36 PM
== END 2019-03-03 17:18 | disposition home or self-care (01) | DRG 88 ==
LOC: ED 17:14 → ERH 19:39 → 5RNO 03-01 00:10 → OBSVTOIN 03-01 17:07 → INTOOBSV 03-01 17:07
PROVIDERS: ADMIT Internal Medicine; ATTEND Internal Medicine
DX: J44.1 Chronic obstructive pulmonary disease with (acute) exacerbation (principal); E11.40 Type 2 diabetes mellitus with diabetic neuropathy, unspecified; E11.65 Type 2 diabetes mellitus with hyperglycemia; I10 Essential (primary) hypertension; E78.5 Hyperlipidemia, unspecified; K21.9 Gastro-esophageal reflux disease without esophagitis; T38.0X5A Adverse effect of glucocorticoids and synthetic analogues, initial encounter; Z82.5 Family history of asthma and other chronic lower respiratory diseases; Z86.718 Personal history of other venous thrombosis and embolism; Z87.01 Personal history of pneumonia (recurrent); Z87.442 Personal history of urinary calculi